=== PATIENT | female | born 1995 | race African-American/Black ===

== ENCOUNTER 2023-11-12 07:47 | Outpatient (CLI) | payer BC, SELFPAY ==
--- NOTE | ~2023-11-12 | US_ITS ---
EXAMINATION: US OB <= 14 weeks fetus INDICATION: N94.89 - Other specified conditions associated with femal... TECHNIQUE: Sonography of the pelvis was performed by transabdominal techniques. COMPARISON: None. RESULT: Uterus: 11.7 x 7.7 x 8.4 cm. Anteverted. Homogenous myometrium. Intrauterine gestational sac: Single present. Yolk sac: Not visualized or not imaged. Embryo: Single present. [place] rump length: 5.02 cm, corresponding gestational age 11 weeks, 5 days. Gestational heart rate: 163 bpm. Subgestational hematoma: Absent . Right ovary: 2.7 x 1.6 x 3.4 cm. Vascular flow is present. No adnexal mass. Left ovary: Not visualized. Pelvis free fluid: None. IMPRESSION: Single, live intrauterine gestation. Estimated Gestational Age: 11 weeks, 5 days by crown rump length. JOANN by ultrasound 05/28/2024. Reviewed, dictated and finalized at location K. IMPRESSION: Single, live intrauterine gestation. Estimated Gestational Age: 11 weeks, 5 days by crown rump length. JOANN by ultra sound 05/28/2024.
== END 2023-11-12 07:48 ==
LOC: MICIMG 07:47
PROVIDERS: PCP Obstetrics & Gynecology; Visit Provider Obstetrics & Gynecology
DX: N94.89 Other specified conditions associated with female genital organs and menstrual cycle (principal); Z3A.11 11 weeks gestation of pregnancy
CPT/HCPCS: 76801

== ENCOUNTER 2024-01-17 08:07 | Outpatient (CLI) | payer BC, SELFPAY ==
--- NOTE | ~2024-01-17 | US_ITS ---
EXAMINATION: US OB /maternal detail DATE: 01/17/2024 08:47 INDICATION: Encounter for supervision of normal . TECHNIQUE: Real-time ultrasound of the pelvis was performed. COMPARISON: Ultrasound 11/12/2023 FINDINGS: There is a single living fetus in vertex presentation. The placenta is anterior, 1.7 cm from the cer vix. heart rate is 148 beats per minute (bpm). The amniotic fluid volume is subjectively normal . The cervix is 3.4 cm on transabdominal images, which is normal. The following biometric data were obtained: Biparietal diameter (BPD): 4.5 cm; head circumference (HC): 19.0 cm; abdominal circumference (AC): 17 .1 cm; femur length (FL): 3.6 cm. These measurements are discordant with low cephalic index. Estimated weight is 444 g +/- 67 g, which correlates with the 75th percentile when 05/28/24 is u sed as estimated date of delivery. As single measurements, these parameters are each equal to the following estimated gestational ages: BPD: 19 weeks 5 days. HC: 21 weeks 2 days. AC: 22 weeks 1 days. FL: 21 weeks 4 days. estimated gestational age based solely on measurements from this exam is 21 weeks 1 days +/- 1 weeks 3 days. The cerebral ventricles, cerebellum, cisterna magna, nuchal fold, and spine are normal. The heart is normal. The diaphragm, stomach, kidneys, and bladder are normal. There are two umbilical arteries to yield a 3-vessel cord. The cord insertion is normal. IMPRESSION: 1. Single living fetus in vertex presentation. 2. Estimated weight is 444 g +/- 67 g, which correlates with the 75th percentile when 05/28/24 is used as estimated date of delivery. This date was set by ultrasound on 11/12/2023. 3. Discordant biometrics with low cephalic index. 4. Normal anatomic survey. Reviewed, dictated and finalized at location B. IMPRESSION: 1. Single living fetus in vertex presentation. 2. Estimated weight is 444 g +/- 67 g, which correlates with the 75th pe rcentile when 05/28/24 is used as estimated date of delivery. This date was set by ultrasound on 11/12/2023. 3. Discordant biometrics with low cephalic index. 4. Normal anatomic survey.
== END 2024-01-17 08:08 | disposition home or self-care (01) ==
LOC: GOSHIMG 08:09
PROVIDERS: PCP Obstetrics & Gynecology; Visit Provider Obstetrics & Gynecology
DX: Z34.90 Encounter for supervision of normal pregnancy, unspecified, unspecified trimester (principal); Z3A.21 21 weeks gestation of pregnancy
CPT/HCPCS: 76805

== ENCOUNTER 2024-03-03 16:20 | Observation (INO) | payer BC, SELFPAY ==
[2024-03-03] VITALS (12 sets, daily range): BP systolic 98–139; BP diastolic 53–76; PULSE 92–103; TEMP 36.6; O2SAT 100; BMI 38.2
--- NOTE | ~2024-03-03 | US_ITS ---
EXAMINATION: US OB limited DATE: 03/03/2024 18:56 INDICATION: ERLIN, Placenta check, decelerations post fall. . TECHNIQUE: Real-time ultrasound of the pelvis was performed. COMPARISON: 01/17/2024 FINDINGS: There is a single living fetus in vertex presentation, longitudinal lie. The placenta is anterior, n ormal in appearance, and 4.1 cm from the cervix. heart rate is 159 bpm. The amniotic fluid inde x is 11.7 cm, which is normal (5th to 95th percentile is 9.5 to 22.6 cm). IMPRESSION: Single living fetus in vertex presentation. Sonographically normal placenta. Normal ERLIN. Reviewed, dictated and finalized at location K. 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
[2024-03-03 16:58] LABS: Add Urine Microscopic? YES; Appearance Urine Cloudy (Clear); Bacteria Urine 1+ /hpf; Bilirubin Urine Negative (Negative); Blood Urine Negative (Negative); Color Urine Yellow (Yellow); Glucose Urine UA Negative (Negative); Ketones Urine Trace mg/dL (Negative); Leukocyte Esterase Ur Trace LEU/UL (Negative); Nitrate Urine Negative (Negative); Non Pathogenic Casts 0-2; Protein Urine Trace mg/dL (Negative); RBC Urine 0-2 /hpf (0-2); Specific Grav Ur 1.019 (1.001-1.035); Squamous Epithelial Cell Urine Moderate /hpf (Few); WBC Urine 0-5 /hpf (0-3)
[2024-03-03] MEDS: CYCLOBENZAPRINE HCL 10 MG TABLET PO (17:19)
--- NOTE | 2024-03-03 18:18 | OBADM ---
This patient, Marina Haddad, admitted to the OB room OB Post 117 for observation. Patient/family oriented to hospital policies and general routines including ID bracelet, bed and alarms, visiting hours, pain management, procedures, bathroom and other care routines, personal items, smoking policy, room service/diet, and visiting hours. Patient/Family are encouraged to report perceived risks to care and to ask questions if they do not understand what they are told or what they should do.
[2024-03-03 20:18] LABS: Hematocrit 32.2 % (37.0-47.0); Hemoglobin 10.3 g/dL (12.0-15.0); Mean Corpuscular Hemoglobin 26.3 pg (26-34); Mean Corpuscular Volume 82.1 fl (80-100); Mean Platelet Volume 12.1 fl (7.4-10.4); Platelet Count Result 254 k/mm3 (150-375); Red Blood Count 3.92 M/mm3 (4.2-5.4); White Blood Count 12.7 K/mm3 (4.5-10.0)
[2024-03-03 20:31] LABS: Alanine Aminotransferase 30 U/L (6-35); Albumin Level 3.4 g/dL (3.5-5.1); Alkaline Phosphatase 98 U/L (38-126); Anion Gap 4 mmol/L (4-12); Aspartate Amino Transferase 29 U/L (14-36); Bilirubin,Total 0.4 mg/dL (0.2-1.3); Blood Urea Nitrogen 8 mg/dL (7-17); Calcium 8.9 mg/dL (8.4-10.2); Carbon Dioxide 23 mmol/L (22-30); Chloride 106 mmol/L (98-107); Estimated CRCL calculation 180 ml/min; Estimated Glomerular Filt Rate > 60; Glucose 77 mg/dL (65-110); Potassium 4.3 mmol/L (3.4-5.0); Sodium 133 mmol/L (137-145)
[2024-03-03 21:01] LABS: INR 1.2
[2024-03-03 21:02] LABS: Partial Thromboplastin Time 26.6 Seconds (22.3-36.8)
[2024-03-03 21:42] LABS: Fibrinogen < 60 mg/dl (215-510)
[2024-03-03 23:23] LABS: Fibrinogen < 60 mg/dl (215-510)
[2024-03-04] VITALS (18 sets, daily range): BP systolic 106–115; BP diastolic 50–59; PULSE 88–102; RESP 16–20; TEMP 36.6; O2SAT 98–100
--- NOTE | 2024-03-04 00:01 | PM.TDS ---
Transfer Discharge Sum: Prov Provider Date of admission: 03/03/24 16:20 Primary care physician: Edilberto Pulido MD Admitting clinician: Edilberto Pulido MD Attending physician on admission: Almita Kerns Consults: [facility] attending: Dr. 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 Status: Acute Transfer Discharge Sum: Med Medications Active and Home Medications: Home Medications vits no.126-ferrous fum 28 mg iron-folic acid 800 mcg tablet (Classic ) tablet PO 11/22/23 [History Confirmed 02/07/24] aspirin 81 mg chewable tablet 81 mg PO DAILY 01/12/24 [History Confirmed 02/07/24] ferrous sulfate 325 mg (65 mg iron) tablet (Iron (ferrous sulfate)) 325 mg PO DAILY #90 tabs 01/12/24 [Rx Confirmed 02/07/24] hydrocortisone 2.5 % topical ointment 1 applic topical BID-TID #20 grams 02/07/24 [Rx Confirmed 02/07/24] Active Medications Dextrose/Lactated Ringer's (Dextrose 5%/Lactated Ringers) 1,000 mls @ 125 mls/hr IV CONT .Q8H ZOILA Magnesium Sulfate (Magnesium Sulf 6 Gm/[id number]) 6 gm in 150 mls @ 300 mls/hr IVPB ONCE ONE Stop: 03/04/24 00:14 Magnesium Sulfate (Magnesium Sulf 20gm/[id number]) 500 mls @ 50 mls/hr IV CONT .Q10H ZOILA Lactated Ringer's (Lr - Lactated Ringers Iv) 1,000 mls @ 75 mls/hr IV CONT .[id number] ZOILA Transfer Discharge Sum: Hosp Hospital Course Hospital course: Marina Haddad is a 28 yo who presented to L&D after a fall onto her left buttock/flank. She was endorsing left groin/back/buttock pains. She did endorse good movement. No vaginal bleeding or leakage of fluid. She was given Flexeril 10mg and Tylenol to help with the pain and plan was to monitor for at least four hours. On arrival, baby was tachycardic but that resolved and her uterus was soft, nontender. However, during that time, multiple severe variables were noted. Therefore, blood work and OB US were performed. Placenta appeared normal with normal ERLIN, cephalic fetus. But her fibrinogen was noted to be less than 60. The fibrinogen level was once again repeated and was also <60. Her INR was slightly elevated at 1.2. She has had some uterine irritability, but heart tones have been more reassuring, no deceleration in over an hour. She initially refused IV and IV fluids. [facility] (Dr. Joaquin) was contacted for consult, but recommended that we transfer her due to her significant hypofibrinogenemia and prematurity. He wanted magnesium sulfate started for prematurity and quiescence. Time Spent with Patient Time attestation: Total time spent providing and/or coordinating transfer services: Exam Const: General: cooperative, healthy appearing, comfortable and no acute distress Resp: Effort & Inspection: normal respiratory effort Cardio: Rate: regular rate GI: Inspection: normal to inspection GI Palp: No abdominal tenderness and Yes Soft to palpation : Other: FHTs: 150's/ min to mod variability/ + accels/ occasional variable (last 2329) -- tracing not contiguous toco: irritability no bleeding Skin: General skin exam: normal color Neuro: General: patient oriented x3 Extrem: General: normal to inspection Psych: Appearance: grossly normal Affect: normal affect DS: Data Data Completed and Pending Labs on day of discharge: Labs from last 24 hours 03/03/24 03/03/24 03/03/24 22:48 20:41 19:53 WBC 12.7 H RBC 3.92 L Hgb 10.3 L Hct 32.2 L MCV 82.1 MCH 26.3 MCHC 32.0 RDW 15.0 H Plt Count 254 MPV 12.1 H PT 15.0 H INR 1.2 APTT 26.6 Fibrinogen < 60 L < 60 L Sodium 133 L Potassium 4.3 Chloride 106 Carbon Dioxide 23 Anion Gap 4 BUN 8 Creatinine 0.60 L Estim Creat Clear Calc 180 Estimated GFR > 60 Glucose 77 Calcium 8.9 Total Bilirubin 0.4 AST 29 ALT 30 Alkaline Phosphatase 98 Total Protein 7.0 Albumin 3.4 L Urine Color Urine Appearance Urine pH Ur Specific [place] Urine Protein Urine Glucose (UA) Urine Ketones Ur Blood (Man) Urine Nitrate Urine Bilirubin Urine Urobilinogen Leukocyte Esterase Rfl Urine RBC Urine WBC Ur Squamous Epith Cells Urine Bacteria Urine Casts 03/03/24 16:47 WBC RBC Hgb Hct MCV MCH MCHC RDW Plt Count MPV PT INR APTT Fibrinogen Sodium Potassium Chloride Carbon Dioxide Anion Gap BUN Creatinine Estim Creat Clear Calc Estimated GFR Glucose Calcium Total Bilirubin AST ALT Alkaline Phosphatase Total Protein Albumin Urine Color Yellow Urine Appearance Cloudy H Urine pH 7.0 Ur Specific [place] 1.019 Urine Protein Trace Urine Glucose (UA) Negative Urine Ketones Trace H Ur Blood (Man) Negative Urine Nitrate Negative Urine Bilirubin Negative Urine Urobilinogen 1.0 Leukocyte Esterase Rfl Trace H Urine RBC 0-2 Urine WBC 0-5 Ur Squamous Epith Cells Moderate Urine Bacteria 1+ H Urine Casts 0-2
[2024-03-04] MEDS: LACTATED RINGERS 1,000 ML 75 ML IV CONT (00:19)
[2024-03-04] MEDS: MAGNESIUM SULF 20GM/WATER500ML 500 ML 50 MG IV CONT (00:20)
--- NOTE | 2024-03-05 10:03 | PCCCNOTE ---
Consult received for patient scored high on OB Substance Abuse Screening; however, pt. was transfer to [place] due to fall was unable to see pt. before transfer.
--- NOTE | 2024-03-05 13:42 | PM.IMHP ---
H&P: HPI History of Present Illness Date/Time: 03/05/24 13:42 Chief Complaint: fall Narrative: Marina Haddad is a 28 yo who presented to L&D after a fall onto her left buttock/flank. She was endorsing left groin/back/buttock pains. She did endorse good movement. No vaginal bleeding or leakage of fluid. She was given Flexeril 10mg and Tylenol to help with the pain and plan was to monitor for at least four hours. On arrival, baby was tachycardic but that resolved and her uterus was soft, nontender. However, during that time, multiple severe variables were noted. Therefore, blood work and OB US were performed. Placenta appeared normal with normal ERLIN, cephalic fetus. But her fibrinogen was noted to be less than 60. The fibrinogen level was once again repeated and was also <60. Her INR was slightly elevated at 1.2. She has had some uterine irritability, but heart tones have been more reassuring, no deceleration in over an hour. She initially refused IV and IV fluids. [facility] (Dr. Joaquin) was contacted for consult, but recommended that we transfer her due to her significant hypofibrinogenemia and prematurity. He wanted magnesium sulfate started for prematurity and quiescence. Review of Systems Review of Systems: All systems reviewed & are unremarkable except as noted in HPI and below (HPI) [facility] Past Medical History Medical History Suppression of menses Family History Family History Grandparent Hypertension Heart disease Breast cancer Diabetes mellitus Other Acute myocardial infarction Social History Social History Smoking status: Never smoker Alcohol intake: former Substance use: former Substance use type: marijuana Do You Feel Safe in your Home?: Yes Lack of Transportation: No Lack of Food: Sometimes True Current Housing: I Have Housing Concerned About Future Housing: No Difficulty Paying Gas/Electric Bills: YES Difficulty Paying for Meds: No Currently Unemployed: No Education: Master's Degree or Higher Difficulty w/ Childcare or Family Care: No Living arrangements: with family Occupation/Education: occupation Gender identity (if verbalized by the patient): Female Meds Home Medications and Allergies Home Medications ?Medication ?Instructions ?Recorded ?Confirmed ?Type vits no.126-ferrous fum tablet PO 11/22/23 02/07/24 History 28 mg iron-folic acid 800 mcg tablet (Classic ) aspirin 81 mg chewable tablet 81 mg PO DAILY 01/12/24 02/07/24 History ferrous sulfate 325 mg (65 mg 325 mg PO DAILY #90 tabs 01/12/24 02/07/24 Rx iron) tablet (Iron (ferrous sulfate)) hydrocortisone 2.5 % topical 1 applic topical BID-TID #20 grams 02/07/24 02/07/24 Rx ointment Allergies Allergy/AdvReac Type Severity Reaction Status Date / Time No Known Allergies Allergy Verified 02/07/24 17:32 Exam Const: General: cooperative, healthy appearing, comfortable and no acute distress Orientation/consciousness: patient oriented x3 Resp: Effort & Inspection: normal respiratory effort Cardio: Rate: regular rate GI: Inspection: normal to inspection : Other: FHTs: 150's/ min to mod variability/ + accels/ occasional variable (last 2329) -- tracing not contiguous toco: irritability no bleeding Skin: General skin exam: normal color Neuro: General: patient oriented x3 Extrem: General: normal to inspection Psych: Appearance: grossly normal Affect: normal affect Assessment and Plan Assessment and plan (1) Fall: Qualifiers: Encounter type: initial encounter Qualified Code(s): W19.XXXA - Unspecified fall, initial encounter Code(s): W19.XXXA - Unspecified fall, initial encounter Status: Acute (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
--- OUTSIDE RECORDS SUMMARY | 2024-03-07 23:39 | XMS_ITS | Encounter Summary ---
Author Organization [facility] Address [address] [place] [address] Care Team Providers Care Certified Pharmacist Assistant Name Role Phone Pepe Shepherd MD Primary Care Provider [phone] Reason for Visit * Reason Onset Date Comments Follow-up 03/05/2024 Encounter Details Date Type Department Care Team (Late st Contact Info) Description 03/05/2024 Telephone [facility] MATERNAL/ EVALUATION UNIT [address] [place] [address] Bonnie Warren RN Follow-up Social History Tobacco Use Types Packs/Day Years Used Date Smoking Tobacco: Never Smokeless Tobacco: Never Overall Financial Resource Strain (CARDIA) Answe r Date Recorded How hard is it for you to pa y for the very basics like food, housing, medical care, and heating? Not very hard 03/04/2024 [facility] [place] [facility] - Occupational Stress Questionnaire Answer Date Recorded Do you feel stress - tense, restless, nervous, or anxious, or unable to sleep at night because your mind is troubled all the time - these days? To some extent 03/04/2024 Hunger Vital Sign Answer Date Recorded Within the past 12 months, y ou worried that your food would run out before you got the money to buy more. Never true Within the past 12 months, t he food you bought just didn't last and you didn't have money to get more. Sometimes true PRAPARE - Transportation Answer Date Re corded In the past 12 months, has l ack of transportation kept you from medical appointments or from getting medications? No 02/18 In the past 12 months, has l ack of transportation kept you from meetings, work, or from getting things needed for daily living? No 03/04/2024 Housing Stability Vital Sign Answer Santhosh e Recorded In the last 12 months, was t here a time when you were not able to pay the mortgage or rent on time? No 03/04/2024 In the past 12 months, how m any times have you moved where you were living? 1 03/04/2024 At any time in the past 12 m [facility], were you homeless or living in a mcc (including now)? No 03/04/2024 Estimated Date of Delivery Comme nts Yes 05/28/2024 Based on last me nstrual period of 08/22/2023 Sex and Gender Information Value Date Recorded Sex Assigned at Not on file Gender Identity Not on file Sexual Orientation Not on file documented as of this encounter Functional Status Functional Status Response Date of Assess ment Is person deaf or have serious hearing difficult y? No 03/04/2024 Is person blind or have serious difficulty seein g? No 03/04/2024 Does person have serious dif ficulty walking/climbing stairs? No 03/04/2024 Does person have difficulty dressing/bathing? No 03/04/2024 Does person have difficulty doing errands alone? No 03/04/2024 Cognitive Status Response Date of Assessm ent Does person have difficulty concentrating/remembering/making decisions? No 03/04/2024 documented as of this encounter Miscellaneous Notes * Telephone Encounter - Bonnie Warren RN - 03/05/2024 10:42 AM CST [employer] message received: Angelina Amato MD sent to Santa Lenz RN Hello, This patient will need transfer of care from [place] to [facility] per Dr. Joaquin. Call placed to Marina Haddad. verified. Desires ELIZABETH to [place] Offered next available [facility] appointment on 03/29/24 at 1030. Patient instructed to keep next growth US appt at [facility] on 03/20 and to keep any furtherappointments with primary OB until March. Patient verbalizes understanding. 3T labs completed with primary OB on 03/02/24, GCT = 98 (results in Care Everywhere). Clinic address/directions provided to patient. Instructed to arrive early to complete registration process. Patient home address confirmed - New patient letter and map mailed to patient. Active [employer] user. Almita @ [facility] notified of appointment date and time. Explained that our [facility] has no openings until March. Agreeable to continue providing care at [facility] until transfer of care to [facility] can be established on 03/29/24. [employer] documented in this encounter Plan of Treatment Upcoming Encounters Date Type Department Care Team (Late st Contact Info) Description 03/20/2024 9:00 AM [employer] Appointment [facility]aternal [facility] [address] [place] [id number] 03/29/2024 10:30 AM ROBOT[employer] MACHINE [employer] Appointment [facility] MATERNAL/ EVALUATION UNIT [address] [place] [address] documented as of this encounter Visit Diagnoses Not on filedocumented in this encounter Care Teams Certified Pharmacist Assistant Relationship Specialty [place] [address] [place] [phone] PCP - General Family Medicine 09/08/12 documented as of this encounter
--- OUTSIDE RECORDS SUMMARY | 2024-03-07 23:39 | XMS_ITS | Encounter Summary ---
Author Organization [facility] Address [address] [place] [address] Care Team Providers Care Surgery Tech Name Role Phone Pepe Shepherd MD Primary Care Provider [phone] Reason for Referral * (Routine) - Pending Review Specialty Diagnoses / Procedures Referred By Contac t Referred To Contact Diagnoses Low-lying placenta in third trimester (HCC) Encounter for anatomic survey (HCC) Encounter for ultrasound to check growth (HCC) Anemia in , second trimester (HCC) Procedures SONOGRAM - COMPLETE Almita Kerns MD [address] [place] [address] Referral ID Status Reason Start Date Expiration Date V isits Requested Visits Authorized [id number] Pending Review 02/10/2024 02/09/2025 1 1 ECTOR RECEIVING * (Routine) - Pending Review Specialty Diagnoses / Procedures Referred By Contac t Referred To Contact Diagnoses Low-lying placenta in third trimester (HCC) Encounter for anatomic survey (HCC) Encounter for ultrasound to check growth (HCC) Anemia in , second trimester (HCC) Procedures SONOGRAM - COMPLETE Almita Kerns MD [address] [place] [address] Referral ID Status Reason Start Date Expiration Date V isits Requested Visits Authorized [id number] Pending Review 02/10/2024 02/09/2025 1 1 ECTOR RECEIVING Reason for Visit * Reason Comments Ultrasound Encounter Details Date Type Department Care Team (Latest Contact Info) Description 02/21/2024 9:37 AM INSPECTOR RECEIVING - 02/21/2024 11:59 PM INSPECTOR RECEIVING Hospital Encounter [facility] [address] [place] [address] Almita Kerns MD [address] [place] [id number] Jordan Lauren DO [address] [place] [address] Discharge Disposition: Home or Self Care Social History Tobacco Use Types Packs/Day Years Used Date Smoking Tobacco: Never Assessed Estimated Date of Delivery Comme nts Yes 05/28/2024 Based on last me nstrual period of 08/22/2023 Sex and Gender Information Value Date Recorded Sex Assigned at Not on file Gender Identity Not on file Sexual Orientation Not on file documented as of this encounter Plan of Treatment Upcoming Encounters Date Type Department Care Team (Late st Contact Info) Description 03/20/2024 9:00 AM INSPECTOR RECEIVING Appointment [facility] [address] [place] [address] 03/29/2024 10:30 AM INSPECTOR RECEIVING Appointment [facility] [address] [place], [place] [id number] documented as of this encounter Procedures Procedure Name Priority Date/Time Associated Diagnosis Comments SONOGRAM - COMPLETE Routine 02/21/2024 9 :58 AM INSPECTOR RECEIVING Low-lying placenta in third trimester (HCC) Encounter for anatomic survey (HCC) Encounter for ultrasound to check growth (HCC) Anemia in , second trimester (HCC) documented in this encounter Results * SONOGRAM - COMPLETE (02/21/2024 9:58 AM INSPECTOR RECEIVING) Linked Results Indication ======== Low-Lying Placenta on Outside Scan Class II Obesity History ====== OB History ? 1 Lab Tests Test ? Date ? Result NIPT ? Low risk Maternal Assessment Physical Exam ??Height 180 cm, 5 ft 11 in. Initial weight 122 kg, 268 lb. Initial BMI 37.38 kg/m? Method ====== Transabdominal and transvaginal ultrasound ========= [place] . Number of fetuses: 1 Dating ====== ? Date ?Details ? Gest. age ? JOANN LMP ?08/22/2023 ?26 w + 1 d ?05/28/2024 U/S ?02/21/2024 ? based upon AC, BPD, Femur, HC ? 26 w + 4 d ?05/25/2024 Assigned dating based on the LMP, selected on 02/21/2024 ?26 w + 1 d ?05/28/2024 General Evaluation Cardiac activity present. FHR 149 bpm. Presentation: cephalic Placenta: Placental site: anterior no previa not low lying. Placental emkt-[id number]-[id number] os distance 47 mm Umbilical cord: Cord vessels: 3 vessel cord. Insertion site: normal insertion Amniotic fluid: Amount of AF: normal. MVP 7.0 cm Biometry BPD ?63.4 ?mm ?25w 5d ??24% ? Hadlock HC ? 241.1 ?? mm ?26w 1d ??26% ? Hadlock Cerebellum tr ?29.6 ?mm ?48% ? [place] AC ? 219.2 ?? mm ?26w 3d ??49% ? Hadlock Femur ?52.5 ?mm ?28w 0d ??86% ? Hadlock Humerus ?49.0 ?mm ?28w 6d ??97% ? [place] HC / AC ?1.10 Weight Calculation: EFW ?994 ? g ? 69% ? Hadlock EFW (lb,oz) ?2 lb 3 ??oz EFW by ? Hadlock ([id number]) Head / Face / Neck Biometry: Cephalic index ? 0.73 ?4% ?Nicolaides appropriate Growth Overview Exam date ?GA ?BPD (mm) ?HC (mm) AC (mm) FL (mm) HL (mm) EFW (g) 02/21/2024 ?26w 1d ??63.4 ?24% ? 241.1 ?? 26% ? 219.2 ?? 49% ? 52.5 ?86% ? 49 ?97% ? 994 ? 69% Anatomy The following structures appear normal: Head / Neck ?Cranium. Lateral ventricles. Choroid plexus. Midline falx. Cavum septi pellucidi. Cerebellum. Cisterna magna. Face ? Lips. Heart / Thorax 4-chamber view. RVOT view. LVOT view. 3-vessel view. 0-nwhlqk-xtluinf view. Situs. Aortic arch view. Bicaval view. Ductal arch view. Great ? vessels. ? Right lung. Left lung. Diaphragm. Abdomen ?Cord insertion. Stomach. Kidneys. Bladder. Genitals. Spine ?Cervical spine. Thoracic spine. Lumbar spine. Sacral spine. Extremities / Skeleton Arms. Hands. Legs. Feet. The following structures could not be adequately visualized: Face ? Profile. Nose. sex: male. Maternal Structures Cervix ? Normal ? Approach - Transvaginal: Cervical length 3.70 cm ? Funneling absent Right Ovary ?Not visualized Left Ovary ? Not visualized Impression ========= Here today for placental location due to previously noted low-lying placenta at an outside facility. She had opted for NIPT which was reported as low risk. Single live intrauterine at 26w 1d in cephalic presentation The JOANN is 05/28/2024 size is appropriate for the established gestational age The amniotic fluid volume: normal Transvaginal cervical length appears normal measuring 3.7 cm long and closed. No funneling Normal appearing anterior placenta. No evidence of a low lying placenta nor previa No major malformations were seen within the limitations of ultrasound. But certain structures remains suboptimally visualized. Comment ======== Normal appearing anterior placenta no evidence of a previa or low-lying placenta. The placental edge measures 47 mm from the internal cervical os via transvaginal ultrasound. No evidence of a vasa previa. This is a common phenomenon for a low-lying placenta or previa to spontaneous resolve with advancing gestation with the development of the lower uterine segment which will enable one to better delineate the placental edge from the internal cervical os. Therefore no further need for previa precautions or pelvic rest. Although a complete anatomical survey was not performed due to advanced gestation and positioning along with maternal acoustic properties which limited the overall study, no gross abnormalities were noted. However certain structures remains suboptimally visualized due to these limitations. Both ultrasound and screening/testing have their limitations in detecting all congenital anomalies and chromosomal abnormalities/inh erited disorders or genetic syndromes. Follow-up ======== To return in 4 weeks for growth and to complete anatomic survey. Due to increased BMI greater than 35 potential for poor outcome will recommend continuation of serial growth ultrasounds every 4-6 weeks after the next visit and to initiate weekly BPP without NST at 36 weeks sooner if clinically warranted. Thank you for allowing us to partake in your patient's care. Coding ====== Procedures ? 85293: US Preg Uterus Detailed ? 66799: US Preg Uterus Transvaginal Clarient PACS Anatomical Region Laterality Modality Other 02/21/2024 9:58 AM INSPECTOR RECEIVING Almita Kerns MD [facility] ORDERABLES documented in this encounter Visit Diagnoses Diagnosis Low-lying placenta in third trimester (HCC)- Primary Encounter for anatomic survey (HCC) Encounter for anatomic survey Encounter for ultrasound to check growth (HCC) Anemia affecting in third trimester (HCC) Anemia in , second trimester (HCC) 26 weeks gestation of (HCC) state, incidental documented in this encounter Care Teams Surgery Tech Relationship Specialty Start Date End Date Pepe Shepherd MD [address] [place] [id number] PCP - General Family Medicine 09/08/12 documented as of this encounter
--- OUTSIDE RECORDS SUMMARY | 2024-03-07 23:39 | XMS_ITS | Patient Health Summary ---
Author Organization [facility] Address [address] [place] [address] Care Team Providers Care Harness Cutter Name Role Phone Pepe Shepherd MD Primary Care Provider [phone] Note [address] [facility],non-owned Affiliates and Associated Physician Practices is amultiple site organization consisting of ambulatory clinics and hospital sitesin [place], [place], [place] and [place]. This disclosure is being madepursuant to the Care Everywhere program and may not contain all information available regarding this patient. Last updated 17.[facility] Allergies No known active allergies Medications * Be aware that medications may not be up to date on this document. Alwaysverify current medications with the patient. 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 Not very hard 03/04/2024 [facility] [place] [facility] Occup[facility] - Occupational Stress [...] any time in the past 12 m [facility], were you homeless or living in a correction (including now)? No 03/04/2024 Estimated Date of Delivery Comme nts Yes 05/28/2024 Based on last me nstrual period of 08/22/2023 Sex and Gender Information Value Date Recorded Sex Assigned at Not on file Gender Identity Not on file Sexual Orientation Not on file Last Filed Vital Signs Vital Sign Reading Time Taken Comments Blood Pressure 128/70 03/04/2024 7:15 AM SUPPORT SERVICES SPECIALIST Pulse 94 04/01/2020 5:31 PM SUPPORT SERVICES SPECIALIST Temperature 37.1 ??C (98.8 ??F) 03/04/2024 7:15 AM CS T Respiratory Rate 20 03/04/2024 7:15 AM SUPPORT SERVICES SPECIALIST Oxygen Saturation 99% 03/04/2024 7:10 AM SUPPORT SERVICES SPECIALIST Inhaled Oxygen Concentration - - Weight 137.7 kg (303 lb 8 oz) 03/04/2024 1:49 AM SUPPORT SERVICES SPECIALIST Height 182.9 cm (6') 03/04/2024 1:49 AM SUPPORT SERVICES SPECIALIST Body Mass Index 41.16 03/04/2024 1:49 AM SUPPORT SERVICES SPECIALIST Procedures * TYPE + SCREEN PANEL(Performed 03/04/2024) * COAGULATION PANEL W D-DIMER(Performed 03/04/2024) * COMPREHENSIVE METABOLIC PANEL(Performed 03/04/2024) * CBC W AUTO DIFFERENTIAL(Performed 03/04/2024) * SONOGRAM - COMPLETE(Performed 02/21/2024) Performed for Low-lying placenta in third trimester ([facility]), Encounter for anatomic survey ([facility]), Encounter for ultrasound to check growth ([facility]), Anemia in , second trimester ([facility]) * VARICELLA ZOSTER ANTIBODY IGG(Performed 07/02/2021) Performed for Immunity status testing * MMR IMMUNITY PROFILE(Performed 07/02/2021) Performed for Immunity status testing * CARDIAC EKG ORDER(Performed 09/11/2012) * CARDIAC EKG ORDER(Performed 09/08/2012) * DRUG ABUSE URINE PANEL(Performed 09/08/2012) * EKG 15-LEAD(Performed 09/08/2012) Performed for Chest Pain, Shortness of breath Results * TYPE + SCREEN PANEL (03/04/2024 3:25 AM SUPPORT SERVICES SPECIALIST) Pathologist [facility] [place] ABO Rh O POS 03/04/2024 5:06 AM SUPPORT SERVICES SPECIALIST [facility] Comment:No history; collect retype. Antibody Screen NEG 5:06 AM [facility] Blood Bank BLOOD SPECIMEN / Unknown Venipuncture / Unknown 03/04/2024 3:25 AM SUPPORT SERVICES SPECIALIST 03/04/2024 3:40 AM SUPPORT SERVICES SPECIALIST Rolly Joaquin MD LAB - BLOOD BANK ORD ERABLES [facility] [address] [place] [address] * (ABNORMAL) COAGULATION PANEL W D-DIMER (03/04/2024 3:25 AM SUPPORT SERVICES SPECIALIST) PT 15.6(H) 12.1 - 14.8 sec 03/04/2024 4:20 AM SUPPORT SERVICES SPECIALIST [facility] INR 1.3(H) 0.9 - 1.1 03/04/2024 4:20 AM SUPPORT SERVICES SPECIALIST [facility] PTT 25.3 23.0 - 38.4 sec 03/04/2024 4:20 AM [facility] Fibrinogen 646(H) 200 - 400 mg/dL 03/04/2024 4:20 AM [facility] D-Dimer 0.49 0.27 - 0.50 ug/mL FEU 03/04/2024 4:20 AM [facility] Platelet Count 248 150 - 420 x10E9/L 03/04/2024 4:20 AM [facility] Blood BLOOD SPECIMEN / Unknown Venipuncture / Unknown 03/04/2024 3:25 AM SUPPORT SERVICES SPECIALIST 03/04/2024 3:40 AM [facility] Narrative [facility] - 03/04/2024 4:20 AM [facility] Conventional Warfarin Anticoagulant Therapy INR Reference Range: ??2.0-3.0 Intensive Warfarin Anticoagulant Therapy INR Reference Range: ? 2.5-3.5 Heparin Therapeutic Range for PTT: ??69.0 - 110.0 seconds. In the absence of clinical symptoms, a value less than or equal to 0.5 mcg/mL FEU significantly decreases the probability of PE/DVT (negative predictive value >95%). 1 mcg/ml FEU = 1 Fibrinogen Equivalent Unit (approximates 0.5 mcg/mL of D- dimer). ?ISTH DIAGNOSTIC SCORING SYSTEM FOR DIC ---- Score ?0 ? 1 ? 2 ? 3 ?? Platelet Count (x10^3/uL) ?> 100 ? <100 ? < 50 ?N/A PT Prolongation above ? Upper limit of normal ?0-3 ? 3-6 ? > 6 ?N/A Range (seconds) ? Fibrinogen (mg/dL) ? >100 ?< 100 ? N/A ?N/A ?? D-Dimer (mcg/mL FEU) ?< 0.50 ? N/A ?0.50-5.0 ?> 5 ?? Calculate Cumulative Score: > or = 5: compatible with overt DIC ? < 5: suggestive for non-overt DIC N/A = Non applicable Reference: Br. J. Haematol. ??145:24-33. Rolly Joaquin MD LAB - COAGULATION OR DERABLES [facility] [address] [place] [address] * (ABNORMAL) CBC W AUTO DIFFERENTIAL (03/04/2024 3:25 AM SUPPORT SERVICES SPECIALIST) WBC 13.5(H) 4.0 - 10.7 x10E9/L 03/04/2024 3:45 AM [facility] RBC Count 3.93 3.90 - 5.20 x10E12/L 03/04/2024 3:45 AM [facility] Hemoglobin 10.0(L) 11.9 - 15.8 g/dL 03/04/2024 3:45 AM [facility] Hematocrit 31.6(L) 34.8 - 46.1 % 03/04/2024 3:45 AM [facility] MCV 80.4 80.0 - 98.0 fL 03/04/2024 3:45 AM [facility] MCH 25.4(L) 26.7 - 33.6 pg 03/04/2024 3:45 AM [facility] MCHC 31.6(L) 31.7 - 36.3 g/dL 03/04/2024 3:45 AM [facility] RDW-CV 14.8 11.3 - 14.8 % 03/04/2024 3:45 AM [facility] Platelet Count 270 150 - 420 x10E9/L 03/04/2024 3:45 AM [facility] MPV 11.5(H) 7.8 - 11.4 fL 03/04/2024 3:45 AM [facility] Neutrophil % 73.5 41.0 - 74.0 % 03/04/2024 3:45 AM [facility] Lymphocyte % 17.4 17.0 - 47.0 % 03/04/2024 3:45 AM [facility] Monocyte % 7.8 3.0 - 11.0 % 03/04/2024 3:45 AM [facility] Eosinophil % 0.3 0.0 - 7.0 % 03/04/2024 3:45 AM [facility] Basophil % 0.2 0.0 - 1.6 % 03/04/2024 3:45 AM [facility] Immature Granulocytes % 0.8 0.0 - 1.0 % 03/04/2024 3:45 AM [facility] Neutrophil Absolute 9.94(H) 1.60 - 7.50 x10E9/L 03/04/2024 3:45 AM [facility] Lymphocyte Absolute 2.35 1.00 - 4.40 x10E9/L 03/04/2024 3:45 AM [facility] Monocyte Absolute 1.06(H) 0.15 - 1.00 x10E9/L 03/04/2024 3:45 AM [facility] Eosinophil Absolute 0.04 0.00 - 0.60 x10E9/L 03/04/2024 3:45 AM [facility] Basophil Absolute 0.03 0.00 - 0.13 x10E9/L 03/04/2024 3:45 AM [facility] Blood BLOOD SPECIMEN / Unknown Venipuncture / Unknown 03/04/2024 3:25 AM SUPPORT SERVICES SPECIALIST 03/04/2024 3:40 AM [facility] Rolly Joaquin MD LAB - HEMATOLOGY ORD ERABLES [facility] [address] [place] [address] * (ABNORMAL) COMPREHENSIVE METABOLIC PANEL (03/04/2024 3:25 AM [facility]) [facility] Glucose 91 70 - 99 mg/dL 03/04/2024 3:59 AM [facility] Sodium 134(L) 136 - 145 mmol/L 03/04/2024 3:59 AM [facility] Potassium 3.4(L) 3.5 - 5.1 mmol/L 03/04/2024 3:59 AM [facility] Chloride 105 98 - 107 mmol/L 03/04/2024 3:59 AM [facility] CO2 22 22 - 29 mmol/L 03/04/2024 3:59 AM [facility] Calcium 8.5 8.4 - 10.4 mg/dL 03/04/2024 3:59 AM [facility] Anion Gap 7 6 - 16 mmol/L 03/04/2024 3:59 AM [facility] BUN 5(L) 5.3 - 18.7 mg/dL 03/04/2024 3:59 AM [facility] Creatinine 0.63 0.57 - 1.11 mg/dL 03/04/2024 3:59 AM [facility] Alkaline Phosphatase 92 40 - 150 U/L 03/04/2024 3:59 AM [facility] ALT 22 0 - 55 U/L 03/04/2024 3:59 AM [facility] AST 15 5 - 34 U/L 03/04/2024 3:59 AM [facility] Protein Total 7.1 6.4 - 8.3 gm/dL 03/04/2024 3:59 AM [facility] Albumin 2.3(L) 3.4 - 5.0 gm/dL 03/04/2024 3:59 AM [facility] Bilirubin Total 0.2 0.2 - 1.2 mg/dL 03/04/2024 3:59 AM [facility] eGFR by CKD-EPI >90 >=90 mL/min/1.7 3 m2 03/04/2024 3:59 AM [facility] Blood BLOOD SPECIMEN / Unknown Venipuncture / Unknown 03/04/2024 3:25 AM SUPPORT SERVICES SPECIALIST 03/04/2024 3:40 AM [facility] Rolly Joaquin MD LAB - CHEMISTRY DAVID MONTES [facility] [address] [place] [address] * SONOGRAM - COMPLETE (02/21/2024 9:58 AM [facility]) Linked Results Indication ======== Low-Lying Placenta on [...] anterior no previa not low lying. Placental uezk-vo-lgtcqcea os distance 47 mm Umbilical cord: Cord [...] lb 3 ??oz EFW by ? [facility] ([id number]) Head / Face / Neck Biometry: Cephalic [...] view. RVOT view. LVOT view. 3-vessel view. 8-xmnkmm-lcndoun view. Situs. Aortic arch view. Bicaval view. [...] your patient's care. Coding ====== Procedures ? 83425: US Preg Uterus Detailed ? 95469: US Preg Uterus [facility] [place] PACS Anatomical Region Laterality Modality Other 02/21/2024 9:58 AM SUPPORT SERVICES SPECIALIST Almita Kerns MD [facility] ORDERABLES * MMR IMMUNITY PROFILE (07/02/2021 3:40 PM CDT) Measles (Rubeola) Antibody IgG 237.00 AU/mL [facility] Comment: AU/mL ?Interpretation ----- ? <13.50 ? Not consistent with immunity 13.50-16.49 ?Equivocal >16.49 ? Consistent with immunity The presence of measles IgG suggests immunization or past or current infection with measles virus. For additional information, please refer to http://education.Screenleap/faq/IWJ808 (This link is being provided for informational/ educational purposes only.) Mumps Virus Antibody IgG 151.00 AU/mL [facility] Comment: AU/mL ? Interpretation ------- ? <9.00 ? Not consistent with immunity 9.00-10.99 ?Equivocal >10.99 ?Consistent with immunity The presence of mumps IgG antibody suggests immunization or past or current infection with mumps virus. Rubella Antibody 7.06 Index [facility] Comment: ?Index ?Interpretation ?----- ?<0.90 ?Not consistent with immunity ?0.90-0.99 ?Equivocal ?> or = 1.00 ?Consistent with immunity The presence of rubella IgG antibody suggests immunization or past or current infection with rubella virus. Test Performed at: [facility] [address] [place], [place] ??[phone] ZULLY MALLORY DO,MPH Blood BLOOD SPECIMEN / Unknown 07/02/2021 3:40 PM CDT 07/03/2021 12:22 AM CDT Kristi Conley MD LAB - SEROLOGY ORDER JAYNE Performing Organization Address [facility]/ZIP Co de Phone Number [facility] [address] [place] [address] * VARICELLA ZOSTER ANTIBODY IGG (07/02/2021 3:40 PM CDT) Varicella zoster Virus Antibody IgG 811.10 index [facility] Comment: ? Index ? Interpretation ? --------- ?<135.00 ?Negative - Antibody not detected ?135.00 - 164.99 ?Equivocal ?> or = 165.00 ?Positive - Antibody detected ?A positive result indicates that the patient ?has antibody to VZV but does not differentiate ?between an active or past infection. ?The clinical diagnosis must be interpreted in ?conjunction with the clinical signs and symptoms of ?the patient. This assay reliably measures immunity ?due to previous infection but may not be ?sensitive enough to detect antibodies induced by ?vaccination. Thus, a negative result in a vaccinated ?individual does not necessarily indicate ?susceptibility to VZV infection. A more sensitive ?test for vaccination-induced immunity is Varicella ?Zoster Virus Antibody Immunity Screen, ACIF. Test Performed at: Going [facility] [address] [place], [place] ??[phone] ZULLY MALLORY DO,MPH Blood BLOOD SPECIMEN / Unknown 07/02/2021 3:40 PM CDT 07/03/2021 12:22 AM CDT Kristi Conley MD LAB - CHEMISTRY ORDBimal [facility] [address] [place] [address] * CARDIAC EKG ORDER (09/11/2012 1:38 PM CDT) Only the most recent of2 resultswithin the time period is included. Narrative 09/11/2012 1:38 PM CDT A scan was deleted from the Results section by S Interface [[id number]] on 09/11/2012 at ??1:38 PM (File: [id number]) Transcriptions Document, Scanned - 09/11/2012 1:38 PM CDT Scanned Document CARDIAC SERVICES ORD ERABLES * DRUG ABUSE URINE PANEL (09/08/2012 4:28 AM CDT) Amphetamines Screen Urine Not Detected Not Detected 09/08/2012 4:50 AM CDT [facility] Barbiturates Screen Urine Not Detected Not Detected 09/08/2012 4:50 AM T [facility] Benzodiazepines Screen Urine Not Detected Not Detected 09/08/2012 4:50 AM T [facility] Cannabinoids Screen Urine Not Detected Not Detected 09/08/2012 4:50 AM T [facility] Cocaine Screen Urine Not Detected Not Detected 09/08/2012 4:50 AM T [facility] Opiate Screen Urine Not Detected Not Detected 09/08/2012 4:50 AM T [facility] Phencyclidine Screen Urine Not Detected Not Detected 09/08/2012 4:50 AM T [facility] Urine specimen (specimen) URINE / Unknown 09/08/2012 4:28 AM CDT 09/08/2012 4:36 AM CDT Narrative [facility] - 09/08/2012 4:50 AM CDT Medical urine drug screening is only a qualitative method. A Negative result does not prove the absence of a drug or a drug metabolite. The screening methods used are subject to cross-reactivity from other prescription and nonprescription drugs and should be interpreted carefully along with other pertinent clinical information. Drug Screening Test Cutoff Values: AMPHETAMINES ? 1000 ng/ml BARBITURATES ?200 ng/ml BENZODIAZEPINES ? 200 ng/ml CANNABINOIDS (THC) ?? 50 ng/ml COCAINE ? 300 ng/ml OPIATES ? 300 ng/ml PHENCYCLIDINE (PCP) ??25 ng/ml Emanuel Mas DO LAB - URINE CH EMISTRY ORDERABLES Performing Organization Address [facility] Co de Phone Number [facility] [address] [facility] [place] [place] [address] * EKG 15-LEAD (09/08/2012 3:50 AM CDT) Ventricular Rate 88 BPM [facility] Atrial Rate 88 BPM [facility] P-R Interval 178 ms [facility] QRS Duration ms 86 ms [facility] Q-T Interval ms 368 ms [facility] QTC Calculation (Bezet) 445 ms [facility] MUSE Calculated P [place] 58 degrees CG MUSE Calculated R [place] 65 degrees CG MUSE Calculated T [place] 47 degrees [facility] Interpretation EKG Normal sinus rhythm Possible Left atrial enlargement Borderline ECG No previous ECGs available Confirmed by MD Nik, Kimmy ([id number]) on 09/11/2012 1:37:16 PM [facility] 09/08/2012 3:50 AM CDT 09/11/2012 1:37 PM CDT Narrative [facility] - 09/11/2012 1:38 PM CDT Procedure Note Document, Scanned - 09/08/2012 8:10 AM CDT Transcriptions Document, Scanned - 09/11/2012 1:38 PM CDT Emanuel Mas DO ECG ORDERABLES Performing Organization Address City/[facility]/ZIP Co de Phone Number [facility] Care Teams Harness Cutter Relationship Specialty Start Date End Date Pepe Shepherd MD [address] [place] [phone] PCP - General Family Medicine 09/08/12
--- OUTSIDE RECORDS SUMMARY | 2024-03-07 23:39 | XMS_ITS | Encounter Summary ---
Author Organization [facility] Address [address] [place] [place] [address] Care Team Providers Care Certified Vehicle Fire Investigator Name Role Phone Pepe Shepherd MD Primary Care Provider Reason for Visit * Reason Comments Fall Pt reports falling o nto left hip/flank earlier today while doing laundry. * Auth/Cert (Routine) Specialty Diagnoses / Procedures Referred By Contac t Referred To Contact Diagnoses Fall Referral ID Status Reason Start Date Expiration Date Visits Re quested Visits Authorized [id number] 1 1 Encounter Details Date Type Department Care Team (Latest Contact Info) Description 03/04/2024 1:43 AM ELECTROPLATING WORKER - 03/04/2024 11:45 AM ELECTROPLATING WORKER Hospital Encounter [facility] 5E ANTEPARTUM/MOTHER BABY [address] [place] [address] Rolly Joaquin MD [address] [facility] [address] [place] [address] Maternal Medicine Discharge Disposition: Home or Self Care Social History Tobacco Use Types Packs/Day Years Used Date Smoking Tobacco: Never Smokeless Tobacco: Never Tobacco Cessation:Counseling Given: Not Answered Overall Financial Resource Strain (CARDIA) Answe r Date Recorded How hard is it for you to pa y for the very basics like food, housing, medical care, and heating? Not very hard 03/04/2024 [facility] Occupat ional Health - Occupational Stress [...] any time in the past 12 m [facility], were you homeless or living in a fci (including now)? No 03/04/2024 Estimated Date of Delivery Comme nts Yes 05/28/2024 Based on last me nstrual period of 08/22/2023 Sex and Gender Information Value Date Recorded Sex Assigned at Not on file Gender Identity Not on file Sexual Orientation Not on file documented as of this encounter Last Filed Vital Signs Vital Sign Reading Time Taken Comments Blood Pressure 128/70 03/04/2024 7:15 AM ELECTROPLATING WORKER Pulse - - Temperature 37.1 ??C (98.8 ??F) 03/04/2024 7:15 AM CS T Respiratory Rate 20 03/04/2024 7:15 AM ELECTROPLATING WORKER Oxygen Saturation 99% 03/04/2024 7:10 AM ELECTROPLATING WORKER Inhaled Oxygen Concentration - - Weight 137.7 kg (303 lb 8 oz) 03/04/2024 1:49 AM ELECTROPLATING WORKER Height 182.9 cm (6') 03/04/2024 1:49 AM ELECTROPLATING WORKER Body Mass Index 41.16 03/04/2024 1:49 AM ELECTROPLATING WORKER documented in this encounter Functional Status Functional Status Response [...] No 03/04/2024 documented as of this encounter Medications at Time of Discharge Medication Sig Dispensed Refills Start Date End Date potassium chloride ER (K-TAB) 20 MEQ tablet Take 2 (two) tablets by mouth once daily 8 tablet 03/04/2024 documented as of this encounter Progress Notes * Nohelia Bartlett RN - 03/04/2024 12:13 PM CST Problem: Pain/Discomfort Goal: Patient exhibits reduced pain/discomfort as evidenced by pain scores Outcome: Adequate for Discharge Goal: Patient uses pharmacological and non-pharmacological pain management strategies. Outcome: Adequate for Discharge Goal: Patient verbalizes acceptable level of pain relief and ability to engage in desired activity. Outcome: Adequate for Discharge Problem: Fall Risk Goal: Fall risk and fall related injury risk are minimized (Interventions related to the fall risk can be found in the flowsheet documentation) Outcome: Adequate for Discharge Discharged home in stable condition at 1145. TROPLATING WORKER documented in this encounter H&P Notes * Raj Calvo MD - 03/04/2024 3:05 AM CST PGY4 Obstetric H&P Note 03/04/2024, 3:16 AM CC: transfer for decreased fibrinogen HPI: 28 year old at 27w6d gestation Dating: LMP c/w 1st trimester ultrasound Estimated Date of Delivery: 05/28/24 care: is with [facility] Patient's is complicated by: Patient Active Problem List Diagnosis Date Noted Decreased fibrinogen (HCC) 03/04/2024 Priority: Not Prioritized Patient presents as transfer from [facility] due to low fibrinogen. Patient presented to [facility] following fall at home. Patient reports that around 4PM she fell while getting up from the couch. She slipped on a towel and fell onto her left hip. Following the fall she reports severe lower back pain and pain that radiated down her left leg. Pain was constant and a 10/10 in severity. She denies hitting her abdomen or any other part of her body. She denies vaginal bleeding, leakage of fluid, decreased movement. During evaluation at [facility] coagulation panel was completed that demonstrated fibrinogen less than 60. On presentation to [facility] patient reports leg pain has completely resolved and lower back pain is improved to 8/10. 10-Point ROS was performed, NEGATIVE for headache, fever, vision changes, chest pain, shortness of breath, nausea, vomiting, diarrhea, constipation, dysuria, pruritic or malodorous vaginal discharge,abnormal vaginal bleeding, rashes, joint pain, calf pain, myalgias, bleeding disorders and clottingdisorders) Medical History: Past Medical History: Diagnosis Date History of anemia She denies history of hypertension, diabetes, asthma, bleeding disorders and clotting disorders. Psych History: Depression: denies Anxiety: positive, controlled Bipolar disorder: denies Schizophrenia: denies Surgeries: No past surgical history on file. Allergies: No Known Allergies Current Medications: Prior to Admission medications Not on File Family History Problem Relation Name Age of Onset Hypertension Mother Cancer - Cervical Mother Cancer - Breast Maternal Grandmother Cancer - Breast Maternal Aunt No history of infants born with defects No history of family members with bleeding disorders or history of blood clots. No history of ovarian, or uterine cancer Obstetrical History: OB History Para Term AB Living 1 SAB IAB Ectopic Multiple Live Births # Outcome Date GA Lbr Nacho/2nd Weight Sex Type Anes PTL Lv 1 Current Gynecologic History: History of abnormal pap smear: denies History of procedure on cervix: denies STI History: History of chlamydia last year. Denies gonorrhea, trichomonas, herpes, HIV, syphilis Social History: Social History Smoking status: Never Smokeless tobacco: Never Alcohol use: Not on file Drug use: Not Current* Sexual activity: Not on file Objective: BP 123/74 (BP Location: Right arm, Patient Position: Sitting, BP Cuff Size: Adult) Temp 99 ??F (37.2 ??C) (Oral) Resp 18 Ht 1.829 m (6') Wt (!) 137.7 kg (303 lb 8 oz) SpO2 99% Patient Vitals for the past 24 hrs: Temp Resp BP SpO2 03/04/24 0149 99 ??F (37.2 ??C) 18 123/74 99 % Electronic Monitoring - 135bpm, moderate variability, reactive, no decelerations, no contractions Physical Exam General: no acute distress, alert and oriented Eyes: sclera white, extraocular eye movements intact Lungs: breathing comfortably on room air Abdomen: gravid, soft, non-tender Neuro: cranial nerves and motor function grossly intact Lower extremities: non-tender calves with no edema bilaterally Psych: appropriate affect Skin: warm, dry, intact Sterile speculum exam: No bleeding noted Cervical Exam Dilation (cm): Closed Effacement: 0 Station: -3 Pelvimetry: Diagonal conjugate reached: No Ischial Spines prominent: No Suprapubic arch, narrow: No Pelvic sidewalls divergent: Yes Gynecoid pelvis: Yes Bedside ultrasound: Presentation: vertex Placenta: anterior, possible low lying, no abnormalities noted Amniotic fluid index: 13 cm EFW: 1212 gm Current Lab Review: No results found for this visit on 03/04/24. Assessment/Plan: 28 year old at 27w6d gestation, with Decreased fibrinogen - less than 60 at outside hospital - PT-INR mildly elevated at OSH - repeat fibrinogen 646, PT-INR mildly elevated at 15.6 and 1.3 respectively - continue to monitor Fall - fall on left hip, initially with severe back pain and left leg pain, now improved - ultrasound with no placental abnormalities noted - no vaginal bleeding on exam, cervix closed - variable decelerations on monitoring at OSH, trace here reassuring without decelerations - given labs as noted above and normal exam, no concern for placental abruption at this time Possible low lying placenta - patient mentioned during initial interview that she was told she had a low lying placenta on early ultrasound was recently told had resolved - on BSUS today placenta appears to remain low lying - in setting of no vaginal bleeding, no further intervention at this time, formal ultrasound or repeat ultrasound with transvaginal if any concern. Supervision of - care with [facility] - O+/I/-/- NR - SCT negative - GCT: 98, remainder of 3T labs wnl - patient reports she is taking ASA 162mg per primary OB due to family history of cHTN, denies personal history of HTN Disposition: admit to [facility] for continuous monitoring and serial labs Discussed with Dr. Emani Calvo MD 03/04/2024 3:16 AM TROPLATING WORKER Associated attestation - Rolly Joaquin MD - 03/04/2024 10:40 AM ELECTROPLATING WORKER MFM Attending I have seen, evaluated and examined the patient with Dr. Quarles. I agree with the above assessment, exams and plans. Exam: BP 128/70 (BP Location: Right arm, Patient Position: Lying, BP Cuff Size: Adult) Temp 98.8 ??F (37.1 ??C) (Axillary) Resp 20 Ht 1.829 m (6') Wt (!) 137.7 kg (303 lb 8 oz) SpO2 99% Gen - NAD Abd - NT Ext - NT, no edema FHTs - reassuring/reactive [place] - no ctxs I have the following to add to the plan: labs much more reassuring OK for DC home Will follow [facility] as outpatient and obtain heme consult if needed Pt desires [facility] care/delivery 0 will communicate with primary OB office Rolly Joaquin MD [facility] documented in this encounter Plan of Treatment Upcoming Encounters Date Type Department Care Team (Late st Contact Info) Description 03/20/2024 9:00 AM ELECTROPLATING WORKER Appointment [facility] Women's Health Maternal & Care [address] [place] [id number] 03/29/2024 10:30 AM ELECTROPLATING WORKER Appointment [facility] MATERNAL/ EVALUATION UNIT [address] [place] [address]. [address] [place] [address] documented as of this encounter Procedures Procedure Name Priority Date/Time Associated Diagnosis Comments TYPE + SCREEN PANEL STAT 03/04/2024 3 :25 AM ELECTROPLATING WORKER COAGULATION PANEL W D-DIMER STAT 03/04/2024 3:25 AM ELECTROPLATING WORKER CBC W AUTO DIFFERENTIAL STAT 03/04/2024 3:25 AM ELECTROPLATING WORKER COMPREHENSIVE METABOLIC PANEL STAT 03/04/2024 3:25 AM ELECTROPLATING WORKER documented in this encounter Results * (ABNORMAL) COAGULATION PANEL W D-DIMER (03/04/2024 3:25 AM ELECTROPLATING WORKER) [facility] PT 15.6(H) 12.1 - 14.8 sec 03/04/2024 4:20 AM [facility] INR 1.3(H) 0.9 - 1.1 03/04/2024 4:20 AM [facility] PTT 25.3 23.0 - 38.4 sec 03/04/2024 4:20 AM [facility] Fibrinogen 646(H) 200 - 400 mg/dL 03/04/2024 4:20 AM [facility] D-Dimer 0.49 0.27 - 0.50 ug/mL FEU 03/04/2024 4:20 AM [facility] Platelet Count 248 150 - 420 x10E9/L 03/04/2024 4:20 AM [facility] Blood BLOOD SPECIMEN / Unknown Venipuncture / Unknown 03/04/2024 3:25 AM ELECTROPLATING WORKER 03/04/2024 3:40 AM [facility] - 03/04/2024 4:20 AM [facility] Conventional Warfarin Anticoagulant Therapy INR Reference Range: [...] Unit (approximates 0.5 mcg/mL of D- dimer). ?IS DIAGNOSTIC SCORING SYSTEM FOR DIC ---- Score [...] Joaquin MD LAB - COAGULATION OR DERABLES [facility] [address] [place] [address] * (ABNORMAL) COMPREHENSIVE METABOLIC PANEL (03/04/2024 3:25 AM ELECTROPLATING WORKER) Glucose 91 70 - 99 mg/dL 03/04/2024 3:59 AM [facility] Sodium 134(L) 136 - 145 mmol/L 03/04/2024 3:59 AM [facility] Potassium 3.4(L) 3.5 - 5.1 mmol/L 03/04/2024 3:59 AM [facility] Chloride 105 98 - 107 mmol/L 03/04/2024 3:59 AM [facility] CO2 22 22 - 29 mmol/L 03/04/2024 3:59 AM [facility] Calcium 8.5 8.4 - 10.4 mg/dL 03/04/2024 3:59 AM [facility] Anion Gap 7 6 - 16 mmol/L 03/04/2024 3:59 AM ELECTROPLATING WORKER [facility] BUN 5(L) 5.3 - 18.7 mg/dL 03/04/2024 3:59 AM ELECTROPLATING WORKER [facility] Creatinine 0.63 0.57 - 1.11 mg/dL 03/04/2024 3:59 AM ELECTROPLATING WORKER [facility] Alkaline Phosphatase 92 40 - 150 U/L 03/04/2024 3:59 AM ELECTROPLATING WORKER [facility] ALT 22 0 - 55 U/L 03/04/2024 3:59 AM ELECTROPLATING WORKER [facility] AST 15 5 - 34 U/L 03/04/2024 3:59 AM ELECTROPLATING WORKER [facility] Protein Total 7.1 6.4 - 8.3 gm/dL 03/04/2024 3:59 AM [facility] Albumin 2.3(L) 3.4 - 5.0 gm/dL 03/04/2024 3:59 AM [facility] Bilirubin Total 0.2 0.2 - 1.2 mg/dL 03/04/2024 3:59 AM [facility] eGFR by CKD-EPI >90 >=90 mL/min/1.7 3 m2 03/04/2024 3:59 AM [facility] Blood BLOOD SPECIMEN / Unknown Venipuncture / Unknown 03/04/2024 3:25 AM ELECTROPLATING WORKER 03/04/2024 3:40 AM ELECTROPLATING WORKER Rolly Joaquin MD LAB - CHEMISTRY ORDE [facility] Organization Address City/State/[facility] Co de Phone Number [facility] [address] [place] [address] * (ABNORMAL) CBC W AUTO DIFFERENTIAL (03/04/2024 3:25 AM ELECTROPLATING WORKER) WBC 13.5(H) 4.0 - 10.7 x10E9/L 03/04/2024 3:45 AM ELECTROPLATING WORKER [facility] RBC Count 3.93 3.90 - 5.20 x10E12/L 03/04/2024 3:45 AM ELECTROPLATING WORKER [facility] Hemoglobin 10.0(L) 11.9 - 15.8 g/dL 03/04/2024 3:45 AM ELECTROPLATING WORKER [facility] Hematocrit 31.6(L) 34.8 - 46.1 % 03/04/2024 3:45 AM ELECTROPLATING WORKER [facility] MCV 80.4 80.0 - 98.0 fL 03/04/2024 3:45 AM [facility] MCH 25.4(L) 26.7 - 33.6 pg 03/04/2024 3:45 AM [facility] MCHC 31.6(L) 31.7 - 36.3 g/dL 03/04/2024 3:45 AM [facility] RDW-CV 14.8 11.3 - 14.8 % 03/04/2024 3:45 AM [facility] Platelet Count 270 150 - 420 x10E9/L 03/04/2024 3:45 AM [facility] MPV 11.5(H) 7.8 - 11.4 fL 03/04/2024 3:45 AM [facility] Neutrophil % 73.5 41.0 - 74.0 % 03/04/2024 3:45 AM [facility] Lymphocyte % 17.4 17.0 - 47.0 % 03/04/2024 3:45 AM [facility] Monocyte % 7.8 3.0 - 11.0 % 03/04/2024 3:45 AM [facility] Eosinophil % 0.3 0.0 - 7.0 % 03/04/2024 3:45 AM [facility] Basophil % 0.2 0.0 - 1.6 % 03/04/2024 3:45 AM [facility] Immature Granulocytes % 0.8 0.0 - 1.0 % 03/04/2024 3:45 AM [facility] Neutrophil Absolute 9.94(H) 1.60 - 7.50 x10E9/L 03/04/2024 3:45 AM [facility] Lymphocyte Absolute 2.35 1.00 - 4.40 x10E9/L 03/04/2024 3:45 AM [facility] Monocyte Absolute 1.06(H) 0.15 - 1.00 x10E9/L 03/04/2024 3:45 AM [facility] Eosinophil Absolute 0.04 0.00 - 0.60 x10E9/L 03/04/2024 3:45 AM [facility] Basophil Absolute 0.03 0.00 - 0.13 x10E9/L 03/04/2024 3:45 AM ELECTROPLATING WORKER [facility] Blood BLOOD SPECIMEN / Unknown Venipuncture / Unknown 03/04/2024 3:25 AM ELECTROPLATING WORKER 03/04/2024 3:40 AM ELECTROPLATING WORKER Rolly Joaquin MD LAB - HEMATOLOGY ORD ERABLES Performing Organization Address City/[facility]/ZIP Co de Phone Number [facility] [address] [place] [address] * TYPE + SCREEN PANEL (03/04/2024 3:25 AM ELECTROPLATING WORKER) ABO Rh O POS 03/04/2024 5:06 AM ELECTROPLATING WORKER [facility] Comment:No history; collect retype. 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 0.9% NaCl injection 3 mL 3 mL, Intracatheter, EVERY 8 HOURS, First dose on 03/04/24 at 0600, Until Discontinued, Flush peripheral IV catheter with 3 mL of normal saline every 8 hours. acetaminophen (Tylenol) tablet 1,000 mg 1,000 mg, Oral, EVERY 6 HOURS PRN, Mild Pain, Moderate Pain, Starting on 03/04/24 at 0902, Until 03/04/24 at 1320, Patient preference for lesser PRN pain meds may be honored when the patient requests a less strong medication, a lower dose, or a less intrusive route of administration when the lesser drug, dose and route have been ordered for the patient. This patient request must be documented in the MAR. If both oral and IV options are ordered for the same pain severity, give oral first unless patient cannot tolerate oral intake $ Given 03/04/2024 9:17 AM ELECTROPLATING WORKER 1,000 mg aspirin chew tablet 162 mg 162 mg, Oral, DAILY, First dose on 03/04/24 at 0900, Until Discontinued $ Given 03/04/2024 9:16 AM ELECTROPLATING WORKER 162 mg documented in this encounter Active and Recently Administered Medications Times are shown in ELECTROPLATING WORKER. Scheduled Medication Order 03/02/2024 03/03/2024 03/04/2024 0.9% NaCl injection 3 mL(Linked Group 1) 3 mL, Intracatheter, EVERY 8 HOURS, First dose on 03/04/24 at 0600, Until Discontinued, Flush peripheral IV catheter with 3 mL of normal saline every 8 hours. 0401 (Not Administer ed - Provider: Maddi Nunez RN - Reason: IV Currently Infusing) aspirin chew tablet 162 mg 162 mg, Oral, DAILY, First dose on 03/04/24 at 0900, Until Discontinued 0916 ($ Given - Prov ider: Noehlia Bartlett RN) vitamin with iron tablet 1 tablet 1 tablet, Oral, DAILY, 365 doses, First dose on 03/04/24 at 0900, Last dose on 03/03/25 at 0900 0918 (Not Administer ed - Provider: Nohelia Bartlett RN - Reason: Refused-Patient) PRN Medication Order 03/02/2024 03/03/2024 03/04/2024 0.9% NaCl injection 1-10 mL(Linked Group 1) 1-10 mL, Intracatheter, PRN, Other, peripheral line flush, Starting on 03/04/24 at 0145, Until 03/04/24 at 1320, Flush peripheral IV catheter with 1-10 mL of normal saline before and after medications and prn to clear blood from the line or to verify patency. acetaminophen (Tylenol) tablet 1,000 mg 1,000 mg, Oral, EVERY 6 HOURS PRN, Mild Pain, Moderate Pain, Starting on 03/04/24 at 0902, Until 03/04/24 at 1320, Patient preference for lesser PRN pain meds may be honored when the patient requests a less strong medication, a lower dose, or a less intrusive route of administration when the lesser drug, dose and route have been ordered for the patient. This patient request must be documented in the MAR. If both oral and IV options are ordered for the same pain severity, give oral first unless patient cannot tolerate oral intake 0917 ($ Given - Prov ider: Nohelia Bartlett RN) calcium carbonate (Tums) chew tablet 2 tablet 2 tablet, Oral, EVERY 4 HOURS PRN, GI Upset, Starting on 03/04/24 at 0145, Until 03/04/24 at 1320 simethicone (Mylicon) chew tablet 160 mg 160 mg, Oral, QID PRN (after meals and at bedtime), Gas Pain, Starting on 03/04/24 at 0145, Until 03/04/24 at 1320 Linked Groups Order Group 1: SALINE LOCK, INSERT AND MAINTAIN (CANCELED) Routine, CONTINUOUS, Starting on 03/04/24 at 0200, Until Specified, New collection And 0.9% NaCl injection 3 mLJump to med 3 mL, Intracatheter, EVERY 8 HOURS, First dose on 03/04/24 at 0600, Until Discontinued, Flush peripheral IV catheter with 3 mL of normal saline every 8 hours. And 0.9% NaCl injection 1-10 mLJump to med 1-10 mL, Intracatheter, PRN, Other, peripheral line flush, Starting on 03/04/24 at 0145, Until 03/04/24 at 1320, Flush peripheral IV catheter with 1-10 mL of normal saline before and after medications and prn to clear blood from the line or to verify patency. documented in this encounter Care Teams Certified Vehicle Fire Investigator Relationship Specialty Start Date End Date Pepe Shepherd MD [address] [place] [address] PCP - General Family Medicine 09/08/12 documented as of this encounter
--- OUTSIDE RECORDS SUMMARY | 2024-03-07 23:39 | XMS_ITS | Encounter Summary ---
Author Organization [facility] Address [address] [facility] [place] [address] Care Team Providers Care Industrial Electrical Engineer Name Role Phone Pepe Shepherd MD Primary Care Provider [phone] Reason for Visit * Reason Comments Anxiety Pt awoke suddenly ap prox 0245 feeling crushing neck pain. Mom reports pt has test for new job coming up and is feeling anxious about it. Presents alert, bilat breath sounds clear, O2 100% RA abd soft, + bowel sounds. Encounter Details Date Type Department Care Team (Late st Contact Info) Description 09/08/2012 3:20 AM CDT - 09/08/2012 5:57 AM CDT Emergency ER at [address] [address] Maya Randall MD [address] [place] [id number] Anxiety attack Discharge Disposition: Home or Self Care Social History Tobacco Use Types Packs/Day Years Used Date Smoking Tobacco: Never Assessed Sex and Gender Information Value Date Recorded Sex Assigned at Not on file Gender Identity Not on file Sexual Orientation Not on file documented as of this encounter Last Filed Vital Signs Vital Sign Reading Time Taken Comments Blood Pressure 117/60 09/08/2012 5:25 AM CDT Pulse 72 09/08/2012 5:25 AM CDT Temperature 36.8 ??C (98.2 ??F) 09/08/2012 5:25 AM CD T Respiratory Rate 18 09/08/2012 5:25 AM CDT Oxygen Saturation 100% 09/08/2012 3:17 AM CDT Inhaled Oxygen Concentration - - Weight 72.8 kg (160 lb 7.9 oz) 09/08/2012 3:17 A M CDT Height - - Body Mass Index - - documented in this encounter Discharge Instructions * Discharge Instructions* Melissa Cage RN - 09/08/2012 5:57 AM CDT Anxiety and Panic Attacks Your caregiver has informed you that you are having an anxiety or panic attack. There may be many forms of this. Most of the time these attacks come suddenly and without warning. They come at any time of day, including periods of sleep, and at any time of life. They may be strong and unexplained. Although panic attacks are very scary, they are physically harmless. Sometimes the cause of your anxiety is not known. Anxiety is a protective mechanism of the body in its fight or flight mechanism. Most of these perceived danger situations are actually nonphysical situations (such as anxiety over losing a job). CAUSES The causes of an anxiety or panic attack are many. Panic attacks may occur in otherwise healthy people given a certain set of circumstances. There may be a genetic cause for panic attacks. Some medications may also have anxiety as a side effect. SYMPTOMS Some of the most common feelings are: ?? Intense terror. ?? Dizziness, feeling faint. ?? Hot and cold flashes. ?? Fear of going crazy. ?? Feelings that nothing is real. ?? Sweating. ?? Shaking. ?? Chest pain or a fast heartbeat (palpitations). ?? Smothering, choking sensations. ?? Feelings of impending doom and that is near. ?? Tingling of extremities, this may be from over-breathing. ?? Altered reality (derealization). ?? Being detached from yourself (depersonalization). Several symptoms can be present to make up anxiety or panic attacks. DIAGNOSIS The evaluation by your caregiver will depend on the type of symptoms you are experiencing. The diagnosis of anxiety or panic attack is made when no physical illness can be determined to be a cause ofthe symptoms. TREATMENT Treatment to prevent anxiety and panic attacks may include: ?? Avoidance of circumstances that cause anxiety. ?? Reassurance and relaxation. ?? Regular exercise. ?? Relaxation therapies, such as yoga. ?? Psychotherapy with a psychiatrist or therapist. ?? Avoidance of caffeine, alcohol and illegal drugs. ?? Prescribed medication. SEEK IMMEDIATE MEDICAL CARE IF: ?? You experience panic attack symptoms that are different than your usual symptoms. ?? You have any worsening or concerning symptoms. Document Released: 03/07/2006 Document Revised: 11/17/2011 Document Reviewed: 07/09/2010 ExitCare?? Patient Information ??2011 [employer]. * Discharge Instructions* Document, Scanned - 09/08/2012 2:44 PM CDT documented in this encounter Procedure Notes * Document, Scanned - 09/11/2012 1:38 PM CDTAssociated Order(s): EKG 15-LEAD * Document, Scanned - 09/11/2012 1:38 PM CDTAssociated Order(s): CARDIAC EKG ORDER * Document, Scanned - 09/08/2012 1:32 PM CDTAssociated Order(s): CARDIAC EKG ORDER * Document, Scanned - 09/08/2012 8:10 AM CDTAssociated Order(s): EKG 15-LEAD documented in this encounter ED Notes * Melissa Cage RN - 09/08/2012 4:35 AM CDT Pt voided pale yellow urine, to lab. Pt remains alert and calm appearing * Wendy Casanova - 09/08/2012 4:08 AM CDT Provided juices to pt and mom. * Wendy Casanova - 09/08/2012 4:04 AM CDT Charity Boykin at bedside completing EKG. Pt aware of need for urine sample. * Maya Randall MD - 09/08/2012 3:48 AM CDT Images from the original note were not included. EMERGENCY DEPARTMENT 09/08/2012 Dear Doctor, We had the pleasure of caring for your patient, Marina Haddad in our emergency department on 09/08/2012. A note from the provider(s) who cared for your patient is attached. Should you wish to access any laboratory results, please call . Should you wish to access any radiology results, please call , option 3. In addition, you can access patient information 24 hours a day, from any computer, through [employer], the online version of our electronic medical record. If you would like to use this service, please call Melissa Albert, Connectivity Coordinator, at . We appreciate the opportunity to care for your patients. If you would like additional information, please call the emergency department directly at . Sincerely, Maya Randall MD Division of Emergency Medicine [facility]. [place], [place] [facility] EMERGENCY DEPARTMENT Provider contact with the patient: 09/08/2012 03:48 Marina Haddad [id number] [facility] EMERGENCY DEPARTMENT History Chief Complaint Patient presents with ??? Anxiety Pt awoke suddenly approx 0245 feeling crushing neck pain. Mom reports pt has test for new job coming up and is feeling anxious about it. Presents alert, bilat breath sounds clear, O2 100% RA abd soft, + bowel sounds. HPI 17 y.o girl with no significant PMH, woke up from sleep c/o CP, SOB, felt her throat/neck was tight, sweating, heart racing. Pt was up late watching basketball with family, woke up with these symptoms 1hr after she went to bed. Denies taking any pills, energy drink or caffeinated beverages. No lip or tongue swelling. No rashes. 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 No past medical history on file. No past surgical history on file. History Social History ??? Marital Status: N/A Spouse Name: N/A Number of Children: N/A ??? Years of Education: N/A Occupational History ??? Not on file. Social History Main Topics ??? Smoking status: Not on file ??? Smokeless tobacco: Not on file ??? Alcohol Use: Not on file ??? Drug Use: Not on file ??? Sexually Active: Not on file Other Topics Concern ??? Not on file Social History Narrative ??? No narrative on file Medications No current outpatient prescriptions on file. Review of Systems Review of Systems Constitutional: Negative for fever and chills. HENT: Negative for congestion, facial swelling, rhinorrhea and neck stiffness. Eyes: Negative for visual disturbance. Respiratory: Positive for shortness of breath. Negative for cough, wheezing and stridor. Cardiovascular: Positive for chest pain. Gastrointestinal: Negative for vomiting, abdominal pain and diarrhea. Skin: Negative for rash and wound. Neurological: Negative for dizziness, seizures, syncope, speech difficulty, weakness, light-headedness and headaches. BP 123/74 Pulse 88 Temp 98.4 ??F Resp 12 Wt 72.8 kg (160 lb 7.9 oz) Physical Exam Physical Exam Constitutional: She appears well-developed and well-nourished. Calm, interactive, responding appropriately, NAD HENT: Head: Normocephalic and atraumatic. Mouth/Throat: Oropharynx is clear and moist. No Facial, lip or oropharyngeal swelling Eyes: Conjunctivae and EOM are normal. Neck: Normal range of motion. Neck supple. Cardiovascular: Normal rate, regular rhythm and normal heart sounds. Pulmonary/Chest: Effort normal and breath sounds normal. No respiratory distress. She has no wheezes. Abdominal: Soft. Musculoskeletal: Normal range of motion. She exhibits no edema. Neurological: She is alert. Skin: Skin is warm. No rash noted. No erythema. No pallor. Psychiatric: Her behavior is normal. Procedures Procedures Lab/SPO2 Interpretation ECG: nsr Progress Notes Pt observed in ED for few hrs, remained calm, stable, no distress. Will d/c home, mom agreeable with plan/discharge ED Course Medical Decision Making Anxiety attack vs allergic reaction-unknown trigger Clinical Impression Final diagnoses: Anxiety attack * Emanuel Mas MD - 09/08/2012 3:47 AM CDT Images from the original note were not included. EMERGENCY DEPARTMENT 09/08/2012 Dear Doctor, We had the pleasure of caring for your patient, Marina Haddad in our emergency department on 09/08/2012. A note from the provider(s) who cared for your patient is attached. Should you wish to access any laboratory results, please call . Should you wish to access any radiology results, please call , option 3. In addition, you can access patient information 24 hours a day, from any computer, through [employer], the online version of our electronic medical record. If you would like to use this service, please call Melissa Albert, Connectivity Coordinator, at . We appreciate the opportunity to care for your patients. If you would like additional information, please call the emergency department directly at . Sincerely, Emanuel Mas MD Division of Emergency Medicine [facility]. [place], [place] [facility] EMERGENCY DEPARTMENT Provider contact with the patient: 09/08/2012 03:47 Marina Haddad [id number] [facility] EMERGENCY DEPARTMENT History Chief Complaint Patient presents with ??? Anxiety Pt awoke suddenly approx 0245 feeling crushing neck pain. Mom reports pt has test for new job coming up and is feeling anxious about it. Presents alert, bilat breath sounds clear, O2 100% RA abd soft, + bowel sounds. HPI 17 yo AAF previously well here with chest pain, neck tightness, and shortness of breath. Pt says around 0230 awoke from sleep with feeling of neck tightness, heart racing, short of breath, and sweating. Could not calm down so went to brother's room. Still not calm so went to see mom and was pacing,seemed SOB, and grabbing at throat. EMS called. Placed on O2 and calmed with deep breaths. Normal vitals. Afebrile. No other sx. Ate spicy cracker snack prior to bedtime while family watching basketball game on tv. No lip or tongue swelling. No rash. Does not remember having bad dream. Denies alcohol, drugs, Tob. No previous occurrence. 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 Aunt with anxiety attacks. Father with bipolar. No chest pain now. Feeling better. Still with some throat tightness. PMH none Allergies NKDA Meds none Medications No current outpatient prescriptions on file. Review of Systems Review of Systems Constitutional: Negative for fever, activity change and appetite change. HENT: Positive for neck pain. Negative for congestion, sore throat, rhinorrhea and neck stiffness. Eyes: Negative. Negative for visual disturbance. Respiratory: Positive for chest tightness and shortness of breath. Negative for cough, wheezing andstridor. Cardiovascular: Positive for chest pain. Gastrointestinal: Negative. Negative for nausea, vomiting, abdominal pain, diarrhea and constipation. Genitourinary: Negative. Skin: Negative. Negative for rash and wound. Neurological: Negative for dizziness, syncope, speech difficulty, weakness, light-headedness and headaches. Hematological: Negative. Psychiatric/Behavioral: The patient is nervous/anxious. BP 123/74 Pulse 88 Temp 98.4 ??F Resp 12 Wt 72.8 kg (160 lb 7.9 oz) Physical Exam Physical Exam Constitutional: She is oriented to person, place, and time. She appears well- developed and well-nourished. No distress. HENT: Head: Normocephalic and atraumatic. Right Ear: External ear normal. Left Ear: External ear normal. Mouth/Throat: Oropharynx is clear and moist. Eyes: Conjunctivae and EOM are normal. Pupils are equal, round, and reactive to light. Right eye exhibits no discharge. Left eye exhibits no discharge. Neck: Normal range of motion. Neck supple. Cardiovascular: Normal rate, regular rhythm and normal heart sounds. Exam reveals no gallop and no friction rub. No murmur heard. Pulmonary/Chest: Effort normal and breath sounds normal. No stridor. No respiratory distress. She has no wheezes. She has no rales. She exhibits no tenderness. Abdominal: Soft. Bowel sounds are normal. She exhibits no distension and no mass. There is no tenderness. There is no rebound. Musculoskeletal: Normal range of motion. She exhibits no edema and no tenderness. Lymphadenopathy: She has no cervical adenopathy. Neurological: She is alert and oriented to person, place, and time. She has normal reflexes. She displays normal reflexes. She exhibits normal muscle tone. Skin: Skin is warm and dry. No rash noted. Psychiatric: Seems on edge, anxious Procedures Procedures Lab/SPO2 Interpretation EKG normal UDS neg Progress Notes 0350: Will get UDS and EKG. 0550: Pt without pain, breathing well. UDS and EKG normal. Will DC. ED Course 17 yo AAF here with anxiety attack. UDS and EKG normal. At baseline in ED. AG given on breathing techniques and anticipatory guidance. FU with PCP. Medical Decision Making Clinical Impression Final diagnoses: Anxiety attack * Melissa Cage RN - 09/08/2012 3:22 AM CDT Pt arrives by EMS, NC O2 going. Pt ambulated with ease to scale , then to exam room without O2, sats 100%. Pt respiratory rate noted to be slow, even on on exam stretcher. Able to talk and answer triage questions. Remains on oximeter, pt sitting up, appears calm now. Mother at bedside. See doc flowsheet for assessment * Melissa Cage RN - 09/08/2012 3:20 AM CDTBed:14
Expected date:
Expected time:
Means of arrival:
Comments:
documented in this encounter Miscellaneous Notes * Miscellaneous Scans - Document, Scanned - 09/13/2012 9:22 AM CDT documented in this encounter Plan of Treatment Upcoming Encounters Date Type Department Care Team (Late st Contact Info) Description 03/20/2024 9:00 AM TELEPHONE STERILIZER Appointment [facility] Maternal & Care [address] [place], [place] [id number] 03/29/2024 10:30 AM TELEPHONE STERILIZER Appointment [facility] MATERNAL/ EVALUATION UNIT [facility] [facility]. [address] [place] [address] documented as of this encounter Procedures Procedure Name Priority Date/Time Associated Diagnosis Comments CARDIAC EKG ORDER 09/11/2012 1:3 8 PM CDT CARDIAC EKG ORDER 09/08/2012 1:3 2 PM CDT DRUG ABUSE URINE PANEL STAT 09/08/2012 4:28 AM CDT EKG 15-LEAD STAT 09/08/2012 3:50 AM CDT Chest Pain Shortness of breath documented in this encounter Results * CARDIAC EKG ORDER (09/11/2012 1:38 PM CDT) Narrative 09/11/2012 1:38 PM CDT A scan was deleted from the Results section by S Interface [[id number]] on 09/11/2012 at ??1:38 PM (File: [id number]) Transcriptions Document, Scanned - 09/11/2012 1:38 PM CDT Scanned Document CARDIAC SERVICES ORD ERABLES * CARDIAC EKG ORDER (09/08/2012 1:32 PM CDT) Narrative 09/08/2012 1:32 PM CDT A scan was deleted from the Results section by S Interface [[id number]] on 09/08/2012 at ??1:32 PM (File: [id number]) Transcriptions Document, Scanned - 09/08/2012 1:32 PM CDT Scanned Document CARDIAC SERVICES ORD ERABLES * DRUG ABUSE URINE PANEL (09/08/2012 4:28 AM CDT) Pathologist [facility] Amphetamines Screen Urine Not Detected Not Detected 09/08/2012 4:50 AM T [facility] Barbiturates Screen Urine Not Detected Not Detected 09/08/2012 4:50 AM T [facility] Benzodiazepines Screen Urine Not Detected Not Detected 09/08/2012 4:50 AM T [facility] Cannabinoids Screen Urine Not Detected Not Detected 09/08/2012 4:50 AM T [facility] Cocaine Screen Urine Not Detected Not Detected 09/08/2012 4:50 AM T [facility] Opiate Screen Urine Not Detected Not Detected 09/08/2012 4:50 AM T [facility] Phencyclidine Screen Urine Not Detected Not Detected 09/08/2012 4:50 AM T [facility] Urine specimen (specimen) URINE / Unknown 09/08/2012 4:28 AM CDT 09/08/2012 4:36 AM CDT Narrative [facility] - 09/08/2012 4:50 AM CDT Medical [...] DO LAB - URINE CH EMISTRY ORDERABLES [facility] [place] [address] * EKG 15-LEAD (09/08/2012 3:50 AM CDT) Ventricular Rate 88 BPM CG MUSE Atrial Rate 88 BPM CG MUSE P-R Interval 178 ms CG MUSE QRS Duration ms 86 ms CG MUSE Q-T Interval ms 368 ms CG MUSE QTC Calculation (Bezet) 445 ms CG MUSE Calculated P [place] 58 degrees CG MUSE Calculated R [place] 65 degrees CG MUSE Calculated T [place] 47 degrees CG MUSE Interpretation EKG Normal sinus rhythm Possible Left atrial enlargement Borderline ECG No previous ECGs available Confirmed by MD Zaragoza Renuka ([id number]) on 09/11/2012 1:37:16 PM CG MUSE 09/08/2012 3:50 AM CDT 09/11/2012 1:37 PM CDT Narrative CG MUSE - 09/11/2012 1:38 PM CDT Procedure Note Document, Scanned - 09/08/2012 8:10 AM CDT Transcriptions Document, Scanned - 09/11/2012 1:38 PM CDT Emanuel Mas DO ECG ORDERABLES CG MUSE documented in this encounter Visit Diagnoses Diagnosis Chest pain Chest pain, unspecified Shortness of breath Anxiety attack Panic disorder without agoraphobia documented in this encounter Care Teams Industrial Electrical Engineer Relationship Specialty Start Date End Date Pepe Shepherd MD [address] [place] [address] PCP - General Family Medicine 09/08/12 documented as of this encounter
--- OUTSIDE RECORDS SUMMARY | 2024-03-07 23:39 | XMS_ITS | Encounter Summary ---
Author Organization [facility] Address [address] [place] [address] Care Team Providers Care Top Inventory Control Executive Name Role Phone Pepe Shepherd MD Primary Care Provider [phone] Reason for Visit * Reason Comments LABS ONLY MMR, varicella Imm Inj TDAP Encounter Details Date Type Department Care Team (Latest Contact Info) Description 07/02/2021 3:30 PM CDT Clinical Support [address] [address] Immunity status testing ; Encounter for immunization Social History Tobacco Use Types Packs/Day Years Used Date Smoking Tobacco: Never Assessed Sex and Gender Information Value Date Recorded Sex Assigned at Not on file Gender Identity Not on file Sexual Orientation Not on file documented as of this encounter Plan of Treatment Upcoming Encounters Date Type Department Care Team (Late Contact Info) Description 03/20/2024 9:00 AM BUSINESS ANALYST PROJECT MANAGER Appointment [facility] Women's Health Maternal & Care [facility] [place] [address] 03/29/2024 10:30 AM BUSINESS ANALYST PROJECT MANAGER Appointment [facility] MATERNAL/ EVALUATION UNIT [address] [facility] [place] [address] documented as of this encounter Procedures Procedure Name Priority Date/Time Associated Diagnosis Comments MMR IMMUNITY PROFILE Routine 07/02/2021 3:40 PM CDT Immunity status testing VARICELLA ZOSTER ANTIBODY IGG Routine 07/02/2021 3:40 PM CDT Immunity status testing documented in this encounter Results * VARICELLA ZOSTER ANTIBODY IGG (07/02/2021 3:40 PM CDT) [facility] Varicella zoster Virus Antibody IgG 811.10 index [...] Antibody Immunity Screen, ACIF. Test Performed at: [facility] [address] ??[phone] ZULLY MALLORY DO,MPH Blood BLOOD SPECIMEN / Unknown 07/02/2021 3:40 PM CDT 07/03/2021 12:22 AM CDT Kristi Conley MD LAB - CHEMISTRY [facility] [address] [place] [address] * MMR IMMUNITY PROFILE (07/02/2021 3:40 PM CDT) Measles (Rubeola) Antibody IgG 237.00 AU/mL [facility] Comment: AU/mL ?Interpretation ----- ? <13.50 ? Not consistent with immunity 13.50-16.49 ?Equivocal >16.49 ? Consistent with immunity The presence of measles IgG suggests immunization or past or current infection with measles virus. For additional information, please refer to http://education.[employer]/faq/VPA721 (This link is being provided for informational/ [...] infection with rubella virus. Test Performed at: [facility] [address] [place], [place] ??[phone] ZULLY MALLORY DO,MPH Blood BLOOD SPECIMEN / Unknown 07/02/2021 3:40 PM CDT 07/03/2021 12:22 AM CDT Kristi Conley MD LAB - SEROLOGY ORDER JAYNE Performing Organization Address City/State/[facility] Co de Phone Number [facility] [address] [place] [address] documented in this encounter Visit Diagnoses Diagnosis Immunity status testing- Primary Antibody response examination Encounter for immunization Need for other specified prophylactic vaccination against single bacterial disease documented in this encounter Care Teams Top Inventory Control Executive Relationship Specialty Start Date End Date Pepe Shepherd MD [address] [place] [address] PCP - General Family Medicine 09/08/12 documented as of this encounter
--- OUTSIDE RECORDS SUMMARY | 2024-03-07 23:39 | XMS_ITS | Referral Summary ---
Author Organization [facility] Address [address] [place] [address] Care Team Providers Care Office 365 Consultant Name Role Phone Pepe Shepherd MD Primary Care Provider [phone] Source Comments [facility],non-owned Affiliates and Associated Physician Practices is amultiple site organization consisting of ambulatory clinics and hospital sitesin [place], [place], [place] and [place]. This disclosure is being madepursuant to the Care Everywhere program and may not contain all information available regarding this patient. Last updated 17.[facility] Encounters Date Type Department Care Team Description 03/05/2024 Telephone [facility] MATERNAL/ EVALUATION UNIT [address] [place] [address] Bonnie Warren RN Follow-up 03/04/2024 Travel 03/04/2024 1:43 AM MAIL PROCESSING EQUIPMENT MECHANIC - 03/04/2024 11:45 AM MAIL PROCESSING EQUIPMENT MECHANIC Hospital Encounter [facility] 5E ANTEPARTUM/MOTHER BABY [address] [place] [address] Rolly Joaquin MD Maternal Medicine Discharge Disposition: Home or Self Care 02/21/2024 9:37 AM MAIL PROCESSING EQUIPMENT MECHANIC - 02/21/2024 11:59 PM MAIL PROCESSING EQUIPMENT MECHANIC Hospital Encounter [facility] Formerly [facility], [facility] [place] [address] Luis F, Almita, MD Polcaro, Jordan, DO Discharge Disposition: Home or Self Care from Last 3 Months Allergies No known active allergies Medications * Be aware that medications may not be up to date on this document. Alwaysverify current medications with the patient. Medication Sig Dispensed Refills Start Date End Date Status potassium chloride ER (K-TAB) 20 MEQ tablet Take 2 (two) tablets by mouth once daily 8 tablet 03/04/2024 Active Active Problems Problem Noted Date Diagnosed Date Decreased fibrinogen 03/04/2024 Estimated Date of Delivery Comme nts Yes 05/28/2024 Based on last me nstrual period of 08/22/2023 Immunizations Name Administration Dates Next Due TDAP (7yrs+) 07/02/2021 Social History Tobacco Use Types Packs/Day Years Used Date Smoking Tobacco: Never Smokeless Tobacco: Never Tobacco Cessation:Counseling Given: Not Answered Overall Financial Resource Strain (CARDIA) Answe r Date Recorded How hard is it for you to pa y for the very basics like food, housing, medical care, and heating? Not very hard 03/04/2024 [facility] ional [facility] - Occupational Stress [...] any time in the past 12 m [facility], were you homeless or living in a retirement (including now)? No 03/04/2024 Estimated Date of Delivery Comme nts Yes 05/28/2024 Based on last me nstrual period of 08/22/2023 Sex and Gender Information Value Date Recorded Sex Assigned at Not on file Gender Identity Not on file Sexual Orientation Not on file Last Filed Vital Signs Vital Sign Reading Time Taken Comments Blood Pressure 128/70 03/04/2024 7:15 AM MAIL PROCESSING EQUIPMENT MECHANIC Pulse 94 04/01/2020 5:31 PM MAIL PROCESSING EQUIPMENT MECHANIC Temperature 37.1 ??C (98.8 ??F) 03/04/2024 7:15 AM CS T Respiratory Rate 20 03/04/2024 7:15 AM MAIL PROCESSING EQUIPMENT MECHANIC Oxygen Saturation 99% 03/04/2024 7:10 AM MAIL PROCESSING EQUIPMENT MECHANIC Inhaled Oxygen Concentration - - Weight 137.7 kg (303 lb 8 oz) 03/04/2024 1:49 AM MAIL PROCESSING EQUIPMENT MECHANIC Height 182.9 cm (6') 03/04/2024 1:49 AM MAIL PROCESSING EQUIPMENT MECHANIC Body Mass Index 41.16 03/04/2024 1:49 AM MAIL PROCESSING EQUIPMENT MECHANIC Functional Status Functional Status Response Date of [...] person have difficulty concentrating/remembering/making decisions? No 03/04/2024 Plan of Treatment Upcoming Encounters Date Type Department Care Team (Late st Contact Info) Description 03/20/2024 9:00 AM MAIL PROCESSING EQUIPMENT MECHANIC Appointment [facility] Women's Health Maternal & Care [address] [place] [id number] 03/29/2024 10:30 AM MAIL PROCESSING EQUIPMENT MECHANIC Appointment [facility] MATERNAL/ EVALUATION UNIT [facility] [place] [address] Procedures Procedure Name Priority Date/Time Associated Diagnosis Comments TYPE + SCREEN PANEL STAT 03/04/2024 3 :25 AM MAIL PROCESSING EQUIPMENT MECHANIC COAGULATION PANEL W D-DIMER STAT 03/04/2024 3:25 AM MAIL PROCESSING EQUIPMENT MECHANIC COMPREHENSIVE METABOLIC PANEL STAT 03/04/2024 3:25 AM MAIL PROCESSING EQUIPMENT MECHANIC CBC W AUTO DIFFERENTIAL STAT 03/04/2024 3:25 AM MAIL PROCESSING EQUIPMENT MECHANIC SONOGRAM - COMPLETE Routine 02/21/2024 9 :58 AM MAIL PROCESSING EQUIPMENT MECHANIC Low-lying placenta in third trimester ([facility]) Encounter for anatomic survey ([facility]) Encounter for ultrasound to check growth ([facility]) Anemia in , second trimester ([facility]) from Last 3 Months Results * TYPE + SCREEN PANEL (03/04/2024 3:25 AM MAIL PROCESSING EQUIPMENT MECHANIC) ABO Rh O POS 03/04/2024 5:06 AM MAIL PROCESSING EQUIPMENT MECHANIC [facility] Comment:No history; collect retype. Antibody Screen NEG 5:06 AM MAIL PROCESSING EQUIPMENT MECHANIC [facility] Blood Bank BLOOD SPECIMEN / Unknown Venipuncture / Unknown 03/04/2024 3:25 AM MAIL PROCESSING EQUIPMENT MECHANIC 03/04/2024 3:40 AM MAIL PROCESSING EQUIPMENT MECHANIC Rolly Joaquin MD LAB - BLOOD BANK ORD ERABLES [facility] [address] [phone] * (ABNORMAL) COAGULATION PANEL W D-DIMER (03/04/2024 3:25 AM MAIL PROCESSING EQUIPMENT MECHANIC) PT 15.6(H) 12.1 - 14.8 sec 03/04/2024 4:20 AM MAIL PROCESSING EQUIPMENT MECHANIC [facility] INR 1.3(H) 0.9 - 1.1 03/04/2024 4:20 AM MAIL PROCESSING EQUIPMENT MECHANIC [facility] PTT 25.3 23.0 - 38.4 sec 03/04/2024 4:20 AM MAIL PROCESSING EQUIPMENT MECHANIC [facility] Fibrinogen 646(H) 200 - 400 mg/dL 03/04/2024 4:20 AM MAIL PROCESSING EQUIPMENT MECHANIC [facility] D-Dimer 0.49 0.27 - 0.50 ug/mL FEU 03/04/2024 4:20 AM [facility] Platelet Count 248 150 - 420 x10E9/L 03/04/2024 4:20 AM [facility] Blood BLOOD SPECIMEN / Unknown Venipuncture / Unknown 03/04/2024 3:25 AM MAIL PROCESSING EQUIPMENT MECHANIC 03/04/2024 3:40 AM [facility] Narrative [facility] - 03/04/2024 4:20 AM [facility] Conventional Warfarin Anticoagulant Therapy INR Reference Range: [...] Joaquin MD LAB - COAGULATION OR DERABLES [facility] [address] [place], [place] [id number] * (ABNORMAL) CBC W AUTO DIFFERENTIAL (03/04/2024 3:25 AM MAIL PROCESSING EQUIPMENT MECHANIC) WBC 13.5(H) 4.0 - 10.7 x10E9/L 03/04/2024 3:45 AM [facility] RBC Count 3.93 3.90 - 5.20 x10E12/L 03/04/2024 3:45 AM [facility] Hemoglobin 10.0(L) 11.9 - 15.8 g/dL 03/04/2024 3:45 AM [facility] Hematocrit 31.6(L) 34.8 - 46.1 % 03/04/2024 3:45 AM [facility] MCV 80.4 80.0 - 98.0 fL 03/04/2024 3:45 AM [facility] MCH 25.4(L) 26.7 - 33.6 pg 03/04/2024 3:45 AM [facility] MCHC 31.6(L) 31.7 - 36.3 g/dL 03/04/2024 3:45 AM [facility] RDW-CV 14.8 11.3 - 14.8 % 03/04/2024 3:45 AM [facility] Platelet Count 270 150 - 420 x10E9/L 03/04/2024 3:45 AM [facility] MPV 11.5(H) 7.8 - 11.4 fL 03/04/2024 3:45 AM [facility] Neutrophil % 73.5 41.0 - 74.0 % 03/04/2024 3:45 AM [facility] Lymphocyte % 17.4 17.0 - 47.0 % 03/04/2024 3:45 AM [facility] Monocyte % 7.8 3.0 - 11.0 % 03/04/2024 3:45 AM MAIL PROCESSING EQUIPMENT MECHANIC [facility] Eosinophil % 0.3 0.0 - 7.0 % 03/04/2024 3:45 AM [facility] Basophil % 0.2 0.0 - 1.6 % 03/04/2024 3:45 AM [facility] Immature Granulocytes % 0.8 0.0 - 1.0 % 03/04/2024 3:45 AM [facility] Neutrophil Absolute 9.94(H) 1.60 - 7.50 x10E9/L 03/04/2024 3:45 AM [facility] Lymphocyte Absolute 2.35 1.00 - 4.40 x10E9/L 03/04/2024 3:45 AM [facility] Monocyte Absolute 1.06(H) 0.15 - 1.00 x10E9/L 03/04/2024 3:45 AM [facility] Eosinophil Absolute 0.04 0.00 - 0.60 x10E9/L 03/04/2024 3:45 AM [facility] Basophil Absolute 0.03 0.00 - 0.13 x10E9/L 03/04/2024 3:45 AM [facility] Blood BLOOD SPECIMEN / Unknown Venipuncture / Unknown 03/04/2024 3:25 AM MAIL PROCESSING EQUIPMENT MECHANIC 03/04/2024 3:40 AM [facility] Rolly Joaquin MD LAB - HEMATOLOGY ORD ERABLES [facility] [address] [place] [address] * (ABNORMAL) COMPREHENSIVE METABOLIC PANEL (03/04/2024 3:25 AM MAIL PROCESSING EQUIPMENT MECHANIC) [facility] Glucose 91 70 - 99 mg/dL 03/04/2024 3:59 AM [facility] Sodium 134(L) 136 - 145 mmol/L 03/04/2024 3:59 AM [facility] Potassium 3.4(L) 3.5 - 5.1 mmol/L 03/04/2024 3:59 AM [facility] Chloride 105 98 - 107 mmol/L 03/04/2024 3:59 AM [facility] CO2 22 22 - 29 mmol/L 03/04/2024 3:59 AM [facility] Calcium 8.5 8.4 - 10.4 mg/dL 03/04/2024 3:59 AM [facility] Anion Gap 7 6 - 16 mmol/L 03/04/2024 3:59 AM [facility] BUN 5(L) 5.3 - 18.7 mg/dL 03/04/2024 3:59 AM [facility] Creatinine 0.63 0.57 - 1.11 mg/dL 03/04/2024 3:59 AM [facility] Alkaline Phosphatase 92 40 - 150 U/L 03/04/2024 3:59 AM [facility] ALT 22 0 - 55 U/L 03/04/2024 3:59 AM [facility] AST 15 5 - 34 U/L 03/04/2024 3:59 AM [facility] Protein Total 7.1 6.4 - 8.3 gm/dL 03/04/2024 3:59 AM [facility] Albumin 2.3(L) 3.4 - 5.0 gm/dL 03/04/2024 3:59 AM [facility] Bilirubin Total 0.2 0.2 - 1.2 mg/dL 03/04/2024 3:59 AM [facility] eGFR by CKD-EPI >90 >=90 mL/min/1.7 3 m2 03/04/2024 3:59 AM [facility] Blood BLOOD SPECIMEN / Unknown Venipuncture / Unknown 03/04/2024 3:25 AM MAIL PROCESSING EQUIPMENT MECHANIC 03/04/2024 3:40 AM [facility] Rolly Joaquin MD LAB - CHEMISTRY DAVID MONTES DE OCA [facility] [address] [place] [address] * SONOGRAM - COMPLETE (02/21/2024 9:58 AM [facility]) Linked Results Indication ======== Low-Lying Placenta on [...] anterior no previa not low lying. Placental lzer-yb-prieajha os distance 47 mm Umbilical cord: Cord [...] lb 3 ??oz EFW by ? Hadlock ([id number]) Head / Face / Neck Biometry: Cephalic [...] view. RVOT view. LVOT view. 3-vessel view. 0-rwinwh-jdibfrf view. Situs. Aortic arch view. Bicaval view. [...] your patient's care. Coding ====== Procedures ? 82958: US Preg Uterus Detailed ? [id number]: US Preg Uterus Transvaginal [employer] PACS Anatomical Region Laterality Modality Other 02/21/2024 9:58 AM MAIL PROCESSING EQUIPMENT MECHANIC Almita Kerns MD [facility] ORDERABLES from Last 3 Months Advance Directives * Full Code (Latest Code Status on File) Date Activated Date Inactivated Comments 03/04/2024 1:48 AM 03/04/2024 1:20 PM Care Teams Office 365 Consultant Relationship Specialty Start Date End Date Pepe Shepherd MD [facility] [place] [phone] PCP - General Family Medicine 09/08/12
--- OUTSIDE RECORDS SUMMARY | 2024-03-07 23:39 | XMS_ITS | Encounter Summary ---
Author Organization [facility] Address [address] [place] [address] Care Team Providers Care Chocolate Dipper Name Role Phone Pepe Shepherd MD Primary Care Provider [phone] Encounter Details Date Type Department Care Team (Latest Contact Info) Description 03/04/2024 Travel Social History Tobacco Use Types Packs/Day Years Used Date Smoking Tobacco: Never Smokeless Tobacco: Never Overall Financial Resource Strain (CARDIA) Answe r Date Recorded How hard is it for you to pa y for the very basics like food, housing, medical care, and heating? Not very hard 03/04/2024 [facility] of Occupat ional Health - Occupational Stress [...] any time in the past 12 m [facility], were you homeless or living in a long term (including now)? No 03/04/2024 Estimated Date of [...] No 03/04/2024 documented as of this encounter Plan of Treatment Upcoming Encounters Date Type Department Care Team (Late st Contact Info) Description 03/20/2024 9:00 AM UMBRELLA TIPPER MACHINE Appointment [facility] Women's Health Maternal & Care [address] [place] [id number] 03/29/2024 10:30 AM UMBRELLA TIPPER MACHINE Appointment [facility] MATERNAL/ EVALUATION UNIT [address] [place] [address]. [address] [place] [address] documented as of this encounter Visit Diagnoses Not on filedocumented in this encounter Care Teams Chocolate Dipper Relationship Specialty Start Date End Date Pepe Shepherd MD [address] [place] [phone] PCP - General Family Medicine 09/08/12 documented as of this encounter
--- OUTSIDE RECORDS SUMMARY | 2024-03-07 23:39 | XMS_ITS | Clinical Summary ---
Author Organization [facility] Address [address] [place] [address] Care Team Providers Care Faucet Polisher Name Role Phone Pepe Shepherd MD Primary Care Provider [phone] Source Comments [facility],non-owned Affiliates and Associated Physician Practices is amultiple site organization consisting of ambulatory clinics and hospital sitesin [place], [place], [place] and [place]. This disclosure is being madepursuant to the Care Everywhere program and may not contain all information available regarding this patient. Last updated 17.[facility] Allergies No known active allergies Medications * [...] on last me nstrual period of 08/22/2023 Encounters Date Type Department Care Team Description 03/05/2024 Telephone [facility] MATERNAL/ EVALUATION UNIT [address] [place] [address] Bonnie Warren RN Follow-up 03/04/2024 1:43 AM RADIATION OFFICER - 03/04/2024 11:45 AM RADIATION OFFICER Hospital Encounter [facility] ANTEPARTUM[facility]MOTHER BABY [address] [place] [address] Rolly Joaquin MD Maternal Medicine Discharge Disposition: Home or Self Care 03/04/2024 Travel 02/21/2024 9:37 AM RADIATION OFFICER - 02/21/2024 11:59 PM RADIATION OFFICER Hospital Encounter [facility] Maternal & Care [address] [place] [address] Almita Kerns MD Polcaro, Joseph, DO Discharge Disposition: Home or Self Care from Last 3 Months Immunizations Name Administration Dates Next Due TDAP (7yrs+) 07/02/2021 Family History Medical History Relation Name Comments Cancer - Breast Maternal Aunt Cancer - Breast Maternal Grandmother Cancer - Cervical Mother Hypertension Mother Relation Name Status Comments Maternal Aunt Alive Maternal Grandmother Mother Social History Tobacco Use Types Packs/Day Years Used Date Smoking Tobacco: Never Smokeless Tobacco: Never Tobacco Cessation:Counseling Given: Not Answered Overall Financial Resource Strain (CARDIA) Answe r Date Recorded How hard is it for you to pa y for the very basics like food, housing, medical care, and heating? Not very hard 03/04/2024 [facility] of Occupat ional Health - Occupational Stress [...] any time in the past 12 m [facility], were you homeless or living in a longterm (including now)? No 03/04/2024 Estimated Date of Delivery Comme nts Yes 05/28/2024 Based on last me nstrual period of 08/22/2023 Sex and Gender Information Value Date Recorded Sex Assigned at Not on file Gender Identity Not on file Sexual Orientation Not on file Last Filed Vital Signs Vital Sign Reading Time Taken Comments Blood Pressure 128/70 03/04/2024 7:15 AM RADIATION OFFICER Pulse 94 04/01/2020 5:31 PM RADIATION OFFICER Temperature 37.1 ??C (98.8 ??F) 03/04/2024 7:15 AM CS T Respiratory Rate 20 03/04/2024 7:15 AM RADIATION OFFICER Oxygen Saturation 99% 03/04/2024 7:10 AM RADIATION OFFICER Inhaled Oxygen Concentration - - Weight 137.7 kg (303 lb 8 oz) 03/04/2024 1:49 AM RADIATION OFFICER Height 182.9 cm (6') 03/04/2024 1:49 AM RADIATION OFFICER Body Mass Index 41.16 03/04/2024 1:49 AM RADIATION OFFICER Plan of Treatment Upcoming Encounters Date Type Department Care Team (Late st Contact Info) Description 03/20/2024 9:00 AM RADIATION OFFICER Appointment [facility] Maternal & Care [address] [place], [place] [id number] 03/29/2024 10:30 AM RADIATION OFFICER Appointment [facility] MATERNAL/ EVALUATION UNIT [address] [place] [address]. [address] [place] [address] Health Maintenance Due Date Last Done Comments PAP SMEAR 1996 HIV SCREENING 08/15/2011 HEPATITIS C SCREENING 08/10/2014 HEPATITIS B VACCINE (1 of 3 - 19+ 3-dose series) 08/15/2015 DEPRESSION SCREENING 03/21/2023 COVID-19 VACCINE (4 - 2023-2 5 season) 2023 05/23/2021, 11/14/2020, 10/17/2020 INFLUENZA VACCINE (#1) 2023 6, 01/28/2015 OB-ONE HOUR GLUCOSE 02/20/2024 OB-TDAP CURRENT 02/27/2024 07/02/2021 Respiratory Syncytial Virus (RSV) Vaccine Pt: or over 60 yrs (1 - Risk 1-dose series) 04/02/2024 DTAP/TDAP/TD VACCINES (2 - T d or Tdap) 07/03/2031 07/02/2021 ZOSTER VACCINE (1 of 2) 2046 HIB VACCINE Aged Out No longer eligi ble based on patient's age to complete this topic HPV VACCINE Aged Out No longer eligi ble based on patient's age to complete this topic MENINGOCOCCAL VACCINE Aged Out No loi asif eligible based on patient's age to complete this topic PNEUMOCOCCAL VACCINE Aged Out No long er eligible based on patient's age to complete this topic Procedures Procedure Name Priority Date/Time Associated Diagnosis Comments TYPE + SCREEN PANEL STAT 03/04/2024 3 :25 AM RADIATION OFFICER COAGULATION PANEL W D-DIMER STAT 03/04/2024 3:25 AM RADIATION OFFICER COMPREHENSIVE METABOLIC PANEL STAT 03/04/2024 3:25 AM RADIATION OFFICER CBC W AUTO DIFFERENTIAL STAT 03/04/2024 3:25 AM RADIATION OFFICER SONOGRAM - COMPLETE Routine 02/21/2024 9 :58 AM RADIATION OFFICER Low-lying placenta in third trimester (HCC) Encounter for anatomic survey (HCC) Encounter for ultrasound to check growth (HCC) Anemia in , second trimester (HCC) from Last 3 Months Results * TYPE + SCREEN PANEL (03/04/2024 3:25 AM RADIATION OFFICER) ABO Rh O POS 03/04/2024 5:06 AM RADIATION OFFICER [facility] B[facility]OD BANK LAB Comment:No history; collect retype. Antibody Screen NEG 5:06 AM RADIATION OFFICER [facility] B[facility]OD [facility] LAB Blood Bank BLOOD SPECIMEN / Unknown Venipuncture / Unknown 03/04/2024 3:25 AM RADIATION OFFICER 03/04/2024 3:40 AM RADIATION OFFICER Rolly Joaquin MD LAB - BLOOD BANK ORD ERABLES [facility] B[facility]OD BANK LAB [address] [phone] * (ABNORMAL) COAGULATION PANEL W D-DIMER (03/04/2024 3:25 AM RADIATION OFFICER) PT 15.6(H) 12.1 - 14.8 sec 03/04/2024 4:20 AM [facility] INR 1.3(H) 0.9 - 1.1 03/04/2024 4:20 AM [facility] PTT 25.3 23.0 - 38.4 sec 03/04/2024 4:20 AM [facility] Fibrinogen 646(H) 200 - 400 mg/dL 03/04/2024 4:20 AM [facility] D-Dimer 0.49 0.27 - 0.50 ug/mL FEU 03/04/2024 4:20 AM [facility] Platelet Count 248 150 - 420 x10E9/L 03/04/2024 4:20 AM [facility] Blood BLOOD SPECIMEN / Unknown Venipuncture / Unknown 03/04/2024 3:25 AM RADIATION OFFICER 03/04/2024 3:40 AM [facility] Narrative [facility] - 03/04/2024 4:20 AM [facility] Conventional Warfarin Anticoagulant Therapy INR Reference Range: [...] Joaquin MD LAB - COAGULATION OR DERABLES [facility] [address] [place] [address] * (ABNORMAL) CBC W AUTO DIFFERENTIAL (03/04/2024 3:25 AM RADIATION OFFICER) WBC 13.5(H) 4.0 - 10.7 x10E9/L 03/04/2024 3:45 AM RADIATION OFFICER [facility] RBC Count 3.93 3.90 - 5.20 x10E12/L 03/04/2024 3:45 AM RADIATION OFFICER [facility] Hemoglobin 10.0(L) 11.9 - 15.8 g/dL 03/04/2024 3:45 AM RADIATION OFFICER [facility] Hematocrit 31.6(L) 34.8 - 46.1 % 03/04/2024 3:45 AM RADIATION OFFICER [facility] MCV 80.4 80.0 - 98.0 fL 03/04/2024 3:45 AM [facility] MCH 25.4(L) 26.7 - 33.6 pg 03/04/2024 3:45 AM [facility] MCHC 31.6(L) 31.7 - 36.3 g/dL 03/04/2024 3:45 AM [facility] RDW-CV 14.8 11.3 - 14.8 % 03/04/2024 3:45 AM [facility] Platelet Count 270 150 - 420 x10E9/L 03/04/2024 3:45 AM [facility] MPV 11.5(H) 7.8 - 11.4 fL 03/04/2024 3:45 AM [facility] Neutrophil % 73.5 41.0 - 74.0 % 03/04/2024 3:45 AM [facility] Lymphocyte % 17.4 17.0 - 47.0 % 03/04/2024 3:45 AM [facility] Monocyte % 7.8 3.0 - 11.0 % 03/04/2024 3:45 AM [facility] Eosinophil % 0.3 0.0 - 7.0 % 03/04/2024 3:45 AM [facility] Basophil % 0.2 0.0 - 1.6 % 03/04/2024 3:45 AM [facility] Immature Granulocytes % 0.8 0.0 - 1.0 % 03/04/2024 3:45 AM [facility] Neutrophil Absolute 9.94(H) 1.60 - 7.50 x10E9/L 03/04/2024 3:45 AM [facility] Lymphocyte Absolute 2.35 1.00 - 4.40 x10E9/L 03/04/2024 3:45 AM [facility] Monocyte Absolute 1.06(H) 0.15 - 1.00 x10E9/L 03/04/2024 3:45 AM [facility] Eosinophil Absolute 0.04 0.00 - 0.60 x10E9/L 03/04/2024 3:45 AM [facility] Basophil Absolute 0.03 0.00 - 0.13 x10E9/L 03/04/2024 3:45 AM [facility] Blood BLOOD SPECIMEN / Unknown Venipuncture / Unknown 03/04/2024 3:25 AM RADIATION OFFICER 03/04/2024 3:40 AM RADIATION OFFICER Rolly Joaquin MD LAB - HEMATOLOGY ORD ERABLES [facility] [address] [place] [address] * (ABNORMAL) COMPREHENSIVE METABOLIC PANEL (03/04/2024 3:25 AM [facility]) [facility] Glucose 91 70 - 99 mg/dL 03/04/2024 3:59 AM [facility] Sodium 134(L) 136 - 145 mmol/L 03/04/2024 3:59 AM [facility] Potassium 3.4(L) 3.5 - 5.1 mmol/L 03/04/2024 3:59 AM [facility] Chloride 105 98 - 107 mmol/L 03/04/2024 3:59 AM [facility] CO2 22 22 - 29 mmol/L 03/04/2024 3:59 AM [facility] Calcium 8.5 8.4 - 10.4 mg/dL 03/04/2024 3:59 AM [facility] Anion Gap 7 6 - 16 mmol/L 03/04/2024 3:59 AM [facility] BUN 5(L) 5.3 - 18.7 mg/dL 03/04/2024 3:59 AM [facility] Creatinine 0.63 0.57 - 1.11 mg/dL 03/04/2024 3:59 AM [facility] Alkaline Phosphatase 92 40 - 150 U/L 03/04/2024 3:59 AM [facility] ALT 22 0 - 55 U/L 03/04/2024 3:59 AM [facility] AST 15 5 - 34 U/L 03/04/2024 3:59 AM [facility] Protein Total 7.1 6.4 - 8.3 gm/dL 03/04/2024 3:59 AM [facility] Albumin 2.3(L) 3.4 - 5.0 gm/dL 03/04/2024 3:59 AM [facility] Bilirubin Total 0.2 0.2 - 1.2 mg/dL 03/04/2024 3:59 AM RADIATION OFFICER [facility] eGFR by CKD-EPI >90 >=90 mL/min/1.7 3 m2 03/04/2024 3:59 AM RADIATION OFFICER [facility] Blood BLOOD SPECIMEN / Unknown Venipuncture / Unknown 03/04/2024 3:25 AM RADIATION OFFICER 03/04/2024 3:40 AM RADIATION OFFICER Rolly Joaquin MD LAB - CHEMISTRY [facility] Performing Organization Address City/State/[facility] Co de Phone Number [facility] [address] [place] [address] * SONOGRAM - COMPLETE (02/21/2024 9:58 AM RADIATION OFFICER) Linked Results Indication ======== Low-Lying Placenta on [...] anterior no previa not low lying. Placental [id number]-[id number]-[id number] os distance 47 mm Umbilical cord: Cord [...] lb 3 ??oz EFW by ? Hadlock ([id number]) Head / Face / Neck Biometry: Cephalic [...] view. RVOT view. LVOT view. 3-vessel view. 8-srttap-mzhptce view. Situs. Aortic arch view. Bicaval view. [...] your patient's care. Coding ====== Procedures ? 44306: US Preg Uterus Detailed ? 47891: US Preg Uterus Transvaginal [facility] Anatomical Region Laterality Modality Other 02/21/2024 9:58 AM RADIATION OFFICER Almita Kerns MD [facility] ORDERABLES from Last 3 Months Advance Directives * Full Code (Latest Code Status on File) Date Activated Date Inactivated Comments 03/04/2024 1:48 AM 03/04/2024 1:20 PM Care Teams Faucet Polisher Relationship Specialty Start Date End Date Pepe Shepherd MD [address] [place] [address] PCP - General Family Medicine 09/08/12
--- OUTSIDE RECORDS SUMMARY | 2024-03-07 23:39 | XMS_ITS | Encounter Summary ---
Author Organization [facility] Address [address] [place] [address] Care Team Providers Care Bacon Skin Lifter Name Role Phone Pepe Shepherd MD Primary Care Provider [phone] Reason for Visit * Reason Comments Sore Throat pt c/o sore throat, congestion, productive cough, cuts on lips x 2 days. Encounter Details Date Type Department Care Team (Late st Contact Info) Description 04/01/2020 5:54 PM DUPLICATION SPECIALIST - 04/01/2020 5:55 PM DUPLICATION SPECIALIST Emergency [facility] EMERGENCY DEPARTMENT [address] [place] [phone] Encounter for administrative examinations, unspecified Discharge Disposition: Left Against Medical Advice/Discontinued Care Social History Tobacco Use Types Packs/Day Years Used Date Smoking Tobacco: Never Assessed Sex and Gender Information Value Date Recorded Sex Assigned at Not on file Gender Identity Not on file Sexual Orientation Not on file documented as of this encounter Last Filed Vital Signs Vital Sign Reading Time Taken Comments Blood Pressure 133/86 04/01/2020 5:31 PM DUPLICATION SPECIALIST Pulse 94 04/01/2020 5:31 PM DUPLICATION SPECIALIST Temperature 36.4 ??C (97.6 ??F) 04/01/2020 5:31 PM CS T Respiratory Rate 20 04/01/2020 5:31 PM DUPLICATION SPECIALIST Oxygen Saturation 100% 04/01/2020 5:31 PM DUPLICATION SPECIALIST Inhaled Oxygen Concentration - - Weight 99.8 kg (220 lb) 04/01/2020 5:31 PM DUPLICATION SPECIALIST Height 180.3 cm (5' 11 ) 04/01/2020 5:31 PM DUPLICATION SPECIALIST Body Mass Index 30.68 04/01/2020 5:31 PM DUPLICATION SPECIALIST documented in this encounter ED Notes * Fany Kinney, RN - 04/01/2020 5:51 PM CST Pt up to triage desk, saying she is leaving. Pt walked out ED doors. ICATION SPECIALIST documented in this encounter Plan of Treatment Upcoming Encounters Date Type Department Care Team (Late st Contact Info) Description 03/20/2024 9:00 AM DUPLICATION SPECIALIST Appointment [facility] Maternal & Care [address] [place] [id number] 03/29/2024 10:30 AM DUPLICATION SPECIALIST Appointment [facility]ERNAL/ EVALUATION UNIT [address] [place] [address]. [address] [place] [address] documented as of this encounter Visit Diagnoses Diagnosis Encounter for administrative examinations, unspecified documented in this encounter Care Teams Bacon Skin Lifter Relationship Specialty Start Date End Date Pepe Shepherd MD [address] [place] [phone] PCP - General Family Medicine 09/08/12 documented as of this encounter
--- OUTSIDE RECORDS SUMMARY | 2024-03-07 23:41 | XMS_ITS | Encounter Summary ---
Author Organization [facility] Address [address] [place] [address]. [place] [address] [place] [address] Care Team Providers Care Advanced Manufacturing Associate Name Role Phone Jacqueline Boyd NP Primary Care Provider [phone] Encounter Details Date Type Department Care Team (Late st Contact Info) Description 03/02/2024 Orders Only [facility] [place], [place] [phone] Edilberto Pulido MD [address] [facility] [address] [place] [address] Social History Tobacco Use Types Packs/Day Years Used Date Smoking Tobacco: Never Smokeless Tobacco: Never Alcohol Use Standard Drinks/Week Comments Yes 0 (1 standard drink = 0.6 oz pur e alcohol) socially PHQ-2 Answer Date Recorded Patient Health Questionnaire-2 Score 0 03/10/2023 Comments No Sex and Gender Information Value Date Recorded Sex Assigned at Not on file Legal Sex Female 8:02 PM CDT Gender Identity Not on file Sexual Orientation Not on file documented as of this encounter Plan of Treatment Not on file documented as of this encounter Results * GLUCOSE, GESTATIONAL SCREEN (03/02/2024 2:47 PM TRIMMER MEAT) AMOUNT GIVEN 50 g 03/02/2024 6:05 PM TRIMMER MEAT [facility] GLUCOSE 1 HOUR POST DOSE 98 <140 mg/dL 03/02/2024 6:05 PM TRIMMER MEAT [facility] 03/02/2024 2:47 PM TRIMMER MEAT Edilberto Pulido MD LABORATORY Final Result [facility] [address] [place] [address], [place] [phone] * (ABNORMAL) CBC W/DIFF AUTOMATED (03/02/2024 2:47 PM TRIMMER MEAT) WBC 12.43(H) 4.5 - 11.0 x10'3/uL 03/02/2024 3:04 PM [facility] RBC 3.98(L) 4.20 - 5.40 x10'6/uL 03/02/2024 3:04 PM [facility] HGB 10.0(L) 12.0 - 16.0 G/DL 03/02/2024 3:04 PM [facility] HCT 32.9(L) 38.0 - 48.0 % 03/02/2024 3:04 PM [facility] MCV 82.7 81.0 - 99.0 FL 03/02/2024 3:04 PM [facility] MCH 25.1(L) 27.0 - 31.0 PG 03/02/2024 3:04 PM [facility] MCHC 30.4(L) 32.0 - 36.0 G/DL 03/02/2024 3:04 PM [facility] RDW 14.9(H) 11.5 - 14.5 % 03/02/2024 3:04 PM TRIMMER MEAT [facility] PLT 260 130 - 400 x10'3/uL 03/02/2024 3:04 PM [facility] MPV 11.7 9.3 - 12.2 FL 03/02/2024 3:04 PM [facility] DIFFERENTIAL TYPE AUTOMATED DIFFERENTIAL 03/02/2024 3:04 PM [facility] NEUTROPHILS % 71.1 % 03/02/2024 3:04 PM TRIMMER MEAT [facility] LYMPHOCYTES % 16.9 % 03/02/2024 3:04 PM [facility] MONOCYTES % 10.3 % 03/02/2024 3:04 PM [facility] EOSINOPHILS 0.9 % 03/02/2024 3:04 PM [facility] BASOPHILS 0.2 % 03/02/2024 3:04 PM [facility] IMMATURE GRANS % 0.6 % 03/02/20 3:04 PM [facility] ABS. NEUTROPHILS 8.83(H) 1.80 - 7.70 x10'3/uL 03/02/2024 3:04 PM [facility] ABS. LYMPHOCYTES 2.10 1.00 - 4.80 x10'3/uL 03/02/2024 3:04 PM TRIMMER MEAT [facility] ABS. MONOCYTES 1.28(H) 0.24 - 0.86 x10'3/uL 03/02/2024 3:04 PM TRIMMER MEAT [facility] ABS. EOSINOPHILS 0.11 0.04 - 0.36 x10'3/uL 03/02/2024 3:04 PM [facility] ABS. BASOPHILS 0.03 0.01 - 0.08 x10'3/uL 03/02/2024 3:04 PM TRIMMER MEAT [facility] ABS. IMMATURE GRANULOCYTES 0.08 0.00 - 0.49 x10'3/uL 03/02/2024 3:04 PM TRIMMER MEAT [facility] 03/02/2024 2:47 PM TRIMMER MEAT us Edilberto Pulido MD LABORATORY Final Result Performing Organization Address City/[facility]/ZIP Co de Phone Number [facility] [address] [place] [address], [place] [phone] * SYPHILIS AB (DIAGNOSTIC) WITH CASCADING REFLEX (03/02/2024 2:47 PM TRIMMER MEAT) Pathologist [facility] SYPHILIS IGG IGM AB NON-REACTI VE NON-REACTI VE 03/02/2024 3:47 PM TRIMMER MEAT [facility] Comment: No serologic evidence of syphilis. No follow-up necessary unless clinically indicated. 03/02/2024 2:47 PM TRIMMER MEAT us Edilberto Pulido MD LABORATORY Final Result Performing Organization Address [facility] Co de Phone Number [facility] [address] [place] [address], [place] [phone] * HIV 1 ANTIGEN(S), WITH HIV-1 AND HIV-2 ANTIBODIES (03/02/2024 2:47 PM TRIMMER MEAT) Pathologist [facility] HIV 1/2 AB+ HIV1 P24 AG NON-REACTI VE NON-REACTI VE 03/02/2024 4:10 PM TRIMMER MEAT [facility] 03/02/2024 2:47 PM TRIMMER MEAT us Edilberto Pulido MD LABORATORY Final Result Performing Organization Address City/[facility]/ZIP Co de Phone Number [facility] [address] [place] [address], documented in this encounter Visit Diagnoses Diagnosis Encounter for suprvsn of normal , unsp trimester (HHS/HCC)- Primary documented in this encounter Additional Health Concerns Assessment Noted Time PHQ-9 Depression Total Score: 5 03/10/20 23 10:52 AM TRIMMER MEAT documented as of this encounter Care Teams Advanced Manufacturing Associate Relationship Specialty Start Date End Date Jacqueline Boyd NP [address] [place] [address] PCP - General NURSE PRACTITIONER 02/08/23 documented as of this encounter
--- OUTSIDE RECORDS SUMMARY | 2024-03-07 23:41 | XMS_ITS | Clinical Summary ---
Author Organization [facility] Address [address] [place] [address]. [place] [address] [place] [address] Care Team Providers Care Jig Bore Operator Name Role Phone Jacqueline Boyd NP Primary Care Provider [phone] Allergies No known active allergies Medications ibuprofen (MOTRIN) 800 MG tabletIndicatio ns:Muscle spasm take 1 tablet by mouth every 8 hours as needed for pain 90 tablet 4 Active Additional Information Patient not taking.Reported on 08/18/2023 cyclobenzaprine (FLEXERIL) 10 MG tabletIndicatio ns:Chronic bilateral thoracic back pain Take 1 tablet (10 mg total) by mouth nightly as needed for Muscle Spasms. 30 tablet 4 Active Active Problems Problem Noted Date Diagnosed Date Left-sided back pain 01/26/2023 Surveillance of intrauterine contraception 05/31 Acute vaginitis 05/30/2020 Overview (03/10/2023): Acute vaginitis; Severity: Moderate Progress: Stable Added By: Jemima Buckley Add to Current Problems: YES ProblemStatus: Current Chlamydial cervicitis 04/27/2020 Overview (03/10/2023): Other chlamydial infection of lower genitourinary tract; Severity: Moderate Progress: Stable Added By: Clovis Robertson Add to Current Problems: YES ProblemStatus: Current Resolved Problems Problem Noted Date Diagnosed Date Resolved Date Screening for malignant neoplasm of cervix 05/31/2020 03/14/2023 Encounters Date Type Department Care Team Description 03/02/2024 1:25 PM RN ONCOLOGY - 03/02/2024 11:59 PM RN ONCOLOGY Hospital Encounter [facility] [address] Edilberto Pulido MD Discharge Disposition: Home or Self Care (Routine Discharge) 03/02/2024 Orders Only [place] [address] Edilberto Pulido MD 03/02/2024 Travel from Last 3 Months Immunizations Name Administration Dates Next Due Dtap 03/24/1998 Dtp 10/30/2001, 7,1996,09/19 Flumist (Intranasal) 01/28/2015 HPV GARDASIL 9-VALENT 06/30/2015,01/28/2015 HPV4 (Gardasil) 11/04/2011 Hepatitis A (Generic) 07/16/2010 Hepatitis A Vaccine - 2 Dose 11/04/2011 Hepatitis B Pediatric 03/07/1997,1996,07/20 Hib (Generic) 03/24/1998 Influenza (Generic) 02/10/2016 MENINGOCOCCAL A C Y&W-135 oligosaccharide (MENVEO) 10/25/2012 MMR 10/30/2001,09/05/1997 Meningococcal (Menomune) 07/16/2010 Opv 10/15/1998,1996 Polio IPV (Ipol) 10/30/2001,09/05/1997, 7 Tdap (Generic) 07/02/2021,08/06/2008 Varicella Vaccine 12/13/2001,09/05/1997 Family History Medical History Relation Comments Arthritis Father Epilepsy Father Hypertension Mother vertigo Mother Relation Status Comments Father Alive Mother Alive Social History Tobacco Use Types Packs/Day Years Used Date Smoking Tobacco: Never Smokeless Tobacco: Never Tobacco Cessation:Counseling Given: No Alcohol Use Standard Drinks/Week Comments Yes 0 [...] Sign Reading Time Taken Comments Blood Pressure 134/78 08/18/2023 2:15 PM CDT Pulse 87 08/18/2023 2:15 PM CDT Temperature 36.7 ??C (98 ??F) 08/05/2023 7:51 PM CDT Respiratory Rate 16 08/18/2023 2:15 PM CDT Oxygen Saturation 100% 08/18/2023 2:15 PM CDT Inhaled Oxygen Concentration - - Weight 117.9 kg (260 lb) 08/18/2023 2:15 PM CDT Height 182.9 cm (6') 08/18/2023 2:15 PM CDT Body Mass Index 35.26 08/18/2023 2:15 PM CDT Plan of Treatment Health Maintenance Due Date Last Done Comments Cervical Cancer Screening Pap Smear (Age 21 to 29) Every 3 Years 1996 Cervical Cancer Screening 1996 Annual Physical 08/15/1999 COVID-19 Vaccine ( season) 2023 Influenza Adult (#1) 2023 02/10/2016, 01/29/20 15 DTaP, Tdap and Td Vaccines (4 - Td or Tdap) 07/03/2031 07/02/2021, 08/06/2008, 10/30/2001, Additional history exists Hepatitis B Vaccines Completed 03/07/1997, 1996, 1996 Meningococcal Vaccine Completed 10/25/2012, 011 HPV Vaccines Completed 06/30/2015, 01/19, 11/04/2011 Hepatitis C Completed 03/11/2023 Pneumococcal Vaccine: Pediatrics (0 to 5 Years) and At-Risk Patients (6 to 64 Years) Aged Out No longer eligible based on patient's age to complete this topic RSV Immunizations Under 20 Months Aged Out No longer eligible based on patient's age to complete this topic Procedures Procedure Name Priority Date/Time Associated Diagnosis Comments GLUCOSE, GESTATIONAL SCREEN Routine 03/02/2024 2:47 PM RN ONCOLOGY Encounter for suprvsn of normal , unsp trimester (HHS/HCC) CBC W/DIFF AUTOMATED Routine 03/02/2024 2:47 PM RN ONCOLOGY Encounter for suprvsn of normal , unsp trimester (HHS/HCC) SYPHILIS AB (DIAGNOSTIC) WITH CASCADING REFLEX Routine 03/02/2024 2:47 PM RN ONCOLOGY Encounter for suprvsn of normal , unsp trimester (HHS/HCC) HIV 1 ANTIGEN(S), WITH HIV-1 AND HIV-2 ANTIBODIES Routine 03/02/2024 2:47 PM RN ONCOLOGY Encounter for suprvsn of normal , unsp trimester (HHS/HCC) HEPATITIS C ANTIBODY Routine 03/11/2023 1:27 PM RN ONCOLOGY Screen for STD (sexually transmitted disease) from Last 3 Months or Most Recently Relevant to Health Maintenance Results * SYPHILIS AB (DIAGNOSTIC) WITH CASCADING REFLEX (03/02/2024 2:47 PM RN ONCOLOGY) SYPHILIS IGG IGM AB NON-REACTI VE NON-REACTI VE 03/02/2024 3:47 PM RN ONCOLOGY [facility] Comment: No serologic evidence of syphilis. No follow-up necessary unless clinically indicated. 03/02/2024 2:47 PM RN ONCOLOGY us Edilberto Pulido MD LABORATORY Final Result [facility] [address] [place] [address], [place] [phone] * GLUCOSE, GESTATIONAL SCREEN (03/02/2024 2:47 PM RN ONCOLOGY) AMOUNT GIVEN 50 g 03/02/2024 6:05 PM RN ONCOLOGY [facility] GLUCOSE 1 HOUR POST DOSE 98 <140 mg/dL 03/02/2024 6:05 PM RN ONCOLOGY [facility] 03/02/2024 2:47 PM RN ONCOLOGY us Edilberto Pulido MD LABORATORY Final Result [facility] [address] [place] [address], [place] [phone] * HIV 1 ANTIGEN(S), WITH HIV-1 AND HIV-2 ANTIBODIES (03/02/2024 2:47 PM RN ONCOLOGY) Pathologist [facility] HIV 1/2 AB+ HIV1 P24 AG NON-REACTI VE NON-REACTI VE 03/02/2024 4:10 PM RN ONCOLOGY [facility] 03/02/2024 2:47 PM RN ONCOLOGY us Edilberto Pulido MD LABORATORY Final Result [facility] [address] [place] [address], [place] [phone] * (ABNORMAL) CBC W/DIFF AUTOMATED (03/02/2024 2:47 PM RN ONCOLOGY) [facility] WBC 12.43(H) 4.5 - 11.0 x10'3/uL 03/02/2024 3:04 PM RN ONCOLOGY [facility] RBC 3.98(L) 4.20 - 5.40 x10'6/uL 03/02/2024 3:04 PM RN ONCOLOGY [facility] HGB 10.0(L) 12.0 - 16.0 G/DL 03/02/2024 3:04 PM RN ONCOLOGY [facility] HCT 32.9(L) 38.0 - 48.0 % 03/02/2024 3:04 PM RN ONCOLOGY [facility] MCV 82.7 81.0 - 99.0 FL 03/02/2024 3:04 PM [facility] MCH 25.1(L) 27.0 - 31.0 PG 03/02/2024 3:04 PM [facility] MCHC 30.4(L) 32.0 - 36.0 G/DL 03/02/2024 3:04 PM [facility] RDW 14.9(H) 11.5 - 14.5 % 03/02/2024 3:04 PM [facility] PLT 260 130 - 400 x10'3/uL 03/02/2024 3:04 PM [facility] MPV 11.7 9.3 - 12.2 FL 03/02/2024 3:04 PM [facility] DIFFERENTIAL TYPE AUTOMATED DIFFERENTIAL 03/02/2024 3:04 PM [facility] NEUTROPHILS % 71.1 % 03/02/2024 3:04 PM [facility] LYMPHOCYTES % 16.9 % 03/02/2024 3:04 PM [facility] MONOCYTES % 10.3 % 03/02/2024 3:04 PM [facility] EOSINOPHILS 0.9 % 03/02/2024 3:04 PM [facility] BASOPHILS 0.2 % 03/02/2024 3:04 PM [facility] IMMATURE GRANS % 0.6 % 03/02/20 3:04 PM [facility] ABS. NEUTROPHILS 8.83(H) 1.80 - 7.70 x10'3/uL 03/02/2024 3:04 PM RN ONCOLOGY [facility] ABS. LYMPHOCYTES 2.10 1.00 - 4.80 x10'3/uL 03/02/2024 3:04 PM RN ONCOLOGY [facility] ABS. MONOCYTES 1.28(H) 0.24 - 0.86 x10'3/uL 03/02/2024 3:04 PM RN ONCOLOGY [facility] ABS. EOSINOPHILS 0.11 0.04 - 0.36 x10'3/uL 03/02/2024 3:04 PM RN ONCOLOGY [facility] ABS. BASOPHILS 0.03 0.01 - 0.08 x10'3/uL 03/02/2024 3:04 PM RN ONCOLOGY [facility] ABS. IMMATURE GRANULOCYTES 0.08 0.00 - 0.49 x10'3/uL 03/02/2024 3:04 PM RN ONCOLOGY [facility] 03/02/2024 2:47 PM RN ONCOLOGY Edilberto Pulido MD LABORATORY Final Result [facility] [address] [place] [address], [place] [phone] * HEPATITIS C ANTIBODY W/REFLEX (03/11/2023 1:27 PM RN ONCOLOGY) HEPATITIS C AB NON-REACTI VE NON-REACTI VE 03/11/2023 3:46 PM RN ONCOLOGY [facility] 03/11/2023 1:27 PM RN ONCOLOGY Jacqueline Boyd NP LABORATORY Final Result [facility] [address] [place] [address], [place] [phone] from Last 3 Months or Most Recently Relevant to Health Maintenance Insurance [facility] Care Teams Jig Bore Operator Relationship Specialty Start Date End Date Jacqueline [place] [address] PCP - General NURSE PRACTITIONER 02/08/23
--- OUTSIDE RECORDS SUMMARY | 2024-03-07 23:41 | XMS_ITS | Encounter Summary ---
Author Organization [facility] Address [address] [place] [address]. [place] [address] [place] [address] Care Team Providers Care Contact Center Assistant Name Role Phone aJcqueline Boyd NP Primary Care Provider [phone] Encounter Details Date Type Department Care Team (Latest Contact Info) Description 03/02/2024 Travel Social History Tobacco Use Types Packs/Day [...] on file documented as of this encounter Visit Diagnoses Not on filedocumented in this encounter Additional Health Concerns Assessment Noted Time PHQ-9 Depression Total Score: 5 03/10/20 23 10:52 AM HOSPITAL PERSONNEL DIRECTOR documented as of this encounter Care Teams Contact Center Assistant Relationship Specialty Start Date End Date [place]queline [place] [address] PCP - General NURSE PRACTITIONER 02/08/23 documented as of this encounter
--- OUTSIDE RECORDS SUMMARY | 2024-03-07 23:42 | XMS_ITS | Encounter Summary ---
Author Organization [facility] Address [address] [place] [address]. [place] [address] [place] [address] Care Team Providers Care Fruit Farmer Name Role Phone Oliver Boyd AVIAN KEEPER Primary Care Provider [phone] Encounter Details Date Type Department Care Team (Latest Contact Info) Description 08/29/2023 4:15 PM CDT - 08/29/2023 11:59 PM CDT Hospital Encounter [facility] [address] [address] Oliver Boyd NP [address] [place], [place] [id number] Discharge Disposition: Home or Self Care (Routine Discharge) Social History Tobacco Use Types Packs/Day Years [...] on file documented as of this encounter Medications at Time of Discharge cyclobenzaprine (FLEXERIL) 10 MG tabletIndications :Chronic bilateral thoracic back pain Take 1 tablet (10 mg total) by mouth nightly as needed for Muscle Spasms. 30 tablet 08/18/2023 ibuprofen (MOTRIN) 800 MG tabletIndications :Muscle spasm take 1 tablet by mouth every 8 hours as needed for pain 90 tablet 06/22/2023 documented as of this encounter Plan of Treatment Not on file documented as of this encounter Procedures Procedure Name Priority Date/Time Associated Diagnosis Comments XR THOR SPINE 3V Routine 08/29/2023 5:04 PM CDT Chronic bilateral thoracic back pain documented in this encounter Results * XR THOR SPINE 3V (08/29/2023 5:04 PM CDT) Anatomical Region Laterality Modality Spine Radiographic Bharti ging 08/30/2023 1:37 PM CDT Impressions 08/30/2023 1:38 PM CDT =====IMPRESSION:===== No significant radiographic abnormality. Ordered By: OLIVER BOYD Interpreted By: Chaz Zaldivar MD, 08/30/2023 1:37 PM Narrative 08/30/2023 1:38 PM CDT Examination: Thoracic Spine 3 views Exam date/time: 08/29/2023 4:50 PM Reason For Exam: ??pain since Dec ? Mid back pain for 6 months. Comparison: No prior exam Technique: AP, lateral, and swims views of the thoracic spine were obtained. Findings:Twelve normal rib pairs. Thoracic vertebral body heights and alignment are preserved. No acute fracture or dislocation. No destructive osseous lytic or sclerotic lesion. Visualized lung almazan are clear. Procedure Note Chaz Zaldivar MD - 08/30/2023 Examination: Thoracic Spine 3 views Exam date/time: 08/29/2023 4:50 PM Reason For Exam: pain since Oct Mid back pain for 6 months. Comparison: No prior exam Technique: AP, lateral, and swims views of the thoracic spine wereobtained. Findings:Twelve normal rib pairs. Thoracic vertebral body heights andalignment are preserved. No acute fracture or dislocation. No destructiveosseous lytic or sclerotic lesion. Visualized lung almazan are clear. =====IMPRESSION:===== No significant radiographic abnormality. Ordered By: OLIVER BOYD Interpreted By: Chaz Zaldivar MD, 08/30/2023 1:37 PM Oliver Boyd AVIAN KEEPER [facility] Final Result documented in this encounter Visit Diagnoses Diagnosis Chronic bilateral thoracic back pain documented in this encounter Additional Health Concerns Assessment Noted Time PHQ-9 Depression Total Score: 5 03/10/20 23 10:52 AM WARP HANGER documented as of this encounter Care Teams Fruit Farmer Relationship Specialty Start Date End Date Oliver Boyd [place] [address] PCP - General NURSE PRACTITIONER 02/08/23 documented as of this encounter
--- OUTSIDE RECORDS SUMMARY | 2024-03-07 23:42 | XMS_ITS | Encounter Summary ---
Author Organization [facility] Address [address] [place] [address]. [place] [address] [place] [address] Care Team Providers Care Print Shop Stenographer Name Role Phone Jacqueline Boyd NP Primary Care Provider [phone] Encounter Details Date Type Department Care Team (Latest Contact Info) Description 11/19/2023 8:50 AM CDT - 11/19/2023 11:59 PM CDT Hospital Encounter [facility] [place] [address] Edilberto Pulido MD [facility] [address] [place] [address] Discharge Disposition: Home or Self Care (Routine [...] Procedure Name Priority Date/Time Associated Diagnosis Comments SYPHILIS AB (DIAGNOSTIC) WITH CASCADING REFLEX Routine 11/19/2023 9:11 AM CDT Other specified conditions associated with female genital organs and menstrual cycle HIV 1 ANTIGEN(S), WITH HIV-1 AND HIV-2 ANTIBODIES Routine 11/19/2023 9:11 AM CDT Other specified conditions associated with female genital organs and menstrual cycle VARICELLA ZOSTER IGG Routine 11/19/2023 9:11 AM CDT Other specified conditions associated with female genital organs and menstrual cycle RUBELLA IGG Routine 11/19/2023 9:11 AM CDT Other specified conditions associated with female genital organs and menstrual cycle SICKLE CELL TEST Routine 11/19/2023 9:11 AM CDT Other specified conditions associated with female genital organs and menstrual cycle HC PARVOVIRUS AB-90 Routine 11/19/2023 9 :11 AM CDT Other specified conditions associated with female genital organs and menstrual cycle HEPATITIS B SURFACE AG, EIA Routine 11/19/2023 9:11 AM CDT Other specified conditions associated with female genital organs and menstrual cycle CMV ANTIBODY IGG Routine 11/19/2023 9:11 AM CDT Other specified conditions associated with female genital organs and menstrual cycle HCG QUANT (SERUM)-CHORIONIC GONADOTROPIN Routine 11/19/2023 9:11 AM CDT Other specified conditions associated with female genital organs and menstrual cycle HC BLOOD TYPING ABO Routine 11/19/2023 9 :11 AM CDT Other specified conditions associated with female genital organs and menstrual cycle CBC W/DIFF AUTOMATED Routine 11/19/2023 9:11 AM CDT Other specified conditions associated with female genital organs and menstrual cycle URINE BACTERIA CULTURE Routine 11/19/2023 9:08 AM CDT Other specified conditions associated with female genital organs and menstrual cycle documented in this encounter Results * SICKLE CELL TEST (11/19/2023 9:11 AM CDT) HGB S SCREEN NEGATIVE NEGATIVE 11/19/2023 10:[address] [facility] Comment: NOTE: THIS SICKLE SCREEN SOLUBILITY PROCEDURE ?? IS NOT SPECIFIC FOR HEMOGLOBIN S. IT IS ?? RECOMMENDED THAT POS RESULTS BE FURTHER ?? EVALUATED BY HEMOGLOBIN ELECTROPHORESIS ?? TO DIFFERENTIATE ABNORMAL HEMOGLOBINS. 11/19/2023 9:11 AM CDT us Edilberto Pulido MD LABORATORY Final Result [facility] [address] [place] [address], [place] [phone] * HIV 1 ANTIGEN(S), WITH HIV-1 AND HIV-2 ANTIBODIES (11/19/2023 9:11 AM CDT) HIV 1/2 AB+ HIV1 P24 AG NON-REACTI VE NON-REACTI VE 11/19/2023 11:02 AM CDT [facility] 11/19/2023 9:11 AM CDT us Edilberto Pulido MD LABORATORY Final Result [facility] [address] [place] [address] [place] [address], [place] [phone] * HEPATITIS B SURFACE AG, EIA (11/19/2023 9:11 AM CDT) HEPATITIS B SURFACE AG NON-REACTI VE NON-REACTI VE 11/19/2023 10:33 AM [address]T [facility] 11/19/2023 9:11 AM CDT us Edilberto Pulido MD LABORATORY Final Result Performing Organization Address City/[facility]/ZIP Co de Phone Number [facility] [address] [place] [address], [place] [phone] * BLOOD TYPING, ABO AND RH (11/19/2023 9:11 AM CDT) ABO/RH O POSITIVE 11/19/2023 10:[address] [facility] 11/19/2023 9:11 AM CDT us Edilberto Pulido MD BLOOD BANK TEST ORDERABLES F inal Result [facility] [address] [place] [address], [place] [phone] * (ABNORMAL) CBC W/DIFF AUTOMATED (11/19/2023 9:11 AM CDT) WBC 8.16 4.5 - 11.0 x10'3/uL 11/19/2023 9:43 AM CDT [facility] RBC 4.50 4.20 - 5.40 x10'6/uL 11/19/2023 9:43 AM CDT [facility] HGB 11.0(L) 12.0 - 16.0 G/DL 11/19/2023 9:43 AM CDT [facility] HCT 35.6(L) 38.0 - 48.0 % 11/19/2023 9:43 AM CDT [facility] MCV 79.1(L) 81.0 - 99.0 FL 11/19/2023 9:43 AM CDT [facility] MCH 24.4(L) 27.0 - 31.0 PG 11/19/2023 9:43 AM CDT [facility] MCHC 30.9(L) 32.0 - 36.0 G/DL 11/19/2023 9:43 AM CDT [facility] RDW 15.7(H) 11.5 - 14.5 % 11/19/2023 9:43 AM CDT [facility] PLT 253 130 - 400 x10'3/uL 11/19/2023 9:43 AM CDT [facility] MPV 11.7 9.3 - 12.2 FL 11/19/2023 9:43 AM T [facility] DIFFERENTIAL TYPE AUTOMATED DIFFERENTIAL 11/19/2023 9:43 AM CDT [facility] NEUTROPHILS % 64.0 % 11/19/2023 9:43 AM CDT [facility] LYMPHOCYTES % 26.6 % 11/19/2023 9:43 AM CDT [facility] MONOCYTES % 8.2 % 11/19/2023 9:43 AM CDT [facility] EOSINOPHILS 0.6 % 11/19/2023 9:43 AM CDT [facility] BASOPHILS 0.4 % 11/19/2023 9:43 AM CDT [facility] IMMATURE GRANS % 0.2 % 11/19/19 9:43 AM CDT [facility] ABS. NEUTROPHILS 5.22 1.80 - 7.70 x10'3/uL 11/19/2023 9:43 AM CDT [facility] ABS. LYMPHOCYTES 2.17 1.00 - 4.80 x10'3/uL 11/19/2023 9:43 AM CDT [facility] ABS. MONOCYTES 0.67 0.24 - 0.86 x10'3/uL 11/19/2023 9:43 AM CDT [facility] ABS. EOSINOPHILS 0.05 0.04 - 0.36 x10'3/uL 11/19/2023 9:43 AM CDT [facility] ABS. BASOPHILS 0.03 0.01 - 0.08 x10'3/uL 11/19/2023 9:43 AM CDT [facility] ABS. IMMATURE GRANULOCYTES 0.02 0.00 - 0.49 x10'3/uL 11/19/2023 9:43 AM CDT [facility] 11/19/2023 9:11 AM CDT us Edilberto Pulido MD LABORATORY Final Result [facility] [address] [place] [address], * PARVOVIRUS ANTIBODY (11/19/2023 9:11 AM CDT) [facility] PARVOVIRUS B-19 IGG 0.2 <0.9 11/22/2023 5:15 PM CDT [facility] JEFF[facility] MARIE PARVOVIRUS B-19 IGM 0.1 <0.9 11/22/2023 5:15 PM CDT [facility] JEFFERY MARIE Comment: Reference Range: ??<0.9 ?? Negative 0.9-1.1 ?? Equivocal ??>1.1 ?? Positive IgG persists for years and provides life-long immunity. Results from any one IgM assay should not be used as a sole determinant of a current or recent infection. Because IgM tests can yield false positive results and low levels of IgM antibody may persist for months post infection, reliance on a single test result could be misleading. If an acute infection is suspected, consider obtaining a new specimen and submit for both IgG and IgM testing in two or more weeks. To diagnose current infection, consider Parvovirus B19 DNA, PCR. Test Performed by [facility], [address] [place], [place] Chai Guzman M.D., Ph.D., Director of Laboratories , CLIA [id number] 11/19/2023 9:11 AM CDT Edilberto Pulido MD LABORATORY Final Result [facility] , * CMV ANTIBODY IGG (11/19/2023 9:11 AM CDT) CMV IGG <0.60 <0.60 U/mL 11/23/2023 10:11 AM CDT [email or web address] Comment: ??U/mL ? Interpretation ? <0.60 ?? Negative 0.60 - 0.69 ?? Equivocal > or = 0.70 ?? Positive A positive result indicates that the patient has antibody to CMV. ??It does not differentiate between an active or past infection. Test Performed by [facility], [address] [place], [place] Chai Guzman M.D., Ph.D., Director of Laboratories , CLIA [id number] 11/19/2023 9:11 AM CDT Edilberto Pulido MD LABORATORY Final Result [facility] [facility] [address] [place] [address], [place] [phone] * HCG QUANT (SERUM)-CHORIONIC GONADOTROPIN (11/19/2023 9:11 AM CDT) HCG QUANTITATIVE 32,551 MIU/ML 11/19/19 10:[address] [facility] Comment: WEEKS OF ? REFERENCE RANGES Non- female ?< or = 2 ? 0.2 - 1 ? 5 - 50 ? 1 - 2 ? 50 - 500 ? 2 - 3 ? 100 - 5000 ? 3 - 4 ? 500 - 10,000 ? 4 - 5 ? 1000 - 50,000 ? 5 - 6 ? 10,000 - 100,000 ? 6 - 8 ? 15,000 - 200,000 ? 2 - 3 MONTHS ?10,000 - 100,000 11/19/2023 9:11 AM CDT Edilberto Pulido MD LABORATORY Final Result [facility] [address] [place] [address], [place] [phone] * RUBELLA IGG (11/19/2023 9:11 AM CDT) RUBELLA IGG AB 61.90 11/19/2023 10:[address] [facility] Comment: IMMUNITY PRESENT RUBELLA IGG ANTIBODY INTERPRETATION <5 IU/ML SUGGESTS NONIMMUNITY >=5 TO <10 IU/ML EQUIVOCAL RANGE >=10 IU/ML SUGGESTS IMMUNITY FOR SPECIMENS IN THE EQUIVOCAL RANGE, A ?? NEW SPECIMEN SHOULD BE OBTAINED IN 6 WEEKS ?? AND RETESTED FOR RUBELLA IGG ANTIBODY. ?? ANTIBODY LEVELS IN THE EQUIVOCAL RANGE ?? MAY BE INSUFFICIENT TO PROTECT AGAINST ?? CLINICAL ILLNESS UPON EXPOSURE TO ?? RUBELLA VIRUS. 11/19/2023 9:11 AM CDT us Edilberto Pulido MD LABORATORY Final Result Performing Organization Address City/[facility]/ZIP Co de Phone Number [facility] [address] [place] [address], [place] [phone] * VARICELLA ZOSTER IGG (11/19/2023 9:11 AM CDT) Pathologist [facility] VARICELLA ZOSTER IGG EIA POSITIVE 11/22/2023 10:54 AM CDT [facility] Comment:IN THE ABSENCE OF AC MACHO SYMPTOMS, A POSITIVE RESULT SUGGESTS PAST IMMUNITY. 11/19/2023 9:11 AM CDT us Edilberto Pulido MD LABORATORY Final Result [facility] [address] [place] [address], [place] [phone] [id number] * SYPHILIS AB (DIAGNOSTIC) WITH CASCADING REFLEX (11/19/2023 9:11 AM CDT) Pathologist [facility] SYPHILIS IGG IGM AB NON-REACTI VE NON-REACTI VE 11/19/2023 10:[address] [facility] Comment: No serologic evidence of syphilis. No follow-up necessary unless clinically indicated. 11/19/2023 9:11 AM CDT us Edilberto Pulido MD LABORATORY Final Result Performing Organization Address [facility] Co de Phone Number [facility] [address] [place] [address], * URINE BACTERIA CULTURE (11/19/2023 9:08 AM CDT) SPEC DESCRIPTION URINE CLEAN CATCH 11/19/2023 9:[address] [facility] SPECIAL REQUESTS NO SPECIAL REQUEST 11/19/2023 9:[address] [facility] CULTURE RESULT POLYMICROBIAL GROWTH CONSISTENT WITH NORMAL GENITAL ARABELLA. ?? SUSCEPTIBILITIES NOT ROUTINELY PERFORMED. 11/20/2023 10:09 [address] [facility] URINE SPECIMEN OBTAINED BY CLEAN CATCH PROCEDURE / Unknown 11/19/2023 9:08 AM CDT 11/19/2023 9:18 AM CDT us Edilberto Pulido MD MICROBIOLOGY - GENERAL ORDER JAYNE Final Result Performing Organization Address [facility] de Phone Number [facility] [address] [place] [address], [place] [phone] documented in this encounter Visit Diagnoses Diagnosis Other specified conditions associated with female genital organs and menstrual cycle documented in this encounter Additional Health Concerns Assessment Noted Time PHQ-9 Depression Total Score: 5 03/10/20 23 10:52 AM RISK ANALYST documented as of this encounter Care Teams Print Shop Stenographer Relationship Specialty Start Date End Date [place] [address] PCP - General NURSE PRACTITIONER 02/08/23 documented as of this encounter
--- OUTSIDE RECORDS SUMMARY | 2024-03-07 23:42 | XMS_ITS | Encounter Summary ---
Author Organization [facility] Address [address] [place] [address]. [place] [address] [place] [address] Care Team Providers Care Customer Sales Advisor Name Role Phone None, Provider Primary Care Provider Unavaila ble Reason for Visit * Reason Comments Back Pain Sinus Problem Encounter Details Date Type Department Care Team (Latest Contact Info) Description 01/13/2023 3:44 PM CDT - 01/13/2023 4:34 PM CDT Hospital Encounter [facility] [place] [address] Tiffany Chinchilla, MARY ELLEN [address] [place] [id number] Back Pain; Sinus Problem Discharge Disposition: Home or Self Care (Routine Discharge) Social History Tobacco Use Types Packs/Day Years Used Date Smoking Tobacco: Never Smokeless Tobacco: Never Alcohol Use Standard Drinks/Week Comments Yes 0 (1 standard drink = 0.6 oz pur e alcohol) socially Comments No Sex and Gender Information Value Date Recorded Sex Assigned at Not on file Legal Sex Female 8:02 PM CDT Gender Identity Not on file Sexual Orientation Not on file documented as of this encounter Last Filed Vital Signs Vital Sign Reading Time Taken Comments Blood Pressure 118/79 01/13/2023 3:50 PM CDT Pulse 66 01/13/2023 3:50 PM CDT Temperature 36.6 ??C (97.8 ??F) 01/13/2023 3:50 PM CD T Respiratory Rate 16 01/13/2023 3:50 PM CDT Oxygen Saturation 100% 01/13/2023 3:50 PM CDT Inhaled Oxygen Concentration - - Weight 112 kg (247 lb) 01/13/2023 3:50 PM CDT Height 180.3 cm (5' 11 ) 01/13/2023 3:50 PM CDT Body Mass Index 34.45 01/13/2023 3:50 PM CDT documented in this encounter Discharge Instructions * Discharge Instructions* MARY ELLEN Donovan - 01/13/2023 4:26 PM CDT Thank you for giving us the opportunity to care for you today. If at any point you are becoming more ill, please call your doctor, return here, or go to the ER. You are always welcome back. If you have any questions about this visit, concerns about your symptoms, questions about your medications or other concerns, please give us a call... Our practice is committed to providing you the very best in healthcare. We want to hear from you! Please fill out the survey you get from us. Your feedback is anonymous & helps us improve the patient experience for you and others in the community we serve. - NGOZI Rice PA-C - Emergency Medicine Provider ADDITIONAL DISCHARGE INSTRUCTIONS: --Please follow all the instructions that we have discussed or are provided here. Take all medications as directed. --While the tests and exam we have performed at Urgent Care did not show anything dangerous or lifethreatening it is important for you to follow up with your doctor for further evaluation of your symptoms. It is also important to return to Urgent Care of the ER if your symptoms become worse or youhave new or further concerns. Medicine is an inexact science and many conditions cannot be diagnosed or completely treated during a single Urgent Care visit. Please mention to your follow-up physician that you were at urgent care and request that they review your labs and/or imaging to ensure all findings are followed up on. --Your medication list was reviewed prior to treatment, and at discharge, by the treating provider for the purpose of this outpatient visit only. Please review this entire medication list with your pharmacist, primary care physician, and specialist(s). It is your responsibility to share any new medication instructions you received this visit with your doctor(s). Although no medicine is without risk, your healthcare provider today feels reasonable decisions were made concerning starting new medications and stopping or changing the dosages of your usual medications until you receive follow-up care. Take medications only as directed. Many medications can cause drowsiness, especially those for pain, anxiety, muscle spasms, nausea, and allergies. DO NOT drive, drink alcohol, operate power machinery, or participate in potentially dangerous activities if taking medicines that make you tired. Chronic pain is best managed by pain specialists or primary care physicians, so narcotic refills are not routinely dispensed in the ED. DO NOT take multiple medications containing acetaminophen (Tylenol), such as many narcotic drug combinations and pyel-xdm-kkajdsu cold medicines. * Attachments The following attachments cannot be sent through Care Everywhere. * Sinusitis, Adult ED (Bhutanese) * Bronchitis, Adult ED (Bhutanese) documented in this encounter Medications at Time of Discharge dextromethorphan- guaiFENesin ER (MUCINEX DM) 30-600 MG TABLET SR 12 HR 12 hr tablet Take 1 tablet by mouth every 12 (twelve) hours as needed. 20 tablet 01/13/2023 01/23/2023 doxycycline hyclate (VIBRAMYCIN) 100 MG capsule Take 1 capsule (100 mg total) by mouth 2 (two) times daily for 7 days. 14 capsule 01/13/2023 01/20/2023 methylPREDNISolon e, SHUKRI, (MEDROL DOSEPAK) 4 MG tablet 6 TABLETS ON DAY ONE, 5 TABLETS DAY TWO, 4 TABLETS DAY THREE, 3 TABLETS DAY FOUR, 2 TABLETS DAY FIVE, AND 1 TABLET DAY SIX 1 each 01/13/2023 03/10/2023 documented as of this encounter ED Notes * Mitchel Parker RN - 01/13/2023 3:48 PM CDT Pt c/o intermittent cough sinus pain/pressure and congestion for approx 2 weeks. Pt states It feels like strep is coming back. Pt reports she had a sore throat when sx began but denies current sorethroat. Pt took 4 left over amoxicillin tablets from a previous prescription and sore throat and swelling resolved. Pt also reports recent upper back pain that is worse with movement/deep breath. Denies SOB. * MARY ELLEN Donovan - 01/13/2023 3:44 PM CDT [place], [place] HISTORICAL INFORMATION Primary Care Doctor: Provider Martha, MD Patient information was obtained primarily from the patient, nursing notes. History/Exam limitations: None Provider at Bedside None CHIEF COMPLAINT Back Pain and Sinus Problem Chief Complaint Patient presents with Back Pain Sinus Problem HPI Marina Haddad is a 27-year-old female who presents with cough and sinus pressure/congestion for approximately 2 weeks. States that she had a sore throat initially and is concerned it may be strep throat. Had some left over amoxicillin tablets that she had taken at home and it resolved the throat pain and swelling. Pt also notes some pain to her upper back which is worse with movement, coughing, deep breathing. Denies any shortness of breath. PAST MEDICAL HISTORY Past Medical History: Diagnosis Date Strep throat Yeast infection SURGICAL HISTORY Past Surgical History: Procedure Laterality Date NONE CURRENT MEDICATIONS No current facility-administered medications for this encounter. Current Outpatient Medications: dextromethorphan-guaiFENesin ER (MUCINEX DM) 30-600 MG TABLET SR 12 HR 12 hr tablet, Take 1 tablet by mouth every 12 (twelve) hours as needed., Disp: 20 tablet, Rfl: 0 doxycycline hyclate (VIBRAMYCIN) 100 MG capsule, Take 1 capsule (100 mg total) by mouth 2 (two) times daily for 7 days., Disp: 14 capsule, Rfl: 0 methylPREDNISolone, SHUKRI, (MEDROL DOSEPAK) 4 MG tablet, 6 TABLETS ON DAY ONE, 5 TABLETS DAY TWO, 4 TABLETS DAY THREE, 3 TABLETS DAY FOUR, 2 TABLETS DAY FIVE, AND 1 TABLET DAY SIX, Disp: 1 each, Rfl: 0 ALLERGIES Review of patient's allergies indicates: No Known Allergies FAMILY HISTORY Family History Problem Relation Name Age of Onset Hypertension Mother Other (vertigo) Mother Arthritis Father Epilepsy Father SOCIAL HISTORY Social History Socioeconomic History Marital status: Single Tobacco Use Smoking status: Never Smokeless tobacco: Never Vaping Use Vaping Use: Never used Substance and Sexual Activity Alcohol use: Yes Comment: socially Drug use: Yes Types: Marijuana Comment: daily REVIEW OF SYSTEMS HEENT: +Congestion. Respiratory: +Cough. Musculoskeletal: +Back pain. See HPI for further details. All systems negative except as marked. Physical Exam VITAL SIGNS: Filed Vitals: 01/13/23 1550 BP: 118/79 Pulse: 66 Resp: 16 Temp: 97.8 ??F (36.6 ??C) TempSrc: Temporal SpO2: 100% Weight: 112 kg (247 lb) Height: 1.803 m (5' 11 ) Constitutional: Well developed, No acute distress, Non-toxic appearance. Integument: Warm, Dry HEENT: Normocephalic, Atraumatic. Posterior pharynx with mild erythema and 2+ tonsillar edema but no exudates, Uvula midline. Neck/Back- Normal range of motion, No gross abnormality. Tenderness of left upper paraspinous region. Respiratory: Normal breath sounds, No respiratory distress. Cardiovascular: Normal heart rate, Normal rhythm Musculoskeletal: Good ROM, no deformities noted Neurologic: Alert, No focal deficits noted. Psychiatric: Affect normal, Judgment normal, Mood normal. EKG (interpreted by ED provider) No results found for this visit on 01/13/23. LABORATORY Results for orders placed or performed during the hospital encounter of 01/13/23 RAPID STREP A Specimen: THROAT Result Value Ref Range Specimen Type THROAT RAPID STREP TEST NEGATIVE NEGATIVE RADIOLOGY No orders to display PROCEDURES Procedures MDM Strep negative. Patient well-appearing and vitals are stable. Lungs clear by exam. Due to the duration of symptoms greater than 10 days we will treat for possible bacterial etiology of bronchitis and/or sinusitis. Advised on continued symptomatic treatment as well. I have discussed today's findings with the patient and provided information regarding the likely diagnosis. The patient has been given information regarding their treatment, follow up and concerning symptoms for which they should seek urgent or emergent attention. I have expressed the the importance of seeking attention should there be any new, or worsening symptoms or persistence of their condition. The patient is stable at discharge and has verbalized understanding of these instructions. Impression/Disposition SNOMED CT(R) 1. Sinus congestion CONGESTION OF NASAL SINUS 2. Cough COUGH Disposition: Discharge Medications - No data to display Discharge Medication List as of 01/13/2023 4:26 PM START taking these medications Details dextromethorphan-guaiFENesin ER (MUCINEX DM) 30-600 MG TABLET SR 12 HR 12 hr tablet Take 1 tablet by mouth every 12 (twelve) hours as needed., Starting [facility] 01/13/2023, Until [place] 01/23/2023 at 2359, Eprescribe Class: Eprescribe Pharmacy: [place] [address] [place] [address] (Ph #: [phone]) doxycycline hyclate (VIBRAMYCIN) 100 MG capsule Take 1 capsule (100 mg total) by mouth 2 (two) times daily for 7 days., Starting [facility] 01/13/2023, Until [facility] 01/20/2023, Eprescribe Class: Eprescribe Pharmacy: [place] [address] [place] [address] (Ph #: [phone]) methylPREDNISolone, SHUKRI, (MEDROL DOSEPAK) 4 MG tablet 6 TABLETS ON DAY ONE, 5 TABLETS DAY TWO, 4 TABLETS DAY THREE, 3 TABLETS DAY FOUR, 2 TABLETS DAY FIVE, AND 1 TABLET DAY SIX, Eprescribe Class: Eprescribe Pharmacy: [place] [address] [place] [address] (Ph #: [phone]) MARY ELLEN DONOVAN PA 01/13/23 0759 Cosigned by Tania Babb MD at 01/14/2023 7:09 PM CDT documented in this encounter Plan of Treatment Not on file documented as of this encounter Procedures Procedure Name Priority Date/Time Associated Diagnosis Comments RAPID STREP A STAT 01/13/2023 3:56 PM CDT documented in this encounter Results * RAPID STREP A (01/13/2023 3:56 PM CDT) SPECIMEN TYPE THROAT 01/13/2023 3:57 PM CDT [facility] RAPID STREP TEST NEGATIVE NEGATIVE 01/13/2023 4:05 PM CDT [facility] STRUCTURE OF ANTERIOR PORTION OF NECK / Unknown 01/13/2023 3:56 PM CDT us Tiffany HYDE MICROBIOLOGY - GENERAL [facility] Final Result Performing Organization Address City/State/[facility] Co de Phone Number [facility] [address] [place] [phone], documented in this encounter Visit Diagnoses Diagnosis Sinus congestion- Primary Other diseases of nasal cavity and sinuses Cough documented in this encounter Care Teams Customer Sales Advisor Relationship Specialty Start Date End Date None, Provider, PCP - General 04/01/20 01/16/23 documented as of this encounter
--- OUTSIDE RECORDS SUMMARY | 2024-03-07 23:42 | XMS_ITS | Encounter Summary ---
Author Organization [facility] Address [address] [place] [address]. [place] [address] [place] [address] Care Team Providers Care Staff Cytotechnologist Name Role Phone Jacqueline Boyd NP Primary Care Provider [phone] Encounter Details Date Type Department Care Team (Latest Contact Info) Description 03/10/2023 Travel Social History Tobacco Use Types Packs/Day [...] Total Score: 5 03/10/20 23 10:52 AM MOVIE EXTRA documented as of this encounter Care Teams Staff Cytotechnologist Relationship Specialty Start Date End Date Jacqueline Boyd [place] [address] PCP - General NURSE PRACTITIONER 02/08/23 documented as of this encounter
--- OUTSIDE RECORDS SUMMARY | 2024-03-07 23:42 | XMS_ITS | Encounter Summary ---
Author Organization [facility] Address [address] [place] [address]. [place] [address] [place] [address] Care Team Providers Care Wiring Technician Name Role Phone Unavailable Primary Care Provider Unavailabl e Encounter Details Date Type Department Care Team (Late st Contact Info) Description 02/02/[address] [facility] [place] [address] , Jessica Love MD Social History Tobacco Use Types Packs/Day Years Used Date Smoking Tobacco: Never Assessed Comments Unknown Sex and Gender Information Value Date Recorded Sex Assigned at Not on file Legal Sex Female 8:02 PM CDT Gender Identity Not on file Sexual Orientation Not on file documented as of this encounter Plan of Treatment Not on file documented as of this encounter Visit Diagnoses Not on filedocumented in this encounter
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
--- OUTSIDE RECORDS SUMMARY | 2024-03-07 23:42 | XMS_ITS | Encounter Summary ---
Author Organization [facility] Address [address] [place] [address]. [place] [address] [place] [address] Care Team Providers Care Tele Marketing Executive Name Role Phone Oliver Boyd SPINNING FRAME FIXER Primary Care Provider [phone] Reason for Visit * Reason Comments Back Pain Pt still having back pain Encounter Details Date Type Department Care Team (Late st Contact Info) Description 08/18/2023 3:20 PM CDT Office Visit [facility] Family Medicine - [address] [phone] Oliver Boyd NP [address] [place] [id number] Back Pain (Pt still having back pain) Social History Tobacco Use Types Packs/Day Years [...] Pulse 87 08/18/2023 2:15 PM CDT Temperature - - Respiratory Rate 16 08/18/2023 2:15 PM CDT Oxygen Saturation 100% 08/18/2023 2:15 PM CDT Inhaled Oxygen Concentration - - Weight 117.9 kg (260 lb) 08/18/2023 2:15 PM CDT Height 182.9 cm (6') 08/18/2023 2:15 PM CDT Body Mass Index 35.26 08/18/2023 2:15 PM CDT documented in this encounter Progress Notes * Oliver Boyd NP - 08/18/2023 3:20 PM CDT Reason for Visit: Back Pain (Pt still having back pain) History of Present Illness: HPI 28 yo F Thoracic pain Intermittent Improves with rest 4-8/10 Sharp on left side Dull on right side Paraspinal Posture device helps No chest pain, no shortness of breath, no changes in vision, no palpitations, no headache ROS: Review of Systems Constitutional: Negative. HENT: Negative. Respiratory: Negative. Cardiovascular: Negative. Gastrointestinal: Negative. Genitourinary: Negative. Musculoskeletal: Positive for back pain. Skin: Negative. Medications: Current Outpatient Medications: cyclobenzaprine (FLEXERIL) 10 MG tablet, Take 1 tablet (10 mg total) by mouth nightly as needed forMuscle Spasms., Disp: 30 tablet, Rfl: 0 ibuprofen (MOTRIN) 800 MG tablet, take 1 tablet by mouth every 8 hours as needed for pain (Patient not taking: Reported on 08/18/2023), Disp: 90 tablet, Rfl: 0 Review of patient's allergies indicates: No Known Allergies Past Medical History: Diagnosis Date Strep throat Yeast infection Past Surgical History: Procedure Laterality Date NONE Social History Socioeconomic History Marital status: Single Tobacco Use Smoking status: Never Smokeless tobacco: Never Vaping Use Vaping status: Never Used Substance and Sexual Activity Alcohol use: Yes Comment: socially Drug use: Yes Types: Marijuana Comment: daily E-Cigarettes Questions Responses E-Cigarette Use Never User Family History Problem Relation Name Age of Onset Hypertension Mother Other (vertigo) Mother Arthritis Father Epilepsy Father Family Status Relation Name Status Mother Alive Father Alive No partnership data on file Physical Exam Vitals reviewed. Constitutional: Appearance: Normal appearance. She is not ill-appearing. Eyes: Conjunctiva/sclera: Conjunctivae normal. Musculoskeletal: General: Normal range of motion. Cervical back: Normal range of motion. Comments: No decrease in ROM or strength Palpable distal pulse CR < 3 sec No erythema, swelling, increase or decrease in warmth tenderness to firm pressure on left side. Muscular spasm Neurological: Mental Status: She is alert. Filed Vitals: 08/18/23 1415 BP: 134/78 Pulse: 87 Resp: 16 SpO2: 100% Weight: 117.9 kg (260 lb) Height: 1.829 m (6') Diagnoses/Impression: 1. Chronic bilateral thoracic back pain XR THOR SPINE 3V cyclobenzaprine (FLEXERIL) 10 MG tablet Recommendations and Plan: Most likely muscle spasm Has done PT so xray ordered Discussed OTC Tx including biofreeze and dual action RICE Weight loss Proper positioning No red flags today F/u prn Orders Placed This Encounter XR THOR SPINE 3V cyclobenzaprine (FLEXERIL) 10 MG tablet Reviewed and updated this visit by provider: OLIVER BOYD NP Referring Provider: No ref. provider found PCP: OLIVER BOYD NP documented in this encounter Plan of Treatment Not on file documented as of this encounter Results * XR THOR SPINE [...] 4:50 PM Reason For Exam: ??pain since Oct ? Mid back pain for 6 months. [...] Zaldivar MD, 08/30/2023 1:37 PM Oliver Boyd NP GENERAL IMAGING Final Result documented in this encounter Visit Diagnoses Diagnosis Chronic bilateral thoracic back pain- Primary Chronic bilateral thoracic back pain documented in this encounter Additional Health Concerns Assessment Noted Time PHQ-9 Depression Total Score: 5 03/10/20 23 10:52 AM WHEEL FITTER documented as of this encounter Care Teams Tele Marketing Executive Relationship Specialty Start Date End Date Oliver Boyd NP [place] [address] PCP - General NURSE PRACTITIONER 02/08/23 documented as of this encounter
--- OUTSIDE RECORDS SUMMARY | 2024-03-07 23:42 | XMS_ITS | Encounter Summary ---
Author Organization [facility] Address [address] [place] [address]. [place] [address] [place] [address] Care Team Providers Care Roadmaster Name Role Phone Jacqueline Boyd NP Primary Care Provider [phone] Encounter Details Date Type Department Care Team (Late st Contact Info) Description 08/09/2023 Discharge [facility] Outpatient Therapy [address] [place], [place] [id number] Ivan Smiley, PT [address] [place], [place] [id number] Social History Tobacco Use Types Packs/Day Years [...] Total Score: 5 03/10/20 23 10:52 AM PHOTO ENGRAVER documented as of this encounter Care Teams Roadmaster Relationship Specialty Start Date End Date Jacqueline [place] [address] PCP - General NURSE PRACTITIONER 02/08/23 documented as of this encounter
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
--- OUTSIDE RECORDS SUMMARY | 2024-03-07 23:42 | XMS_ITS | Encounter Summary ---
Author Organization [facility] Address [address] [place] [address]. [place] [address] [place] [address] Care Team Providers Care Process Treater Name Role Phone Jacqueline Boyd NP Primary Care Provider [phone] Reason for Visit * Reason Comments Back Pain Encounter Details Date Type Department Care Team (Late st Contact Info) Description 08/05/2023 8:01 PM CDT - 08/05/2023 8:26 PM CDT Emergency [facility] [place] [address] Yuliet Mitchell, PAVeronika [address] [place] [id number] Back Pain Discharge Disposition: Home or Self Care (Routine [...] Sign Reading Time Taken Comments Blood Pressure 140/87 08/05/2023 7:51 PM CDT Pulse 88 08/05/2023 7:51 PM CDT Temperature 36.7 ??C (98 ??F) 08/05/2023 7:51 PM CDT Respiratory Rate 18 08/05/2023 7:51 PM CDT Oxygen Saturation 100% 08/05/2023 7:51 PM CDT Inhaled Oxygen Concentration - - Weight 116 kg (255 lb 11.7 oz) 08/05/2023 7:51 P M CDT Height 182.9 cm (6') 08/05/2023 7:51 PM CDT Body Mass Index 34.68 08/05/2023 7:51 PM CDT documented in this encounter Discharge Instructions * Discharge Instructions* Yuliet Mitchell PA-C - 08/05/2023 7:56 PM CDT Follow-up with your primary doctor regarding acute on chronic low back pain. Obtain your upcoming CT as scheduled. Return to the emergency room if difficulty controlling bowel or bladder or further concern. * Attachments The following attachments cannot be sent through Care Everywhere. * Low Back Pain Discharge Instructions (Kyrgyz) * Chronic Pain Discharge Instructions (Kyrgyz) documented in this encounter Medications at Time of Discharge ibuprofen (MOTRIN) 800 MG tabletIndication s:Muscle spasm take 1 tablet by mouth every 8 hours as needed for pain 90 tablet 06/22/2023 cyclobenzaprine (FLEXERIL) 10 MG tabletIndication s:Muscle spasm Take 1 tablet (10 mg total) by mouth 2 (two) times daily as needed for Muscle Spasms. 30 tablet 04/06/2023 08/18/2023 lidocaine 4 % patch Place 1 patch onto the skin daily. Remove & Discard patch within 12 hours or as directed by MD Jayleen elizondo 04/02/2023 08/18/2023 documented as of this encounter ED Notes * Yuliet Mitchell PA-C - 08/05/2023 7:52 PM CDTSummary: back pain [facility] ED NOTE Marina Haddad 1995 Chief Complaint Chief Complaint Patient presents with Back Pain History of Present Illness Back Pain Associated symptoms: no abdominal pain, no chest pain, no dysuria, no fever, no headaches, no numbness and no weakness Patient presents ambulatory to the emergency room through triage complaining of acute on chronic bilateral low back pain that has been ongoing since December 2022. No injury reported. Sometimes pain is worse on the left, sometimes worse on the right. No new injury over the past couple days. Denies rash or swelling at the site. Denies dysuria, hematuria, difficulty with urine stream. Denies fever, chills, sweats, IV drug use, neck pain or stiffness. Denies urine/bronchitis/retention, saddle anesthesia, foot drop, extremity numbness or weakness. Has been seen in the ER multiple times for this and placed on NSAIDs and muscle relaxers with momentary relief. Has followed up with PCP. Diagnosed with back spasm and pulled muscle. Has upcoming appointment for outpatient CT of the back/spine. Has attempted physical therapy without real relief. Medical History ALLERGIES: Review of patient's allergies indicates: No Known Allergies MEDICATIONS: Prior to Admission medications Medication Sig Start Date End Date Taking? Authorizing Provider cyclobenzaprine (FLEXERIL) 10 MG tablet Take 1 tablet (10 mg total) by mouth 2 (two) times daily asneeded for Muscle Spasms. 04/06/23 Jacquelinesudha Boyd NP ibuprofen (MOTRIN) 800 MG tablet take 1 tablet by mouth every 8 hours as needed for pain 06/22/23 Jacqueline Boyd NP lidocaine 4 % patch Place 1 patch onto the skin daily. Remove & Discard patch within 12 hours or as directed by 04/02/23 MARY ELLEN Villagran PAST MEDICAL HISTORY: Past Medical History: Diagnosis Date Strep throat Yeast infection PAST SURGICAL HISTORY: Past Surgical History: Procedure Laterality Date NONE FAMILY HISTORY: Family History Problem Relation Name Age of Onset Hypertension Mother Other (vertigo) Mother Arthritis Father Epilepsy Father SOCIAL HISTORY: Social History Tobacco Use Smoking status: Never Smokeless tobacco: Never Vaping Use Vaping status: Never Used Substance Use Topics Alcohol use: Yes Comment: socially Drug use: Yes Types: Marijuana Comment: daily Review of Systems Review of Systems Constitutional: Negative for activity change, appetite change, fever and unexpected weight change. HENT: Negative for ear pain, sore throat and trouble swallowing. Eyes: Negative. Respiratory: Negative for cough, chest tightness and shortness of breath. Cardiovascular: Negative for chest pain, palpitations and leg swelling. Gastrointestinal: Negative for abdominal distention, abdominal pain, constipation, diarrhea, nauseaand vomiting. Genitourinary: Negative for dysuria, flank pain and hematuria. Musculoskeletal: Positive for back pain. Negative for arthralgias, myalgias and neck pain. Skin: Negative for color change, rash and wound. Allergic/Immunologic: Negative for immunocompromised state. Neurological: Negative for dizziness, speech difficulty, weakness, light- headedness, numbness and headaches. Hematological: Negative for adenopathy. Psychiatric/Behavioral: Negative. Physical Exam Filed Vitals: 08/05/231950 BP: (!) 140/87 Pulse: 88 Resp: 18 Temp: 98 ??F (36.7 ??C) TempSrc: Temporal SpO2: 100% Weight: 116 kg (255 lb 11.7 oz) Height: 1.829 m (6') Physical Exam Vitals and nursing note reviewed. Exam conducted with a net web developer present. Constitutional: General: She is not in acute distress. Appearance: Normal appearance. She is well-developed. She is not ill-appearing, toxic-appearing or diaphoretic. HENT: Head: Normocephalic and atraumatic. Right Ear: External ear normal. Left Ear: External ear normal. Nose: Nose normal. Mouth/Throat: Mouth: Mucous membranes are moist. Pharynx: Oropharynx is clear. Eyes: Extraocular Movements: Extraocular movements intact. Conjunctiva/sclera: Conjunctivae normal. Pupils: Pupils are equal, round, and reactive to light. Neck: Thyroid: No thyromegaly. Trachea: No tracheal deviation. Cardiovascular: Rate and Rhythm: Normal rate and regular rhythm. Pulses: Normal pulses. Heart sounds: Normal heart sounds. Pulmonary: Effort: Pulmonary effort is normal. No respiratory distress. Breath sounds: Normal breath sounds. Abdominal: General: Abdomen is flat. Bowel sounds are normal. There is no distension. Palpations: Abdomen is soft. There is no mass. Tenderness: There is no abdominal tenderness. There is no guarding or rebound. Hernia: No hernia is present. Musculoskeletal: General: No swelling, tenderness, deformity or signs of injury. Normal range of motion. Cervical back: Normal range of motion and neck supple. No rigidity. Lymphadenopathy: Cervical: No cervical adenopathy. Skin: General: Skin is warm and dry. Capillary Refill: Capillary refill takes less than 2 seconds. Findings: No rash. Neurological: General: No focal deficit present. Mental Status: She is alert and oriented to person, place, and time. Cranial Nerves: No cranial nerve deficit. Sensory: No sensory deficit. Motor: No weakness. Coordination: Coordination normal. Gait: Gait normal. Deep Tendon Reflexes: Reflexes normal. Psychiatric: Mood and Affect: Mood normal. Behavior: Behavior normal. Thought Content: Thought content normal. Judgment: Judgment normal. Diagnostic Studies / Procedures ELECTROCARDIOGRAMS: No results found for this visit on 08/05/23. LABORATORY STUDIES: No results found for this visit on 08/05/23. IMAGING STUDIES No orders to display ED Course / Medical Decision Making Medical Decision Making Patient stable. Nontoxic appearance. No concerning orthopedic or neurologic findings on exam. No focal deficits. Unremarkable cardiopulmonary exam. Symptoms are acute on chronic. No new injury. No indication for emergent workup or imaging. Patient is well followed by PCP and has upcoming CT scan outpatient. Patient given Toradol and Solu-Medrol IM in the ED today. Will discharge home. Patient to follow-up with PCP. Problems Addressed: Chronic bilateral low back pain without sciatica: chronic illness or injury Medications ketorolac (TORADOL) injection 30 mg (has no administration in time range) methylPREDNISolone sodium succinate (SOLU-Medrol) injection 62.5 mg (has no administration in time range) Clinical Impression Chronic bilateral low back pain without sciatica (Primary) Current Discharge Medication List Disposition: Discharge Follow-Up: Jacqueline Boyd NP [address] [facility] [id number] Call in 3 days YULIET MITCHELL PA-C 08/05/2023 Yuliet Mitchell PA-C 08/05/231956 Cosigned by Dennis Avila MD at 08/07/2023 10:03 AM CDT * Kel Lange RN - 08/05/2023 7:52 PM CDT Patient ambulatory to triage from home with complaint of back pain since December, patient states that pain has been alternating back and forth, patient states that pain is increasing in severity, patient denies any loss of bowel or bladder, patient is A&Ox4 denies any other complaints at this time. documented in this encounter Plan of Treatment Not on file documented as of this encounter Visit Diagnoses Diagnosis Chronic bilateral low back pain without sciatica- Primary documented in this encounter Administered Medications Inactive Administered Medications - up to 3 most recent administrations Medication Order MAR Action Action Date Dose Rate Site ketorolac (TORADOL) injection 30 mg 30 mg, Intramuscular, Once, 1 dose, On Tue08/05/23 at 1999, For IV administration, give over 15 seconds. Given 08/05/2023 8:24 PM CDT 30 mg Left Deltoid methylPREDNISolone sodium succinate (SOLU-Medrol) injection 62.5 mg 62.5 mg, Intramuscular, Once, 1 dose, On Tue08/05/23 at 1999, If ordered IV, administer into a vein over 3-15 minutes. Doses >= 2 mg/kg or 250mg should be given by infusion, unless the benefits of IV injection outweigh the risks (life-threatening shock) Given 08/05/2023 8:25 PM CDT 62.5 mg Left Deltoid documented in this encounter Active and Recently Administered Medications Times are shown in CDT. Scheduled Medication Order 08/03/2023 08/04/2023 08/05/2023 ketorolac (TORADOL) injection 30 mg (COMPLETED) 30 mg, Intramuscular, Once, 1 dose, On Tue08/05/23 at 1999, For IV administration, give over 15 seconds. 2023 (Given - Provid er: Lilian Cid RN) methylPREDNISolone sodium succinate (SOLU-Medrol) injection 62.5 mg (COMPLETED) 62.5 mg, Intramuscular, Once, 1 dose, On Tue08/05/23 at 1999, If ordered IV, administer into a vein over 3-15 minutes. Doses >= 2 mg/kg or 250mg should be given by infusion, unless the benefits of IV injection outweigh the risks (life-threatening shock) 2024 (Given - Provid er: Lilian Cid RN) documented in this encounter Additional Health Concerns Assessment Noted Time PHQ-9 Depression Total Score: 5 03/10/20 23 10:52 AM ROBOTICS ENGINEER documented as of this encounter Care Teams Process Treater Relationship Specialty Start Date End Date Jacqueline [place] [address] PCP - General NURSE PRACTITIONER 02/08/23 documented as of this encounter
--- OUTSIDE RECORDS SUMMARY | 2024-03-07 23:42 | XMS_ITS | Encounter Summary ---
Author Organization [facility] Address [address] [place] [address]. [place] [address] [place] [address] Care Team Providers Care Insurance Marketing Specialist Name Role Phone Jacqueline Boyd NP Primary Care Provider [phone] Reason for Referral * Physical Medicine (Routine) - Pending Review Specialty Diagnoses / Procedures Referred By Jf waldron Referred To Contact PHYSICAL THERAPY / [facility] Physical Therapy Diagnoses Muscle spasm Acute bilateral thoracic back pain Procedures OFFICE/OUTPATIENT NEW LOW MDM 30-44 MINUTES OFFICE/OUTPT VISIT,NEW,LEVL IV OFFICE/OUTPT VISIT,NEW,LEVL V OFFICE/OUTPT VISIT,EST,LEVL III OFFICE/OUTPT VISIT,EST,LEVL IV OFFICE/OUTPT VISIT,EST,LEVL V Jacqueline Boyd NP [address] [place] [address] Phone: tel: fax: [facility] [place] [place] [address] Phone: tel: fax: Referral ID Status Reason Start Date Expiration Date Visits Requested Visits Authorized [id number] Pending Review Physical Therapy 04/06/2023 05/05/2024 20 20 E WINDER Reason for Visit * Reason Comments Follow Up ER Encounter Details Date Type Department Care Team (Late st Contact Info) Description 04/06/2023 2:40 PM TWINE WINDER Office Visit [facility] Family [facility] - [place] [address] [place] [address] Jacqueline Boyd NP [address] [place] [address] Follow Up (ER) Social History Tobacco Use Types Packs/Day Years [...] Sign Reading Time Taken Comments Blood Pressure 108/62 04/06/2023 2:46 PM TWINE WINDER Pulse 96 04/06/2023 2:46 PM TWINE WINDER Temperature 36.3 ??C (97.4 ??F) 04/06/2023 2:46 PM CS T Respiratory Rate 18 04/06/2023 2:46 PM TWINE WINDER Oxygen Saturation 98% 04/06/2023 2:46 PM TWINE WINDER Inhaled Oxygen Concentration - - Weight 122 kg (269 lb) 04/06/2023 2:46 PM TWINE WINDER Height 180.3 cm (5' 11 ) 04/06/2023 2:46 PM TWINE WINDER Body Mass Index 37.52 04/06/2023 2:46 PM TWINE WINDER documented in this encounter Progress Notes * Jacqueline Boyd NP - 04/06/2023 2:40 PM CST Images from the original note were not included. OFFICE NOTE Encounter Date: 04/06/2023 Chief Complaint: 27-year-old female presents for Follow Up (ER) . 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 HENT: Negative for congestion, ear pain, nosebleeds, sinus pain and sore throat. Eyes: Negative for blurred vision and double vision. Respiratory: Negative for cough, shortness of breath and wheezing. Cardiovascular: Negative for chest pain, palpitations, orthopnea, claudication and leg swelling. Gastrointestinal: Negative for abdominal pain, blood in stool, constipation, diarrhea, heartburn, nausea and vomiting. Genitourinary: Negative for dysuria, flank pain, frequency, hematuria and urgency. Skin: Negative for rash. Neurological: Negative for loss of consciousness. Psychiatric/Behavioral: Negative for depression. The patient is not nervous/anxious. Patient Active Problem List Diagnosis Surveillance of intrauterine contraception Left-sided back pain Chlamydial cervicitis Acute vaginitis Past Medical History: Diagnosis Date Strep throat Yeast infection Past Surgical History: Procedure Laterality Date NONE Family History Problem Relation Name Age of Onset Hypertension Mother Other (vertigo) Mother Arthritis Father Epilepsy Father History Smoking Status Never Smokeless Tobacco Never Social History Substance and Sexual Activity Alcohol Use Yes Comment: socially Social History Substance and Sexual Activity Drug Use Yes Types: Marijuana Comment: daily Immunization History Administered Date(s) Administered Dtap 03/24/1998 Dtp 1996, 1996, 03/07/1997, 10/30/2001 Flumist (Intranasal) 01/28/2015 HPV GARDASIL 9-VALENT 01/28/2015, 06/30/2015 HPV4 (Gardasil) 11/04/2011 Hepatitis A (Generic) 07/16/2010 Hepatitis A Vaccine - 2 Dose 11/04/2011 Hepatitis B Pediatric 1996, 1996, 03/07/1997 Hib (Generic) 03/24/1998 Influenza 02/10/2016 MENINGOCOCCAL A C Y&W-135 oligosaccharide (MENVEO) 10/25/2012 MMR 09/05/1997, 10/30/2001 Meningococcal (Menomune) 07/16/2010 Opv 1996, 10/15/1998 Polio IPV (Ipol) 1996, 09/05/1997, 10/30/2001 Tdap (Generic) 08/06/2008, 07/02/2021 Varicella Vaccine 09/05/1997, 12/13/2001 Current Outpatient Medications Medication Sig Dispense Refill cyclobenzaprine (FLEXERIL) 10 MG tablet Take 1 tablet (10 mg total) by mouth 2 (two) times daily asneeded for Muscle Spasms. 30 tablet 0 ibuprofen (MOTRIN) 800 MG tablet Take 1 tablet (800 mg total) by mouth every 8 (eight) hours as needed for Pain. 90 tablet 0 lidocaine 4 % patch Place 1 patch onto the skin daily. Remove & Discard patch within 12 hours or as directed by MD Clemens patch 0 vitamin D2, ergocalciferol, (DRISDOL) 1.25 mg capsule Take 1 capsule (50,000 Units total) by mouth once a week for 8 doses. 8 capsule 0 No current facility-administered medications for this visit. Review of patient's allergies indicates: No Known Allergies Objective: Filed Vitals: 04/06/23 1446 BP: 108/62 Pulse: 96 Resp: 18 Temp: 97.4 ??F (36.3 ??C) TempSrc: Temporal SpO2: 98% Weight: 122 kg (269 lb) Height: 1.803 m (5' 11 ) Body mass index is 37.52 kg/m??. Patient's last menstrual period was 03/11/2023 (exact date). Physical Exam Vitals and nursing note reviewed. Constitutional: Appearance: Normal appearance. She is not diaphoretic. HENT: Head: Normocephalic. Eyes: General: Right eye: No discharge. Left eye: No discharge. Conjunctiva/sclera: Conjunctivae normal. Neck: Vascular: No JVD. Trachea: No tracheal deviation. Cardiovascular: Rate and Rhythm: Normal rate. Pulmonary: Effort: Pulmonary effort is normal. No respiratory distress. Breath sounds: Normal breath sounds. No stridor. No wheezing or rales. Chest: Chest wall: No tenderness. Abdominal: Tenderness: There is no guarding. Musculoskeletal: General: Normal range of motion. Cervical back: Normal range of motion. Comments: No decrease in ROM or strength Palpable distal pulse CR < 3 sec No erythema, swelling, increase or decrease in warmth No tenderness to firm pressure Neg straight leg raise Skin: General: Skin is warm and dry. Coloration: Skin is not pale. Findings: No erythema or rash. Neurological: Mental Status: She is alert and oriented to person, place, and time. Coordination: Coordination normal. Gait: Gait is intact. Psychiatric: Mood and Affect: Mood and affect normal. Assessment: Encounter Diagnose(s) ICD-10-CM 1. Anemia, unspecified type D64.9 FERRITIN VITAMIN B-12 IRON SAT PANEL (IRON,IBC,%SAT) 2. Muscle spasm M62.838 cyclobenzaprine (FLEXERIL) 10 MG tablet ibuprofen (MOTRIN) 800 MG tablet Ambulatory referral to Physical Therapy 3. Acute bilateral thoracic back pain M54.6 Ambulatory referral to Physical Therapy Plan: Marina was seen today for follow up. Diagnoses and all orders for this visit: Anemia, unspecified type - FERRITIN; Future - VITAMIN B-12; Future - IRON SAT PANEL (IRON,IBC,%SAT); Future Muscle spasm - cyclobenzaprine (FLEXERIL) 10 MG tablet; Take 1 tablet (10 mg total) by mouth 2 (two) times dailyas needed for Muscle Spasms. - ibuprofen (MOTRIN) 800 MG tablet; Take 1 tablet (800 mg total) by mouth every 8 (eight) hours as needed for Pain. - Ambulatory referral to Physical Therapy Acute bilateral thoracic back pain - Ambulatory referral to Physical Therapy Life style mod Do not drive on flexeril Be aware of drowsiness RICE F/u prn Call or return to clinic prn if these symptoms worsen or fail to improve as anticipated. Discussed plan of care with patient. Verbalized understanding. MILDRED [place] E WINDER documented in this encounter Plan of Treatment Scheduled Orders Name Type Priority Associated Diagnoses Orde r Schedule FERRITIN Lab Routine Anemia, unspecified type Expected: 04/06/2023, Expires: 04/05/2024 VITAMIN B-12 Lab Routine Anemia, unspecified type Expected: 04/06/2023, Expires: 04/05/2024 IRON SAT PANEL (IRON,IBC,%SAT) Lab Routine Anemia, unspecified type Expected: 04/06/2023, Expires: 04/06/2024 Scheduled Referrals Name Type Priority Associated Diagnoses Orde r Schedule Ambulatory referral to Physical Therapy Referral Routine Muscle spasm Acute bilateral thoracic back pain Ordered: 04/06/2023 documented as of this encounter Visit Diagnoses Diagnosis Anemia, unspecified type- Primary Muscle spasm Spasm of muscle Acute bilateral thoracic back pain documented in this encounter Additional Health Concerns Assessment Noted Time PHQ-9 Depression Total Score: 5 03/10/20 10:52 AM TWINE WINDER documented as of this encounter Care Teams Insurance Marketing Specialist Relationship Specialty Start Date End Date Jacqueline Boyd [place] [address] PCP - General NURSE PRACTITIONER 02/08/23 documented as of this encounter
--- OUTSIDE RECORDS SUMMARY | 2024-03-07 23:42 | XMS_ITS | Encounter Summary ---
Author Organization [facility] Address [address] [place] [address]. [place] [address] [place] [address] Care Team Providers Care Retail Operations Manager Name Role Phone None, Provider Primary Care Provider Lupe mckee Encounter Details Date Type Department Care Team (Latest Contact Info) Description 04/25/2021 9:45 AM ENVIRONMENTAL LAW PROFESSOR - 04/25/2021 11:59 PM ENVIRONMENTAL LAW PROFESSOR Hospital Encounter [facility] [place] [address] Angelica Alas NP Discharge Disposition: Home or Self Care (Routine [...] Coronavirus/COVID-19? No / Unsure 04/25/2021 8:49 AM ENVIRONMENTAL LAW PROFESSOR documented as of this encounter Medications at Time of Discharge dolutegravir 50 MG tablet Take 1 tablet (50 mg total) by mouth daily. 28 tablet 04/25/2021 01/13/2023 emtricitabine-ten ofovir 200-300 MG tablet Take 1 tablet by mouth daily. 28 tablet 04/25/2021 01/13/2023 famotidine 20 MG tablet Take 1 tablet (20 mg total) by mouth 2 (two) times daily. 30 tablet 01/23/2021 01/13/2023 loratadine (CLARITIN) 10 MG tablet Take 1 tablet (10 mg total) by mouth daily. 30 tablet 01/23/2021 01/13/2023 documented as of this encounter Plan of Treatment Not on file documented as of this encounter Procedures Procedure Name Priority Date/Time Associated Diagnosis Comments COMPREHENSIVE METABOLIC PANEL STAT 04/25/2021 10:01 AM ENVIRONMENTAL LAW PROFESSOR HIV exposure CBC W/DIFF AUTOMATED STAT 04/25/2021 10:01 AM ENVIRONMENTAL LAW PROFESSOR HIV exposure documented in this encounter Results * (ABNORMAL) COMPREHENSIVE METABOLIC PANEL (04/25/2021 10:01 AM ENVIRONMENTAL LAW PROFESSOR) GLUCOSE 85 70 - 99 MG/DL 04/25/2021 10:[address] [facility] BUN 10 7 - 18 MG/DL 04/25/2021 10:[address] [facility] CREATININE S/P/B 0.88 0.55 - 1.02 MG/DL 04/25/2021 10:[address] [facility] SODIUM S/P/B 138 136 - 145 MMOL/L 04/25/2021 10:[address] [facility] POTASSIUM S/P/B 3.8 3.5 - 5.1 MMOL/L 04/25/2021 10:[address] [facility] CHLORIDE S/P/B 108 100 - 108 MMOL/L 04/25/2021 10:[address] [facility] CO2 26.7 21 - 32 MMOL/L 04/25/2021 10:[address] [facility] CALCIUM S/P/B 9.2 8.5 - 10.1 MG/DL 04/25/2021 10:[address] [facility] BILIRUBIN TOTAL S/P/B 0.2 0.2 - 1.2 MG/DL 04/25/2021 10:[address] [facility] Comment: THIS ASSAY IS NOT RECOMMENDED FOR PATIENTS UNDERGOING TREATMENT WITH ELTROMBOPAG DUE TO THE POTENTIAL FOR FALSELY ELEVATED RESULTS. TOTAL PROTEIN S/P/B 8.6(H) 6.4 - 8.2 G/DL 04/25/2021 10:[address] [facility] ALBUMIN S/P/B 3.2(L) 3.4 - 5.0 G/DL 04/25/2021 10:[address] [facility] AST 16 15 - 37 U/L 04/25/2021 10:[address] [facility] ALT 16 14 - 55 U/L 04/25/2021 10:[address] [facility] ALKALINE PHOSPHATASE S/P/B 88 50 - 136 U/L 04/25/2021 10:[address] [facility] ANION GAP 3.3(L) 5 - 15 MMOL/L 04/25/2021 10:[address] [facility] BUN CREATININE RATIO 11.3 6 - 26 04/25/2021 10:[address] [facility] A/G RATIO 0.6(L) 1.0 - 2.0 RATIO 04/25/2021 10:[address] [facility] EGFR NON-AFR. AMER. >90 >90 ML/MIN/1.7 3 M2 04/25/2021 10:[address] [facility] EGFR AFR. AMER. >90 >90 ML/MIN/1.7 3 M2 04/25/2021 10:[address] [facility] Comment: NOTE: eGFR is not calculated for patients <18 years of age. This is an estimated GFR (CKD EPI) and should not be used for calculating drug doses. 04/25/2021 10:0 1 AM ENVIRONMENTAL LAW PROFESSOR Angelica Alas MANA[facility] Final Resu lt [facility] [address] [place] [address], [place] [phone] * (ABNORMAL) CBC W/DIFF AUTOMATED (04/25/2021 10:01 AM ENVIRONMENTAL LAW PROFESSOR) WBC 7.0 4.5 - 11.0 x10'3/uL 04/25/2021 10:[address] [facility] RBC 4.60 4.20 - 5.40 x10'6/uL 04/25/2021 10:[address] [facility] HGB 10.2(L) 12.0 - 16.0 G/DL 04/25/2021 10:[address] [facility] HCT 35.2(L) 38.0 - 48.0 % 04/25/2021 10:[address] [facility] MCV 76.5(L) 81.0 - 99.0 FL 04/25/2021 10:[address] [facility] MCH 22.2(L) 27.0 - 31.0 PG 04/25/2021 10:[address] [facility] MCHC 29.0(L) 32.0 - 36.0 G/DL 04/25/2021 10:[address] [facility] RDW 16.1(H) 11.5 - 14.5 % 04/25/2021 10:[address] [facility] PLT 352 130 - 400 x10'3/uL 04/25/2021 10:[address] [facility] MPV 11.5 9.3 - 12.2 FL 04/25/2021 10:[address] [facility] DIFFERENTIAL TYPE AUTOMATED DIFFERENTIAL 04/25/2021 10:[address] [facility] NEUTROPHILS % 62.6 % 04/25/2021 10:[address] [facility] LYMPHOCYTES % 29.0 % 04/25/2021 10:[address] [facility] MONOCYTES % 7.4 % 04/25/2021 10:[address] [facility] EOSINOPHILS 0.3 % 04/25/2021 10:[address] [facility] BASOPHILS 0.4 % 04/25/2021 10:[address] [facility] IMMATURE GRANS % 0.3 % 04/25/19 10:[address] [facility] ABS. NEUTROPHILS TOTAL 4.38 1.80 - 7.70 x10'3/uL 04/25/2021 10:[address] [facility] ABS. LYMPHOCYTES 2.03 1.00 - 4.80 x10'3/uL 04/25/2021 10:[address] [facility] ABS. MONOCYTES 0.52 0.24 - 0.86 x10'3/uL 04/25/2021 10:[address] [facility] ABS. EOSINOPHILS 0.02(L) 0.04 - 0.36 x10'3/uL 04/25/2021 10:[address] [facility] ABS. BASOPHILS 0.03 0.01 - 0.08 x10'3/uL 04/25/2021 10:[address] [facility] ABS. IMMATURE GRANULOCYTES 0.02 0.00 - 0.49 x10'3/uL 04/25/2021 10:20 AM ENVIRONMENTAL LAW PROFESSOR [facility] 04/25/2021 10:0 1 AM ENVIRONMENTAL LAW PROFESSOR us Angelica Alas NP LABORATORY Final Resu lt [facility] [address] [place] [address], [place] [phone] documented in this encounter Visit Diagnoses Diagnosis HIV exposure Contact with or exposure to other viral diseases documented in this encounter Care Teams Retail Operations Manager Relationship Specialty Start Date End Date None, Provider, PCP - General 04/01/20 01/16/23 documented as of this encounter
--- OUTSIDE RECORDS SUMMARY | 2024-03-07 23:42 | XMS_ITS | Encounter Summary ---
Author Organization [facility] Address [address] [place] [address]. [place] [address] [place] [address] Care Team Providers Care Clipper Operator Name Role Phone None, Provider Primary Care Provider Lupe ble Encounter Details Date Type Department Care Team (Latest Contact Info) Description 04/25/2020 Travel Social History Tobacco Use Types Packs/Day [...] Exposure Response Date Recorded In the last month, have you been in contact with someone who was confirmed or suspected to have Coronavirus / COVID-19? No / Unsure 04/25/2020 3:13 PM DATA ENTRY PROCESSOR documented as of this encounter Plan of Treatment Not on file documented as of this encounter Visit Diagnoses Not on filedocumented in this encounter Care Teams Clipper Operator Relationship Specialty Start Date End Date None, Provider, PCP - General 04/01/20 01/16/23 documented as of this encounter
--- OUTSIDE RECORDS SUMMARY | 2024-03-07 23:42 | XMS_ITS | Encounter Summary ---
Author Organization [facility] Address [address] [place] [address]. [place] [address] [place] [address] Care Team Providers Care Delivery And Installation Subcontractor Name Role Phone None, Provider Primary Care Provider Lupe ble Encounter Details Date Type Department Care Team (Latest Contact Info) Description 09/17/2020 Travel Social History Tobacco Use Types Packs/Day Years Used Date Smoking Tobacco: Never Smokeless Tobacco: Never Alcohol Use Standard Drinks/Week Comments Not Currently 0 (1 standard drink = 0.6 oz [...] have Coronavirus / COVID-19? No / Unsure 09/17/2020 1:12 PM CDT documented as of this encounter Plan of Treatment Not on file documented as of this encounter Visit Diagnoses Not on filedocumented in this encounter Care Teams Delivery And Installation Subcontractor Relationship Specialty Start Date End Date None, Provider, PCP - General 04/01/20 01/16/23 documented as of this encounter
--- OUTSIDE RECORDS SUMMARY | 2024-03-07 23:42 | XMS_ITS | Encounter Summary ---
Author Organization [facility] Address [address] [place] [address]. [place] [address] [place] [address] Care Team Providers Care Pump Erector Name Role Phone None, Provider Primary Care Provider Lupe ble Encounter Details Date Type Department Care Team (Latest Contact Info) Description 10/16/2020 Travel Social History Tobacco Use Types Packs/Day [...] have Coronavirus / COVID-19? No / Unsure 10/16/2020 1:01 PM CDT documented as of this encounter Plan of Treatment Not on file documented as of this encounter Visit Diagnoses Not on filedocumented in this encounter Care Teams Pump Erector Relationship Specialty Start Date End Date None, Provider, PCP - General 04/01/20 01/16/23 documented as of this encounter
--- OUTSIDE RECORDS SUMMARY | 2024-03-07 23:42 | XMS_ITS | Encounter Summary ---
Author Organization [facility] Address [address] [place] [address]. [place] [address] [place] [address] Care Team Providers Care Public Interviewer Name Role Phone None, Provider Primary Care Provider Lupe mckee Encounter Details Date Type Department Care Team (Latest Contact Info) Description 01/23/2021 Travel Social History Tobacco Use Types Packs/Day [...] have Coronavirus / COVID-19? No / Unsure 01/23/2021 4:15 PM CDT documented as of this encounter Plan of Treatment Not on file documented as of this encounter Visit Diagnoses Not on filedocumented in this encounter Care Teams Public Interviewer Relationship Specialty Start Date End Date None, Provider, PCP - General 04/01/20 01/16/23 documented as of this encounter
--- OUTSIDE RECORDS SUMMARY | 2024-03-07 23:42 | XMS_ITS | Encounter Summary ---
Author Organization [facility] Address [address] [place] [address]. [place] [address] [place] [address] Care Team Providers Care Keysmith Name Role Phone Jacqueline Boyd NP Primary Care Provider [phone] Reason for Visit * Reason Comments Back Pain Encounter Details Date Type Department Care Team (Late st Contact Info) Description 03/11/2023 7:38 PM EMPLOYEE DEVELOPMENT DIRECTOR - 03/11/2023 8:56 PM EMPLOYEE DEVELOPMENT DIRECTOR Emergency [facility] Emergency Room [address] [place], [place] [id number] Sean Basurto MD [address] [place], [place] [id number] Back Pain Discharge Disposition: Home or Self [...] Sign Reading Time Taken Comments Blood Pressure 129/77 03/11/2023 8:47 PM EMPLOYEE DEVELOPMENT DIRECTOR Pulse 83 03/11/2023 8:47 PM EMPLOYEE DEVELOPMENT DIRECTOR Temperature 36.1 ??C (97 ??F) 03/11/2023 7:09 PM EMPLOYEE DEVELOPMENT DIRECTOR Respiratory Rate 20 03/11/2023 8:47 PM EMPLOYEE DEVELOPMENT DIRECTOR Oxygen Saturation 100% 03/11/2023 8:47 PM EMPLOYEE DEVELOPMENT DIRECTOR Inhaled Oxygen Concentration - - Weight 115.2 kg (254 lb) 03/11/2023 7:09 PM EMPLOYEE DEVELOPMENT DIRECTOR Height 180.3 cm (5' 11 ) 03/11/2023 7:09 PM EMPLOYEE DEVELOPMENT DIRECTOR Body Mass Index 35.43 03/11/2023 7:09 PM EMPLOYEE DEVELOPMENT DIRECTOR documented in this encounter Discharge Instructions * Attachments The following attachments cannot be sent through Care Everywhere. * Shoulder Pain ED ([place]ux[place]bourgish) documented in this encounter Medications at Time of Discharge cyclobenzaprine (FLEXERIL) 10 MG tabletIndications :Muscle spasm Take 1 tablet (10 mg total) by mouth 2 (two) times daily as needed for Muscle Spasms. 30 tablet 03/10/2023 04/06/2023 doxycycline hyclate (VIBRAMYCIN) 100 MG capsuleIndication s:Chlamydia Take 1 capsule (100 mg total) by mouth 2 (two) times daily for 7 days. 14 capsule 03/15/2023 03/22/2023 ibuprofen (MOTRIN) 800 MG tabletIndications :Muscle spasm Take 1 tablet (800 mg total) by mouth every 8 (eight) hours as needed for Pain. 90 tablet 03/10/2023 04/06/2023 vitamin D2, ergocalciferol, (DRISDOL) 1.25 mg capsuleIndication s:Vitamin D deficiency Take 1 capsule (50,000 Units total) by mouth once a week for 8 doses. 8 capsule 03/15/2023 05/04/2023 documented as of this encounter ED Notes * Khris Cooper LPN - 03/11/2023 8:55 PM CST Provider discussed today's findings with the patient. The patient has been given information regarding their treatment, follow up and concerning symptoms for which they should seek urgent or emergentattention. All questions answered. Pt ambulated out of ED with all personal belongings. IV d/c, vitals stable. OYEE DEVELOPMENT DIRECTOR * Kel Lange RN - 03/11/2023 7:17 PM CST Patient ambulatory to triage from home with complaint of back pain/ side pain, patient states that she had strep throat in December and was given medication that she did not finish, patient then went back around and got more medication including steroids, patient states that pain has been ongoing since the steroids, patient is A&OX4 denies any other complaints at this time. OYEE DEVELOPMENT DIRECTOR * DORENE Martinez-BC - 03/11/2023 7:17 PM CST [place], [place] EMERGENCY DEPARTMENT ENCOUNTER Medical Screening Examination 03/11/23 7:17 PM Chief Complaint : No chief complaint on file. HPI : Marina Haddad is a 27-year-old female who presents to the ER with c/o left upper flank pain with cough that is productive. Pt denies fever. Pt was concerned that it might be related to strep because she went to on 12/25/22 for strep throat. Did not finish the antibiotics. Pt went back and was given the medication again along with steroids right after . Pt reports that she has been having ongoing pain. Pt reports that she did muscle relaxers with some improvement, but the painhas continued. Pt had a PCP appt yesterday with normal lab work ordered today. Patient's last menstrual period was 02/12/2023 (exact date). Vital Signs: Filed Vitals: 03/11/23 1909 BP: 129/77 Pulse: 92 Resp: 20 Temp: 97 ??F (36.1 ??C) TempSrc: Temporal SpO2: 99% Weight: 115.2 kg (254 lb) Height: 1.803 m (5' 11 ) Physical exam: A brief physical exam was completed to facilitate/expedite patient care. Left upper flank/lower posterior chest with tenderness upon light palpation. No rash noted. Plan: Necessary labs/imaging/medications ordered to initiate pt care. Please note that due to size capacity of triage room where the MSE exam was performed, and patient privacy concerns I am unable to do a full complete physical assessment on patient. Please excuse any grammatical or spelling errors as this chart was documented using [employer] a dictation software. TITI Martinez 03/11/231921 Cosigned by Sean Basurto MD at 03/11/2023 8:54 PM EMPLOYEE DEVELOPMENT DIRECTOR OYEE DEVELOPMENT DIRECTOR OYEE DEVELOPMENT DIRECTOR documented in this encounter Plan of Treatment Not on file documented as of this encounter Procedures Procedure Name Priority Date/Time Associated Diagnosis Comments XR CHEST PA+LAT STAT 03/11/2023 8:21 PM EMPLOYEE DEVELOPMENT DIRECTOR BASIC METABOLIC PANEL STAT 03/11/2023 7:54 PM EMPLOYEE DEVELOPMENT DIRECTOR CBC W/DIFF AUTOMATED STAT 03/11/2023 7:54 PM EMPLOYEE DEVELOPMENT DIRECTOR documented in this encounter Results * XR CHEST PA+LAT (03/11/2023 8:21 PM EMPLOYEE DEVELOPMENT DIRECTOR) Anatomical Region Laterality Modality Chest Radiographic Bharti ging 03/11/2023 8:29 PM EMPLOYEE DEVELOPMENT DIRECTOR Impressions 03/11/2023 8:30 PM EMPLOYEE DEVELOPMENT DIRECTOR IMPRESSION: 1. ??There is no acute cardiopulmonary process. Ordered By: GRISELDA IRVING Interpreted By: Kory Lopez MD, 03/11/2023 8:29 PM Narrative 03/11/2023 8:30 PM EMPLOYEE DEVELOPMENT DIRECTOR PROCEDURE: ??XR CHEST PA+LAT. ??03/11/2023 8:02 PM. TECHNIQUE: ??2 views (PA and Lateral) of the chest were performed. HISTORY: ??Cough. Back pain. COMPARISON: ??None. FINDINGS: ?? Support Devices: ??None. Cardiac Silhouette/Mediastinum/Grace: ??The cardiac, mediastinal, and hilar contours are within normal limits for age. Lungs/Pleural Spaces: ??The lungs and pleural spaces are clear. Chest Wall/Diaphragm/Upper Abdomen: ??The thoracic musculoskeletal structures and the upper abdomen are within normal limits for age. Procedure Note Kory Lopez MD - 03/11/2023 PROCEDURE: XR CHEST PA+LAT. 03/11/2023 8:02 PM. TECHNIQUE: 2 views (PA and Lateral) of the chest were performed. HISTORY: Cough. Back pain. COMPARISON: None. FINDINGS: Support Devices: None. Cardiac Silhouette/Mediastinum/Grace: The cardiac, mediastinal, and hilarcontours are within normal limits for age. Lungs/Pleural Spaces: The lungs and pleural spaces are clear. Chest Wall/Diaphragm/Upper Abdomen: The thoracic musculoskeletalstructures and the upper abdomen are within normal limits for age. IMPRESSION: 1. There is no acute cardiopulmonary process. Ordered By: GRISELDA IRVING Interpreted By: Kory Lopez MD, 03/11/2023 8:29 PM Griselda Irving DRY PASTE SUPERVISOR-BC GENERAL IMAGING Final Res ult * (ABNORMAL) BASIC METABOLIC PANEL (03/11/2023 7:54 PM EMPLOYEE DEVELOPMENT DIRECTOR) GLUCOSE 75 70 - 99 MG/DL 03/11/2023 8:32 PM EMPLOYEE DEVELOPMENT DIRECTOR [facility] BUN 12 7 - 18 MG/DL 03/11/2023 8:32 PM EMPLOYEE DEVELOPMENT DIRECTOR [facility] CREATININE S/P/B 0.87 0.55 - 1.02 MG/DL 03/11/2023 8:32 PM EMPLOYEE DEVELOPMENT DIRECTOR [facility] SODIUM S/P/B 137 136 - 145 MMOL/L 03/11/2023 8:32 PM EMPLOYEE DEVELOPMENT DIRECTOR [facility] POTASSIUM S/P/B 3.5 3.5 - 5.1 MMOL/L 03/11/2023 8:32 PM EMPLOYEE DEVELOPMENT DIRECTOR [facility] CHLORIDE S/P/B 108 100 - 108 MMOL/L 03/11/2023 8:32 PM EMPLOYEE DEVELOPMENT DIRECTOR [facility] CO2 25.2 21 - 32 MMOL/L 03/11/2023 8:32 PM EMPLOYEE DEVELOPMENT DIRECTOR [facility] CALCIUM S/P/B 8.4(L) 8.5 - 10.1 MG/DL 03/11/2023 8:32 PM EMPLOYEE DEVELOPMENT DIRECTOR [facility] ANION GAP 3.8(L) 5 - 15 MMOL/L 03/11/2023 8:32 PM EMPLOYEE DEVELOPMENT DIRECTOR [facility] BUN CREATININE RATIO 13.8 6 - 26 03/11/2023 8:32 PM [facility] GFR ESTIMATE >90 >90 ML/MIN/1.7 3 M2 03/11/2023 8:32 PM [facility] Comment: NOTE: eGFR is not calculated for patients <18 years of age. This is an estimated GFR calculation using the new CKD EPI creatinine equation without race and so does not require a correction factor for race. This estimated GFR should not be used for calculating drug doses. 03/11/2023 7:54 PM EMPLOYEE DEVELOPMENT DIRECTOR Griselda Irving [facility] Final Res ult [facility] [address] [place] [address], [place] [phone] * (ABNORMAL) CBC W/DIFF AUTOMATED (03/11/2023 7:54 PM EMPLOYEE DEVELOPMENT DIRECTOR) WBC 9.3 4.5 - 11.0 x10'3/uL 03/11/2023 8:16 PM EMPLOYEE DEVELOPMENT DIRECTOR [facility] RBC 4.40 4.20 - 5.40 x10'6/uL 03/11/2023 8:16 PM EMPLOYEE DEVELOPMENT DIRECTOR [facility] HGB 10.1(L) 12.0 - 16.0 G/DL 03/11/2023 8:16 PM [facility] HCT 33.6(L) 38.0 - 48.0 % 03/11/2023 8:16 PM EMPLOYEE DEVELOPMENT DIRECTOR [facility] MCV 76.4(L) 81.0 - 99.0 FL 03/11/2023 8:16 PM EMPLOYEE DEVELOPMENT DIRECTOR [facility] MCH 23.0(L) 27.0 - 31.0 PG 03/11/2023 8:16 PM EMPLOYEE DEVELOPMENT DIRECTOR [facility] MCHC 30.1(L) 32.0 - 36.0 G/DL 03/11/2023 8:16 PM [facility] RDW 15.7(H) 11.5 - 14.5 % 03/11/2023 8:16 PM [facility] PLT 291 130 - 400 x10'3/uL 03/11/2023 8:16 PM [facility] MPV 11.6 9.3 - 12.2 FL 03/11/2023 8:16 PM [facility] DIFFERENTIAL TYPE AUTOMATED DIFFERENTIAL 03/11/2023 8:16 PM [facility] NEUTROPHILS % 54.4 % 03/11/2023 8:16 PM [facility] LYMPHOCYTES % 35.2 % 03/11/2023 8:16 PM EMPLOYEE DEVELOPMENT DIRECTOR [facility] MONOCYTES % 8.8 % 03/11/2023 8:16 PM [facility] EOSINOPHILS 0.9 % 03/11/2023 8:16 PM [facility] BASOPHILS 0.5 % 03/11/2023 8:16 PM [facility] IMMATURE GRANS % 0.2 % 03/11/20 8:16 PM EMPLOYEE DEVELOPMENT DIRECTOR [facility] ABS. NEUTROPHILS TOTAL 5.08 1.80 - 7.70 x10'3/uL 03/11/2023 8:16 PM EMPLOYEE DEVELOPMENT DIRECTOR [facility] ABS. LYMPHOCYTES 3.28 1.00 - 4.80 x10'3/uL 03/11/2023 8:16 PM EMPLOYEE DEVELOPMENT DIRECTOR [facility] ABS. MONOCYTES 0.82 0.24 - 0.86 x10'3/uL 03/11/2023 8:16 PM EMPLOYEE DEVELOPMENT DIRECTOR [facility] ABS. EOSINOPHILS 0.08 0.04 - 0.36 x10'3/uL 03/11/2023 8:16 PM EMPLOYEE DEVELOPMENT DIRECTOR [facility] ABS. BASOPHILS 0.05 0.01 - 0.08 x10'3/uL 03/11/2023 8:16 PM EMPLOYEE DEVELOPMENT DIRECTOR [facility] ABS. IMMATURE GRANULOCYTES 0.02 0.00 - 0.49 x10'3/uL 03/11/2023 8:16 PM EMPLOYEE DEVELOPMENT DIRECTOR [facility] 03/11/2023 7:54 PM EMPLOYEE DEVELOPMENT DIRECTOR Griselda Irving DRY PASTE SUPERVISOR- LABORATORY Final Res ult [facility] [address] [place] [address], documented in this encounter Visit Diagnoses Diagnosis Acute pain of left shoulder- Primary documented in this encounter Administered Medications Inactive Administered Medications - up to 3 most recent administrations Medication Order MAR Action Action Date Dose Rate Site ketorolac (TORADOL) injection 30 mg 30 mg, Intramuscular, Once, 1 dose, On Tue03/11/23 at 1930 Given 03/11/2023 7:57 PM EMPLOYEE DEVELOPMENT DIRECTOR 30 mg Left Deltoid documented in this encounter Active and Recently Administered Medications Times are shown in EMPLOYEE DEVELOPMENT DIRECTOR. Scheduled Medication Order 03/09/2023 03/10/202303/1103/11/2023 ketorolac (TORADOL) injection 30 mg (COMPLETED) 30 mg, Intramuscular, Once, 1 dose, On Tue03/11/23 at 1930 1957 (Given - Provid er: Ritchie Duran, RN) documented in this encounter Additional Health Concerns Assessment Noted Time PHQ-9 Depression Total Score: 5 03/10/20 10:52 AM EMPLOYEE DEVELOPMENT DIRECTOR documented as of this encounter Care Teams Keysmith Relationship Specialty Start Date End Date Jacqueline Boyd [place] [address] PCP - General NURSE PRACTITIONER 02/08/23 documented as of this encounter
--- OUTSIDE RECORDS SUMMARY | 2024-03-07 23:42 | XMS_ITS | Encounter Summary ---
Author Organization [facility] Address [address] [place] [address]. [place] [address] [place] [address] Care Team Providers Care Larriman Helper Name Role Phone Jacqueline Boyd NP Primary Care Provider [phone] Encounter Details Date Type Department Care Team (Latest Contact Info) Description 08/29/2023 Travel Social History Tobacco Use Types Packs/Day [...] Total Score: 5 03/10/20 23 10:52 AM SPIN TANK TENDER documented as of this encounter Care Teams Larriman Helper Relationship Specialty Start Date End Date Jacqueline Boyd NP [place] [address] PCP - General NURSE PRACTITIONER 02/08/23 documented as of this encounter
--- OUTSIDE RECORDS SUMMARY | 2024-03-07 23:42 | XMS_ITS | Encounter Summary ---
Author Organization [facility] Address [address] [place] [address]. [place] [address] [place] [address] Care Team Providers Care School Social Worker Name Role Phone Jacqueline Boyd NP Primary Care Provider [phone] Encounter Details Date Type Department Care Team (Latest Contact Info) Description 03/11/2023 Travel Social History Tobacco Use Types Packs/Day [...] Total Score: 5 03/10/20 23 10:52 AM MAIL ORDER CLERK documented as of this encounter Care Teams School Social Worker Relationship Specialty Start Date End Date Jacqueline Boyd [place] [address] PCP - General NURSE PRACTITIONER 02/08/23 documented as of this encounter
--- OUTSIDE RECORDS SUMMARY | 2024-03-07 23:42 | XMS_ITS | Encounter Summary ---
Author Organization [facility] Address [address] [place] [address]. [place] [address] [place] [address] Care Team Providers Care Cargo Surveyor Name Role Phone None, Provider Primary Care Provider Lupe ble Encounter Details Date Type Department Care Team (Latest Contact Info) Description 04/27/2020 Travel Social History Tobacco Use Types Packs/Day [...] have Coronavirus / COVID-19? No / Unsure 04/27/2020 4:32 PM [facility] documented as of this encounter Plan of Treatment Not on file documented as of this encounter Visit Diagnoses Not on filedocumented in this encounter Care Teams Cargo Surveyor Relationship Specialty Start Date End Date None, Provider, PCP - General 04/01/20 01/16/23 documented as of this encounter
--- OUTSIDE RECORDS SUMMARY | 2024-03-07 23:42 | XMS_ITS | Encounter Summary ---
Author Organization [facility] Address [address] [place] [address]. [place] [address] [place] [address] Care Team Providers Care Ophthalmic Asst Name Role Phone Jacqueline Boyd DAMAGE ADJUSTER Primary Care Provider [phone] Encounter Details Date Type Department Care Team (Latest Contact Info) Description 03/11/2023 1:09 PM DOG HANDLER - 03/11/2023 7:37 PM [facility] Hospital Encounter [facility] [place] [address] Jacqueline Boyd NP [address] [place], [place] [id number] Discharge Disposition: Home or Self Care (Routine [...] 03/15/2023 05/04/2023 documented as of this encounter Plan of Treatment Not on file documented as of this encounter Procedures Procedure Name Priority Date/Time Associated Diagnosis Comments SYPHILIS IGG AB Routine 03/11/2023 1:27 PM DOG HANDLER Screen for STD (sexually transmitted disease) HIV 1 ANTIGEN(S), WITH HIV-1 AND HIV-2 ANTIBODIES Routine 03/11/2023 1:27 PM DOG HANDLER Screen for STD (sexually transmitted disease) TSH W/REFLEX Routine 03/11/2023 1:27 PM DOG HANDLER Routine general medical examination at a health care facility Class 2 obesity due to excess calories without serious comorbidity with body mass index (BMI) of 35.0 to 35.9 in adult HEMOGLOBIN, GLYCOSYLATED Routine 03/11/2023 1:27 PM DOG HANDLER Routine general medical examination at a health care facility Class 2 obesity due to excess calories without serious comorbidity with body mass index (BMI) of 35.0 to 35.9 in adult COMPREHENSIVE METABOLIC PANEL Routine 03/11/2023 1:27 PM DOG HANDLER Routine general medical examination at a health care facility Class 2 obesity due to excess calories without serious comorbidity with body mass index (BMI) of 35.0 to 35.9 in adult LIPID PANEL Routine 03/11/2023 1:27 PM DOG HANDLER Routine general medical examination at a health care facility Class 2 obesity due to excess calories without serious comorbidity with body mass index (BMI) of 35.0 to 35.9 in adult HEPATITIS C ANTIBODY Routine 03/11/2023 1:27 PM DOG HANDLER Screen for STD (sexually transmitted disease) CBC W/DIFF AUTOMATED Routine 03/11/2023 1:27 PM DOG HANDLER Routine general medical examination at a health care facility Class 2 obesity due to excess calories without serious comorbidity with body mass index (BMI) of 35.0 to 35.9 in adult VITAMIN D, 25 OH Routine 03/11/2023 1:27 PM DOG HANDLER Routine general medical examination at a health care facility Class 2 obesity due to excess calories without serious comorbidity with body mass index (BMI) of 35.0 to 35.9 in adult CHLAMYDIA GC RNA Routine 03/11/2023 1:10 PM DOG HANDLER Screen for STD (sexually transmitted disease) documented in this encounter Results * SYPHILIS IGG AB (RPR) (03/11/2023 1:27 PM DOG HANDLER) Pathologist [facility] SYPHILIS IGG AB NON-REACTI VE NON-REACTI VE 03/11/2023 3:46 PM DOG HANDLER [facility] 03/11/2023 1:27 PM DOG HANDLER us Jacqueline Boyd NP LABORATORY Final Result [facility] [address] [place] [address], * HEMOGLOBIN, GLYCOSYLATED (03/11/2023 1:27 PM DOG HANDLER) Pathologist [facility] HGB A1C 5.5 <5.7 % 03/11/2023 3:45 PM DOG HANDLER [facility] Comment: ADA GUIDELINES 2010 5.7 TO 6.4% INCREASED RISK OF DIABETES > OR = 6.5% CONSISTENT WITH DIABETES ESTIMATED AVG GLUCOSE 111 mg/dL 03/11/2023 3:45 PM DOG HANDLER [facility] 03/11/2023 1:27 PM DOG HANDLER Jacqueline Oliver DAMAGE ADJUSTER LABORATORY Final Result [facility] [address] [place] [address], [place] [phone] * HEPATITIS C ANTIBODY W/REFLEX (03/11/2023 1:27 PM DOG HANDLER) HEPATITIS C AB NON-REACTI VE NON-REACTI VE 03/11/2023 3:46 PM DOG HANDLER [facility] 03/11/2023 1:27 PM DOG HANDLER Jacqueline Haneyfrich DAMAGE ADJUSTER LABORATORY Final Result Performing Organization Address City/[facility]/ZIP Co de Phone Number [facility] [address] [place] [phone], [place] [phone] * HIV 1 ANTIGEN(S), WITH HIV-1 AND HIV-2 ANTIBODIES (03/11/2023 1:27 PM DOG HANDLER) HIV 1/2 AB+ HIV1 P24 AG NON-REACTI VE NON-REACTI VE 03/11/2023 2:56 PM DOG HANDLER [facility] 03/11/2023 1:27 PM DOG HANDLER Jacqueline Oliver DAMAGE ADJUSTER LABORATORY Final Result [facility] [address] [place] [phone], * (ABNORMAL) VITAMIN D, 25 OH (03/11/2023 1:27 PM DOG HANDLER) [facility] VITAMIN D 25 HYDROXY S/P/B 10(L) 30 - 100 NG/ML 03/11/2023 3:46 PM DOG HANDLER [facility] Comment: ? INTERPRETATION ? DEFICIENT ??<20 ? INSUFFICIENT 20-29 ?SUFFICIENT 30-100 03/11/2023 1:27 PM DOG HANDLER [facility] Final Result Performing Organization Address [facility] Co de Phone Number [facility] [address] [place] [phone], * TSH W/REFLEX (03/11/2023 1:27 PM DOG HANDLER) [facility] TSH 1.040 0.358 - 3.74 uIU/ML 03/11/2023 2:18 PM DOG HANDLER [facility] Comment: HIGH DOSES OF BIOTIN MAY INTERFERE WITH THIS TEST RESULT. CORRELATION TO CLINICAL HISTORY AND PRESENTATION RECOMMENDED. FREE T4 NOT INDICATED 03/11/2023 1:2 7 PM DOG HANDLER [facility] [[email or web address]] Oliver DAMAGE ADJUSTER LABORATORY Final Result Performing Organization Address City/[facility] Co de Phone Number [facility] [address] [place] [phone], * LIPID PANEL (03/11/2023 1:27 PM DOG HANDLER) [facility] CHOLESTEROL 119 <200 MG/DL 03/11/2023 2:18 PM [facility] TRIGLYCERIDES 36 <150 MG/DL 03/11/2023 2:18 PM [facility] HDL 81 >40.0 MG/DL 03/11/2023 2:18 PM [facility] LDL (CALCULATED) 31 <100 MG/DL 03/11/20 2:18 PM [facility] NON HDL CHOLESTEROL 38 <130 MG/DL 03/11 2:18 PM [facility] CHOL/HDL RATIO 1.5 0.0 - 4.5 03/11/2023 2:18 PM [facility] VLDL CALCULATION 7 5 - 55 MG/DL 03/11/2023 2:18 PM [facility] LIPID INTERPRETATION 03/11/2023 2:18 PM [facility] Comment: [facility] CONCENS[facility] REPORT RECOMMENDATIONS: ?ADULT ?CHILD ??LOW RISK: ?CHOLESTEROL ? <200 ? <170 ?TRIGLYCERIDE ?<150 ?--- ?HDL ? >=60 ?--- ?LDL ? <100 ? <110 ??BORDERLINE: ?CHOLESTEROL ? 200-239 ?? 170-199 ?TRIGLYCERIDE ?150-199 ? --- ?HDL ?40-59 ?--- ?LDL ? 100-159 ?? 110-129 ??HIGH RISK: ?CHOLESTEROL ? >=240 ?>=200 ?TRIGLYCERIDE ?>=200 ? --- ?HDL ?<40 ?--- ?LDL ? >=160 ?>=130 03/11/2023 1:27 PM DOG HANDLER Jacqueline Boyd DAMAGE ADJUSTER LABORATORY Final Result [facility] [address] [place] [id number], * (ABNORMAL) COMPREHENSIVE METABOLIC PANEL (03/11/2023 1:27 PM DOG HANDLER) GLUCOSE 81 70 - 99 MG/DL 03/11/2023 2:18 PM DOG HANDLER [facility] BUN 8 7 - 18 MG/DL 03/11/2023 2:18 PM DOG HANDLER [facility] CREATININE S/P/B 0.94 0.55 - 1.02 MG/DL 03/11/2023 2:18 PM DOG HANDLER [facility] SODIUM S/P/B 141 136 - 145 MMOL/L 03/11/2023 2:18 PM DOG HANDLER [facility] POTASSIUM S/P/B 3.8 3.5 - 5.1 MMOL/L 03/11/2023 2:18 PM DOG HANDLER [facility] CHLORIDE S/P/B 106 100 - 108 MMOL/L 03/11/2023 2:18 PM [facility] CO2 27.1 21 - 32 MMOL/L 03/11/2023 2:18 PM [facility] CALCIUM S/P/B 8.9 8.5 - 10.1 MG/DL 03/11/2023 2:18 PM [facility] BILIRUBIN TOTAL S/P/B 0.4 0.2 - 1.2 MG/DL 03/11/2023 2:18 PM [facility] Comment: THIS ASSAY IS NOT RECOMMENDED FOR PATIENTS UNDERGOING TREATMENT WITH ELTROMBOPAG DUE TO THE POTENTIAL FOR FALSELY ELEVATED RESULTS. TOTAL PROTEIN S/P/B 8.3(H) 6.4 - 8.2 G/DL 03/11/2023 2:18 PM [facility] ALBUMIN S/P/B 3.2(L) 3.4 - 5.0 G/DL 03/11/2023 2:18 PM [facility] AST 16 15 - 37 U/L 03/11/2023 2:18 PM [facility] ALT 18 14 - 55 U/L 03/11/2023 2:18 PM [facility] ALKALINE PHOSPHATASE S/P/B 74 50 - 136 U/L 03/11/2023 2:18 PM [facility] ANION GAP 7.9 5 - 15 MMOL/L 03/11/2023 2:18 PM [facility] BUN CREATININE RATIO 8.5 6 - 26 03/11/2023 2:18 PM [facility] A/G RATIO 0.6(L) 1.0 - 2.0 RATIO 03/11/2023 2:18 PM [facility] GFR ESTIMATE 86(L) >90 ML/MIN/1.7 3 M2 03/11/2023 2:18 PM [facility] Comment: NOTE: eGFR is not calculated for patients <18 years of age. This is an estimated GFR calculation using the new CKD EPI creatinine equation without race and so does not require a correction factor for race. This estimated GFR should not be used for calculating drug doses. 03/11/2023 1:27 PM DOG HANDLER Jacqueline Boyd VALERIY LABORATORY Final Result [facility] [address] [place] [address], [place] [phone] * (ABNORMAL) CBC W/DIFF AUTOMATED (03/11/2023 1:27 PM DOG HANDLER) WBC 7.4 4.5 - 11.0 x10'3/uL 03/11/2023 1:42 PM DOG HANDLER [facility] RBC 4.65 4.20 - 5.40 x10'6/uL 03/11/2023 1:42 PM DOG HANDLER [facility] HGB 10.6(L) 12.0 - 16.0 G/DL 03/11/2023 1:42 PM DOG HANDLER [facility] HCT 35.4(L) 38.0 - 48.0 % 03/11/2023 1:42 PM DOG HANDLER [facility] MCV 76.1(L) 81.0 - 99.0 FL 03/11/2023 1:42 PM DOG HANDLER [facility] MCH 22.8(L) 27.0 - 31.0 PG 03/11/2023 1:42 PM DOG HANDLER [facility] MCHC 29.9(L) 32.0 - 36.0 G/DL 03/11/2023 1:42 PM [facility] RDW 15.6(H) 11.5 - 14.5 % 03/11/2023 1:42 PM DOG HANDLER [facility] PLT 275 130 - 400 x10'3/uL 03/11/2023 1:42 PM DOG HANDLER [facility] MPV 11.3 9.3 - 12.2 FL 03/11/2023 1:42 PM [facility] DIFFERENTIAL TYPE AUTOMATED DIFFERENTIAL 03/11/2023 1:42 PM DOG HANDLER [facility] NEUTROPHILS % 51.7 % 03/11/2023 1:42 PM [facility] LYMPHOCYTES % 39.6 % 03/11/2023 1:42 PM DOG HANDLER [facility] MONOCYTES % 7.7 % 03/11/2023 1:42 PM [facility] EOSINOPHILS 0.5 % 03/11/2023 1:42 PM [facility] BASOPHILS 0.4 % 03/11/2023 1:42 PM [facility] IMMATURE GRANS % 0.1 % 03/11/20 1:42 PM [facility] ABS. NEUTROPHILS TOTAL 3.81 1.80 - 7.70 x10'3/uL 03/11/2023 1:42 PM [facility] ABS. LYMPHOCYTES 2.93 1.00 - 4.80 x10'3/uL 03/11/2023 1:42 PM [facility] ABS. MONOCYTES 0.57 0.24 - 0.86 x10'3/uL 03/11/2023 1:42 PM DOG HANDLER [facility] ABS. EOSINOPHILS 0.04 0.04 - 0.36 x10'3/uL 03/11/2023 1:42 PM [facility] ABS. BASOPHILS 0.03 0.01 - 0.08 x10'3/uL 03/11/2023 1:42 PM [facility] ABS. IMMATURE GRANULOCYTES 0.01 0.00 - 0.49 x10'3/uL 03/11/2023 1:42 PM DOG HANDLER [facility] 03/11/2023 1:27 PM DOG HANDLER Jacqueline Boyd NP LABORATORY Final Result Performing Organization Address City/[facility]/ZIP Co de Phone Number [facility] [address] [place] [address], [place] [phone] * (ABNORMAL) CHLAMYDIA GC RNA (03/11/2023 1:10 PM DOG HANDLER) SPEC DESCRIPTION URINE VOIDED 2022 1:31 PM DOG HANDLER [facility] CHLAMYDIA RNA TMA POSITIVE(A) NEGATIVE 2022 12:24 AM DOG HANDLER [facility] Comment:PERFORMED BY NUCLEIC ACID AMPLIFICATION N.GONORRHOEAE RNA TMA NEGATIVE NEGATIVE 03/15/2023 12:24 AM DOG HANDLER [facility] Comment:PERFORMED BY NUCLEIC ACID AMPLIFICATION URINE SPECIMEN / Unknown 03/11/2023 1:10 PM DOG HANDLER Jacqueline Boyd NP MICROBIOLOGY - GENERAL ORDERABL ES Final Result Performing Organization Address City/[facility]/ZIP Co de Phone Number [facility] [address] [place] [address], [facility] [address] [place] [address], [place] [phone] documented in this encounter Visit Diagnoses Diagnosis Routine general medical examination at a health care facility Class 2 obesity due to excess calories without serious comorbidity with body mass index (BMI) of 35.0 to 35.9 in adult Screen for STD (sexually transmitted disease) Screening examination for venereal disease documented in this encounter Additional Health Concerns Assessment Noted Time PHQ-9 Depression Total Score: 5 03/10/20 10:52 AM DOG HANDLER documented as of this encounter Care Teams Ophthalmic Asst Relationship Specialty Start Date End Date Jacqueline Boyd NP [address] [place] [address] PCP - General NURSE PRACTITIONER 02/08/23 documented as of this encounter
--- OUTSIDE RECORDS SUMMARY | 2024-03-07 23:42 | XMS_ITS | Encounter Summary ---
Author Organization [facility] Address [address] [place] [address]. [place] [address] [place] [address] Care Team Providers Care Sludge Filtration Attendant Name Role Phone None, Provider Primary Care Provider Unavaila ble Reason for Visit * Reason Comments Urinary Symptoms Encounter Details Date Type Department Care Team (Latest Contact Info) Description 09/17/2020 1:13 PM CDT - 09/17/2020 2:05 PM CDT Hospital Encounter [place] [id number] [facility] [place] [address] Cary Chinchilla, MARY ELLEN [address] [address] Urinary Symptoms Discharge Disposition: Home or Self Care (Routine [...] PM CDT documented as of this encounter Last Filed Vital Signs Vital Sign Reading Time Taken Comments Blood Pressure 137/87 09/17/2020 1:20 PM CDT Pulse 68 09/17/2020 1:20 PM CDT Temperature 36.8 ??C (98.3 ??F) 09/17/2020 1:20 PM CD T Respiratory Rate 16 09/17/2020 1:20 PM CDT Oxygen Saturation 100% 09/17/2020 1:20 PM CDT Inhaled Oxygen Concentration - - Weight 124.3 kg (274 lb) 09/17/2020 1:20 PM CDT Height 180.3 cm (5' 11 ) 09/17/2020 1:20 PM CDT Body Mass Index 38.22 09/17/2020 1:20 PM CDT documented in this encounter Discharge Instructions * Discharge Instructions* MARY ELLEN Donovan - 09/17/2020 1:57 PM CDT Thank you for giving us [...] in the community we serve. - NGOZI Rice, [facility] - Emergency Medicine Provider ADDITIONAL DISCHARGE INSTRUCTIONS: [...] treated during a single Urgent Care visit. Your treating healthcare provider(s) today feel your condition has been stabilized so further care as an outpatient is reasonable. Urgent care does not substitute for complete, ongoing, or follow-up care by your primary care physician or cons ultant. Please mention to your follow-up physician that [...] such as many narcotic drug combinations and [id number] cold medicines. --Again, it was a pleasure taking care of you. * Attachments The following attachments cannot be sent through Care Everywhere. * Urinary Tract Infection Discharge Instructions, Adult (Malawian) documented in this encounter Medications at Time of Discharge diphenhydrAMINE 25 MG capsule Take 25 mg by mouth every 6 (six) hours as needed for Itching. 01/23/2021 nitrofurantoin, macrocrystal-mono hydrate, (MACROBID) 100 MG capsule Take 1 capsule (100 mg total) by mouth 2 (two) times daily for 3 days. 6 capsule 09/17/2020 09/20/2020 documented as of this encounter ED Notes * MARY ELLEN Donovan - 09/17/2020 1:52 PM CDT [facility]- [place], [place] HISTORICAL INFORMATION Primary Care Doctor: Provider Martha, Patient information was obtained primarily from the patient, nursing notes. History/Exam limitations: None Provider at Bedside Date/Time Event User Comments 09/17/20 1492 Provider at Bedside Assessing Patient CARY CHINCHILLA CHIEF COMPLAINT Urinary Symptoms Chief Complaint Patient presents with ??? Urinary Symptoms HPI Marina Haddad is a 25-year-old female who presents with with dysuria and foul odor to urine for the past 10 days. Denies dysuria. States she has had UTIs before. Denies abdominal pain, back pain, N/V,fever. She thought it may potentially be BV if not a UTI but reports no vaginal discharge. PAST MEDICAL HISTORY Past Medical History: Diagnosis Date ??? Strep throat ??? Yeast infection SURGICAL HISTORY Past Surgical History: Procedure Laterality Date ??? NONE CURRENT MEDICATIONS No current facility-administered medications for this encounter. Current Outpatient Medications: ??? diphenhydrAMINE 25 MG capsule, Take 25 mg by mouth every 6 (six) hours as needed for Itching., Disp: , Rfl: ??? nitrofurantoin, macrocrystal-monohydrate, (MACROBID) 100 MG capsule, Take 1 capsule (100 mg total) by mouth 2 (two) times daily for 3 days., Disp: 6 capsule, Rfl: 0 ALLERGIES No Known Allergies FAMILY HISTORY Family History Problem Relation Name Age of Onset ??? Hypertension Mother ??? Other (vertigo) Mother ??? Arthritis Father ??? Epilepsy Father SOCIAL HISTORY Social History Socioeconomic History ??? Marital status: Single Spouse name: Not on file ??? Number of children: Not on file ??? Years of education: Not on file ??? Highest education level: Not on file Occupational History ??? Not on file Tobacco Use ??? Smoking status: Never Smoker ??? Smokeless tobacco: Never Used Substance and Sexual Activity ??? Alcohol use: Not Currently Comment: socially ??? Drug use: Yes Types: Marijuana Comment: daily ??? Sexual activity: Not on file Other Topics Concern ??? Not on file Social History Narrative ??? Not on file Social Determinants of Health Financial Resource Strain: ??? Difficulty of Paying Living Expenses: Food Insecurity: ??? Worried About Running Out of Food in the Last Year: ??? Ran Out of Food in the Last Year: Transportation Needs: ??? Lack of Transportation (Medical): ??? Lack of Transportation (Non-Medical): Physical Activity: ??? Days of Exercise per Week: ??? Minutes of Exercise per Session: Stress: ??? Feeling of Stress : Social Connections: ??? Frequency of Communication with Friends and Family: ??? Frequency of Social Gatherings with Friends and Family: ??? Attends L[employer] Services: ??? Active Member of Clubs or Organizations: ??? Attends Club or Organization Meetings: ??? Marital Status: Intimate Partner Violence: ??? Fear of Current or Ex-Partner: ??? Emotionally Abused: ??? Physically Abused: ??? Sexually Abused: REVIEW OF SYSTEMS Constitutional: Denies fever, chills, weight loss or weakness. Skin: Denies rash. HEENT: Denies sore throat or ear pain. Respiratory: Denies cough or shortness of breath. Cardiovascular: Denies chest pain, palpitations or swelling. GI: Denies abdominal pain, nausea, vomiting, or diarrhea. : +Urinary frequency, odor to urine. Denies dysuria. Denies vaginal discharge. Musculoskeletal: Denies back pain. Neurologic: Denies headache, focal weakness or sensory changes. Psychiatric: Denies depression, suicidal ideation or homicidal ideation. See HPI for further details. All systems negative except as marked. Physical Exam VITAL SIGNS: Filed Vitals: 09/17/20 1320 BP: 137/87 Pulse: 68 Resp: 16 Temp: 98.3 ??F (36.8 ??C) TempSrc: Temporal SpO2: 100% Weight: 124.3 kg (274 lb) Height: 5' 11 (1.803 m) Constitutional: Well developed, No acute distress, Non-toxic appearance. Integument: Warm, Dry, No erythema, No rash. HEENT: Normocephalic, Atraumatic, Conjunctiva normal Neck- Normal range of motion, Supple Back- No CVA tenderness. Normal range of motion, No gross abnormality Respiratory: Normal breath sounds, No respiratory distress. Cardiovascular: Normal heart rate, Normal rhythm GI: Soft, No tenderness Musculoskeletal: Good ROM, no deformities noted Neurologic: Alert & oriented x 3, No focal deficits noted. Psychiatric: Affect normal, Judgment normal, Mood normal. EKG (interpreted by ED provider) No results found for this visit on 09/17/20. LABORATORY Labs Reviewed TEST URINE URINALYSIS AUTO DIP RADIOLOGY No orders to display PROCEDURES Procedures MDM Alysis with positive nitrites and small leukocytes consistent with UTI. Advised patient of these results. She notes that she is not having any vaginal discharge and now that she has confirmed she hasa UTI she does not believe that she has bacterial vaginosis. Offered a pelvic exam and swabs for evaluation however she declines. Will discharge home with Rx for Macrobid for UTI. I have discussed today's findings with the [...] of these instructions. Impression/Disposition SNOMED CT(R) 1. UTI (urinary tract infection) URINARY TRACT INFECTIOUS DISEASE Disposition: Discharge Medications - No data to display Current Discharge Medication List START taking these medications Details nitrofurantoin, macrocrystal-monohydrate, (MACROBID) 100 MG capsule Take 1 capsule (100 mg total) by mouth 2 (two) times daily for 3 days. Qty: 6 capsule, Refills: 0 Class: Eprescribe Pharmacy: [facility] #[id number] [place] (Ph #: [phone]) MARY ELLEN DONOVAN PA 09/17/20 1401 Cosigned by Tania Babb MD at 09/17/2020 5:11 PM CDT * Vannesa Morse RN - 09/17/2020 1:18 PM CDT Pt to [facility] with complaint of dysuria and foul odor to urine. Pt states she thinks she may be starting to have a BV episode, or perhaps UTI. Onset 10 days ago. documented in this encounter Plan of Treatment Not on file documented as of this encounter Procedures Procedure Name Priority Date/Time Associated Diagnosis Comments TEST URINE STAT 09/17/2020 1:30 PM CDT URINE BACTERIA CULTURE STAT 09/17/2020 1:30 PM CDT URINALYSIS AUTO DIP STAT 09/17/2020 1 :30 PM CDT documented in this encounter Results * (ABNORMAL) CULTURE URINE (09/17/2020 1:30 PM CDT) SPEC DESCRIPTION URINE CLEAN CATCH 09/17/2020 2:28 PM CDT [facility] SPECIAL REQUESTS NO SPECIAL REQUEST 09/17/2020 2:28 PM CDT [facility] CULTURE RESULT >100,000 COL/ML ESCHERICHIA COLI (A) 09/19/2020 9:48 AM CDT [facility] CULTURE RESULT 10,000-49,000 COL/ML STREPTOCOCCI, BETA HEMOLYTIC GROUP B SUSCEPTIBILTY NOT ROUTINELY PERFORMED. SAVING ISOLATE FOR 5 DAYS. CONTACT MICROBIOLOGY DEPARTMENT IF FURTHER WORKUP IS INDICATED. (A) 09/19/2020 9:48 AM CDT [facility] URINE SPECIMEN OBTAINED BY CLEAN CATCH PROCEDURE / Unknown 09/17/2020 1:30 PM CDT 09/17/2020 2:29 PM CDT Narrative Organism Antibiotic Method Susceptibility Escherichia coli AMPICILLIN GARCÍA (VITEK) 4: Sensitive Escherichia coli AMPICILLIN/SULBACTAM GARCÍA (VITEK) <=2: Sensitive Escherichia coli CEFTRIAXONE GARCÍA (VITEK) <=1: Sensitive Escherichia coli CEFTAZIDIME GARCÍA (VITEK) <=1: Sensitive Escherichia coli CEFAZOLIN GARCÍA (VITEK) <=4: Sensitive Escherichia coli ESBL GARCÍA (VITEK) NEG: Sensitive Escherichia coli NITROFURANTOIN GARCÍA (VITEK) 32: Sensitive Escherichia coli GENTAMICIN GARCÍA (VITEK) <=1: Sensitive Escherichia coli LEVOFLOXACIN GARCÍA (VITEK) <=0.12: Sensitive Escherichia coli PIPRACIL/TAZO GARCÍA (VITEK) <=4: Sensitive Escherichia coli TRIMETH-SULFAMETH. GARCÍA (VITEK) <=20: Sensitive [place] HYDE MICROBIOLOGY - GENERAL [facility] Final Result [facility] [address] [place] [address], [place] [address], * (ABNORMAL) URINALYSIS AUTO DIP (09/17/2020 1:30 PM CDT) SPECIMEN TYPE URINE CLEAN CATCH 09/17/2020 1:30 PM CDT [facility] COLOR (U) YELLOW 09/18/2020 8:12 AM CDT [facility] TRANSPARENCY CLOUDY 09/18/2020 8:12 AM CDT [facility] SPECIFIC GRAVITY (U) 1.025 1.001 - 1.030 09/18/2020 8:12 AM CDT [facility] U PH 7.0 5.0 - 9.0 09/18/2020 8:12 AM CDT [facility] LEUKOCYTES (U) SMALL(A) NEGATIVE 09/18/2020 8:12 AM CDT [facility] NITRITES POSITIVE(A) NEGATIVE 09/18/2020 8:12 AM CDT [facility] PROTEIN (U) NEGATIVE <30 MG/DL 09/18/2020 8:12 AM CDT [facility] URINE GLUCOSE NEGATIVE NEGATIVE MG/DL 09/18/2020 8:12 AM CDT [facility] KETONES MG/DL (U) NEGATIVE NEGATIVE MG/DL 09/18/2020 8:12 AM CDT [facility] UROBILINOGEN 1.0(A) NEGATIVE MG/DL 09/18/2020 8:12 AM CDT [facility] BILIRUBIN (U) NEGATIVE NEGATIVE MG/DL 09/18/2020 8:12 AM CDT [facility] BLOOD (U) NEGATIVE NEGATIVE 09/18/2020 8:12 AM CDT [facility] URINE SPECIMEN OBTAINED BY CLEAN CATCH PROCEDURE / Unknown 09/17/2020 1:30 PM CDT Cary HYDE URINE ORDERABLES Final Resu lt Performing Organization Address City/[facility]/ZIP Co de Phone Number [address] [address], * TEST URINE (09/17/2020 1:30 PM CDT) PREG TEST NEGATIVE 09/18/2020 8:17 AM CDT [facility] SPECIFIC GRAVITY (U) 1.025 >1.009 09/18/2020 8:17 AM CDT [facility] URINE SPECIMEN OBTAINED BY CLEAN CATCH PROCEDURE / Unknown 09/17/2020 1:30 PM CDT Cary HYDE URINE ORDERABLES Final Resu lt Performing Organization Address City/[facility]/ZIP Co de Phone Number [place] [phone], documented in this encounter Visit Diagnoses Diagnosis UTI (urinary tract infection)- Primary Urinary tract infection, site not specified documented in this encounter Care Teams Sludge Filtration Attendant Relationship Specialty Start Date End Date None, Provider, PCP - General 04/01/20 01/16/23 documented as of this encounter
--- OUTSIDE RECORDS SUMMARY | 2024-03-07 23:42 | XMS_ITS | Encounter Summary ---
Author Organization [facility] Address [address] [place] [address]. [place] [address] [place] [address] Care Team Providers Care Leather Currier Name Role Phone Jacqueline Boyd NP Primary Care Provider [phone] Encounter Details Date Type Department Care Team (Latest Contact Info) Description 03/02/2024 1:25 PM MANAGER IN TRAINING - 03/02/2024 11:59 PM [facility] Hospital Encounter [facility] [place] [address] Edilberto Pulido MD [facility] [address] [place] [address] Discharge Disposition: Home or Self Care (Routine [...] WITH CASCADING REFLEX Routine 03/02/2024 2:47 PM MANAGER IN TRAINING Encounter for suprvsn of normal , unsp trimester ([facility]/HCC) GLUCOSE, GESTATIONAL SCREEN Routine 03/02/2024 2:47 PM MANAGER IN TRAINING Encounter for suprvsn of normal , unsp trimester ([facility]/HCC) HIV 1 ANTIGEN(S), WITH HIV-1 AND HIV-2 ANTIBODIES Routine 03/02/2024 2:47 PM MANAGER IN TRAINING Encounter for suprvsn of normal , unsp trimester ([facility]/HCC) CBC W/DIFF AUTOMATED Routine 03/02/2024 2:47 PM MANAGER IN TRAINING Encounter for suprvsn of normal , unsp trimester ([facility]/HCC) documented in this encounter Results * GLUCOSE, GESTATIONAL SCREEN (03/02/2024 2:47 PM MANAGER IN TRAINING) AMOUNT GIVEN 50 g 03/02/2024 6:05 PM MANAGER IN TRAINING [facility] GLUCOSE 1 HOUR POST DOSE 98 <140 mg/dL 03/02/2024 6:05 PM MANAGER IN TRAINING [facility] 03/02/2024 2:47 PM MANAGER IN TRAINING us Edilberto Pulido MD LABORATORY Final Result [facility] [address] [place] [address], * (ABNORMAL) CBC W/DIFF AUTOMATED (03/02/2024 2:47 PM MANAGER IN TRAINING) [facility] WBC 12.43(H) 4.5 - 11.0 x10'3/uL 03/02/2024 3:04 PM MANAGER IN TRAINING [facility] RBC 3.98(L) 4.20 - 5.40 x10'6/uL 03/02/2024 3:04 PM [facility] HGB 10.0(L) 12.0 - 16.0 G/DL 03/02/2024 3:04 PM [facility] HCT 32.9(L) 38.0 - 48.0 % 03/02/2024 3:04 PM [facility] MCV 82.7 81.0 - 99.0 FL 03/02/2024 3:04 PM [facility] MCH 25.1(L) 27.0 - 31.0 PG 03/02/2024 3:04 PM [facility] MCHC 30.4(L) 32.0 - 36.0 G/DL 03/02/2024 3:04 PM [facility] RDW 14.9(H) 11.5 - 14.5 % 03/02/2024 3:04 PM [facility] PLT 260 130 - 400 x10'3/uL 03/02/2024 3:04 PM [facility] MPV 11.7 9.3 - 12.2 FL 03/02/2024 3:04 PM [facility] DIFFERENTIAL TYPE AUTOMATED DIFFERENTIAL 03/02/2024 3:04 PM [facility] NEUTROPHILS % 71.1 % 03/02/2024 3:04 PM [facility] LYMPHOCYTES % 16.9 % 03/02/2024 3:04 PM MANAGER IN TRAINING [facility] MONOCYTES % 10.3 % 03/02/2024 3:04 PM MANAGER IN TRAINING [facility] EOSINOPHILS 0.9 % 03/02/2024 3:04 PM MANAGER IN TRAINING [facility] BASOPHILS 0.2 % 03/02/2024 3:04 PM MANAGER IN TRAINING [facility] IMMATURE GRANS % 0.6 % 03/02/20 24 3:04 PM MANAGER IN TRAINING [facility] ABS. NEUTROPHILS 8.83(H) 1.80 - 7.70 x10'3/uL 03/02/2024 3:04 PM MANAGER IN TRAINING [facility] ABS. LYMPHOCYTES 2.10 1.00 - 4.80 x10'3/uL 03/02/2024 3:04 PM MANAGER IN TRAINING [facility] ABS. MONOCYTES 1.28(H) 0.24 - 0.86 x10'3/uL 03/02/2024 3:04 PM MANAGER IN TRAINING [facility] ABS. EOSINOPHILS 0.11 0.04 - 0.36 x10'3/uL 03/02/2024 3:04 PM MANAGER IN TRAINING [facility] ABS. BASOPHILS 0.03 0.01 - 0.08 x10'3/uL 03/02/2024 3:04 PM MANAGER IN TRAINING [facility] ABS. IMMATURE GRANULOCYTES 0.08 0.00 - 0.49 x10'3/uL 03/02/2024 3:04 PM MANAGER IN TRAINING [facility] 03/02/2024 2:47 PM MANAGER IN TRAINING us Edilberto Pulido MD LABORATORY Final Result [facility] [address] [place] [address], * SYPHILIS AB (DIAGNOSTIC) WITH CASCADING REFLEX (03/02/2024 2:47 PM MANAGER IN TRAINING) SYPHILIS IGG IGM AB NON-REACTI VE NON-REACTI VE 03/02/2024 3:47 PM MANAGER IN TRAINING [facility] Comment: No serologic evidence of syphilis. No follow-up necessary unless clinically indicated. 03/02/2024 2:47 PM MANAGER IN TRAINING Edilberto Pulido MD LABORATORY Final Result Performing Organization Address City/[facility]/ZIP Co de Phone Number [facility] [address] [place] [address], [place] [phone] * HIV 1 ANTIGEN(S), WITH HIV-1 AND HIV-2 ANTIBODIES (03/02/2024 2:47 PM MANAGER IN TRAINING) Pathologist [facility] HIV 1/2 AB+ HIV1 P24 AG NON-REACTI VE NON-REACTI VE 03/02/2024 4:10 PM MANAGER IN TRAINING [facility] 03/02/2024 2:47 PM MANAGER IN TRAINING Edilberto Pulido MD LABORATORY Final Result Performing Organization Address City/[facility]/ZIP Co de Phone Number [facility] [address] [place] [address], [place] [phone] documented in this encounter Visit Diagnoses Diagnosis Encounter for suprvsn of normal , unsp trimester ([facility]/HCC) documented in this encounter Additional Health Concerns Assessment Noted Time PHQ-9 Depression Total Score: 5 03/10/20 23 10:52 AM MANAGER IN TRAINING documented as of this encounter Care Teams Leather Currier Relationship Specialty Start Date End Date Jacqueline Boyd [place] [address] PCP - General NURSE PRACTITIONER 02/08/23 documented as of this encounter
--- OUTSIDE RECORDS SUMMARY | 2024-03-07 23:42 | XMS_ITS | Encounter Summary ---
Author Organization [facility] Address [facility] [place] [address] [place] [address] Care Team Providers Care Apartment Property Manager Name Role Phone None, Provider MD Primary Care Provider Unavaila ble Reason for Visit * Reason Comments Headache Encounter Details Date Type Department Care Team (Latest Contact Info) Description 10/16/2020 1:15 PM CDT - 10/16/2020 2:30 PM CDT Hospital Encounter [facility] [address] [facility] [place], [place] [id number] Cinthya Garcia MD [address] [place], [place] [id number] Headache Discharge Disposition: Home or Self Care (Routine [...] Sign Reading Time Taken Comments Blood Pressure 132/76 10/16/2020 1:17 PM CDT Pulse 82 10/16/2020 1:17 PM CDT Temperature 36.5 ??C (97.7 ??F) 10/16/2020 1:17 PM CD T Respiratory Rate 20 10/16/2020 1:17 PM CDT Oxygen Saturation 100% 10/16/2020 1:17 PM CDT Inhaled Oxygen Concentration - - Weight 120.2 kg (265 lb) 10/16/2020 1:17 PM CDT Height 180.3 cm (5' 11 ) 10/16/2020 1:17 PM CDT Body Mass Index 36.96 10/16/2020 1:17 PM CDT documented in this encounter Discharge Instructions * Discharge Instructions* Cinthya Garcia MD - 10/16/2020 2:29 PM CDT Thank you for giving us the opportunity to care for you today. If at any point you are becoming more ill, your condition worsens or have concern, please call your doctor or return here. You are always welcome back. If you have any questions about this visit, concerns about your symptoms, questions about your medications or other concerns, please give us a call. Our practice is committed to providing you the exceptional care. ADDITIONAL DISCHARGE INSTRUCTIONS: --Please follow all the instructions that we have discussed or are provided here. Take all medications as directed. --Emergency Departments (ED) provide medical screening exams and initial stabilizing treatment of emergency medical conditions. Medicine is an inexact science and many conditions cannot be diagnosed or completely treated during a single ED visit. Your treating healthcare provider(s) today feel yourcondition has been stabilized so further care as an outpatient is reasonable. Emergency care does not substitute for complete, ongoing, or follow-up care by your primary care physician or groundwater consultant.Please mention to your follow-up physician that you were in the emergency department and request that they review your labs [...] such as many narcotic drug combinations and nsyo-nuv-cnnhyan cold medicines. Again, it was a pleasure taking care of you. Cinthya Garcia MD * Attachments The following attachments cannot be sent through Care Everywhere. * Headache Discharge Instructions, Adult ([place]an) * How to Keep Track of Your Headaches ([place]) * Using Heat for Pain ([place]an) documented in this encounter Medications at Time of Discharge diphenhydrAMINE 25 MG capsule Take 25 mg by mouth every 6 (six) hours as needed for Itching. 01/23/2021 fluticasone propionate (FLONASE) 50 MCG/ACT nasal spray 2 sprays by Each Nostril route daily. 15.8 mL 10/16/2020 01/23/2021 loratadine 10 MG tablet Take 1 tablet (10 mg total) by mouth daily. 30 tablet 10/16/2020 01/23/2021 naproxen 500 MG tablet Take 1 tablet (500 mg total) by mouth 2 (two) times daily with meals. 60 tablet 10/16/2020 01/23/2021 documented as of this encounter ED Notes * Cinthya Garcia MD - 10/16/2020 2:29 PM CDT Images from the original note were not included. [facility] NOTE Chief Complaint Chief Complaint Patient presents with ??? Headache History of Present Illness This note was prepared using a naaptol dictation device. Please excuse any errors or substitutions. Also this patient was cared for in the middle of an unusual surge in emergency/urgent care department census directly related to the SARS-2/COVID-19 pandemic. As a result, some of the time indices noted below may be inaccurate. The patient is a 25-year-old female presenting for intermittent headaches that have been present for the past 3 weeks. Denies any visual disturbances, tinnitus, neck pain, or headaches that wake her up out of her sleep at night. Headaches are usually located in the temporal region. She denies any head trauma. Three weeks ago the patient found her cousin after an attempted suicide. Patient had to perform CPR until EMS arrived. States that that was a very stressful and traumatic event for her. Since then her father also had an accident where he fractured his spine. 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 She also reports that she only drinks about 1 bottle of water a day. Also has been experiencing an increase in her seasonal allergy symptoms. She is not currently taking any medications on a daily basis. She denies any known sick contacts or recent travel. She is scheduled to receive the first dose ofher Covid vaccine tomorrow. She has not been taking any medications for her current symptoms. She is currently following up with a counselor at her school. She adamantly denies any suicidal or homicidal ideation. Medical History ALLERGIES: No Known Allergies MEDICATIONS: Prior to Admission medications Medication Sig Start Date End Date Taking? Authorizing Provider fluticasone propionate (FLONASE) 50 MCG/ACT nasal spray 2 sprays by Each Nostril route daily. 10/16/20 Yes Cinthya Garcia MD loratadine 10 MG tablet Take 1 tablet (10 mg total) by mouth daily. 10/16/20 Yes Cinthya Garcia MD naproxen 500 MG tablet Take 1 tablet (500 mg total) by mouth 2 (two) times daily with meals. 10/16/20 Yes Cinthya Garcia MD diphenhydrAMINE 25 MG capsule Take 25 mg by mouth every 6 (six) hours as needed for Itching. Doc Abstract PAST MEDICAL HISTORY: Past Medical History: Diagnosis [...] Smoker ??? Smokeless tobacco: Never Used Substance Use Topics ??? Alcohol use: Not Currently Comment: socially ??? Drug use: Yes Types: Marijuana Comment: daily Review of Systems Review of Systems Constitutional: Negative for activity change, appetite change, chills, diaphoresis, fatigue and fever. HENT: Positive for congestion, postnasal drip and rhinorrhea. Negative for trouble swallowing and voice change. Respiratory: Negative for cough and shortness of breath. Cardiovascular: Negative for chest pain and palpitations. Gastrointestinal: Negative for abdominal pain, diarrhea, nausea and vomiting. Musculoskeletal: Negative for myalgias. Skin: Negative for rash and wound. Neurological: Positive for headaches. Negative for seizures, speech difficulty, weakness and numbness. Psychiatric/Behavioral: Negative for decreased concentration, self-injury and suicidal ideas. The patient is not nervous/anxious. Physical Exam Filed Vitals: 10/16/20 1317 BP: 132/76 Pulse: 82 Resp: 20 Temp: 97.7 ??F (36.5 ??C) TempSrc: Temporal SpO2: 100% Weight: 120.2 kg (265 lb) Height: 5' 11 (1.803 m) Physical Exam Vitals and nursing note reviewed. Constitutional: General: She is not in acute distress. Appearance: Normal appearance. She is obese. She is not ill-appearing, toxic- appearing or diaphoretic. Comments: Patient sitting on the exam table, able to speak in full sentences without difficulty. HENT: Head: Normocephalic. No raccoon eyes, Quiros's sign, right periorbital erythema or left periorbitalerythema. Right Ear: External ear normal. No drainage, swelling or tenderness. Tympanic membrane is bulging. Tympanic membrane is not erythematous. Left Ear: External ear normal. No drainage, swelling or tenderness. Tympanic membrane is bulging. Tympanic membrane is not erythematous. Nose: Congestion and rhinorrhea present. Rhinorrhea is clear. Right Turbinates: Swollen. Left Turbinates: Swollen. Right Sinus: No maxillary sinus tenderness or frontal sinus tenderness. Left Sinus: No maxillary sinus tenderness or frontal sinus tenderness. Mouth/Throat: Lips: [place]. Mouth: Mucous membranes are moist. Pharynx: Oropharynx is clear. No pharyngeal swelling or posterior oropharyngeal erythema. Tonsils: No tonsillar exudate. 1+ on the right. 1+ on the left. Comments: Postnasal drip noted Eyes: Extraocular Movements: Extraocular movements intact. Conjunctiva/sclera: Conjunctivae normal. Cardiovascular: Rate and Rhythm: Normal rate and regular rhythm. Pulses: Normal pulses. Heart sounds: Normal heart sounds. Pulmonary: Effort: Pulmonary effort is normal. No respiratory distress. Breath sounds: Normal breath sounds. No stridor. No wheezing. Abdominal: General: Abdomen is flat. Bowel sounds are normal. There is no distension. Palpations: Abdomen is soft. Tenderness: There is no abdominal tenderness. There is no guarding or rebound. Musculoskeletal: Cervical back: Normal range of motion and neck supple. No rigidity or tenderness. Lymphadenopathy: Cervical: No cervical adenopathy. Skin: General: Skin is warm and dry. Capillary Refill: Capillary refill takes less than 2 seconds. Findings: No rash. Neurological: General: No focal deficit present. Mental Status: She is alert and oriented to person, place, and time. Mental status is at baseline. Cranial Nerves: Cranial nerves are intact. No cranial nerve deficit. Sensory: Sensation is intact. No sensory deficit. Motor: Motor function is intact. No weakness. Coordination: Coordination is intact. Gait: Gait is intact. Gait normal. Psychiatric: Mood and Affect: Mood normal. Behavior: Behavior normal. Thought Content: Thought content normal. Judgment: Judgment normal. Diagnostic Studies / Procedures ELECTROCARDIOGRAMS: No results found for this visit on 10/16/20. LABORATORY STUDIES: No results found for this visit on 10/16/20. IMAGING STUDIES No orders to display ED Course / Medical Decision Making ED Course as of Oct 16 1532 Amisha Oct 16, 2020 1435 Symptoms started 3 weeks ago, patient outside of time frame For quarantining. Does not want Covid testing [CC] ED Course User Index [CC] Cinthya Garcia MD Medications - No data to display Clinical Impression Headache (Primary) Seasonal allergies Stress and adjustment reaction Discharge Medication List as of 10/16/2020 2:29 PM START taking these medications Details fluticasone propionate (FLONASE) 50 MCG/ACT nasal spray 2 sprays by Each Nostril route daily., Starting [facility] 10/16/2020, Eprescribe Class: Eprescribe [facility]acy: [id number] [place] [address] (Ph #: [phone]) loratadine 10 MG tablet Take 1 tablet (10 mg total) by mouth daily., Starting [facility] 10/16/2020, Eprescribe Class: Eprescribe Pharmacy: [id number] [place] [address] (Ph #: [phone]) naproxen 500 MG tablet Take 1 tablet (500 mg total) by mouth 2 (two) times daily with meals., Starting [facility] 10/16/2020, Eprescribe Class: Eprescribe Pharmacy: [id number] [place] [address] (Ph #: [phone]) Disposition: Discharge Follow-Up: Debbie Lopez MD [address] [address] Schedule an appointment as soon as possible for a visit CINTHYA GARCIA MD 10/16/2020 Cinthya Garcia MD 10/16/20 1532 * Staci Dwyer RN - 10/16/2020 1:17 PM CDT Pt ambulatory to from home with c/o R sided headaches intermittently x 3 weeks. Pt has been under a lot of stress lately. 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 documented in this encounter Plan of Treatment Not on file documented as of this encounter Visit Diagnoses Diagnosis Headache- Primary Seasonal allergies Allergic rhinitis, cause unspecified Stress and adjustment reaction Unspecified adjustment reaction documented in this encounter Care Teams Apartment Property Manager Relationship Specialty Start Date End Date None, Provider, PCP - General 04/01/20 01/16/23 documented as of this encounter
--- OUTSIDE RECORDS SUMMARY | 2024-03-07 23:42 | XMS_ITS | Encounter Summary ---
Author Organization [facility] Address [address] [place] [address]. [place] [address] [place] [address] Care Team Providers Care Painter Spring Name Role Phone None, Provider Primary Care Provider Marleena ble Encounter Details Date Type Department Care Team (Latest Contact Info) Description 04/01/2020 Travel Social History Tobacco Use Types Packs/Day Years Used Date Smoking Tobacco: Never Smokeless Tobacco: Never Alcohol Use Standard Drinks/Week Comments Yes 0 (1 standard drink = 0.6 oz pur e alcohol) socially Comments Unknown Sex and Gender Information Value Date Recorded Sex Assigned at Not on file Legal Sex Female 8:02 PM CDT Gender Identity Not on file Sexual Orientation Not on file COVID-19 Exposure Response Date Recorded In the last month, have you been in contact with someone who was confirmed or suspected to have Coronavirus / COVID-19? No / Unsure 04/01/2020 6:27 PM DISTRIBUTION CENTER ASSISTANT documented as of this encounter Plan of Treatment Not on file documented as of this encounter Visit Diagnoses Not on filedocumented in this encounter Care Teams Painter Spring Relationship Specialty Start Date End Date None, Provider, PCP - General 04/01/20 01/16/23 documented as of this encounter
--- OUTSIDE RECORDS SUMMARY | 2024-03-07 23:42 | XMS_ITS | Encounter Summary ---
Author Organization [facility] Address [address] [place] [address]. [place] [address] [place] [address] Care Team Providers Care Pacu Rn Name Role Phone None, Provider Primary Care Provider Lupe ble Encounter Details Date Type Department Care Team (Latest Contact Info) Description 01/13/2023 Travel Social History Tobacco Use Types Packs/Day [...] on filedocumented in this encounter Care Teams Pacu Rn Relationship Specialty Start Date End Date None, Provider, PCP - General 04/01/20 01/16/23 documented as of this encounter
--- OUTSIDE RECORDS SUMMARY | 2024-03-07 23:42 | XMS_ITS | Encounter Summary ---
Author Organization [facility] Address [address] [place] [address]. [place] [address] [place] [address] Care Team Providers Care Industrial Specialist Name Role Phone None, Provider Primary Care Provider Marleena ble Encounter Details Date Type Department Care Team (Late st Contact Info) Description 04/25/2021 Orders Only [facility] [place] [address] Angelica Alas NP Social History Tobacco Use Types Packs/Day Years [...] Coronavirus/COVID-19? No / Unsure 04/25/2021 8:49 AM MEDICAL CODING MANAGER documented as of this encounter Plan of Treatment Not on file documented as of this encounter Results * (ABNORMAL) COMPREHENSIVE METABOLIC PANEL (04/25/2021 10:01 AM MEDICAL CODING MANAGER) GLUCOSE 85 70 - 99 MG/DL 04/25/2021 10:45 AM [facility] BUN 10 7 - 18 MG/DL 04/25/2021 10:45 AM [facility] CREATININE S/P/B 0.88 0.55 - 1.02 MG/DL 04/25/2021 10:45 AM [facility] SODIUM S/P/B 138 136 - 145 MMOL/L 04/25/2021 10:45 AM [facility] POTASSIUM S/P/B 3.8 3.5 - 5.1 MMOL/L 04/25/2021 10:45 AM [facility] CHLORIDE S/P/B 108 100 - 108 MMOL/L 04/25/2021 10:45 AM [facility] CO2 26.7 21 - 32 MMOL/L 04/25/2021 10:45 AM [facility] CALCIUM S/P/B 9.2 8.5 - 10.1 MG/DL 04/25/2021 10:45 AM [facility] BILIRUBIN TOTAL S/P/B 0.2 0.2 - 1.2 MG/DL 04/25/2021 10:45 AM [facility] Comment: THIS ASSAY IS NOT RECOMMENDED FOR PATIENTS UNDERGOING TREATMENT WITH ELTROMBOPAG DUE TO THE POTENTIAL FOR FALSELY ELEVATED RESULTS. TOTAL PROTEIN S/P/B 8.6(H) 6.4 - 8.2 G/DL 04/25/2021 10:45 AM [facility] ALBUMIN S/P/B 3.2(L) 3.4 - 5.0 G/DL 04/25/2021 10:45 AM [facility] AST 16 15 - 37 U/L 04/25/2021 10:45 AM [facility] ALT 16 14 - 55 U/L 04/25/2021 10:45 AM [facility] ALKALINE PHOSPHATASE S/P/B 88 50 - 136 U/L 04/25/2021 10:45 AM [facility] ANION GAP 3.3(L) 5 - 15 MMOL/L 04/25/2021 10:45 AM [facility] BUN CREATININE RATIO 11.3 6 - 26 04/25/2021 10:45 AM [facility] A/G RATIO 0.6(L) 1.0 - 2.0 RATIO 04/25/2021 10:45 AM [facility] EGFR NON-AFR. AMER. >90 >90 ML/MIN/1.7 3 M2 04/25/2021 10:45 AM [facility] EGFR AFR. AMER. >90 >90 ML/MIN/1.7 3 M2 04/25/2021 10:45 AM [facility] Comment: NOTE: eGFR is not calculated for patients <18 years of age. This is an estimated GFR (CKD EPI) and should not be used for calculating drug doses. 04/25/2021 10:0 1 AM MEDICAL CODING MANAGER us Angelica Alas NP LABORATORY Final Resu lt [facility] [address] [place] [address], [place] [phone] * (ABNORMAL) CBC W/DIFF AUTOMATED (04/25/2021 10:01 AM MEDICAL CODING MANAGER) WBC 7.0 4.5 - 11.0 x10'3/uL 04/25/2021 10:20 AM [facility] RBC 4.60 4.20 - 5.40 x10'6/uL 04/25/2021 10:20 AM [facility] HGB 10.2(L) 12.0 - 16.0 G/DL 04/25/2021 10:20 AM [facility] HCT 35.2(L) 38.0 - 48.0 % 04/25/2021 10:20 AM [facility] MCV 76.5(L) 81.0 - 99.0 FL 04/25/2021 10:20 AM [facility] MCH 22.2(L) 27.0 - 31.0 PG 04/25/2021 10:20 AM [facility] MCHC 29.0(L) 32.0 - 36.0 G/DL 04/25/2021 10:20 AM [facility] RDW 16.1(H) 11.5 - 14.5 % 04/25/2021 10:20 AM [facility] PLT 352 130 - 400 x10'3/uL 04/25/2021 10:20 AM [facility] MPV 11.5 9.3 - 12.2 FL 04/25/2021 10:20 AM [facility] DIFFERENTIAL TYPE AUTOMATED DIFFERENTIAL 04/25/2021 10:20 AM [facility] NEUTROPHILS % 62.6 % 04/25/2021 10:20 AM [facility] LYMPHOCYTES % 29.0 % 04/25/2021 10:20 AM [facility] MONOCYTES % 7.4 % 04/25/2021 10:20 AM [facility] EOSINOPHILS 0.3 % 04/25/2021 10:20 AM [facility] BASOPHILS 0.4 % 04/25/2021 10:20 AM [facility] IMMATURE GRANS % 0.3 % 04/25/19 10:20 AM MEDICAL CODING MANAGER [facility] ABS. NEUTROPHILS TOTAL 4.38 1.80 - 7.70 x10'3/uL 04/25/2021 10:20 AM [facility] ABS. LYMPHOCYTES 2.03 1.00 - 4.80 x10'3/uL 04/25/2021 10:20 AM [facility] ABS. MONOCYTES 0.52 0.24 - 0.86 x10'3/uL 04/25/2021 10:20 AM MEDICAL CODING MANAGER [facility] ABS. EOSINOPHILS 0.02(L) 0.04 - 0.36 x10'3/uL 04/25/2021 10:20 AM [facility] ABS. BASOPHILS 0.03 0.01 - 0.08 x10'3/uL 04/25/2021 10:20 AM [facility] ABS. IMMATURE GRANULOCYTES 0.02 0.00 - 0.49 x10'3/uL 04/25/2021 10:20 AM [facility] 04/25/2021 10:0 1 AM MEDICAL CODING MANAGER us Angelica Alas NP LABORATORY Final Resu lt [facility] [address] [place] [address], documented in this encounter Visit Diagnoses Diagnosis HIV exposure- Primary Contact with or exposure to other viral diseases documented in this encounter Care Teams Industrial Specialist Relationship Specialty Start Date End Date None, Provider, PCP - General 04/01/20 01/16/23 documented as of this encounter
--- OUTSIDE RECORDS SUMMARY | 2024-03-07 23:42 | XMS_ITS | Encounter Summary ---
Author Organization [facility] Address [address] [place] [address]. [place] [address] [place] [address] Care Team Providers Care Clerk Of Works Name Role Phone Oliver Boyd NP Primary Care Provider [phone] Reason for Visit * Reason Onset Date Comments Lab Results 03/15/2023 Encounter Details Date Type Department Care Team (Late st Contact Info) Description 03/15/2023 Telephone [facility] - [place] [address] [place] [address] Oliver Boyd NP [address] [place] [id number] Lab Results Social History Tobacco Use Types Packs/Day Years [...] on file documented as of this encounter Progress Notes * Annalise Flynn MA - 03/15/2023 10:20 AM CST Called pt with results, and plan. Pt voiced understanding. T FURNACE HELPER * Annalise Flynn MA - 03/15/2023 10:20 AM CST ----- Message from Oliver Boyd NP sent at 03/15/2023 9:13 AM BLAST FURNACE HELPER ----- Please inform the patient. Chlamydia positive Abx sent in Inform [facility] Safe sex Recheck in 3 months Report any chance of Vitamin D deficiency noted. Supplement ordered for once a week for 8 weeks. Do not take this dose if . Then can continue with 800 units daily over the counter Recheck in 6 months Thank you OLIVER BOYD NP T FURNACE HELPER documented in this encounter Plan of Treatment Not on file documented as of this encounter Visit Diagnoses Not on filedocumented in this encounter Additional Health Concerns Assessment Noted Time PHQ-9 Depression Total Score: 5 03/10/20 10:52 AM BLAST FURNACE HELPER documented as of this encounter Care Teams Clerk Of Works Relationship Specialty Start Date End Date [place] [address] PCP - General NURSE PRACTITIONER 02/08/23 documented as of this encounter
--- OUTSIDE RECORDS SUMMARY | 2024-03-07 23:42 | XMS_ITS | Encounter Summary ---
Author Organization [facility] Address [address] [place] [address]. [place] [address] [place] [address] Care Team Providers Care Shop Repairer Name Role Phone Oliver Boyd NUCLEAR POWERPLANT MECHANIC Primary Care Provider [phone] Reason for Visit * Reason Comments New Patient Back Pain Upper back pain. Encounter Details Date Type Department Care Team (Late st Contact Info) Description 03/10/2023 11:00 AM TOOL DESIGNER Office Visit [facility] Family Medicine - [address] [phone] Oliver Boyd NP [address] [place] [address] New Patient; Back Pain (Upper back pain. ) Social History Tobacco Use Types Packs/Day Years [...] Sign Reading Time Taken Comments Blood Pressure 112/70 03/10/2023 10:48 AM TOOL DESIGNER Pulse 80 03/10/2023 10:48 AM TOOL DESIGNER Temperature 36.5 ??C (97.7 ??F) 03/10/2023 10:[address] Respiratory Rate 20 03/10/2023 10:48 AM TOOL DESIGNER Oxygen Saturation 99% 03/10/2023 10:48 AM TOOL DESIGNER Inhaled Oxygen Concentration - - Weight 114.8 kg (253 lb) 03/10/2023 10:48 AM TOOL DESIGNER Height 180.3 cm (5' 11 ) 03/10/2023 10:48 AM TOOL DESIGNER Body Mass Index 35.29 03/10/2023 10:48 AM TOOL DESIGNER documented in this encounter Progress Notes * Oliver Boyd NP - 03/10/2023 11:00 AM CSTAddended by: OLIVER BOYD on: 03/15/2023 09:13 AM Modules accepted: Orders DESIGNER * Oliver Boyd NP - 03/10/2023 11:00 AM CST Images from the original note were not included. OFFICE NOTE Encounter Date: 03/10/2023 Chief Complaint: 27-year-old female presents for New Patient and Back Pain (Upper back pain. ) . 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 Anxiety Greatly improved Has therapist No SI or HI Flu vaccine due- does not want Wants preg test today No pain or abnormal bleeding PHILIP-7 (Generalized Anxiety Disorder) Screening 03/10/2023 10:54 AM PHILIP-7 Feeling nervous, anxious, or on edge 2 Not being able to stop or control worrying 0 Worrying too much about different things 1 Trouble relaxing 1 Being so restless that it is hard to sit still 0 Becoming easily annoyed or irritable 1 Feeling afraid as if something awful might happen 0 PHILIP-7 Total Score 5 How difficult have these problems made it for you to do your work, take care of things at home, or get along with other people? Somewhat difficult PHQ-9: 03/10/2023 10:52 AM PHQ2/PHQ 9 DEPRESSION SCREEN QUESTIONAIRE Little interest or pleasure in doing things Not at all Feeling down, depressed, or hopeless Not at all Patient Health Questionnaire-2 Score 0 Trouble falling or staying asleep, or sleeping too much Over half Feeling tired or having little energy Not at all Poor appetite or overeating Almost all Feeling bad about yourself - or that you are a failure or have let yourself or your family down Notat all Trouble concentrating on things, such as reading the newspaper or watching television Not at all Moving or speaking so slowly that other people could have noticed? Or the opposite - being so fidgety or restless that you have been moving around a lot more than usual. Not at all Thoughts that you would be better off or hurting yourself in some way Not at all Patient Health Questionnaire-9 Score 5 How difficult have these problems made it for you to do your work, take care of things at home, or get along with other people? Somewhat difficult Review of Systems Constitutional: Negative for chills, [...] dysuria, flank pain, frequency, hematuria and urgency. Musculoskeletal: Negative for myalgias. Skin: Negative for rash. Neurological: Negative for loss of consciousness. Psychiatric/Behavioral: Negative for depression. The patient is not nervous/anxious. Patient Active Problem List Diagnosis Surveillance of intrauterine contraception Screening for malignant neoplasm of cervix Left-sided back pain Chlamydial cervicitis Acute vaginitis [...] as needed for Pain. 90 tablet 0 No current facility-administered medications for this visit. Review of patient's allergies indicates: No Known Allergies Objective: Filed Vitals: 03/10/23 1048 BP: 112/70 Pulse: 80 Resp: 20 Temp: 97.7 ??F (36.5 ??C) TempSrc: Temporal SpO2: 99% Weight: 114.8 kg (253 lb) Height: 1.803 m (5' 11 ) Body mass index is 35.29 kg/m??. Patient's last menstrual period was 02/12/2023 (exact date). Physical Exam Vitals and nursing [...] in warmth No tenderness to firm pressure Skin: General: Skin is warm and dry. Coloration: Skin is not pale. Findings: No erythema or rash. Neurological: Mental Status: She is alert and oriented to person, place, and time. Coordination: Coordination normal. Gait: Gait is intact. Psychiatric: Mood and Affect: Mood and affect normal. Assessment: Encounter Diagnose(s) ICD-10-CM 1. Patient-requested procedure Z41.9 TEST URINE 2. Routine general medical examination at a health care facility Z00.00 CBC W/DIFF AUTOMATED COMPREHENSIVE METABOLIC PANEL LIPID PANEL TSH W/REFLEX VITAMIN D, 25 OH HEMOGLOBIN, GLYCOSYLATED BRIEF EMOTIONAL/BEHAVIORAL ASSESSMENT 3. Class 2 obesity due to excess calories without serious comorbidity with body mass index (BMI) of35.0 to 35.9 in adult E66.09 CBC W/DIFF AUTOMATED Z68.35 COMPREHENSIVE METABOLIC PANEL LIPID PANEL TSH W/REFLEX VITAMIN D, 25 OH HEMOGLOBIN, GLYCOSYLATED 4. Muscle spasm M62.838 cyclobenzaprine (FLEXERIL) 10 MG tablet ibuprofen (MOTRIN) 800 MG tablet 5. Screen for STD (sexually transmitted disease) Z11.3 CHLAMYDIA GC RNA HEPATITIS C ANTIBODY HIV 1 ANTIGEN(S), WITH HIV-1 AND HIV-2 ANTIBODIES SYPHILIS/RPR/VDRL; QUAL Plan: Marina was seen today for new patient and back pain. Diagnoses and all orders for this visit: Patient-requested procedure - TEST URINE Routine general medical examination at a health care facility - CBC W/DIFF AUTOMATED; Future - COMPREHENSIVE METABOLIC PANEL; Future - LIPID PANEL; Future - TSH W/REFLEX; Future - VITAMIN D, 25 OH; Future - HEMOGLOBIN, GLYCOSYLATED; Future - BRIEF EMOTIONAL/BEHAVIORAL ASSESSMENT Class 2 obesity due to excess calories without serious comorbidity with body mass index (BMI) of 35.0 to 35.9 in adult - CBC W/DIFF AUTOMATED; Future - COMPREHENSIVE METABOLIC PANEL; Future - LIPID PANEL; Future - TSH W/REFLEX; Future - VITAMIN D, 25 OH; Future - HEMOGLOBIN, GLYCOSYLATED; Future Muscle spasm - cyclobenzaprine (FLEXERIL) 10 MG tablet; Take 1 tablet (10 mg total) by mouth 2 (two) times dailyas needed for Muscle Spasms. - ibuprofen (MOTRIN) 800 MG tablet; Take 1 tablet (800 mg total) by mouth every 8 (eight) hours as needed for Pain. RICE Do not drive on flexeril No red flags F/u prn OTC tx Screen for STD (sexually transmitted disease) - CHLAMYDIA GC RNA; Future - HEPATITIS C ANTIBODY; Future - HIV 1 ANTIGEN(S), WITH HIV-1 AND HIV-2 ANTIBODIES; Future - SYPHILIS/RPR/VDRL; QUAL; Future Dentist twice a year Electric Installer yearly Increase physical activity and improve diet Discussed life style modifications Discussed GAD7 and PHQ results with pt and plan discussed. Therapist suggested Discussed medication, how to use Coping mechanisms reviewed Take time to enjoy hobbies Exercise Sleep hygiene decrease caffeine intake ER for SI or HI F/u prn Call or return to clinic prn if these symptoms worsen or fail to improve as anticipated. Discussed plan of care with patient. Verbalized understanding. MILDRED [place] DESIGNER documented in this encounter Plan of Treatment Scheduled Orders Name Type Priority Associated Diagnoses Orde r Schedule BRIEF EMOTIONAL/BEHAVIORAL ASSESSMENT Procedures Routine Routine general medical examination at a health care facility Ordered: 03/10/2023 documented as of this encounter Procedures Procedure Name Priority Date/Time Associated Diagnosis Comments TEST URINE Routine 03/10/2023 Patient-requested procedure documented in this encounter Results * HIV 1 ANTIGEN(S), WITH HIV-1 AND HIV-2 ANTIBODIES (03/11/2023 1:27 PM TOOL DESIGNER) HIV 1/2 AB+ HIV1 P24 AG NON-REACTI VE NON-REACTI VE 03/11/2023 2:56 PM TOOL DESIGNER [facility] 03/11/2023 1:27 PM TOOL DESIGNER Oliver Haneyfrich NUCLEAR POWERPLANT MECHANIC LABORATORY Final Result Performing Organization Address [facility] de Phone Number [facility] [address] [place] [address], * HEMOGLOBIN, GLYCOSYLATED (03/11/2023 1:27 PM TOOL DESIGNER) [facility] HGB A1C 5.5 <5.7 % 03/11/2023 3:45 PM TOOL DESIGNER [facility] Comment: ADA GUIDELINES 2010 5.7 TO 6.4% INCREASED RISK OF DIABETES > OR = 6.5% CONSISTENT WITH DIABETES ESTIMATED AVG GLUCOSE 111 mg/dL 03/11/2023 3:45 PM TOOL DESIGNER [facility] 03/11/2023 1:27 PM TOOL DESIGNER Oliver Boyd NUCLEAR POWERPLANT MECHANIC LABORATORY Final Result Performing Organization Address [facility] de Phone Number [facility] [address] [place] [address], * (ABNORMAL) VITAMIN D, 25 OH (03/11/2023 1:27 PM TOOL DESIGNER) Pathologist [facility] VITAMIN D 25 HYDROXY S/P/B 10(L) 30 - 100 NG/ML 03/11/2023 3:46 PM TOOL DESIGNER [facility] Comment: ? INTERPRETATION ? DEFICIENT ??<20 ? INSUFFICIENT 20-29 ?SUFFICIENT 30-100 03/11/2023 1:27 PM TOOL DESIGNER Oliver Haneyfrich NUCLEAR POWERPLANT MECHANIC LABORATORY Final Result Performing Organization Address [facility] Co de Phone Number [facility] [address] [place] [address], [place] [phone] * TSH W/REFLEX (03/11/2023 1:27 PM TOOL DESIGNER) TSH 1.040 0.358 - 3.74 uIU/ML 03/11/2023 2:18 PM TOOL DESIGNER [facility] Comment: HIGH DOSES OF BIOTIN MAY INTERFERE WITH THIS TEST RESULT. CORRELATION TO CLINICAL HISTORY AND PRESENTATION RECOMMENDED. FREE T4 NOT INDICATED 03/11/2023 1:27 PM TOOL DESIGNER Oliver Verduzcoich NUCLEAR POWERPLANT MECHANIC LABORATORY Final Result Performing Organization Address [facility] Co de Phone Number [facility] [address] [place] [address], [place] [phone] * LIPID PANEL (03/11/2023 1:27 PM TOOL DESIGNER) CHOLESTEROL 119 <200 MG/DL 03/11/2023 2:18 PM TOOL DESIGNER [facility] TRIGLYCERIDES 36 <150 MG/DL 03/11/2023 2:18 PM TOOL DESIGNER [facility] HDL 81 >40.0 MG/DL 03/11/2023 2:18 PM TOOL DESIGNER [facility] LDL (CALCULATED) 31 <100 MG/DL 03/11/20 2:18 PM TOOL DESIGNER [facility] NON HDL CHOLESTEROL 38 <130 MG/DL 03/11 2:18 PM TOOL DESIGNER [facility] CHOL/HDL RATIO 1.5 0.0 - 4.5 03/11/2023 2:18 PM [facility] VLDL CALCULATION 7 5 - 55 MG/DL 03/11/2023 2:18 PM [facility] LIPID INTERPRETATION 03/11/2023 2:18 PM [facility] Comment: NIH CONCENSUS REPORT RECOMMENDATIONS: ?ADULT [...] ?LDL ? >=160 ?>=130 03/11/2023 1:27 PM TOOL DESIGNER Oliversudha Boyd VALERIY LABORATORY Final Result [facility] [address] [place] [address], [place] [phone] * (ABNORMAL) COMPREHENSIVE METABOLIC PANEL (03/11/2023 1:27 PM TOOL DESIGNER) [facility] GLUCOSE 81 70 - 99 MG/DL 03/11/2023 2:18 PM TOOL DESIGNER [facility] BUN 8 7 - 18 MG/DL 03/11/2023 2:18 PM TOOL DESIGNER [facility] CREATININE S/P/B 0.94 0.55 - 1.02 MG/DL 03/11/2023 2:18 PM TOOL DESIGNER [facility] SODIUM S/P/B 141 136 - 145 MMOL/L 03/11/2023 2:18 PM TOOL DESIGNER [facility] POTASSIUM S/P/B 3.8 3.5 - 5.1 MMOL/L 03/11/2023 2:18 PM TOOL DESIGNER [facility] CHLORIDE S/P/B 106 100 - 108 MMOL/L 03/11/2023 2:18 PM TOOL DESIGNER [facility] CO2 27.1 21 - 32 MMOL/L 03/11/2023 2:18 PM TOOL DESIGNER [facility] CALCIUM S/P/B 8.9 8.5 - 10.1 MG/DL 03/11/2023 2:18 PM TOOL DESIGNER [facility] BILIRUBIN TOTAL S/P/B 0.4 0.2 - 1.2 MG/DL 03/11/2023 2:18 PM TOOL DESIGNER [facility] Comment: THIS ASSAY IS NOT RECOMMENDED FOR PATIENTS UNDERGOING TREATMENT WITH ELTROMBOPAG DUE TO THE POTENTIAL FOR FALSELY ELEVATED RESULTS. TOTAL PROTEIN S/P/B 8.3(H) 6.4 - 8.2 G/DL 03/11/2023 2:18 PM TOOL DESIGNER [facility] ALBUMIN S/P/B 3.2(L) 3.4 - 5.0 G/DL 03/11/2023 2:18 PM TOOL DESIGNER [facility] AST 16 15 - 37 U/L 03/11/2023 2:18 PM TOOL DESIGNER [facility] ALT 18 14 - 55 U/L 03/11/2023 2:18 PM TOOL DESIGNER [facility] ALKALINE PHOSPHATASE S/P/B 74 50 - 136 U/L 03/11/2023 2:18 PM [facility] ANION GAP 7.9 5 - 15 MMOL/L 03/11/2023 2:18 PM [facility] BUN CREATININE RATIO 8.5 6 - 26 03/11/2023 2:18 PM [facility] A/G RATIO 0.6(L) 1.0 - 2.0 RATIO 03/11/2023 2:18 PM [facility] GFR ESTIMATE 86(L) >90 ML/MIN/1.7 3 M2 03/11/2023 2:18 PM [facility] Comment: NOTE: eGFR is not calculated for patients <18 years of age. This is an estimated GFR calculation using the new CKD EPI creatinine equation without race and so does not require a correction factor for race. This estimated GFR should not be used for calculating drug doses. 03/11/2023 1:27 PM TOOL DESIGNER us Oliver Boyd NP LABORATORY Final Result [facility] [address] [place] [address], [place] [phone] * (ABNORMAL) CBC W/DIFF AUTOMATED (03/11/2023 1:27 PM TOOL DESIGNER) [facility] WBC 7.4 4.5 - 11.0 x10'3/uL 03/11/2023 1:42 PM [facility] RBC 4.65 4.20 - 5.40 x10'6/uL 03/11/2023 1:42 PM [facility] HGB 10.6(L) 12.0 - 16.0 G/DL 03/11/2023 1:42 PM [facility] HCT 35.4(L) 38.0 - 48.0 % 03/11/2023 1:42 PM [facility] MCV 76.1(L) 81.0 - 99.0 FL 03/11/2023 1:42 PM [facility] MCH 22.8(L) 27.0 - 31.0 PG 03/11/2023 1:42 PM [facility] MCHC 29.9(L) 32.0 - 36.0 G/DL 03/11/2023 1:42 PM [facility] RDW 15.6(H) 11.5 - 14.5 % 03/11/2023 1:42 PM [facility] PLT 275 130 - 400 x10'3/uL 03/11/2023 1:42 PM [facility] MPV 11.3 9.3 - 12.2 FL 03/11/2023 1:42 PM [facility] DIFFERENTIAL TYPE AUTOMATED DIFFERENTIAL 03/11/2023 1:42 PM [facility] NEUTROPHILS % 51.7 % 03/11/2023 1:42 PM [facility] LYMPHOCYTES % 39.6 % 03/11/2023 1:42 PM [facility] MONOCYTES % 7.7 % 03/11/2023 1:42 PM TOOL DESIGNER [facility] EOSINOPHILS 0.5 % 03/11/2023 1:42 PM TOOL DESIGNER [facility] BASOPHILS 0.4 % 03/11/2023 1:42 PM TOOL DESIGNER [facility] IMMATURE GRANS % 0.1 % 03/11/20 1:42 PM TOOL DESIGNER [facility] ABS. NEUTROPHILS TOTAL 3.81 1.80 - 7.70 x10'3/uL 03/11/2023 1:42 PM TOOL DESIGNER [facility] ABS. LYMPHOCYTES 2.93 1.00 - 4.80 x10'3/uL 03/11/2023 1:42 PM TOOL DESIGNER [facility] ABS. MONOCYTES 0.57 0.24 - 0.86 x10'3/uL 03/11/2023 1:42 PM TOOL DESIGNER [facility] ABS. EOSINOPHILS 0.04 0.04 - 0.36 x10'3/uL 03/11/2023 1:42 PM TOOL DESIGNER [facility] ABS. BASOPHILS 0.03 0.01 - 0.08 x10'3/uL 03/11/2023 1:42 PM TOOL DESIGNER [facility] ABS. IMMATURE GRANULOCYTES 0.01 0.00 - 0.49 x10'3/uL 03/11/2023 1:42 PM TOOL DESIGNER [facility] 03/11/2023 1:27 PM TOOL DESIGNER us Oliver Boyd NP LABORATORY Final Result [facility] [address] [place] [address], * (ABNORMAL) CHLAMYDIA GC RNA (03/11/2023 1:10 PM TOOL DESIGNER) SPEC DESCRIPTION URINE VOIDED 2022 1:31 PM TOOL DESIGNER [facility] CHLAMYDIA RNA TMA POSITIVE(A) NEGATIVE 2022 12:24 AM TOOL DESIGNER [facility] Comment:PERFORMED BY NUCLEIC ACID AMPLIFICATION N.GONORRHOEAE RNA TMA NEGATIVE NEGATIVE 03/15/2023 12:24 AM TOOL DESIGNER [facility] Comment:PERFORMED BY NUCLEIC ACID AMPLIFICATION URINE SPECIMEN / Unknown 03/11/2023 1:10 PM TOOL DESIGNER Oliver Boyd NUCLEAR POWERPLANT MECHANIC MICROBIOLOGY - GENERAL ORDERABL ES Final Result [facility] [address] [place] [address], [place] [phone] [facility] [address] [place] [address], [place] [phone] * (ABNORMAL) TEST URINE (03/10/2023) URINE HCG TEST NEGATIVE NEGATIVE [facility] Internal Control: VALID(A) VALID [facility] URINE SPECIMEN FROM URETHRA / Unknown 03/10/2023 Oliver Boyd NUCLEAR POWERPLANT MECHANIC URINE ORDERABLES Final Result Performing Organization Address City/[facility]/ZIP Co de Phone Number [facility] [address] [place] [address], [place] [phone] documented in this encounter Visit Diagnoses Diagnosis Patient-requested procedure- Primary Unspecified elective surgery for purposes other than remedying health states Routine general medical examination at a health care facility Class 2 obesity due to excess calories without serious comorbidity with body mass index (BMI) of 35.0 to 35.9 in adult Muscle spasm Spasm of muscle Screen for STD (sexually transmitted disease) Screening examination for venereal disease Vitamin D deficiency Unspecified vitamin D deficiency Chlamydia Unspecified chlamydial infection, in conditions classified elsewhere and of unspecified site documented in this encounter Additional Health Concerns Assessment Noted Time PHQ-9 Depression Total Score: 5 03/10/20 10:52 AM TOOL DESIGNER documented as of this encounter Care Teams Shop Repairer Relationship Specialty Start Date End Date Oliver Boyd [place] [address] PCP - General NURSE PRACTITIONER 02/08/23 documented as of this encounter
--- OUTSIDE RECORDS SUMMARY | 2024-03-07 23:42 | XMS_ITS | Encounter Summary ---
Author Organization [facility] Address [address] [place] [address]. [place] [address] [place] [address] Care Team Providers Care Hop Trainer Name Role Phone None, Provider Primary Care Provider Lupe mckee Encounter Details Date Type Department Care Team (Latest Contact Info) Description 06/14/2022 Travel Social History Tobacco Use Types Packs/Day [...] suspected to have Coronavirus/COVID-19? No / Unsure 06/14/2022 6:34 PM CDT documented as of this encounter Plan of Treatment Not on file documented as of this encounter Visit Diagnoses Not on filedocumented in this encounter Care Teams Hop Trainer Relationship Specialty Start Date End Date None, Provider, PCP - General 04/01/20 01/16/23 documented as of this encounter
--- OUTSIDE RECORDS SUMMARY | 2024-03-07 23:42 | XMS_ITS | Encounter Summary ---
Author Organization [facility] Address [address] [place] [address]. [place] [address] [place] [address] Care Team Providers Care Telephone Solicitor Supervisor Name Role Phone Jacqueline Boyd WIRE RIGGER Primary Care Provider [phone] Encounter Details Date Type Department Care Team (Late st Contact Info) Description 03/11/2023 Orders Only [facility] [address] [place], [place] [id number] Jacqueline Boyd NP [address] [place] [address] Social History Tobacco Use Types Packs/Day Years [...] documented as of this encounter Results * SYPHILIS IGG AB (RPR) (03/11/2023 1:27 PM WATER VALVE MECHANIC) SYPHILIS IGG AB NON-REACTI VE NON-REACTI VE 03/11/2023 3:46 PM W[address] VAL[address] ME[address]IC [facility] 03/11/2023 1:27 PM WATER VALVE MECHANIC Jacqueline Boyd WIRE RIGGER LABORATORY Final Result [facility] [address] [place] [address], [place] [phone] * HEPATITIS C ANTIBODY W/REFLEX (03/11/2023 1:27 PM WATER VALVE MECHANIC) HEPATITIS C AB NON-REACTI VE NON-REACTI VE 03/11/2023 3:46 [address] W[address] VALVE MECHANIC [facility] 03/11/2023 1:27 PM WATER VALVE MECHANIC Jacqueline Boyd WIRE RIGGER LABORATORY Final Result Performing Organization Address City/[facility]/ZIP Co de Phone Number [facility] [address] [place] [address], [place] [phone] documented in this encounter Visit Diagnoses Diagnosis Screen for STD (sexually transmitted disease)- Primary Screening examination for venereal disease documented in this encounter Additional Health Concerns Assessment Noted Time PHQ-9 Depression Total Score: 5 03/10/20 23 10:52 AM WATER VALVE MECHANIC documented as of this encounter Care Teams Telephone Solicitor Supervisor Relationship Specialty Start Date End Date Jacqueline Boyd [place] [address] PCP - General NURSE PRACTITIONER 02/08/23 documented as of this encounter
--- OUTSIDE RECORDS SUMMARY | 2024-03-07 23:42 | XMS_ITS | Encounter Summary ---
Author Organization [facility] Address [address] [place] [address]. [place] [address] [place] [address] Care Team Providers Care Grocery Supervisor Name Role Phone Jacqueline Boyd ORGANISATIONAL PSYCHOLOGIST Primary Care Provider [phone] Encounter Details Date Type Department Care Team (Late st Contact Info) Description 04/17/2023 [email or web address] Message Enc [facility] - [place] [address] [place] [address] Jacqueline Boyd NP [address] [place] [address] MRI Test Social History Tobacco Use Types Packs/Day Years [...] Noted Time PHQ-9 Depression Total Score: 5 12/21/20 23 10:52 AM COMPLAINT SPECIALIST documented as of this encounter Care Teams Grocery Supervisor Relationship Specialty Start Date End Date Jacqueline Boyd NP [address] [place] [address] PCP - General NURSE PRACTITIONER 02/08/23 documented as of this encounter
--- OUTSIDE RECORDS SUMMARY | 2024-03-07 23:42 | XMS_ITS | Encounter Summary ---
Author Organization [facility] Address [facility] [place] [address] [place] [address] Care Team Providers Care Fuel Dock Attendant Name Role Phone None, Provider MD Primary Care Provider Unavaila ble Reason for Visit * Reason Comments Abdominal Pain Vaginal Discharge Encounter Details Date Type Department Care Team (Latest Contact Info) Description 04/27/2020 4:42 PM ANTIQUE REPAIRER - 04/27/2020 6:08 PM [facility] Hospital Encounter [facility] [address] [facility] [place], [place] [id number] Cinthya Garcia MD [address], [place] [id number] Abdominal Pain; Vaginal Discharge Discharge Disposition: Home or Self Care (Routine [...] COVID-19? No / Unsure 04/27/2020 4:32 PM ANTIQUE REPAIRER documented as of this encounter Last Filed Vital Signs Vital Sign Reading Time Taken Comments Blood Pressure 120/80 04/27/2020 4:48 PM ANTIQUE REPAIRER Pulse 84 04/27/2020 4:48 PM ANTIQUE REPAIRER Temperature 36.4 ??C (97.5 ??F) 04/27/2020 4:48 PM CS T Respiratory Rate 18 04/27/2020 4:48 PM ANTIQUE REPAIRER Oxygen Saturation 99% 04/27/2020 4:48 PM ANTIQUE REPAIRER Inhaled Oxygen Concentration - - Weight - - Height - - Body Mass Index - - documented in this encounter Discharge Instructions * Discharge Instructions* Cinthya Garcia MD - 04/27/2020 5:39 PM ANTIQUE REPAIRER Thank you for giving us the opportunity [...] care by your primary care physician or professional housing consultant. Please mention to your follow-up physician that [...] such as many narcotic drug combinations and [id number] cold medicines. Again, it was a pleasure taking care of you. Cinthya Garcia MD QUE REPAIRER QUE REPAIRER * Attachments The following attachments cannot be sent through Care Everywhere. * Pelvic Inflammatory Disease Discharge Instructions (Kinyarwanda) documented in this encounter Medications at Time of Discharge doxycycline hyclate 100 MG capsule Take 1 capsule (100 mg total) by mouth 2 (two) times daily for 14 days. 28 capsule 04/27/2020 05/11/2020 metroNIDAZOLE 500 MG tablet Take 1 tablet (500 mg total) by mouth 2 (two) times a day for 14 days. 28 tablet 04/27/2020 05/11/2020 documented as of this encounter ED Notes * Mitchel Parker RN - 04/27/2020 4:46 PM CST Pt c/o LLQ abdominal pain onset yesterday. Pt reports intermittent radiation to L buttock. Denies NVD/urinary sx. Pt seen here 2 days ago for vaginal DC. Pt reports discharge has increased and becomemore red. QUE REPAIRER * Cinthya Garcia MD - 04/27/2020 4:35 PM CST [facility] NOTE Chief Complaint Chief Complaint Patient presents with ??? Abdominal Pain ??? Vaginal Discharge History of Present Illness This note was prepared using a Thrinacia dictation device. Please excuse any errors or substitutions. Patient is a 24-year-old female presenting for vaginal discharge, and left lower quadrant abdominalpain. She was seen here 2 days ago for the same complaint and was prescribed MetroGel for bacterialvaginosis. Patient states that her vaginal discharge has increased in amount and frequency since being seen here. She states that it was originally a light pink in color and is now a dark pink/brown.She is also experiencing left lower quadrant abdominal pain that is worse with movement. At its worst the pain is a 10/10, currently 7/10 with some radiation down into the groin. Last menstrual period was on 04/01/2020. The patient did have an episode of unprotected sex in March and took a Plan B on 04/15/2020. She denies any history of pregnancies. She is sexually active with men only. She does not have any new partners. She was evaluated for sexually transmitted infections in February 2020, states that her results were unremarkable. She denies any fever, chills, difficulty breathing, shortness of breath, chest pain, diaphoresis, nausea, vomiting or diarrhea. Medical History ALLERGIES: No Known Allergies MEDICATIONS: Prior to Admission medications Medication Sig Start Date End Date Taking? Authorizing Provider doxycycline hyclate 100 MG capsule Take 1 capsule (100 mg total) by mouth 2 (two) times daily for 14 days. 04/27/20 05/11/20 Yes Cinthya Garcia MD metroNIDAZOLE 500 MG tablet Take 1 tablet (500 mg total) by mouth 2 (two) times a day for 14 days. 04/27/20 05/11/20 Yes Cinthya Garcia MD PAST MEDICAL HISTORY: Past Medical History: Diagnosis [...] Used Substance Use Topics ??? Alcohol use: Yes Comment: socially ??? Drug use: Yes Types: Marijuana Comment: daily Review of Systems Review of Systems Constitutional: Negative for activity change, appetite change, chills, diaphoresis, fatigue, fever and unexpected weight change. HENT: Negative for congestion, rhinorrhea, sore throat and trouble swallowing. Eyes: Negative for discharge, itching and visual disturbance. Respiratory: Negative for cough, chest tightness, shortness of breath and wheezing. Cardiovascular: Negative for chest pain and leg swelling. Gastrointestinal: Positive for abdominal pain (Left lower quadrant). Negative for abdominal distention, nausea and vomiting. Endocrine: Negative for cold intolerance and heat intolerance. Genitourinary: Positive for dysuria, frequency, pelvic pain, vaginal bleeding and vaginal discharge. Negative for difficulty urinating, flank pain and urgency. Musculoskeletal: Negative for arthralgias and back pain. Skin: Negative for color change and rash. Allergic/Immunologic: Negative for environmental allergies and immunocompromised state. Neurological: Negative for dizziness, weakness and headaches. Hematological: Negative for adenopathy. Does not bruise/bleed easily. Psychiatric/Behavioral: Negative for sleep disturbance and suicidal ideas. Physical Exam Filed Vitals: 04/27/20 1648 BP: 120/80 Pulse: 84 Resp: 18 Temp: 97.5 ??F (36.4 ??C) TempSrc: Oral SpO2: 99% Physical Exam Vitals signs and nursing note reviewed. Constitutional: General: She is not in acute distress. Appearance: Normal appearance. She is obese. She is not ill-appearing, toxic- appearing or diaphoretic. HENT: Head: Normocephalic and atraumatic. Right Ear: External ear normal. Left Ear: External ear normal. Nose: No congestion or rhinorrhea. Mouth/Throat: Mouth: Mucous membranes are moist. Pharynx: Oropharynx is clear. Eyes: Extraocular Movements: Extraocular movements intact. Conjunctiva/sclera: Conjunctivae normal. Pupils: Pupils are equal, round, and reactive to light. Neck: Musculoskeletal: Normal range of motion and neck supple. No muscular tenderness. Cardiovascular: Rate and Rhythm: Normal rate and regular rhythm. Pulses: Normal pulses. Heart sounds: Normal heart sounds. Pulmonary: Effort: Pulmonary effort is normal. No respiratory distress. Breath sounds: Normal breath sounds. No stridor. No wheezing. Abdominal: General: Abdomen is flat. Bowel sounds are normal. There is no distension. Palpations: Abdomen is soft. Tenderness: There is abdominal tenderness (Left lower quadrant and suprapubic). There is no right CVA tenderness, left CVA tenderness, guarding or rebound. Genitourinary: General: Normal vulva. Vagina: Vaginal discharge (Thick greenish discharge with bright red and brownish blood clots) present. Comments: Chandelier sign -cervical motion tenderness, uterine tenderness and adnexal tenderness. Closed cervix Musculoskeletal: Normal range of motion. General: No swelling or tenderness. Lymphadenopathy: Cervical: No cervical adenopathy. Skin: General: Skin is warm and dry. Neurological: General: No focal deficit present. Mental Status: She is alert and oriented to person, place, and time. Mental status is at baseline. Psychiatric: Mood and Affect: Mood normal. Behavior: Behavior normal. Diagnostic Studies / Procedures ELECTROCARDIOGRAMS: No results found for this visit on 04/27/20. LABORATORY STUDIES: No results found for this visit on 04/27/20. IMAGING STUDIES No orders to display ED Course / Medical Decision Making MDM Number of Diagnoses or Management Options PID (acute pelvic inflammatory disease): Diagnosis management comments: Advised patient that I was treating her for PID prophylactically. Let her know that if at anytime she is unable to tolerate liquids and take her medication that she should present directly to the emergency department. If her pain progresses and becomes unbearable she should also present to the emergency department for further evaluation and management advised her toabstain from sexual intercourse while on the medication. Provided patient with information on additional facilities that provide testing that is not performed at this facility. Plan of care discussed with patient. ??Patient agreeable with plan of care. ??I have discussed today's findings with the patient and provided information regarding the likely diagnosis. I believe at this time that the patient has no medical emergency and is appropriate for outpatient management. The patient has been given information regarding their treatment, follow up and concerning symptoms for which they should seek urgent or emergent attention; all questions were answered. ??I have expressed the the importance of seeking attention should there be any new, or worsening symptoms or persistence of their condition. The patient is stable at discharge and has verbalized understanding of these instructions.?? Amount and/or Complexity of Data Reviewed Clinical lab tests: ordered and reviewed Risk of Complications, Morbidity, and/or Mortality Presenting problems: moderate Diagnostic procedures: low Management options: moderate Patient Progress Patient progress: stable Medications cefTRIAXone (ROCEPHIN) 500 mg in lidocaine (PF) (XYLOCAINE) 1 % IM syringe (500 mg Intramuscular Given 04/27/20 174) Clinical Impression PID (acute pelvic inflammatory disease) (Primary) Discharge Medication List as of 04/27/2020 5:40 PM START taking these medications Details doxycycline hyclate 100 MG capsule Take 1 capsule (100 mg total) by mouth 2 (two) times daily for 14 days., Starting 04/27/2020, Until 05/11/2020, Eprescribe Class: Eprescribe Pharmacy: [facility] #[id number] [place] [address] (Ph #: [phone]) metroNIDAZOLE 500 MG tablet Take 1 tablet (500 mg total) by mouth 2 (two) times a day for 14 days.,Starting 04/27/2020, Until 05/11/2020, Eprescribe Class: Eprescribe Pharmacy: [facility] #[id number] [place] [address] (Ph #: [phone]) Disposition: Discharge Follow-Up: Will Pisano, DO [address] [address] CINTHYA GARCIA MD 04/27/2020 Cinthya Garcia MD 04/27/20 2019 QUE REPAIRER documented in this encounter Plan of Treatment Not on file documented as of this encounter Procedures Procedure Name Priority Date/Time Associated Diagnosis Comments TEST URINE STAT 04/27/2020 5:22 PM ANTIQUE REPAIRER URINALYSIS AUTO DIP STAT 04/27/2020 5 :22 PM ANTIQUE REPAIRER CHLAMYDIA AND GC RNA TMA STAT 04/27/2020 5:10 PM ANTIQUE REPAIRER documented in this encounter Results * TEST URINE (04/27/2020 5:22 PM ANTIQUE REPAIRER) PREG TEST NEGATIVE 04/28/2020 9:32 AM ANTIQUE REPAIRER [facility] SPECIFIC GRAVITY (U) 1.025 >1.009 04/28/2020 9:32 AM ANTIQUE REPAIRER [facility] URINE SPECIMEN OBTAINED BY CLEAN CATCH PROCEDURE / Unknown 04/27/2020 5:22 PM ANTIQUE REPAIRER us Cinthya Garcia MD URINE ORDERABLES Final Resul t [id number] [place] [address], [place] * (ABNORMAL) URINALYSIS AUTO DIP (04/27/2020 5:22 PM ANTIQUE REPAIRER) [facility] SPECIMEN TYPE URINE CLEAN CATCH 04/27/2020 5:23 PM ANTIQUE REPAIRER [facility] COLOR (U) YELLOW 04/28/2020 9:29 AM ANTIQUE REPAIRER [facility] TRANSPARENCY SLIGHTLY CLOUDY 04/28/2020 9:29 AM [facility] SPECIFIC GRAVITY (U) 1.025 1.001 - 1.030 04/28/2020 9:29 AM [facility] U PH 7.0 5.0 - 9.0 04/28/2020 9:29 AM [facility] LEUKOCYTES (U) NEGATIVE NEGATIVE 04/28/2020 9:29 AM [facility] NITRITES NEGATIVE NEGATIVE 04/28/2020 9:29 AM [facility] PROTEIN (U) TRACE <30 MG/DL 04/28/2020 9:29 AM [facility] URINE GLUCOSE NORMAL NORMAL MG/DL 04/28/2020 9:29 AM [facility] KETONES MG/DL (U) TRACE(A) NEGATIVE MG/DL 04/28/2020 9:29 AM ANTIQUE REPAIRER [facility] UROBILINOGEN 0.2(A) NORMAL MG/DL 04/28/2020 9:29 AM ANTIQUE REPAIRER [facility] BILIRUBIN (U) NEGATIVE NEGATIVE MG/DL 04/28/2020 9:29 AM ANTIQUE REPAIRER [facility] BLOOD (U) MODERATE(A) NEGATIVE 04/28/2020 9:29 AM ANTIQUE REPAIRER [facility] URINE SPECIMEN OBTAINED BY CLEAN CATCH PROCEDURE / Unknown 04/27/2020 5:22 PM ANTIQUE REPAIRER us Cinthya Garcia MD URINE ORDERABLES Final Resul t Performing Organization Address City/[facility]/ZIP Co de Phone Number [id number] [place] [address], [place] * CHLAMYDIA AND GC RNA TMA (04/27/2020 5:10 PM ANTIQUE REPAIRER) SPEC DESCRIPTION URINE VOIDED 2020 8:[address] [facility] CHLAMYDIA RNA TMA NEGATIVE NEGATIVE 021 9:38 AM ANTIQUE REPAIRER [facility] Comment:PERFORMED BY NUCLEIC ACID AMPLIFICATION N.GONORRHOEAE RNA TMA NEGATIVE NEGATIVE 04/30/2020 9:38 AM ANTIQUE REPAIRER [facility] Comment:PERFORMED BY NUCLEIC ACID AMPLIFICATION URINE SPECIMEN / Unknown 04/27/2020 5:10 PM ANTIQUE REPAIRER us Cinthya Garcia MD MICROBIOLOGY - GENERAL ORDER JAYNE Final Result [facility] [address] [place] [address], [place] [phone] [facility] [address] [place] [address], [place] [phone] documented in this encounter Visit Diagnoses Diagnosis PID (acute pelvic inflammatory disease)- Primary Acute parametritis and pelvic cellulitis documented in this encounter Administered Medications Inactive Administered Medications - up to 3 most recent administrations Medication Order MAR Action Action Date Dose Rate Site cefTRIAXone (ROCEPHIN) 500 mg in lidocaine (PF) (XYLOCAINE) 1 % IM syringe 500 mg, Intramuscular, Once, 1 dose, On 04/27/20 at 1800 Given 04/27/2020 5:48 PM ANTIQUE REPAIRER 500 mg Left Ventrogluteal documented in this encounter Active and Recently Administered Medications Times are shown in ANTIQUE REPAIRER. Scheduled Medication Order 04/25/2020 04/26/2020 04/27/2020 cefTRIAXone (ROCEPHIN) 500 mg in lidocaine (PF) (XYLOCAINE) 1 % IM syringe (COMPLETED) 500 mg, Intramuscular, Once, 1 dose, On 04/27/20 at 1800 1748 (Given - Provid er: Mitchel Parker RN) documented in this encounter Care Teams Fuel Dock Attendant Relationship Specialty Start Date End Date None, Provider, PCP - General 04/01/20 01/16/23 documented as of this encounter
--- OUTSIDE RECORDS SUMMARY | 2024-03-07 23:42 | XMS_ITS | Encounter Summary ---
Author Organization [facility] Address [address] [place] [address]. [place] [address] [place] [address] Care Team Providers Care Basket Filler Name Role Phone None, Provider Primary Care Provider Marleena ble Encounter Details Date Type Department Care Team (Latest Contact Info) Description 02/19/2022 Travel Social History Tobacco Use Types Packs/Day [...] suspected to have Coronavirus/COVID-19? No / Unsure 02/19/2022 5:19 PM SENIOR DATA MODELER documented as of this encounter Plan of Treatment Not on file documented as of this encounter Visit Diagnoses Not on filedocumented in this encounter Care Teams Basket Filler Relationship Specialty Start Date End Date None, Provider, PCP - General 04/01/20 01/16/23 documented as of this encounter
--- OUTSIDE RECORDS SUMMARY | 2024-03-07 23:42 | XMS_ITS | Encounter Summary ---
Author Organization [facility] Address [address] [place] [address]. [place] [address] [place] [address] Care Team Providers Care Assistant Professor Of Physics Name Role Phone Jacqueline Boyd NP Primary Care Provider [phone] Encounter Details Date Type Department Care Team (Latest Contact Info) Description 08/18/2023 Travel Social History Tobacco Use Types Packs/Day [...] Total Score: 5 03/10/20 23 10:52 AM SAW FEEDER documented as of this encounter Care Teams Assistant Professor Of Physics Relationship Specialty Start Date End Date Jacqueline [place] [address] PCP - General NURSE PRACTITIONER 02/08/23 documented as of this encounter
--- OUTSIDE RECORDS SUMMARY | 2024-03-07 23:42 | XMS_ITS | Encounter Summary ---
Author Organization [facility] Address [address] [place] [address]. [place] [address] [place] [address] Care Team Providers Care Secondary Market Manager Name Role Phone None, Provider Primary Care Provider Marleena ble Encounter Details Date Type Department Care Team (Latest Contact Info) Description 04/25/2021 Travel Social History Tobacco Use Types Packs/Day [...] Coronavirus/COVID-19? No / Unsure 04/25/2021 8:49 AM CANDY WRAPPING MACHINE OPERATOR documented as of this encounter Plan of Treatment Not on file documented as of this encounter Visit Diagnoses Not on filedocumented in this encounter Care Teams Secondary Market Manager Relationship Specialty Start Date End Date None, Provider, PCP - General 04/01/20 01/16/23 documented as of this encounter
--- OUTSIDE RECORDS SUMMARY | 2024-03-07 23:42 | XMS_ITS | Encounter Summary ---
Author Organization [facility] Address [address] [place] [address]. [place] [address] [place] [address] Care Team Providers Care Lens Molding Equipment Operator Name Role Phone Jacqueline Boyd NP Primary Care Provider [phone] Encounter Details Date Type Department Care Team (Late st Contact Info) Description 03/15/2023 Orders Only [facility] Family Medicine - [address] [address] Annalise Flynn MA Social History Tobacco Use Types Packs/Day Years [...] as of this encounter Visit Diagnoses Diagnosis Screen for STD (sexually transmitted disease) Screening examination for venereal disease documented in this encounter Additional Health Concerns Assessment Noted Time PHQ-9 Depression Total Score: 5 03/10/20 23 10:52 AM LOCAL ANNOUNCER documented as of this encounter Care Teams Lens Molding Equipment Operator Relationship Specialty Start Date End Date Jacqueline Boyd NP [address] [place] [address] PCP - General NURSE PRACTITIONER 02/08/23 documented as of this encounter
--- OUTSIDE RECORDS SUMMARY | 2024-03-07 23:42 | XMS_ITS | Encounter Summary ---
Author Organization [facility] Address [address] [place] [address]. [place] [address] [place] [address] Care Team Providers Care User Acceptance Tester Name Role Phone Jacqueline Boyd NP Primary Care Provider [phone] Encounter Details Date Type Department Care Team (Latest Contact Info) Description 11/19/2023 Travel Social History Tobacco Use Types Packs/Day [...] Total Score: 5 03/10/20 23 10:52 AM BOAT PATCHER PLASTIC documented as of this encounter Care Teams User Acceptance Tester Relationship Specialty Start Date End Date Jacqueline Boyd [place] [address] PCP - General NURSE PRACTITIONER 02/08/23 documented as of this encounter
--- OUTSIDE RECORDS SUMMARY | 2024-03-07 23:42 | XMS_ITS | Encounter Summary ---
Author Organization [facility] Address [address] [place] [address]. [place] [address] [place] [address] Care Team Providers Care Carding Doubler Name Role Phone None, Provider Primary Care Provider Lupe mckee Encounter Details Date Type Department Care Team (Latest Contact Info) Description 06/29/2020 Travel Social History Tobacco Use Types Packs/Day [...] have Coronavirus / COVID-19? No / Unsure 06/29/2020 6:04 PM CDT documented as of this encounter Plan of Treatment Not on file documented as of this encounter Visit Diagnoses Not on filedocumented in this encounter Care Teams Carding Doubler Relationship Specialty Start Date End Date None, Provider, PCP - General 04/01/20 01/16/23 documented as of this encounter
--- OUTSIDE RECORDS SUMMARY | 2024-03-07 23:42 | XMS_ITS | Encounter Summary ---
Author Organization [facility] Address [address] [place] [address]. [place] [address] [place] [address] Care Team Providers Care Zoo Director Name Role Phone Jacqueline Boyd NP Primary Care Provider [phone] Reason for Visit * Physical Medicine (Routine) - Pending Review Specialty Diagnoses / Procedures Referred By Jf waldron Referred To Contact PHYSICAL THERAPY / [facility] Physical Therapy Diagnoses Muscle spasm Acute bilateral thoracic back pain Procedures OFFICE/OUTPATIENT NEW LOW MDM 30-44 MINUTES OFFICE/OUTPT VISIT,NEW,LEVL IV OFFICE/OUTPT VISIT,NEW,LEVL V OFFICE/OUTPT VISIT,EST,LEVL III OFFICE/OUTPT VISIT,EST,LEVL IV OFFICE/OUTPT VISIT,EST,LEVL V Jacqueline Boyd NP [address] [place] [address] Phone: tel: fax: [facility] [place] [address] Phone: tel: fax: Referral ID Status Reason Start Date Expiration Date Visits Requested Visits Authorized [id number] Pending Review Physical Therapy 04/06/2023 05/05/2024 20 20 Encounter Details Date Type Department Care Team (Latest Contact Info) Description 05/02/2023 4:29 PM RAISED PRINTER - 05/02/2023 11:59 PM RAISED PRINTER Hospital Encounter [facility] Outpatient Therapy [address] [place] [address] Jacqueline Boyd NP [address] [place] [address] Jesusita Peres PTA Discharge Disposition: Home or Self Care (Routine [...] as of this encounter Progress Notes * Jesusita Perse PTA - 05/02/2023 4:30 PM CST Physical Therapy Visit Note: Patient Name: Marina Haddad Diagnosis: Pain of rhomboid muscle (primary encounter diagnosis) Acute bilateral thoracic back pain SUBJECTIVE Therapy Visit Start Time: 1636 Stop Time: 1714 Time Calculation (min): 38 min Treatment Day: 2 Total Canceled Visits: 0 Total No Shows: 0 Total Approved Visits: 20 Authorized visits Authorization Expiration Date: Insurance: [facility] Choice Plus, Re-eval after 30 days Therapy Plan of Care: Thoracic Stretches/Mobilization, Postural correction with scapular muscle strengthening Diagnosis: Rhomboid Muscle spasm/Bilateral thoracic back pain Referring Provider: Jacqueline Boyd NP 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 Haddad voices noticing improvement since initiation of her HEP. She inquires of a back brace at the start of her session today. She states that she feels that this can help with her posture. She reports her left scapular region to be more painful than her right today. She notices improved back pain frequency with transitioning to sleeping in her bed versus her couch. Response to prior treatment: GOOD - no adverse events Reported Falls since last visit: None Medications changes since last visit : IBU PRN & Muscle Relaxer Pain Current Location of Pain: Bilateral Scapulothoracic Muscles Current Pain Level: 3/10 on the Right Scapular/Thoracic & 7/10 on the left Scapular/Thoracic OBJECTIVE Treatment provided today: Therapeutic Exercise - 09769 Number of Minutes - 81861: 30 Exercise: Seated Rhomboid Hug with Trunk Flexion Stretch - 3 x 30 H Exercise: Seated Trunk Extension AROM - ATTEMPTED, PAINFUL Exercise: Side Lying Open Books with top LE flexed - 10 reps each side Exercise: Hooklying Lower Trunk Rotation (Towards the Right to Stretch the Left) - 10 reps Other (Comments): Additional time utilized for patient education, see below. Modalities Non-Timed Hot/Cold Pack Minutes - 14776: 8 Hot Pack - 98051: 8 mins to thoracoscapular region in supine with LE supported on wedge Other (Comments): Good skin integrity is observed post application. Total Non- Timed Modality Minutes: 8 Home Exercise Program Current Home Exercise Program: Resume current HEP, no adjustments this day. Education Was Education Provided: Yes Topic: Exercise indications, anatomical features addressed with each, and safety with performance. Educated on indications for heat and safety with use. Educated and encouraged patient to push too, not through in regards to her pain experience with exercises. Recipient: Patient Method: Verbal, Demonstration, Return Demonstration Response: Verbalized understanding, Demonstrates adequately, Asked questions Barriers: None ASSESSMENT Assessment Note: Ms. Haddad presents with positive response to use of heat pad prior to treatment this day. Goodskin integrity is observed after application. Exercise choices remain emphasized on flexibility andmobility to address rhomboid/periscapular spasm and tightness. She presents with some irritability w hen performing trunk extension movements, therefore, ceased on the remainder of this application. Response to Treatment : GOOD - no adverse events PLAN Plan Changes: Initiated treatment following evaluation. Next Visit Plan: Consider incorporating cat/came to assist with mobility. Continue with heat if effective. Total Time Total Time in Minutes: 38 Timed Code Treatment Minutes : 30 (Therapy Assistants ONLY) Supervising Therapist : Ivan Smiley PT ED PRINTER documented in this encounter Plan of Treatment Not on file documented as of this encounter Visit Diagnoses Diagnosis Pain of rhomboid muscle- Primary Mylagia and myositis, unspecified Acute bilateral thoracic back pain documented in this encounter Additional Health Concerns Assessment Noted Time PHQ-9 Depression Total Score: 5 03/10/20 10:52 AM RAISED PRINTER documented as of this encounter Care Teams Zoo Director Relationship Specialty Start Date End Date Jacqueline [place] [address] PCP - General NURSE PRACTITIONER 02/08/23 documented as of this encounter
--- OUTSIDE RECORDS SUMMARY | 2024-03-07 23:42 | XMS_ITS | Encounter Summary ---
Author Organization [facility] Address [address] [place] [address]. 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
--- OUTSIDE RECORDS SUMMARY | 2024-03-07 23:42 | XMS_ITS | Encounter Summary ---
Author Organization [facility] Address [address] [place] [address]. [place] [address] [place] [address] Care Team Providers Care Fly Fishing Guide Name Role Phone Jacqueline Boyd NP Primary Care Provider [phone] Encounter Details Date Type Department Care Team (Latest Contact Info) Description 05/02/2023 Travel Social History Tobacco Use Types Packs/Day [...] Total Score: 5 03/10/20 23 10:52 AM MILK INSPECTOR documented as of this encounter Care Teams Fly Fishing Guide Relationship Specialty Start Date End Date Jacqueline [place] [address] PCP - General NURSE PRACTITIONER 02/08/23 documented as of this encounter
--- OUTSIDE RECORDS SUMMARY | 2024-03-07 23:42 | XMS_ITS | Encounter Summary ---
Author Organization [facility] Address [address] [place] [address]. [place] [address] [place] [address] Care Team Providers Care District Wildlife Manager Name Role Phone None, Provider Primary Care Provider Unavaila ble Reason for Visit * Reason Comments Skin Problem Eye Problem Encounter Details Date Type Department Care Team (Latest Contact Info) Description 01/23/2021 4:18 PM CDT - 01/23/2021 5:01 PM CDT Hospital Encounter [address] [address] Dedrick Moore, MARY ELLEN [address] [place] [id number] Skin Problem; Eye Problem Discharge Disposition: Home or Self Care [...] Sign Reading Time Taken Comments Blood Pressure 129/85 01/23/2021 4:23 PM CDT Pulse 78 01/23/2021 4:23 PM CDT Temperature 36.4 ??C (97.6 ??F) 01/23/2021 4:23 PM CD T Respiratory Rate 18 01/23/2021 4:23 PM CDT Oxygen Saturation 98% 01/23/2021 4:23 PM CDT Inhaled Oxygen Concentration - - Weight 122.5 kg (270 lb) 01/23/2021 4:23 PM CDT Height 180.3 cm (5' 11 ) 01/23/2021 4:23 PM CDT Body Mass Index 37.66 01/23/2021 4:23 PM CDT documented in this encounter Discharge Instructions * Discharge Instructions* MARY ELLEN Champion - 01/23/2021 4:46 PM CDT Follow-up with primary care in the next 7 days for reevaluation Return if symptoms worsen or concerns or any increase in redness swelling pain fever vomiting difficulty breathing Stay well-hydrated Use preservative-free tears [id number] every 2 hours for symptom relief Follow patient education sheet * Attachments The following attachments cannot be sent through Care Everywhere. * Conjunctivitis ([facility]) ED ([place]) documented in this encounter Medications at Time of Discharge erythromycin 5 MG/GM (0.5%) ophthalmic ointment Place into both eyes nightly at bedtime for 10 days. 3.5 g 01/23/2021 02/02/2021 famotidine 20 MG tablet Take 1 tablet (20 mg total) by mouth 2 (two) times daily. 30 tablet 01/23/2021 01/13/2023 loratadine (CLARITIN) 10 MG tablet Take 1 tablet (10 mg total) by mouth daily. 30 tablet 01/23/2021 01/13/2023 documented as of this encounter ED Notes * MARY ELLEN Champion - 01/23/2021 4:38 PM CDT [facility] Urgent Care- [place], [place] HISTORICAL INFORMATION Primary Care Doctor: Provider Martha, Patient information was obtained primarily from the patient, nursing notes. History/Exam limitations: None Provider at Bedside Date/Time Event User Comments 01/23/21 7789 Provider at Bedside Assessing Patient DEDRICK MOORE CHIEF COMPLAINT Skin Problem and Eye Problem Chief Complaint Patient presents with ??? Skin Problem ??? Eye Problem HPI Marina Haddad is a 25-year-old female who presents with rash to the left upper back and if she killed a spider and developed a rash afterwards patient also notes bilateral eye irritation and itching. Patient is not take anything for her symptoms denies other URI symptoms and is otherwise nondistressed on arrival PAST MEDICAL HISTORY Past Medical History: Diagnosis Date ??? Strep throat ??? Yeast infection SURGICAL HISTORY Past Surgical History: Procedure Laterality Date ??? NONE CURRENT MEDICATIONS No current facility-administered medications for this encounter. Current Outpatient Medications: ??? erythromycin 5 MG/GM (0.5%) ophthalmic ointment, Place into both eyes nightly at bedtime for 10days., Disp: 3.5 g, Rfl: 0 ??? famotidine 20 MG tablet, Take 1 tablet (20 mg total) by mouth 2 (two) times daily., Disp: 30 tablet, Rfl: 0 ??? loratadine (CLARITIN) 10 MG tablet, Take 1 tablet (10 mg total) by mouth daily., Disp: 30 tablet, Rfl: 0 ALLERGIES No Known Allergies FAMILY [...] Substance and Sexual Activity ??? Alcohol use: Yes Comment: socially ??? [...] Gatherings with Friends and Family: ??? Attends Holiness Services: ??? Active Member of Clubs or Organizations: ??? Attends Club or Organization Meetings: ??? Marital Status: Intimate Partner Violence: ??? Fear of Current or Ex-Partner: ??? Emotionally Abused: ??? Physically Abused: ??? Sexually Abused: REVIEW OF SYSTEMS Constitutional: Denies fever, chills Skin: Positive for rash HEENT: Denies sore throat or ear pain. Bilateral conjunctival injection Respiratory: Denies cough or shortness of breath. Cardiovascular: Denies chest pain GI: Denies nausea, vomiting Musculoskeletal: Denies back pain. Neurologic: Denies headache See HPI for further details. All systems negative except as marked. Physical Exam VITAL SIGNS: Filed Vitals: 01/23/21 1623 BP: 129/85 Pulse: 78 Resp: 18 Temp: 97.6 ??F (36.4 ??C) TempSrc: Oral SpO2: 98% Weight: 122.5 kg (270 lb) Height: 5' 11 (1.803 m) Constitutional: Well developed, No acute distress, Non-toxic appearance. Integument: Warm, Dry, No erythema, small papular rash to the left upper back no blistering no erythema HEENT: Normocephalic, Atraumatic, Conjunctiva normal. Bilateral conjunctival injection Neck- Normal range of motion, Supple Respiratory: Normal breath sounds, No respiratory distress. Cardiovascular: Normal heart rate, Normal rhythm Musculoskeletal: Good ROM, no deformities noted Neurologic: Alert & oriented x 3, No focal deficits noted. Psychiatric: Affect normal, Judgment normal, Mood normal. EKG (interpreted by ED provider) No results found for this visit on 01/23/21. LABORATORY Labs Reviewed - No data to display RADIOLOGY No orders to display PROCEDURES Procedures MDM Patient with rash to the left upper back as well as conjunctivitis will be treated with antihistamines advised to follow with primary care given reasons to return is afebrile nontoxic-appearing nondistressed and felt appropriate for outpatient reevaluation I have discussed today's findings with the [...] of these instructions. Impression/Disposition SNOMED CT(R) 1. Conjunctivitis CONJUNCTIVITIS 2. Rash and nonspecific skin eruption ERUPTION Disposition: Discharge Medications - No data to display Current Discharge Medication List START taking these medications Details erythromycin 5 MG/GM (0.5%) ophthalmic ointment Place into both eyes nightly at bedtime for 10 days. Qty: 3.5 g, Refills: 0 Class: Eprescribe Pharmacy: [place] [address] [place] [address] (Ph #: [phone]) famotidine 20 MG tablet Take 1 tablet (20 mg total) by mouth 2 (two) times daily. Qty: 30 tablet, Refills: 0 Class: Eprescribe Pharmacy: [place] [address] [place] [address] (Ph #: [phone]) loratadine (CLARITIN) 10 MG tablet Take 1 tablet (10 mg total) by mouth daily. Qty: 30 tablet, Refills: 0 Class: Eprescribe Pharmacy: [place] [address] [place] [address] (Ph #: [phone]) MARY ELLEN Champion PA 01/23/21 1646 Cosigned by Tania Babb MD at 01/23/2021 10:55 PM CDT * Mitchel Parker RN - 01/23/2021 4:23 PM CDT Pt c/o itchy rash to upper back onset 2 days ago that started after she felt a spider on her back. Pt also reports swollen/itchy/irritated eyes that started the same day. Pt also c/o small cuts to the genital area that started after shaving 4 days ago. documented in this encounter Plan of Treatment Not on file documented as of this encounter Visit Diagnoses Diagnosis Conjunctivitis- Primary Conjunctivitis, unspecified Rash and nonspecific skin eruption Rash and other nonspecific skin eruption documented in this encounter Care Teams District Wildlife Manager Relationship Specialty Start Date End Date None, Provider, PCP - General 04/01/20 01/16/23 documented as of this encounter
--- OUTSIDE RECORDS SUMMARY | 2024-03-07 23:42 | XMS_ITS | Encounter Summary ---
Author Organization [facility] Address [address] [place] [address]. [place] [address] [place] [address] Care Team Providers Care Slitting Machine Operator Helper Name Role Phone None, Provider Primary Care Provider Unavaila ble Reason for Visit * Reason Comments Sore Throat Encounter Details Date Type Department Care Team (Late st Contact Info) Description 06/14/2022 6:40 PM CDT - 06/14/2022 7:00 PM CDT Hospital Encounter [facility] [address] [place] [address] Darrell Gonsalves, DO 3 [facility] [address] [place] [id number] Sore Throat Discharge Disposition: Home or Self Care (Routine [...] Sign Reading Time Taken Comments Blood Pressure 135/83 06/14/2022 6:44 PM CDT Pulse 110 06/14/2022 6:44 PM CDT Temperature 37.6 ??C (99.7 ??F) 06/14/2022 6:44 PM CD T Respiratory Rate 18 06/14/2022 6:44 PM CDT Oxygen Saturation 100% 06/14/2022 6:44 PM CDT Inhaled Oxygen Concentration - - Weight 117.9 kg (260 lb) 06/14/2022 6:44 PM CDT Height 180.3 cm (5' 11 ) 06/14/2022 6:44 PM CDT Body Mass Index 36.26 06/14/2022 6:44 PM CDT documented in this encounter Discharge Instructions * Attachments The following attachments cannot be sent through Care Everywhere. * Strep Throat Discharge Instructions ([place] Citizen) documented in this encounter Medications at Time of Discharge amoxicillin (AMOXIL) 500 MG tablet Take 1 tablet (500 mg total) by mouth 2 (two) times daily for 10 days. for 10 days 20 tablet 06/14/2022 3 dolutegravir 50 MG tablet Take 1 tablet (50 mg total) by mouth daily. 28 tablet 04/25/2021 3 emtricitabine-tenofo vir 200-300 MG tablet Take 1 tablet by mouth daily. 28 tablet 04/25/2021 3 famotidine 20 MG tablet Take 1 tablet (20 mg total) by mouth 2 (two) times daily. 30 tablet 01/23/2021 3 loratadine (CLARITIN) 10 MG tablet Take 1 tablet (10 mg total) by mouth daily. 30 tablet 01/23/2021 3 ondansetron (ZOFRAN-ODT) 4 MG disintegrating tablet Take 1 tablet (4 mg total) by mouth every 8 (eight) hours as needed for Nausea. 20 tablet 02/19/2022 3 documented as of this encounter ED Notes * Darrell Gonsalves, DO - 06/14/2022 6:44 PM CDT [facility]- [place], [place] HISTORICAL INFORMATION Primary Care Doctor: Provider MD Martha Patient information was obtained primarily from the patient, nursing notes. History/Exam limitations: None Provider at Bedside Date/Time Event User Comments 06/14/22 311 Provider at Bedside Assessing Patient DARRELL GONSALVES -- CHIEF COMPLAINT Sore Throat Chief Complaint Patient presents with ??? Sore Throat HPI Marina Haddad is a 26-year-old female who presents to urgent care with complaint of 1 day duration of sore throat, cough, runny nose. 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 No associated fevers or chills. Patient reports she is up-to-date on COVID-19 and influenza vaccines at this time. No recent travel. No other concerns at this time. PAST MEDICAL HISTORY Past Medical History: Diagnosis Date ??? Strep throat ??? Yeast infection SURGICAL HISTORY Past Surgical History: Procedure Laterality Date ??? NONE CURRENT MEDICATIONS No current facility-administered medications for this encounter. Current Outpatient Medications: ??? amoxicillin (AMOXIL) 500 MG tablet, Take 1 tablet (500 mg total) by mouth 2 (two) times daily for 10 days. for 10 days, Disp: 20 tablet, Rfl: 0 ??? dolutegravir 50 MG tablet, Take 1 tablet (50 mg total) by mouth daily., Disp: 28 tablet, Rfl: 0 ??? emtricitabine-tenofovir 200-300 MG tablet, Take 1 tablet by mouth daily., Disp: 28 tablet, Rfl:0 ??? famotidine 20 MG tablet, Take 1 tablet (20 mg total) by mouth 2 (two) times daily., Disp: 30 tablet, Rfl: 0 ??? loratadine (CLARITIN) 10 MG tablet, Take 1 tablet (10 mg total) by mouth daily., Disp: 30 tablet, Rfl: 0 ??? ondansetron (ZOFRAN-ODT) 4 MG disintegrating tablet, Take 1 tablet (4 mg total) by mouth every 8 (eight) hours as needed for Nausea., Disp: 20 tablet, Rfl: 0 ALLERGIES No Known Allergies FAMILY HISTORY Family History Problem Relation Name Age of Onset ??? Hypertension Mother ??? Other (vertigo) Mother ??? Arthritis Father ??? Epilepsy Father SOCIAL HISTORY Social History Socioeconomic History ??? Marital status: Single Tobacco Use ??? Smoking status: Never ??? Smokeless tobacco: Never Vaping Use ??? Vaping Use: Never used Substance and Sexual Activity ??? Alcohol use: Yes Comment: socially ??? Drug use: Yes Types: Marijuana Comment: daily Review of Systems Constitutional: Negative. HENT: Positive for rhinorrhea and sore throat. Negative for congestion, dental problem, drooling, ear discharge, ear pain, facial swelling, hearing loss, mouth sores, nosebleeds, postnasal drip, sinus pressure, sinus pain, sneezing, tinnitus, trouble swallowing and voice change. Eyes: Negative. Respiratory: Positive for cough. Negative for apnea, choking, chest tightness, shortness of breath,wheezing and stridor. Cardiovascular: Negative. Gastrointestinal: Negative. Endocrine: Negative. Genitourinary: Negative. Musculoskeletal: Negative. Skin: Negative. Neurological: Negative. Hematological: Negative. Psychiatric/Behavioral: Negative. All other systems reviewed and are negative. Physical Exam VITAL SIGNS: Filed Vitals: 06/14/22 1844 BP: 135/83 Pulse: (!) 110 Resp: 18 Temp: 99.7 ??F (37.6 ??C) TempSrc: Oral SpO2: 100% Weight: 117.9 kg (260 lb) Height: 5' 11 (1.803 m) Physical Exam Vitals and nursing note reviewed. Constitutional: General: She is not in acute distress. Appearance: Normal appearance. She is normal weight. She is not ill-appearing, toxic-appearing or diaphoretic. HENT: Head: Normocephalic and atraumatic. Right Ear: Tympanic membrane, ear canal and external ear normal. There is no impacted cerumen. Left Ear: Tympanic membrane, ear canal and external ear normal. There is no impacted cerumen. Nose: No congestion or rhinorrhea. Mouth/Throat: Mouth: Mucous membranes are moist. Pharynx: Oropharyngeal exudate and posterior oropharyngeal erythema present. Eyes: General: No scleral icterus. Right eye: No discharge. Left eye: No discharge. Extraocular Movements: Extraocular movements intact. Conjunctiva/sclera: Conjunctivae normal. Cardiovascular: Rate and Rhythm: Normal rate and regular rhythm. Pulses: Normal pulses. Heart sounds: Normal heart sounds. No murmur heard. No friction rub. No gallop. Pulmonary: Effort: Pulmonary effort is normal. No respiratory distress. Breath sounds: Normal breath sounds. No stridor. No wheezing, rhonchi or rales. Chest: Chest wall: No tenderness. Abdominal: General: Abdomen is flat. Bowel sounds are normal. There is no distension. Palpations: Abdomen is soft. There is no mass. Tenderness: There is no abdominal tenderness. There is no guarding or rebound. Hernia: No hernia is present. Musculoskeletal: General: Normal range of motion. Cervical back: Normal range of motion and neck supple. No rigidity or tenderness. Lymphadenopathy: Cervical: No cervical adenopathy. Skin: General: Skin is warm and dry. Capillary Refill: Capillary refill takes less than 2 seconds. Neurological: General: No focal deficit present. Mental Status: She is alert and oriented to person, place, and time. Mental status is at baseline. Psychiatric: Mood and Affect: Mood normal. Behavior: Behavior normal. Thought Content: Thought content normal. Judgment: Judgment normal. EKG (interpreted by ED provider) No results found for this visit on 06/14/22. LABORATORY Labs Reviewed RAPID STREP A RADIOLOGY No orders to display PROCEDURES Procedures MDM 26-year-old female with strep pharyngitis. Rapid strep test positive. We will plan to treat with amoxicillin 500 mg twice daily x10 days. Work note provided. No evidence of underlying pneumonia, acute otitis media, sinusitis. Recommendation for NSAIDs/Tylenol as needed for pain or fever. Encourage a dequate p.o. hydration. Addressed all questions or concerns. Afebrile. Hemodynamically stable. Patient discharged stable condition. Tachycardia: Tachycardia likely present in the setting of underlying strep pharyngitis. Recommendation to follow-up with PCM for ongoing evaluation and management if persistent. No signs of ACS. No red flag signs or symptoms. BMI 36: Recommendation to follow-up with PCM for ongoing evaluation and management. I have discussed today's findings with the [...] of these instructions. Impression/Disposition SNOMED CT(R) 1. Strep pharyngitis STREPTOCOCCAL SORE THROAT 2. BMI 36.0-36.9,adult BODY MASS INDEX 30+ - OBESITY 3. Tachycardia TACHYCARDIA Disposition: Discharge Medications - No data to display Discharge Medication List as of 06/14/2022 6:57 PM START taking these medications Details amoxicillin (AMOXIL) 500 MG tablet Take 1 tablet (500 mg total) by mouth 2 (two) times daily for 10days. for 10 days, Starting 06/14/2022, Until Amisha 06/24/2022, Eprescribe Class: Eprescribe Pharmacy: [facility] [id number] [place] [address] (Ph #: [phone]) DO Darrell MENDENHALL DO 06/14/22 1900 * Weston Otoole RN - 06/14/2022 6:43 PM CDT Patient to with c/o sore throat, cough, runny nose, onset yesterday. documented in this encounter Plan of Treatment Not on file documented as of this encounter Procedures Procedure Name Priority Date/Time Associated Diagnosis Comments RAPID STREP A STAT 06/14/2022 6:45 PM CDT documented in this encounter Results * (ABNORMAL) RAPID STREP A (06/14/2022 6:45 PM CDT) SPECIMEN TYPE THROAT 06/14/2022 6:45 PM CDT [facility] RAPID STREP TEST POSITIVE(A ) NEGATIVE 06/15/2022 8:[address] [facility] STRUCTURE OF ANTERIOR PORTION OF NECK / Unknown 06/14/2022 6:45 PM CDT us Darrell Gonsalves DO MICROBIOLOGY - GENER AL ORDERABLES Final Result [facility] [place] [address], documented in this encounter Visit Diagnoses Diagnosis Strep pharyngitis- Primary Streptococcal sore throat BMI 36.0-36.9,adult Body Mass Index 36.0-36.9, adult Tachycardia Tachycardia, unspecified documented in this encounter Care Teams Slitting Machine Operator Helper Relationship Specialty Start Date End Date None, Provider, PCP - General 04/01/20 01/16/23 documented as of this encounter
--- OUTSIDE RECORDS SUMMARY | 2024-03-07 23:42 | XMS_ITS | Encounter Summary ---
Author Organization [facility] Address [address] [place] [address]. 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 No / Unsure 02/19/2022 5:19 PM MIDDLE SCHOOL TUTOR documented as of this encounter Last Filed Vital Signs Vital Sign Reading Time Taken Comments Blood Pressure 150/90 02/19/2022 5:30 PM MIDDLE SCHOOL TUTOR Pulse 102 02/19/2022 5:30 PM MIDDLE SCHOOL TUTOR Temperature 36.4 ??C (97.6 ??F) 02/19/2022 5:30 PM CS T Respiratory Rate 16 02/19/2022 5:30 PM MIDDLE SCHOOL TUTOR Oxygen Saturation 99% 02/19/2022 5:30 PM MIDDLE SCHOOL TUTOR Inhaled Oxygen Concentration - - Weight 113.1 kg (249 lb 5.4 oz) 02/19/2022 5:30 PM MIDDLE SCHOOL TUTOR Height 180.3 cm (5' 11 ) 02/19/2022 5:30 PM MIDDLE SCHOOL TUTOR Body Mass Index 34.78 02/19/2022 5:30 PM MIDDLE SCHOOL TUTOR documented in this encounter Discharge Instructions * Attachments The following attachments cannot be sent through Care Everywhere. * Flu Discharge Instructions, Adult (Irish) documented in this encounter Medications at Time of Discharge dolutegravir 50 MG tablet Take 1 tablet (50 mg total) by mouth daily. 28 tablet 04/25/2021 3 emtricitabine-tenofo vir 200-300 MG tablet Take 1 tablet by mouth daily. 28 tablet 04/25/2021 3 famotidine 20 MG tablet Take 1 tablet (20 mg total) by mouth 2 (two) times daily. 30 tablet 01/23/2021 3 ibuprofen (MOTRIN) 800 MG tablet Take 0.5 tablets (400 mg total) by mouth every 8 (eight) hours as needed for Pain. Take with food 20 tablet 02/19/2022 2 loratadine (CLARITIN) 10 MG tablet Take 1 tablet (10 mg total) by mouth daily. 30 tablet 01/23/2021 3 ondansetron (ZOFRAN-ODT) 4 MG disintegrating tablet Take 1 tablet (4 mg total) by mouth every 8 (eight) hours as needed for Nausea. 20 tablet 02/19/2022 3 documented as of this encounter ED Notes * Alissa Robertson RN - 02/19/2022 6:39 PM CST Physical examination competed by the ED provider. The patient voices understanding and is in agreement with discharge plans. VS stable, no distress noted. All questions and concerns addressed prior to discharge. LE SCHOOL TUTOR * Parul Rodriguez NP - 02/19/2022 5:32 PM CST Emergency Department Note Chief Complaint Chief Complaint Patient presents with ??? Flu Like Symptoms History of Present Illness 26 yo female with Flu A positive yesterday and put on Tamilfu with nausea, vomited x 1 and has bodyaches, feels worse. Has work Note, off till Tuesday. Here today because she still has body aches, and vomited x 1 Medical History ALLERGIES: No Known Allergies MEDICATIONS: Prior to Admission medications Medication Sig Start Date End Date Taking? Authorizing Provider ibuprofen (MOTRIN) 800 MG tablet Take 0.5 tablets (400 mg total) by mouth every 8 (eight) hours as needed for Pain. Take with food 02/19/22 03/01/22 Yes Parul Rodriguez NP ondansetron (ZOFRAN-ODT) 4 MG disintegrating tablet Take 1 tablet (4 mg total) by mouth every 8 (eight) hours as needed for Nausea. 02/19/22 Yes Parul Rodriguez NP dolutegravir 50 MG tablet Take 1 tablet (50 mg total) by mouth daily. 04/25/21 Angelica Alas NP emtricitabine-tenofovir 200-300 MG tablet Take 1 tablet by mouth daily. 04/25/21 Angelica Alas NP famotidine 20 MG tablet Take 1 [...] History Tobacco Use ??? Smoking status: Never ??? Smokeless tobacco: Never Vaping Use ??? Vaping Use: Never used Substance Use Topics ??? Alcohol use: Yes Comment: socially ??? Drug use: Yes Types: Marijuana Comment: daily Review of Systems Review of Systems Gastrointestinal: Positive for vomiting. Musculoskeletal: Positive for myalgias. Neurological: Positive for headaches. All other systems reviewed and are negative. Physical Exam Filed Vitals: 02/19/22 1730 BP: (!) 150/90 Pulse: 102 Resp: 16 Temp: 97.6 ??F (36.4 ??C) TempSrc: Temporal SpO2: 99% Weight: 113.1 kg (249 lb 5.4 oz) Height: 5' 11 (1.803 m) Physical Exam Vitals reviewed. Constitutional: General: She is not in acute distress. Appearance: She is well-developed. She is ill-appearing. She is not toxic-appearing. HENT: Head: Normocephalic. Eyes: Pupils: Pupils are equal, round, and reactive to light. Cardiovascular: Rate and Rhythm: Normal rate and regular rhythm. Heart sounds: Normal heart sounds. No murmur heard. Pulmonary: Effort: Pulmonary effort is normal. Breath sounds: Normal breath sounds. Abdominal: General: Bowel sounds are normal. Palpations: Abdomen is soft. Tenderness: There is no abdominal tenderness. Musculoskeletal: General: No tenderness. Cervical back: Neck supple. Skin: General: Skin is warm and dry. Coloration: Skin is not pale. Neurological: Mental Status: She is alert and oriented to person, place, and time. Psychiatric: Behavior: Behavior normal. Thought Content: Thought content normal. Judgment: Judgment normal. Diagnostic Studies / Procedures ELECTROCARDIOGRAMS: No results found for this visit on 02/19/22. LABORATORY STUDIES: No results found for this visit on 02/19/22. IMAGING STUDIES No orders to display ED Course / Medical Decision Making Results: I reviewed old medical records, obtained from Care Everywhere, as well as internal past medical records, where needed and available. I interpreted the patient's pulse oximeter at rest, which is 99% on room air which is normal and determined that this patient is not hypoxic The elements of the HPI, review of systems, past medical history, past surgical history, past family history, social history, medication list, allergies, and examination documented above were personally obtained by me via direct interaction of the patient when possible, with the exception of circumstances or patient factors limiting my ability to do so, as above. In instances where nursing or other providers documented this information prior to my encounter, I personally confirmed the accuracy of this information to the best of my ability given the circumstances. Laboratory Data Reviewed: Noted labs, and abnormals noted on work sheet Imaging Studies Reviewed: Read interpretation report from radiologist. Reviewed images of xrays, independently. Did not speakwith radiologist re: na ED Course: Patient was provided with a prescription : see discharge instructions Outpatient recommendation to PCP ordered, and provided with phone number to call for an appointment. Patient instructed to call on the next business day during business hours, and informed that he should be evaluated by this specialist within 1 week Patient provided with printed and verbal discharge care instructions and was instructed to return to the emergency department immediately with worsening symptoms or new worrisome symptoms. I did spend time answering questions. Patient condition at time of discharge stable Diagnoses & treatment discussed with patient Patient expressed understanding and agreed. ED Diagnosis: Clinical Impression Influenza A (Primary) Disposition: Discharge Medications ondansetron (ZOFRAN-ODT) disintegrating tablet 4 mg (4 mg Oral Given 02/19/22 1750) acetaminophen (TYLENOL) tablet 1,000 mg (1,000 mg Oral Given 02/19/22 1749) Clinical Impression Influenza A (Primary) Discharge Medication List as of 02/19/2022 6:35 PM START taking these medications Details ibuprofen (MOTRIN) 800 MG tablet Take 0.5 tablets (400 mg total) by mouth every 8 (eight) hours as needed for Pain. Take with food, Starting Tue02/19/2022, Until 03/01/2022 at 2359, Eprescribe Class: Eprescribe Pharmacy: [id number] [place], [place] - [address] [place] [address] (Ph #: [phone]) ondansetron (ZOFRAN-ODT) 4 MG disintegrating tablet Take 1 tablet (4 mg total) by mouth every 8 (eight) hours as needed for Nausea., Starting Tue02/19/2022, Eprescribe Class: Eprescribe Pharmacy: [facility] [id number] [place] [address] (Ph #: [phone]) Medications ondansetron (ZOFRAN-ODT) disintegrating tablet 4 mg (4 mg Oral Given 02/19/22 1750) acetaminophen (TYLENOL) tablet 1,000 mg (1,000 mg Oral Given 02/19/22 1749) Discharge Medication List as of 02/19/2022 6:35 PM START taking these medications Details ibuprofen (MOTRIN) 800 MG tablet Take 0.5 tablets (400 mg total) by mouth every 8 (eight) hours as needed for Pain. Take with food, Starting Tue02/19/2022, Until Tue03/01/2022 at 2359, Eprescribe Class: Eprescribe Pharmacy: [facility] [address] [place] [address] (Ph #: [phone]) ondansetron (ZOFRAN-ODT) 4 MG disintegrating tablet Take 1 tablet (4 mg total) by mouth every 8 (eight) hours as needed for Nausea., Starting Tue02/19/2022, Eprescribe Class: Eprescribe Pharmacy: [facility] [address] [place] [address] (Ph #: [phone]) Disposition: Discharge Follow-Up: Jeff Sumner MD [address] [place] [phone] As needed new patient appt PARUL RODRIGUEZ NP 02/20/2022 Note: NOTE: I dictated portions of this note using [employer] speech recognition software. Occasional wrong word or sound-alike substitutions may have occurred due to the inherent limitations of voice recognition software. Parul Rodriguez NP 02/20/22 0003 Cosigned by Higinio Cerrato MD at 02/20/2022 12:23 AM MIDDLE SCHOOL TUTOR LE SCHOOL TUTOR LE SCHOOL TUTOR * Luma Diaz RN - 02/19/2022 5:30 PM CST Pt to ED from home with c/o flu like symptoms. Pt reports that she tested positive for Flu A yesterday and was prescribed tamiflu. LE SCHOOL TUTOR documented in this encounter Plan of Treatment Not on file documented as of this encounter Visit Diagnoses Diagnosis Influenza A- Primary Influenza with other respiratory manifestations documented in this encounter Administered Medications Inactive Administered Medications - up to 3 most recent administrations Medication Order MAR Action Action Date Dose Rate Site acetaminophen (TYLENOL) tablet 1,000 mg 1,000 mg, Oral, Once, 1 dose, On Tue02/19/22 at 1745, Maximum dose of acetaminophen is 4000 mg from all sources in 24 hours. Given 02/19/2022 5:49 PM MIDDLE SCHOOL TUTOR 1,000 mg ondansetron (ZOFRAN-ODT) disintegrating tablet 4 mg 4 mg, Oral, Once, 1 dose, On Tue02/19/22 at 1745 Given 02/19/2022 5:50 PM MIDDLE SCHOOL TUTOR 4 mg documented in this encounter Active and Recently Administered Medications Times are shown in MIDDLE SCHOOL TUTOR. Scheduled Medication Order 02/17/2022 02/18/2022 02/19/2022 acetaminophen (TYLENOL) tablet 1,000 mg (COMPLETED) 1,000 mg, Oral, Once, 1 dose, On Tue02/19/22 at 1745, Maximum dose of acetaminophen is 4000 mg from all sources in 24 hours. 1749 (Given - Provid er: Jacquelyn Almonte RN) ondansetron (ZOFRAN-ODT) disintegrating tablet 4 mg (COMPLETED) 4 mg, Oral, Once, 1 dose, On Tue02/19/22 at 1745 1750 (Given - Provid er: Jacquelyn Almonte RN) documented in this encounter Care Teams Manager Of Creative Services Relationship Specialty Start Date End Date None, Provider, PCP - General 04/01/20 01/16/23 documented as of this encounter
--- OUTSIDE RECORDS SUMMARY | 2024-03-07 23:42 | XMS_ITS | Encounter Summary ---
Author Organization [facility] Address [address] [place] [address]. [place] [address] [place] [address] Care Team Providers Care Aircraft Mechanic Electrical And Radio Name Role Phone Jacqueline Boyd NP Primary Care Provider [phone] Encounter Details Date Type Department Care Team (Late st Contact Info) Description 11/19/2023 Orders Only [facility] [place], [place] [id number] Edilberto Pulido MD [address] [facility] [address] [place] [address] Social History Tobacco Use Types [...] documented as of this encounter Results * SICKLE CELL TEST (11/19/2023 9:11 AM CDT) HGB S SCREEN NEGATIVE NEGATIVE 11/19/2023 10:44 AM CDT [facility] Comment: NOTE: THIS SICKLE SCREEN SOLUBILITY PROCEDURE ?? IS NOT SPECIFIC FOR HEMOGLOBIN S. IT IS ?? RECOMMENDED THAT POS RESULTS BE FURTHER ?? EVALUATED BY HEMOGLOBIN ELECTROPHORESIS ?? TO DIFFERENTIATE ABNORMAL HEMOGLOBINS. 11/19/2023 9:11 AM CDT us Edilberto Pulido MD LABORATORY Final Result Performing Organization Address [facility] Co de Phone Number [facility] [address] [place] [address], [place] [phone] * HIV 1 ANTIGEN(S), WITH HIV-1 AND HIV-2 ANTIBODIES (11/19/2023 9:11 AM CDT) Pathologist [facility] HIV 1/2 AB+ HIV1 P24 AG NON-REACTI VE NON-REACTI VE 11/19/2023 11:02 AM CDT [facility] 11/19/2023 9:11 AM CDT us Edilberto Pulido MD LABORATORY Final Result Performing Organization Address [facility] Co de Phone Number [facility] [address] [place] [address], [place] [phone] * HEPATITIS B SURFACE AG, EIA (11/19/2023 9:11 AM CDT) HEPATITIS B SURFACE AG NON-REACTI VE NON-REACTI VE 11/19/2023 10:33 AM CDT [facility] 11/19/2023 9:11 AM CDT us Edilberto Pulido MD LABORATORY Final Result Performing Organization Address City/[facility]/ZIP Co de Phone Number [facility] [address] [place] [address], [place] [phone] * BLOOD TYPING, ABO AND RH (11/19/2023 9:11 AM CDT) ABO/RH O POSITIVE 11/19/2023 10:10 AM CDT [facility] 11/19/2023 9:11 AM CDT us Edilberto Pulido MD BLOOD BANK TEST ORDERABLES F inal Result [facility] [address] [place] [address], [place] [phone] * (ABNORMAL) CBC W/DIFF AUTOMATED (11/19/2023 9:11 AM CDT) WBC 8.16 4.5 - 11.0 x10'3/uL 11/19/2023 9:43 AM CDT [facility] RBC 4.50 4.20 - 5.40 x10'6/uL 11/19/2023 9:43 AM CDT [facility] HGB 11.0(L) 12.0 - 16.0 G/DL 11/19/2023 9:43 AM CDT [facility] HCT 35.6(L) 38.0 - 48.0 % 11/19/2023 9:43 AM CDT [facility] MCV 79.1(L) 81.0 - 99.0 FL 11/19/2023 9:43 AM CDT [facility] MCH 24.4(L) 27.0 - 31.0 PG 11/19/2023 9:43 AM CDT [facility] MCHC 30.9(L) 32.0 - 36.0 G/DL 11/19/2023 9:43 AM CDT [facility] RDW 15.7(H) 11.5 - 14.5 % 11/19/2023 9:43 AM CDT [facility] PLT 253 130 - 400 x10'3/uL 11/19/2023 9:43 AM CDT [facility] MPV 11.7 9.3 - 12.2 FL 11/19/2023 9:43 AM CDT [facility] DIFFERENTIAL TYPE AUTOMATED DIFFERENTIAL 11/19/2023 9:43 AM CDT [facility] NEUTROPHILS % 64.0 % 11/19/2023 9:43 AM CDT [facility] LYMPHOCYTES % 26.6 % 11/19/2023 9:43 AM CDT [facility] MONOCYTES % 8.2 % 11/19/2023 9:43 AM CDT [facility] EOSINOPHILS 0.6 % 11/19/2023 9:43 AM CDT [facility] BASOPHILS 0.4 % 11/19/2023 9:43 AM CDT [facility] IMMATURE GRANS % 0.2 % 11/19/19 9:43 AM CDT [facility] ABS. NEUTROPHILS 5.22 1.80 - 7.70 x10'3/uL 11/19/2023 9:43 AM CDT [facility] ABS. LYMPHOCYTES 2.17 1.00 - 4.80 x10'3/uL 11/19/2023 9:43 AM CDT [facility] ABS. MONOCYTES 0.67 0.24 - 0.86 x10'3/uL 11/19/2023 9:43 AM CDT [facility] ABS. EOSINOPHILS 0.05 0.04 - 0.36 x10'3/uL 11/19/2023 9:43 AM CDT [facility] ABS. BASOPHILS 0.03 0.01 - 0.08 x10'3/uL 11/19/2023 9:43 AM CDT [facility] ABS. IMMATURE GRANULOCYTES 0.02 0.00 - 0.49 x10'3/uL 11/19/2023 9:43 AM CDT [facility] 11/19/2023 9:11 AM CDT us Edilberto Pulido MD LABORATORY Final Result [facility] [address] [place] [address], [place] [phone] * PARVOVIRUS ANTIBODY (11/19/2023 9:11 AM CDT) Pathologist [facility] PARVOVIRUS B-19 IGG 0.2 <0.9 11/22/2023 5:15 PM CDT [employer] MARIE PARVOVIRUS B-19 IGM 0.1 <0.9 11/22/2023 5:15 PM CDT [employer] MAR[facility] Comment: Reference Range: ??<0.9 ?? Negative [...] Parvovirus B19 DNA, PCR. Test Performed by Feliciano Pickett, [email or web address] [facility], [address] [place] [address] Chai Guzman M.D., Ph.D., Director of Laboratories , CLIA [id number] 11/19/2023 9:11 AM CDT us Edilberto Pulido MD LABORATORY Final Result Performing Organization Address [facility] de Phone Number [email or web address] [address] [place], [place] , [place] [phone] * CMV ANTIBODY IGG (11/19/2023 9:11 AM CDT) Pathologist [facility] CMV IGG <0.60 <0.60 U/mL 11/23/2023 10:11 AM CDT [employer] JEFFERY CYNTHIA Comment: ??U/mL ? Interpretation ? <0.60 ?? Negative 0.60 - 0.69 ?? Equivocal > or = 0.70 ?? Positive A positive result indicates that the patient has antibody to CMV. ??It does not differentiate between an active or past infection. Test Performed by [email or web address], [email or web address] [facility], [address] [place] [address] Chai Guzman M.D., Ph.D., Director of Laboratories , CLIA [id number] 11/19/2023 9:11 AM CDT us Edilberto Pulido MD LABORATORY Final Result Performing Organization Address [facility] Co de Phone Number [employer] [address] [place] [address], [place] [phone] * HCG QUANT (SERUM)-CHORIONIC GONADOTROPIN (11/19/2023 9:11 AM CDT) Pathologist [facility] HCG QUANTITATIVE 32,551 MIU/ML 11/19/19 10:32 AM CDT [facility] Comment: WEEKS OF ? REFERENCE RANGES [...] ?10,000 - 100,000 11/19/2023 9:11 AM CDT us Edilberto Pulido MD LABORATORY Final Result Performing Organization Address City/State/[facility] Co de Phone Number [facility] [address] [place], [place] [address], * RUBELLA IGG (11/19/2023 9:11 AM CDT) RUBELLA IGG AB 61.90 11/19/2023 10:33 AM CDT [facility] Comment: IMMUNITY PRESENT RUBELLA IGG ANTIBODY [...] MD LABORATORY Final Result Performing Organization Address [facility] Co de Phone Number [facility] [address] [place] [address], [place] [phone] * VARICELLA ZOSTER IGG (11/19/2023 9:11 AM CDT) VARICELLA ZOSTER IGG EIA POSITIVE 11/22/2023 10:54 AM CDT [facility] Comment:IN THE ABSENCE OF AC IGIUGIG SYMPTOMS, A POSITIVE RESULT SUGGESTS PAST IMMUNITY. 11/19/2023 9:11 AM CDT us Edilberto Pulido MD LABORATORY Final Result Performing Organization Address [facility] de Phone Number [facility] [address] [place] [address], [place] [phone] * SYPHILIS AB (DIAGNOSTIC) WITH CASCADING REFLEX (11/19/2023 9:11 AM CDT) SYPHILIS IGG IGM AB NON-REACTI VE NON-REACTI VE 11/19/2023 10:33 AM CDT [facility] Comment: No serologic evidence of syphilis. No follow-up necessary unless clinically indicated. 11/19/2023 9:11 AM CDT us Edilberto Pulido MD LABORATORY Final Result Performing Organization Address [facility] Co de Phone Number [facility] [address] [place] [address], [place] [phone] * URINE BACTERIA CULTURE (11/19/2023 9:08 AM CDT) SPEC DESCRIPTION URINE CLEAN CATCH 11/19/2023 9:08 AM CDT [facility] SPECIAL REQUESTS NO SPECIAL REQUEST 11/19/2023 9:08 AM CDT [facility] CULTURE RESULT POLYMICROBIAL GROWTH CONSISTENT WITH NORMAL GENITAL ARABELLA. ?? SUSCEPTIBILITIES NOT ROUTINELY PERFORMED. 11/20/2023 10:09 AM CDT [facility] URINE SPECIMEN OBTAINED BY CLEAN CATCH PROCEDURE / Unknown 11/19/2023 9:08 AM CDT 11/19/2023 9:18 AM CDT us Edilberto Pulido MD MICROBIOLOGY - GENERAL ORDER JAYNE Final Result [facility] [address] [place] [address], documented in this encounter Visit Diagnoses Diagnosis Other specified conditions associated with female genital organs and menstrual cycle- Primary documented in this encounter Additional Health Concerns Assessment Noted Time PHQ-9 Depression Total Score: 5 03/10/20 23 10:52 AM SUBWAREHOUSE SUPERVISOR documented as of this encounter Care Teams Aircraft Mechanic Electrical And Radio Relationship Specialty Start Date End Date Jacqueline [place] [address] PCP - General NURSE PRACTITIONER 02/08/23 documented as of this encounter
--- OUTSIDE RECORDS SUMMARY | 2024-03-07 23:42 | XMS_ITS | Encounter Summary ---
Author Organization [facility] Address [address] [place] [address]. [place] [address] [place] [address] Care Team Providers Care Security Attendant Name Role Phone Jacqueline Boyd [employer] ARCHITECT Primary Care Provider Encounter Details Date Type Department Care Team (Late st Contact Info) Description 03/11/2023 Orders Only [facility] [address] [facility] [place], [place] [id number] Jacqueline Boyd NP [address] [place] [address] Social History Tobacco Use Types [...] Depression Total Score: 5 03/10/20 10:52 AM ASSET ANALYST documented as of this encounter Care Teams Security Attendant Relationship Specialty Start Date End Date Jacqueline Boyd NP [address] [place] [address] PCP - General NURSE PRACTITIONER 02/08/23 documented as of this encounter
--- OUTSIDE RECORDS SUMMARY | 2024-03-07 23:42 | XMS_ITS | Encounter Summary ---
Author Organization [facility] Address [facility] access hospital[address] [place] [address] [place] [address] Care Team Providers Care Pharmacy Services Representative Name Role Phone None, Provider MD Primary Care Provider Unavaila ble Reason for Visit * Reason Comments Sore Throat Encounter Details Date Type Department Care Team (Latest Contact Info) Description 04/01/2020 7:06 PM SOAKER - 04/01/2020 7:54 PM [facility] Hospital Encounter [facility] [address] [facility] [address] [place], [place] [id number] Cinthya Garcia MD [address] [place], [place] [address] Sore Throat Discharge Disposition: Home or Self [...] COVID-19? No / Unsure 04/01/2020 6:27 PM SOAKER documented as of this encounter Last Filed Vital Signs Vital Sign Reading Time Taken Comments Blood Pressure 122/91 04/01/2020 7:32 PM SOAKER Pulse 77 04/01/2020 7:27 PM SOAKER Temperature 36.3 ??C (97.4 ??F) 04/01/2020 7:27 PM CS T Respiratory Rate 20 04/01/2020 7:27 PM SOAKER Oxygen Saturation 100% 04/01/2020 7:27 PM SOAKER Inhaled Oxygen Concentration - - Weight 108.9 kg (240 lb) 04/01/2020 7:27 PM SOAKER Height 182.9 cm (6') 04/01/2020 7:27 PM SOAKER Body Mass Index 32.55 04/01/2020 7:27 PM SOAKER documented in this encounter Discharge Instructions * Discharge Instructions* Cinthya Garcia MD - 04/01/2020 7:47 PM SOAKER Thank you for giving us the opportunity [...] care by your primary care physician or physician practice consultant.Please mention to your follow-up physician that [...] such as many narcotic drug combinations and rbsz-lhx-zqnpynx cold medicines. Again, it was a pleasure taking care of you. Cinthya Garcia MD ER * Attachments The following attachments cannot be sent through Care Everywhere. * Sore Throat Discharge Instructions, Adult (Serbian) documented in this encounter Medications at Time of Discharge amoxicillin 875 MG tablet Take 1 tablet (875 mg total) by mouth 2 (two) times daily for 10 days. 20 tablet 04/01/2020 04/11/2020 ibuprofen 600 MG tablet Take 1 tablet (600 mg total) by mouth every 8 (eight) hours as needed for Pain or Fever. 30 tablet 04/01/2020 04/11/2020 documented as of this encounter Progress Notes * Cinthya Garcia MD - 04/01/2020 7:54 PM CST Patient notified of results ER documented in this encounter ED Notes * Magnolia Cabrera RN - 04/01/2020 7:29 PM CST Pt reports a sore throat that started 3 days ago. No known fevers. Tonsils swollen. ER * Cinthya Garcia MD - 04/01/2020 7:18 PM CST [facility] NOTE Chief Complaint Chief Complaint Patient presents with ??? Sore Throat History of Present Illness This note was prepared using a everbill dictation device. Please excuse any errors or substitutions. The patient is a 24-year-old female presenting with a sore throat that started 3 days ago. She has also been experiencing congestion, coughing, chills, and diaphoresis. She has not had any known sickcontacts or recent travel. She denies any lymph node swelling, chest pain, difficulty breathing, shortness of breath, abdominal pain, nausea, vomiting or diarrhea. Medical History ALLERGIES: No Known Allergies MEDICATIONS: Prior to Admission medications Medication Sig Start Date End Date Taking? Authorizing Provider amoxicillin 875 MG tablet Take 1 tablet (875 mg total) by mouth 2 (two) times daily for 10 days. 04/01/20 04/11/20 Yes Cinthya Garcia MD ibuprofen 600 MG tablet Take 1 tablet (600 mg total) by mouth every 8 (eight) hours as needed for Pain or Fever. 04/01/20 04/11/20 Yes Cinthya Garcia MD PAST MEDICAL HISTORY: [...] Review of Systems Review of Systems Constitutional: Positive for chills and diaphoresis. Negative for activity change, appetite change,fatigue, fever and unexpected weight change. HENT: Positive for congestion, postnasal drip and sore throat. Negative for drooling, facial swelling, rhinorrhea, trouble swallowing and voice change. Eyes: Negative for discharge, itching and visual disturbance. Respiratory: Negative for apnea, cough, choking, chest tightness, shortness of breath, wheezing andstridor. Cardiovascular: Negative for chest pain and leg swelling. Gastrointestinal: Negative for abdominal distention, abdominal pain, diarrhea, nausea and vomiting. Endocrine: Negative for cold intolerance and heat intolerance. Genitourinary: Negative for difficulty urinating, dysuria and urgency. Musculoskeletal: Negative for arthralgias and back pain. Skin: Negative for color change and rash. Allergic/Immunologic: Negative for environmental allergies and immunocompromised state. Neurological: Negative for dizziness, weakness and headaches. Hematological: Negative for adenopathy. Does not bruise/bleed easily. Psychiatric/Behavioral: Negative for sleep disturbance and suicidal ideas. Physical Exam Filed Vitals: 04/01/20192604/01/201931 BP: (!) 122/91 Pulse: 77 Resp: 20 Temp: 97.4 ??F (36.3 ??C) SpO2: 100% Weight: 108.9 kg (240 lb) Height: 6' (1.829 m) Physical Exam Vitals signs and nursing note reviewed. Constitutional: General: She is not in acute distress. Appearance: Normal appearance. She is obese. She is ill-appearing. She is not toxic-appearing or diaphoretic. HENT: Head: Normocephalic and atraumatic. Right Ear: External ear normal. Left Ear: External ear normal. Nose: Congestion present. No rhinorrhea. Mouth/Throat: Lips: [place]. Mouth: Mucous membranes are moist. Pharynx: Uvula midline. Pharyngeal swelling and posterior oropharyngeal erythema present. No oropharyngeal exudate. Tonsils: No tonsillar exudate. Eyes: Extraocular Movements: Extraocular movements intact. Conjunctiva/sclera: Conjunctivae normal. Pupils: Pupils are equal, round, and reactive to light. Neck: Musculoskeletal: Normal range of motion and neck supple. No neck rigidity or muscular tenderness. Cardiovascular: Rate and Rhythm: Normal rate and regular rhythm. Pulses: Normal pulses. Heart sounds: Normal heart sounds. Pulmonary: Effort: Pulmonary effort is normal. No respiratory distress. Breath sounds: Normal breath sounds. No stridor. No wheezing. Abdominal: General: Abdomen is flat. Bowel sounds are normal. There is no distension. Palpations: Abdomen is soft. Tenderness: There is no abdominal tenderness. There is no guarding. Musculoskeletal: Normal range of motion. General: No [...] No results found for this visit on 04/01/20. LABORATORY STUDIES: No results found for this visit on 04/01/20. IMAGING STUDIES No orders to display ED Course / Medical Decision Making MDM Number of Diagnoses or Management Options Strep throat: Diagnosis management comments: Plan of care discussed with patient. ??Patient [...] patient is stable at discharge and has ve rbalized understanding of these instructions.?? Amount and/or Complexity of Data Reviewed Clinical lab tests: ordered and reviewed Risk of Complications, Morbidity, and/or Mortality Presenting problems: low Diagnostic procedures: minimal Management options: minimal Patient Progress Patient progress: stable Medications - No data to display Clinical Impression Strep throat (Primary) Current Discharge Medication List START taking these medications Details amoxicillin 875 MG tablet Take 1 tablet (875 mg total) by mouth 2 (two) times daily for 10 days. Qty: 20 tablet, Refills: 0 Class: [facility]: [facility] #[id number] [place] [address] RD AT [facility] (Ph #: [phone]) ibuprofen 600 MG tablet Take 1 tablet (600 mg total) by mouth every 8 (eight) hours as needed for Pain or Fever. Qty: 30 tablet, Refills: 0 Class: [facility]: [facility] #[id number] [place] [address] - [address] [place] [address] RD AT [facility] (Ph #: [phone]) Disposition: Discharge Follow-Up: Chepe Cam MD [facility] [address] [facility] [address] CINTHYA GARCIA MD 04/01/2020 Cinthya Garcia MD 04/01/201953 ER documented in this encounter Plan of Treatment Not on file documented as of this encounter Procedures Procedure Name Priority Date/Time Associated Diagnosis Comments RAPID STREP A STAT 04/01/2020 7:34 PM SOAKER documented in this encounter Results * (ABNORMAL) RAPID STREP A (04/01/2020 7:34 PM SOAKER) SPECIMEN TYPE THROAT 04/01/2020 7:34 PM SOAKER [facility] RAPID STREP TEST POSITIVE(A) NEGATIVE 04/02/2020 8:09 AM SOAKER [facility] STRUCTURE OF ANTERIOR PORTION OF NECK / Unknown 04/01/2020 7:34 PM SOAKER us Cinthya Garcia MD MICROBIOLOGY - GENERAL ORDER JAYNE Final Result [facility] [address] [place] [address], documented in this encounter Visit Diagnoses Diagnosis Strep throat- Primary Streptococcal sore throat documented in this encounter Care Teams Pharmacy Services Representative Relationship Specialty Start Date End Date None, Provider, PCP - General 04/01/20 01/16/23 documented as of this encounter
--- OUTSIDE RECORDS SUMMARY | 2024-03-07 23:42 | XMS_ITS | Encounter Summary ---
Author Organization [facility] Address [address] [place] [address]. [place] [address] [place] [address] Care Team Providers Care Hairspring Staker Name Role Phone None, Provider Primary Care Provider Unavaila ble Reason for Visit * Reason Comments Vaginal Discharge Encounter Details Date Type Department Care Team (Late st Contact Info) Description 04/25/2020 3:15 PM HIGH VALUE ASSOCIATE - 04/25/2020 3:45 PM [facility] Hospital Encounter [address] [id number] Maribell Rodriguez, VALERIY [address] [id number] Vaginal Discharge Discharge Disposition: Home or Self [...] COVID-19? No / Unsure 04/25/2020 3:13 PM HIGH VALUE ASSOCIATE documented as of this encounter Last Filed Vital Signs Vital Sign Reading Time Taken Comments Blood Pressure 138/87 04/25/2020 3:21 PM HIGH VALUE ASSOCIATE Pulse 118 04/25/2020 3:21 PM HIGH VALUE ASSOCIATE Temperature 36.3 ??C (97.4 ??F) 04/25/2020 3:21 PM CS T Respiratory Rate 16 04/25/2020 3:21 PM HIGH VALUE ASSOCIATE Oxygen Saturation 98% 04/25/2020 3:21 PM HIGH VALUE ASSOCIATE Inhaled Oxygen Concentration - - Weight 118.8 kg (262 lb) 04/25/2020 3:21 PM HIGH VALUE ASSOCIATE Height 182.9 cm (6') 04/25/2020 3:21 PM HIGH VALUE ASSOCIATE Body Mass Index 35.53 04/25/2020 3:21 PM HIGH VALUE ASSOCIATE documented in this encounter Discharge Instructions * Attachments The following attachments cannot be sent through Care Everywhere. * Bacterial Vaginosis Discharge Instructions (Luxembourger) documented in this encounter Medications at Time of Discharge metroNIDAZOLE (METROGEL VAGINAL) 0.75 % vaginal gel Place vaginally nightly for 7 days. 70 g 04/25/2020 documented as of this encounter ED Notes * Mitchel Parker RN - 04/25/2020 3:45 PM CST Assessment completed by MANAGER PRODUCE. VALUE ASSOCIATE * Maribell Rodriguez NP - 04/25/2020 3:24 PM CST Emergency Department Note Chief Complaint Chief Complaint Patient presents with ??? Vaginal Discharge History of Present Illness 24 yo female with PMH of BV and strep throat c/o vaginal irritation without urinary symptoms, no discharge and no lesions or sores Denies any concerns for STDs Has been using monistat without relief. NOTE: This patient was cared for in the middle of an unusual surge in emergency department census directly related to the SARS-2/COVID-19 pandemic. As a result, some of the time indices noted below may be inaccurate. Medical History ALLERGIES: No Known Allergies MEDICATIONS: Prior to Admission medications Medication Sig Start Date End Date Taking? Authorizing Provider metroNIDAZOLE (METROGEL VAGINAL) 0.75 % vaginal gel Place vaginally nightly for 7 days. 04/25/20 05/02/20 Yes Maribell Rodriguez NP PAST MEDICAL HISTORY: Past Medical History: Diagnosis [...] Systems Review of Systems Constitutional: Negative for chills and fever. HENT: Negative for sore throat. Eyes: Negative for visual disturbance. Respiratory: Negative for cough and shortness of breath. Cardiovascular: Negative for chest pain. Gastrointestinal: Negative for abdominal pain, constipation, diarrhea and nausea. Genitourinary: Negative for difficulty urinating and vaginal discharge. Vaginal irritation Skin: Negative for rash. Neurological: Negative for light-headedness and headaches. Psychiatric/Behavioral: Negative for decreased concentration. All other systems reviewed and are negative. Physical Exam Filed Vitals: 04/25/20 1521 BP: 138/87 Pulse: 118 Resp: 16 Temp: 97.4 ??F (36.3 ??C) TempSrc: Temporal SpO2: 98% Weight: 118.8 kg (262 lb) Height: 6' (1.829 m) Physical Exam Constitutional: She is oriented to person, place, and time. She appears well- developed and well-nourished. No distress. HENT: Head: Normocephalic. Eyes: Pupils are equal, round, and reactive to light. Neck: Neck supple. Cardiovascular: Normal rate, regular rhythm, normal heart sounds and intact distal pulses. No murmur heard. Pulmonary/Chest: Effort normal and breath sounds normal. Abdominal: Soft. Bowel sounds are normal. There is no abdominal tenderness. Genitourinary: Genitourinary Comments: Pelvic exam deferred Musculoskeletal: General: No tenderness or edema. Neurological: She is alert and oriented to person, place, and time. Skin: Skin is warm and dry. No pallor. Psychiatric: She has a normal mood and affect. Her behavior is normal. Judgment and thought contentnormal. Vitals reviewed. Diagnostic Studies / Procedures ELECTROCARDIOGRAMS: No results found for this visit on 04/25/20. LABORATORY STUDIES: No results found for this visit on 04/25/20. IMAGING STUDIES No orders to display ED Course / Medical Decision Making Results: Pulse Ox: 98 % on room air, No hypoxia, interpreted by me. Laboratory Data Reviewed: No results found for this visit on 04/25/20. Imaging Studies Reviewed: No orders to display ED Course: ED Diagnosis: Clinical Impression Acute vaginitis (Primary) Disposition: Discharge Medications - No data to display Clinical Impression Acute vaginitis (Primary) Discharge Medication List as of 04/25/2020 3:43 PM START taking these medications Details metroNIDAZOLE (METROGEL VAGINAL) 0.75 % vaginal gel Place vaginally nightly for 7 days., Starting Tue04/25/2020, Until Tue05/02/2020, Eprescribe Class: Eprescribe Pharmacy: [facility] #[id number] AT [facility] (Ph #: [phone]) Medications - No data to display Discharge Medication List as of 04/25/2020 3:43 PM START taking these medications Details metroNIDAZOLE (METROGEL VAGINAL) 0.75 % vaginal gel Place vaginally nightly for 7 days., Starting Tue04/25/2020, Until Tue05/02/2020, Eprescribe Class: Eprescribe Pharmacy: [facility] #[id number] AT [facility] (Ph #: [phone]) I have discussed today's findings with the patient and provided information regarding the likely diagnosis. The patient has been given information regarding plan. I have expressed the the importance of seeking attention should there be any new, or worsening symptoms or persistence of their condition. The patient is stable at time of disposition. Disposition: Discharge Follow-Up: Almita Sullivan MD [facility] [address] As needed, If symptoms worsen MARIBELL RODRIGUEZ NP 04/25/2020 Note: This H+P was created with the aid of dictation software, thus there may be some word substitutions or errors. Maribell Rodriguez NP 04/25/20 1632 Cosigned by Tania Babb MD at 04/25/2020 9:03 PM HIGH VALUE ASSOCIATE VALUE ASSOCIATE VALUE ASSOCIATE * Mitchel Parker RN - 04/25/2020 3:19 PM CST Pt c/o pink vaginal discharge and vaginal irritation onset 2 days ago. Pt denies urinary sx and hasno concern for STDs. VALUE ASSOCIATE documented in this encounter Plan of Treatment Not on file documented as of this encounter Visit Diagnoses Diagnosis Acute vaginitis- Primary Vaginitis and vulvovaginitis, unspecified documented in this encounter Care Teams Hairspring Staker Relationship Specialty Start Date End Date None, Provider, PCP - General 04/01/20 01/16/23 documented as of this encounter
--- OUTSIDE RECORDS SUMMARY | 2024-03-07 23:42 | XMS_ITS | Encounter Summary ---
Author Organization [facility] Address [address] [place] [address]. [place] [address] [place] [address] Care Team Providers Care Microelectronics Technician Name Role Phone Jacqueline Boyd NP Primary Care Provider [phone] Encounter Details Date Type Department Care Team (Latest Contact Info) Description 04/02/2023 Travel Social History Tobacco Use Types Packs/Day [...] Total Score: 5 03/10/20 23 10:52 AM CARD FIXER documented as of this encounter Care Teams Microelectronics Technician Relationship Specialty Start Date End Date Jacqueline [place] [address] PCP - General NURSE PRACTITIONER 02/08/23 documented as of this encounter
--- OUTSIDE RECORDS SUMMARY | 2024-03-07 23:42 | XMS_ITS | Encounter Summary ---
Author Organization [facility] Address [address] [place] [address]. [place] [address] [place] [address] Care Team Providers Care Biometrics Instructor Name Role Phone None, Provider Primary Care Provider Unavaila ble Reason for Visit * Reason Comments Throat Problem Encounter Details Date Type Department Care Team (Late st Contact Info) Description 06/29/2020 6:07 PM CDT - 06/29/2020 6:54 PM CDT Hospital Encounter [facility] [address] [place], [place] [id number] Maribell Rodriguez, VALERIY [address] [phone] Throat Problem Discharge Disposition: Home or Self Care [...] Sign Reading Time Taken Comments Blood Pressure 125/77 06/29/2020 6:08 PM CDT Pulse 84 06/29/2020 6:08 PM CDT Temperature 36.2 ??C (97.2 ??F) 06/29/2020 6:08 PM CD T Respiratory Rate 18 06/29/2020 6:08 PM CDT Oxygen Saturation 100% 06/29/2020 6:08 PM CDT Inhaled Oxygen Concentration - - Weight 115.2 kg (254 lb) 06/29/2020 6:08 PM CDT Height 180.3 cm (5' 11 ) 06/29/2020 6:08 PM CDT Body Mass Index 35.43 06/29/2020 6:08 PM CDT documented in this encounter Discharge Instructions * Discharge Instructions* Maribell Rodriguez NP - 06/29/2020 6:42 PM CDT Gargle with warm water and 1/4 teaspoons salt every hour as needed for sore throat. Replace your toothbrush in 48 hours. Drink plenty of fluids especially water, soups, broth, tea and avoid citrus beverages and coffee and carbonated beverages while you have a sore throat. Do suck on hard candies and cough drops especially Sucrets throat lozenges or Chloraseptic throat spray for pain. These products are available over the counter without a prescription. * Attachments The following attachments cannot be sent through Care Everywhere. * Sore Throat Discharge Instructions, Adult (Pashto) documented in this encounter Medications at Time of Discharge benzocaine [address] 1 lozenge (15 mg total) inside cheek every 2 (two) hours as needed for Sore throat. 84 lozenge 06/29/2020 09/17/2020 ibuprofen 800 MG tablet Take 0.5 tablets (400 mg total) by mouth every 8 (eight) hours as needed. Take with food 20 tablet 06/29/2020 07/09/2020 documented as of this encounter ED Notes * Parul Braswell RN - 06/29/2020 6:45 PM CDT RAPID STREP NEGATIVE, PROVIDER AWARE AND STATED VERBAL UNDERSTANDING. * Maribell Rodriguez NP - 06/29/2020 6:20 PM CDT Urgent Care Note Chief Complaint Chief Complaint Patient presents with ??? Throat Problem History of Present Illness 24 year old female with Past Medical History: Diagnosis Date ??? Strep throat ??? Yeast infection presents with swollen throat and white spots for 2 days. Denies any difficulty swallowing. NOTE: This patient was cared for in the middle of an unusual surge in emergency department/urgent care census directly related to the SARS-2/COVID-19 pandemic and may impact the urgent care. As a result, some of the time indices noted below may be inaccurate. Medical History ALLERGIES: No Known Allergies MEDICATIONS: Prior to Admission medications Medication Sig Start Date End Date Taking? Authorizing Provider benzocaine [address] 1 lozenge (15 mg total) inside cheek every 2 (two) hours as needed for Sore throat. 06/29/20 Yes Maribell Rodriguez NP ibuprofen 800 MG tablet Take 0.5 tablets (400 mg total) by mouth every 8 (eight) hours as needed. Take with food 06/29/20 07/09/20 Yes Maribell Rodriguez NP PAST MEDICAL HISTORY: Past Medical History: Diagnosis Date ??? Strep throat ??? Yeast infection PAST SURGICAL HISTORY: Past Surgical History: Procedure Laterality Date ??? NONE FAMILY HISTORY: Family History Problem Relation Name Age of Onset ??? Hypertension Mother ??? Other (vertigo) Mother ??? Arthritis Father ??? Epilepsy Father Family history negative SOCIAL HISTORY: Social History Tobacco Use ??? Smoking status: Never Smoker ??? Smokeless tobacco: Never Used Substance Use Topics ??? Alcohol use: Yes Comment: socially ??? Drug use: Yes Types: Marijuana Comment: daily Review of Systems Review of Systems Constitutional: Negative for chills and fever. HENT: Positive for sore throat. Eyes: Negative for visual disturbance. Respiratory: Negative for cough and shortness of breath. Cardiovascular: Negative for chest pain. Gastrointestinal: Negative for abdominal pain, constipation, diarrhea and nausea. Genitourinary: Negative for difficulty urinating. Skin: Negative for rash. Neurological: Negative for light-headedness and headaches. Psychiatric/Behavioral: Negative for decreased concentration. All other systems reviewed and are negative. Physical Exam Filed Vitals: 06/29/20 1808 BP: 125/77 Pulse: 84 Resp: 18 Temp: 97.2 ??F (36.2 ??C) TempSrc: Temporal SpO2: 100% Weight: 115.2 kg (254 lb) Height: 5' 11 (1.803 m) Physical Exam Constitutional: She is oriented to person, place, and time. She appears well- developed and well-nourished. No distress. HENT: Head: Normocephalic. Mouth/Throat: Oropharyngeal exudate present. Eyes: Pupils are equal, round, and reactive to light. Neck: Neck supple. Cardiovascular: Normal rate, regular rhythm, normal heart sounds and intact distal pulses. No murmur heard. Pulmonary/Chest: Effort normal and breath sounds normal. Abdominal: Soft. Bowel sounds are normal. There is no abdominal tenderness. Musculoskeletal: General: No tenderness or edema. Lymphadenopathy: She has no cervical adenopathy. Neurological: She is alert and oriented to person, place, and time. Skin: Skin is warm and dry. No pallor. Psychiatric: She has a normal mood and affect. Her behavior is normal. Judgment and thought contentnormal. Vitals reviewed. Diagnostic Studies / Procedures ELECTROCARDIOGRAMS: No results found for this visit on 06/29/20. LABORATORY STUDIES: No results found for this visit on 06/29/20. IMAGING STUDIES No orders to display ED Course / Medical Decision Making Results: I interpreted the patient's pulse oximeter at res 100% on room air, which is normal and determined that this patient is not hypoxic I reviewed old medical records, obtained from care everywhere, with patient's permission, as well as internal past medical records The elements of the HPI, review of [...] ability given the circumstances. Laboratory Data Reviewed: Labs unremarkable strep negative Imaging Studies Reviewed: na ED Course: Patient was provided with script , on discharge instructions Outpatient referral to PCM for follow up, benzocaine and ibuprofen ordered. Patient provided with phone number to call for an appointment. Patient instructed to call on the next during business hours. Patient informed that he should be evaluated by this specialist / or own PCP within 1 week INSURANCE referrals will need to be obtained from your own primary care provider. Call on to your own PCP, if your insurance requires referrals to see a specialist. Patient provided with printed and verbal discharge care instructions and was instructed to return to the urgent care immediately with worsening symptoms or new worrisome symptoms. I did spend time answering questions. Discharge instructions using teach back, understanding assessed and validated. Patient condition at time of discharge stable Diagnoses & treatment discussed with patient Patient expressed understanding and agreed. In my judgement, the evaluation and treatment of this patient, while thorough and complete to the best of my abilities, is potentially limited by the reduced resources available due to the COVID-19 pandemic. ED Diagnosis: Clinical Impression Pharyngitis, unspecified etiology (Primary) Disposition: Discharge Medications - No data to display Clinical Impression Pharyngitis, unspecified etiology (Primary) Discharge Medication List as of 06/29/2020 6:43 PM START taking these medications Details benzocaine [address] 1 lozenge (15 mg total) inside cheek every 2 (two) hours as needed for Sore throat., Starting 06/29/2020, Eprescribe Class: Eprescribe Pharmacy: [email or web address] #[id number] [place] [address] (Ph #: [phone]) ibuprofen 800 MG tablet Take 0.5 tablets (400 mg total) by mouth every 8 (eight) hours as needed. Take with food, Starting 06/29/2020, Until Tue07/09/2020, Eprescribe Class: Eprescribe Pharmacy: [email or web address] #[id number] [place] [address] (Ph #: [phone]) Medications - No data to display Discharge Medication List as of 06/29/2020 6:43 PM START taking these medications Details benzocaine [address] 1 lozenge (15 mg total) inside cheek every 2 (two) hours as needed for Sore throat., Starting 06/29/2020, Eprescribe Class: Eprescribe Pharmacy: [id number] [place] [address] (Ph #: [phone]) ibuprofen 800 MG tablet Take 0.5 tablets (400 mg total) by mouth every 8 (eight) hours as needed. Take with food, Starting 06/29/2020, Until Tue07/09/2020, Eprescribe Class: Eprescribe Pharmacy: [id number] [place] [address] (Ph #: [phone]) Disposition: Discharge Follow-Up: Prince Bear, DO [address] [place] [address] As needed MARIBELL RODRIGUEZ NP 06/29/2020 Note: This H+P / note was created with the aid of dictation software, thus there may be some word substitutions or errors. Maribell Rodriguez NP 06/29/202112 Cosigned by Tania Babb MD at 06/29/2020 10:54 PM CDT * Parul Braswell RN - 06/29/2020 6:10 PM CDT PT TO UC WITH C/O SWOLLEN THROAT WITH WHITE SPOTS. SX FOR 2 DAYS. DENIES ANY PAIN. documented in this encounter Plan of Treatment Not on file documented as of this encounter Procedures Procedure Name Priority Date/Time Associated Diagnosis Comments RAPID STREP A STAT 06/29/2020 6:12 PM CDT documented in this encounter Results * RAPID STREP A (06/29/2020 6:12 PM CDT) SPECIMEN TYPE THROAT 06/29/2020 6:12 PM CDT [facility] RAPID STREP TEST NEGATIVE NEGATIVE 06/30/2020 10:31 AM CDT [facility] STRUCTURE OF ANTERIOR PORTION OF NECK / Unknown 06/29/2020 6:12 PM CDT us Maribell Rodriguez NP MICROBIOLOGY - GENERAL ORDERA BLES Final Result [place] [id number] [place] [address], [place] documented in this encounter Visit Diagnoses Diagnosis Pharyngitis, unspecified etiology- Primary documented in this encounter Care Teams Biometrics Instructor Relationship Specialty Start Date End Date None, Provider, PCP - General 04/01/20 01/16/23 documented as of this encounter
--- OUTSIDE RECORDS SUMMARY | 2024-03-07 23:42 | XMS_ITS | Encounter Summary ---
Author Organization [facility] Address [address] [place] [address]. [place] [address] [place] [address] Care Team Providers Care Dye House Wheel Operator Name Role Phone Jacqueline Boyd NP Primary Care Provider [phone] Reason for Visit * Reason Onset Date Comments Lab Results 03/15/2023 Encounter Details Date Type Department Care Team (Late st Contact Info) Description 03/15/2023 Telephone [facility] Family Medicine - [place] [address] [place] [address] Jacqueline Boyd NP [address] [place] [address] Lab Results Social History Tobacco Use [...] Notes * Annalise Flynn MA - 03/15/2023 9:07 AM CST Called pt and made aware that provider will call in ABX for STD infection. NNIAL HOUSE MANAGER * Michaelle Peterson - 03/15/2023 8:25 AM CST Pt called and is wanting to know the results of her lab work she had done Call pt back regarding this NNIAL HOUSE MANAGER documented in this encounter Plan of Treatment Not on file documented as of this encounter Visit Diagnoses Not on filedocumented in this encounter Additional Health Concerns Assessment Noted Time PHQ-9 Depression Total Score: 5 03/10/20 10:52 AM PERENNIAL HOUSE MANAGER documented as of this encounter Care Teams Dye House Wheel Operator Relationship Specialty Start Date End Date Jacqueline [place] [address] PCP - General NURSE PRACTITIONER 02/08/23 documented as of this encounter
--- OUTSIDE RECORDS SUMMARY | 2024-03-07 23:42 | XMS_ITS | Encounter Summary ---
Author Organization [facility] Address [address] [place] [address]. [place] [address] [place] [address] Care Team Providers Care Plastic Die Maker Apprentice Name Role Phone Jacqueline Boyd NP Primary Care Provider [phone] Encounter Details Date Type Department Care Team (Latest Contact Info) Description 04/18/2023 Travel Social History Tobacco Use Types Packs/Day [...] Total Score: 5 03/10/20 23 10:52 AM UNDERGROUND FOREMAN documented as of this encounter Care Teams Plastic Die Maker Apprentice Relationship Specialty Start Date End Date Jacqueline Boyd [place] [address] PCP - General NURSE PRACTITIONER 02/08/23 documented as of this encounter
--- OUTSIDE RECORDS SUMMARY | 2024-03-07 23:42 | XMS_ITS | Encounter Summary ---
Author Organization [facility] Address [address] [place] [address]. [place] [address] [place] [address] Care Team Providers Care Stoner Hand Name Role Phone Jacqueline Boyd NP Primary Care Provider [phone] Reason for Visit * Reason Comments Back Pain Encounter Details Date Type Department Care Team (Late st Contact Info) Description 04/02/2023 1:45 PM DISEASE MANAGEMENT NURSE - 04/02/2023 4:04 PM [facility] Emergency [facility] [place] [address] Malu Rao, MARY ELLEN [address] [place], [place] [id number] Back Pain Discharge Disposition: Home or Self [...] Sign Reading Time Taken Comments Blood Pressure 138/88 04/02/2023 4:02 PM DISEASE MANAGEMENT NURSE Pulse 81 04/02/2023 4:02 PM DISEASE MANAGEMENT NURSE Temperature 36.2 ??C (97.1 ??F) 04/02/2023 1:41 PM CS T Respiratory Rate 18 04/02/2023 4:02 PM DISEASE MANAGEMENT NURSE Oxygen Saturation 99% 04/02/2023 4:02 PM DISEASE MANAGEMENT NURSE Inhaled Oxygen Concentration - - Weight 116.6 kg (257 lb) 04/02/2023 1:41 PM DISEASE MANAGEMENT NURSE Height - - Body Mass Index 35.84 03/11/2023 7:09 PM DISEASE MANAGEMENT NURSE documented in this encounter Discharge Instructions * Discharge Instructions* MARY ELLEN Villagran - 04/02/2023 2:58 PM DISEASE MANAGEMENT NURSE 1) For pain relief, you can use: Tylenol 650 mg every 4 hours as needed for pain (not to exceed 4 g/day) with Ibuprofen 600mg every 6-8 hours (do not exceed 3.2g/day) as needed for additional pain relief. Use medication as needed for muscle spasms/tightness. Do not drive, drink or operate heavy machinery on medication. 2) Apply ice if muscles feel swollen. Use heat to promote blood flow to muscles. 3) Early movement as tolerated is good and will avoid muscle stiffness. Stretch affected area. The goal to relief of pain is to strengthen the muscles. 4) Return to the emergency room for any new or worsening symptoms especially if you develop fever, difficulty urinating, loss of control of urine or bowel, numbness/tingling down both legs/arms, inability to walk or other new emergent concerns. 5) Follow-up with your doctor this coming week for re-evaluation and possible referral to physical therapy or sooner if needed. This is very important for your health. Thank you for giving us the opportunity [...] committed to providing you the exceptional care. We want to hear from you! Please fill out the survey you get from us. Your feedback is anonymous & helps us improve the patient experience for you and others in the community we serve. - Malu Rao PA-C - Emergency Medicine Provider ADDITIONAL DISCHARGE [...] care by your primary care physician or health consultant.Please mention to your follow-up physician that [...] Many medications can cause drowsiness, especially those forpain, anxiety, muscle spasms, nausea, and allergies. DO NOT drive, drink alcohol, operate power machinery, or participate in potentially dangerous activities if taking medicines that make you tired. Chronic pain is best managed by pain specialists or primary care physicians, so narcotic refills arenot routinely dispensed in the ED. DO NOT take multiple medications containing acetaminophen (Tylenol), such as many narcotic drug combinations and [id number] cold medicines. --Again, it was a pleasure taking care of you. ASE MANAGEMENT NURSE * Attachments The following attachments cannot be sent through Care Everywhere. * Upper Back Pain Discharge Instructions (Vincentian) * Exercises for Upper Back Pain (Vincentian) documented in this encounter Medications at Time of Discharge cyclobenzaprine (FLEXERIL) 10 MG tabletIndication s:Muscle spasm Take 1 tablet (10 mg total) by mouth 2 (two) times daily as needed for Muscle Spasms. 30 tablet 03/10/2023 04/06/2023 ibuprofen (MOTRIN) 800 MG tabletIndication s:Muscle spasm Take 1 tablet (800 mg total) by mouth every 8 (eight) hours as needed for Pain. 90 tablet 03/10/2023 04/06/2023 lidocaine 4 % patch Place 1 patch [...] this encounter ED Notes * MARY ELLEN Villagran - 04/02/2023 2:31 PM CST Images from the original note were not included. ED NOTE Chief Complaint Chief Complaint Patient presents with Back Pain History of Present Illness 27-year-old female presents to the emergency room for evaluation of bilateral upper back pain. Patient reports been going on since December. States that she is having more pleuritic pain worse with a deep breath. States that it initially was on her left side now is also on her right side. No known trauma or injury. Denies any fevers, chills, URI symptoms, lower leg edema, use of exogenous hormone,recent surgery or trauma, abdominal pain, urinary symptoms or vaginal complaints. No changes in bowel. No hemoptysis. No known history of hypercoagulable state. Denies any urine or bowel incontinence. No urinary retention. No saddle anesthesia or focal weakness. Was seen for similar complaints andhad CXR done which was negative. Medical History ALLERGIES: Review of patient's allergies indicates: No Known Allergies MEDICATIONS: Prior to Admission medications Medication Sig Start Date End Date Taking? Authorizing Provider lidocaine 4 % patch Place 1 patch onto the skin daily. Remove & Discard patch within 12 hours or as directed by 04/02/23 Yes MARY ELLEN Villagran cyclobenzaprine (FLEXERIL) 10 MG tablet Take 1 tablet (10 mg total) by mouth 2 (two) times daily asneeded for Muscle Spasms. 03/10/23 Jacqueline Boyd NP ibuprofen (MOTRIN) 800 MG tablet Take 1 tablet (800 mg total) by mouth every 8 (eight) hours as needed for Pain. 03/10/23 Jacqueline Boyd NP vitamin D2, ergocalciferol, (DRISDOL) 1.25 mg capsule Take 1 capsule (50,000 Units total) by mouth once a week for 8 doses. 03/15/23 05/04/23 Jacqueline Boyd NP PAST MEDICAL HISTORY: Past Medical History: Diagnosis Date Strep throat Yeast infection PAST SURGICAL HISTORY: Past Surgical History: Procedure Laterality Date NONE FAMILY HISTORY: Family History Problem Relation Name Age of Onset Hypertension Mother Other (vertigo) Mother Arthritis Father Epilepsy Father SOCIAL HISTORY: Social History Tobacco Use Smoking status: Never Smokeless tobacco: Never Vaping Use Vaping Use: Never used Substance Use Topics Alcohol use: Yes Comment: socially Drug use: Yes Types: Marijuana Comment: daily Review of Systems Review of Systems Musculoskeletal: Positive for back pain. All other systems reviewed and are negative. Physical Exam Filed Vitals: 04/02/23 1341 BP: (!) 141/67 Pulse: 85 Resp: 18 Temp: 97.1 ??F (36.2 ??C) TempSrc: Temporal SpO2: 100% Weight: 116.6 kg (257 lb) Physical Exam Vitals and nursing note reviewed. Constitutional: Appearance: Normal appearance. She is well-developed. Comments: Nontoxic appearing HENT: Head: Normocephalic and atraumatic. Nose: Nose normal. Mouth/Throat: Mouth: Mucous membranes are moist. Pharynx: Oropharynx is clear. Eyes: Conjunctiva/sclera: Conjunctivae normal. Cardiovascular: Rate and Rhythm: Normal rate and regular rhythm. Pulses: Normal pulses. Heart sounds: Normal heart sounds. Pulmonary: Effort: Pulmonary effort is normal. No respiratory distress. Breath sounds: Normal breath sounds. Abdominal: General: Bowel sounds are normal. There is no distension. Palpations: Abdomen is soft. Tenderness: There is no abdominal tenderness. There is no right CVA tenderness, left CVA tendernessor guarding. Musculoskeletal: General: Normal range of motion. Cervical back: Normal range of motion and neck supple. Comments: +ttp along bilateral upper back. No skin changes. No midline C/T/L spine ttp Full AROM of UE and LE. LE distal pulses, sensation, cap refill, temperature, patellar reflex and strength intact and equal bilaterally. Able to plantarflex and dorsiflex great toes bilaterally. No saddle anesthesia. No sensory or motor deficit throughout. Pt ambulatory with steady gait. No foot drop Skin: General: Skin is warm and dry. Capillary Refill: Capillary refill takes less than 2 seconds. Neurological: General: No focal deficit present. Mental Status: She is alert and oriented to person, place, and time. Psychiatric: Mood and Affect: Mood normal. Behavior: Behavior normal. Diagnostic Studies / Procedures ELECTROCARDIOGRAMS: Results for orders placed or performed during the hospital encounter of 04/02/23 ECG 12 lead Narrative [address] Test Date: 2023-04-02 Pat Name: CAROLANN ACOSTA Department: 41 Room: Gender: Female Guest House Manager: : 1995 Requested By: MALU ROA Order Number: [id number] Reading MD: Measurements Intervals [place] Rate: 95 P: 55 IA: 165 QRS: 46 QRSD: 84 T: 47 QT: 324 QTc: 407 Interpretive Statements SINUS RHYTHM POSSIBLE LEFT ATRIAL ENLARGEMENT [-0.1mV P-WAVE IN V1/V2] No previous ECG available for comparison LABORATORY STUDIES: Results for orders placed or performed during the hospital encounter of 04/02/23 CBC W/DIFF AUTOMATED Result Value Ref Range WBC 5.1 4.5 - 11.0 x10'3/uL RBC 4.76 4.20 - 5.40 x10'6/uL HGB 10.8 (L) 12.0 - 16.0 G/DL HCT 36.9 (L) 38.0 - 48.0 % MCV 77.5 (L) 81.0 - 99.0 FL MCH 22.7 (L) 27.0 - 31.0 PG MCHC 29.3 (L) 32.0 - 36.0 G/DL RDW 15.9 (H) 11.5 - 14.5 % PLT 323 130 - 400 x10'3/uL MPV 11.8 9.3 - 12.2 FL DIFFERENTIAL TYPE AUTOMATED DIFFERENTIAL NEUTROPHILS 43.9 % LYMPHOCYTES 42.4 % MONOCYTES 12.1 % EOSINOPHILS 1.0 % BASOPHILS 0.6 % IMMATURE GRANS 0.0 % ABS. NEUTROPHILS TOTAL 2.26 1.80 - 7.70 x10'3/uL ABS. LYMPHOCYTES 2.18 1.00 - 4.80 x10'3/uL ABS. MONOCYTES 0.62 0.24 - 0.86 x10'3/uL ABS. EOSINOPHILS 0.05 0.04 - 0.36 x10'3/uL ABS. BASOPHILS 0.03 0.01 - 0.08 x10'3/uL ABS. IMMATURE GRANULOCYTES 0.00 0.00 - 0.49 x10'3/uL COMPREHENSIVE METABOLIC PANEL Result Value Ref Range GLUCOSE 74 70 - 99 MG/DL BUN 9 7 - 18 MG/DL CREATININE S/P/B 0.94 0.55 - 1.02 MG/DL SODIUM S/P/B 138 136 - 145 MMOL/L POTASSIUM S/P/B 3.5 3.5 - 5.1 MMOL/L CHLORIDE S/P/B 108 100 - 108 MMOL/L CO2 25.8 21 - 32 MMOL/L CALCIUM S/P/B 9.2 8.5 - 10.1 MG/DL BILIRUBIN TOTAL S/P/B 0.2 0.2 - 1.2 MG/DL TOTAL PROTEIN S/P/B 8.6 (H) 6.4 - 8.2 G/DL ALBUMIN S/P/B 3.3 (L) 3.4 - 5.0 G/DL AST 15 15 - 37 U/L ALT 22 14 - 55 U/L ALKALINE PHOSPHATASE S/P/B 80 50 - 136 U/L ANION GAP 4.2 (L) 5 - 15 MMOL/L BUN CREATININE RATIO 9.5 6 - 26 A/G RATIO 0.6 (L) 1.0 - 2.0 RATIO GFR ESTIMATE 86 (L) >90 ML/MIN/1.73 M2 URINALYSIS Result Value Ref Range Specimen Type URINE CLEAN CATCH COLOR (U) LIGHT YELLOW TRANSPARENCY CLEAR SPECIFIC GRAVITY (U) 1.016 1.001 - 1.030 U PH 7.0 5.0 - 9.0 LEUKOCYTES (U) NEGATIVE NEGATIVE NITRITES NEGATIVE NEGATIVE PROTEIN RANDOM (U) NEGATIVE <30 MG/DL GLUCOSE (U) NORMAL NORMAL MG/DL KETONES (U) NEGATIVE NEGATIVE MG/DL UROBILINOGEN NORMAL NORMAL MG/DL BILIRUBIN (U) NEGATIVE NEGATIVE MG/DL BLOOD (U) NEGATIVE NEGATIVE CULTURE & SENSITIVITY INDICATED? CULTURE IS NOT INDICATED D-DIMER, QUANTITATIVE Result Value Ref Range D-DIMER 310 0 - 500 ng[FEU]/mL POCT urine Result Value Ref Range URINE HCG TEST NEGATIVE Internal Control: VALID IMAGING STUDIES XR CHEST PA+LAT Final Result by User, [id number] (04/02 1530) Examination: XR CHEST PA+LAT Exam time: 04/02/2023 3:12 PM Clinical history: Upper back pain. Comparison: Radiographs December 10, 2022. Technique: PA and lateral views of the chest. Findings: The cardiomediastinal silhouette appears normal. There is no pulmonary consolidation, pleural effusion or pneumothorax. The pulmonary vasculature appears normal. IMPRESSION: No acute chest disease identified. Referred By: Interpreted By: Eugene Renteria MD, 04/02/2023 3:27 PM ED Course / Medical Decision Making MDM Amount and/or Complexity of Data Reviewed Clinical lab tests: reviewed and ordered Tests in the radiology section of CPT??: reviewed and ordered ED Course as of 04/02/23 1554 Sat Apr 02, 2023 1422 ECG 12 lead EKG 1004 sinus rhythm rate 95 bpm IA 165 QTc 376 no STEMI. [AD] 1456 HGB(!): 10.8 [AD] 1456 HCT(!): 36.9 Stable from prior [AD] 1457 D-DIMER: 310 Low risk by wells, unlikely PE [AD] 1457 BLOOD (U): NEGATIVE [AD] 1530 XR CHEST PA+LAT Per rad read: No acute chest disease identified. [AD] 1552 Well-appearing nontoxic 27-year-old presents for upper back pain. Symptoms going on for multiple months. Workup unremarkable. No chest pain or shortness of breath to suggest ACS as well as EKG without acute ST changes. Patient is low risk. Chest x-ray within normal limits. D-dimer negative making PE unlikely. No evidence of respiratory distress or hypoxia. Abdominal exam benign without signs acute abdomen or peritonitis. No flank pain or evidence of blood to suggest kidney stone. Pain is reproducible with palpation suspicious for musculoskeletal etiology. Plan for conservative measures and follow-up as outpatient with PCP. Given the chronicity of symptoms and may benefit from physical therapy. Strict verbal return precautions reviewed. Patient expresses verbal understanding and agreement with plan. All questions answered to the best of my ability. Teachback performed by patient. Nontoxic exit exam. Patient discharged home in stable condition. [AD] ED Course User Index [AD] MARY ELLEN Villagran Medications ketorolac (TORADOL) injection 15 mg (15 mg Intravenous Given 04/02/23 1433) Clinical Impression Upper back pain (Primary) Current Discharge Medication List START taking these medications Details lidocaine 4 % patch Place 1 patch onto the skin daily. Remove & Discard patch within 12 hours or as directed by Qty: 10 patch, Refills: 0 Class: Eprescribe Pharmacy: [facility] #[id number] [facility] (Ph #: [phone]) Disposition: Discharge Follow-Up: Jacqueline Boyd NP [address] [facility] [address] MARY ELLEN VILLAGRAN 04/02/2023 MARY ELLEN Villagran 04/02/23 3640 Cosigned by Vic Novoa MD at 04/02/2023 9:48 PM DISEASE MANAGEMENT NURSE ASE MANAGEMENT NURSE ASE MANAGEMENT NURSE * Carina Youngblood RN - 04/02/2023 1:39 PM CST Pt presents to ED with complaints of mid back pain that has been ongoing since December. Pt denies any urinary symptoms and states the pain is worse when taking a deep breath. ASE MANAGEMENT NURSE documented in this encounter Plan of Treatment Not on file documented as of this encounter Procedures Procedure Name Priority Date/Time Associated Diagnosis Comments XR CHEST PA+LAT STAT 04/02/2023 3:27 PM DISEASE MANAGEMENT NURSE COMPREHENSIVE METABOLIC PANEL STAT 04/02/2023 2:18 PM DISEASE MANAGEMENT NURSE D-DIMER, QUANTITATIVE STAT 04/02/2023 2:18 PM DISEASE MANAGEMENT NURSE CBC W/DIFF AUTOMATED STAT 04/02/2023 2:18 PM DISEASE MANAGEMENT NURSE POCT URINE (BACK OFFICE) STAT 04/02/2023 2:05 PM DISEASE MANAGEMENT NURSE HC URINALYSIS AUTO W/O MICRO STAT 04/02/2023 2:05 PM DISEASE MANAGEMENT NURSE ECG 12-LEAD STAT 04/02/2023 2:04 PM DISEASE MANAGEMENT NURSE documented in this encounter Results * XR CHEST PA+LAT (04/02/2023 3:27 PM DISEASE MANAGEMENT NURSE) Anatomical Region Laterality Modality Chest Radiographic Bharti ging 04/02/2023 3:27 PM DISEASE MANAGEMENT NURSE Impressions 04/02/2023 3:29 PM DISEASE MANAGEMENT NURSE IMPRESSION: No acute chest disease identified. Referred By: ?? Interpreted By: Eugene Renteria MD, 04/02/2023 3:27 PM Narrative 04/02/2023 3:29 PM DISEASE MANAGEMENT NURSE Examination: XR CHEST PA+LAT Exam time: 04/02/2023 3:12 PM Clinical history: Upper back pain. Comparison: Radiographs December 10, 2022. Technique: PA and lateral views of the chest. Findings: The cardiomediastinal silhouette appears normal. There is no pulmonary consolidation, pleural effusion or pneumothorax. The pulmonary vasculature appears normal. Procedure Note Eugene Renteria MD - 04/02/2023 Examination: XR CHEST PA+LAT Exam time: 04/02/2023 3:12 PM Clinical history: Upper back pain. Comparison: Radiographs December 10, 2022. Technique: PA and lateral views of the chest. Findings: The cardiomediastinal silhouette appears normal. There is no pulmonaryconsolidation, pleural effusion or pneumothorax. The pulmonary vasculatureappears normal. IMPRESSION: No acute chest disease identified. Referred By: Interpreted By: Eugene Renteria MD, 04/02/2023 3:27 PM Malu HYDE GENERAL IMAGING Final Result * D-DIMER, QUANTITATIVE (04/02/2023 2:18 PM DISEASE MANAGEMENT NURSE) [facility] D-DIMER 310 0 - 500 ng{FEU}/mL 04/02/2023 2:57 PM DISEASE MANAGEMENT NURSE [facility] Comment: D-Dimer values less than or equal to 500 ng/mL FEU have a negative predictive value of >95% for exclusion of deep vein thrombosis and pulmonary embolism. In patients over 50 (who tend to have higher normal baseline D-Dimer values), recent studies suggest age-adjusted D-Dimer cutoff values (calculated as: age [years] x 10 ng/mL) result in equivalent outcomes and no additional false negative findings. 04/02/2023 2:18 PM DISEASE MANAGEMENT NURSE Malu HYDE LABORATORY Final Result [facility] [address] [place] [address], [place] [phone] * (ABNORMAL) COMPREHENSIVE METABOLIC PANEL (04/02/2023 2:18 PM DISEASE MANAGEMENT NURSE) [facility] GLUCOSE 74 70 - 99 MG/DL 04/02/2023 2:59 PM DISEASE MANAGEMENT NURSE [facility] BUN 9 7 - 18 MG/DL 04/02/2023 2:59 PM DISEASE MANAGEMENT NURSE [facility] CREATININE S/P/B 0.94 0.55 - 1.02 MG/DL 04/02/2023 2:59 PM DISEASE MANAGEMENT NURSE [facility] SODIUM S/P/B 138 136 - 145 MMOL/L 04/02/2023 2:59 PM [facility] POTASSIUM S/P/B 3.5 3.5 - 5.1 MMOL/L 04/02/2023 2:59 PM [facility] CHLORIDE S/P/B 108 100 - 108 MMOL/L 04/02/2023 2:59 PM [facility] CO2 25.8 21 - 32 MMOL/L 04/02/2023 2:59 PM [facility] CALCIUM S/P/B 9.2 8.5 - 10.1 MG/DL 04/02/2023 2:59 PM [facility] BILIRUBIN TOTAL S/P/B 0.2 0.2 - 1.2 MG/DL 04/02/2023 2:59 PM [facility] Comment: THIS ASSAY IS NOT RECOMMENDED FOR PATIENTS UNDERGOING TREATMENT WITH ELTROMBOPAG DUE TO THE POTENTIAL FOR FALSELY ELEVATED RESULTS. TOTAL PROTEIN S/P/B 8.6(H) 6.4 - 8.2 G/DL 04/02/2023 2:59 PM [facility] ALBUMIN S/P/B 3.3(L) 3.4 - 5.0 G/DL 04/02/2023 2:59 PM [facility] AST 15 15 - 37 U/L 04/02/2023 2:59 PM [facility] ALT 22 14 - 55 U/L 04/02/2023 2:59 PM [facility] ALKALINE PHOSPHATASE S/P/B 80 50 - 136 U/L 04/02/2023 2:59 PM [facility] ANION GAP 4.2(L) 5 - 15 MMOL/L 04/02/2023 2:59 PM DISEASE MANAGEMENT NURSE [facility] BUN CREATININE RATIO 9.5 6 - 26 04/02/2023 2:59 PM [facility] A/G RATIO 0.6(L) 1.0 - 2.0 RATIO 04/02/2023 2:59 PM [facility] GFR ESTIMATE 86(L) >90 ML/MIN/1.7 3 M2 04/02/2023 2:59 PM [facility] Comment: NOTE: eGFR is not calculated for patients <18 years of age. This is an estimated GFR calculation using the new CKD EPI creatinine equation without race and so does not require a correction factor for race. This estimated GFR should not be used for calculating drug doses. 04/02/2023 2:18 PM DISEASE MANAGEMENT NURSE Malu HYDE LABORATORY Final Result [facility] [address] [place] [address], * (ABNORMAL) CBC W/DIFF AUTOMATED (04/02/2023 2:18 PM DISEASE MANAGEMENT NURSE) WBC 5.1 4.5 - 11.0 x10'3/uL 04/02/2023 2:49 PM DISEASE MANAGEMENT NURSE [facility] RBC 4.76 4.20 - 5.40 x10'6/uL 04/02/2023 2:49 PM [facility] HGB 10.8(L) 12.0 - 16.0 G/DL 04/02/2023 2:49 PM [facility] HCT 36.9(L) 38.0 - 48.0 % 04/02/2023 2:49 PM [facility] MCV 77.5(L) 81.0 - 99.0 FL 04/02/2023 2:49 PM DISEASE MANAGEMENT NURSE [facility] MCH 22.7(L) 27.0 - 31.0 PG 04/02/2023 2:49 PM [facility] MCHC 29.3(L) 32.0 - 36.0 G/DL 04/02/2023 2:49 PM [facility] RDW 15.9(H) 11.5 - 14.5 % 04/02/2023 2:49 PM [facility] PLT 323 130 - 400 x10'3/uL 04/02/2023 2:49 PM [facility] MPV 11.8 9.3 - 12.2 FL 04/02/2023 2:49 PM [facility] DIFFERENTIAL TYPE AUTOMATED DIFFERENTIAL 04/02/2023 2:49 PM [facility] NEUTROPHILS % 43.9 % 04/02/2023 2:49 PM [facility] LYMPHOCYTES % 42.4 % 04/02/2023 2:49 PM [facility] MONOCYTES % 12.1 % 04/02/2023 2:49 PM [facility] EOSINOPHILS 1.0 % 04/02/2023 2:49 PM [facility] BASOPHILS 0.6 % 04/02/2023 2:49 PM [facility] IMMATURE GRANS % 0.0 % 04/02/19 2:49 PM [facility] ABS. NEUTROPHILS TOTAL 2.26 1.80 - 7.70 x10'3/uL 04/02/2023 2:49 PM [facility] ABS. LYMPHOCYTES 2.18 1.00 - 4.80 x10'3/uL 04/02/2023 2:49 PM [facility] ABS. MONOCYTES 0.62 0.24 - 0.86 x10'3/uL 04/02/2023 2:49 PM DISEASE MANAGEMENT NURSE [facility] ABS. EOSINOPHILS 0.05 0.04 - 0.36 x10'3/uL 04/02/2023 2:49 PM DISEASE MANAGEMENT NURSE [facility] ABS. BASOPHILS 0.03 0.01 - 0.08 x10'3/uL 04/02/2023 2:49 PM DISEASE MANAGEMENT NURSE [facility] ABS. IMMATURE GRANULOCYTES 0.00 0.00 - 0.49 x10'3/uL 04/02/2023 2:49 PM DISEASE MANAGEMENT NURSE [facility] 04/02/2023 2:18 PM DISEASE MANAGEMENT NURSE Malu HYDE LABORATORY Final Result [facility] [address] [place] [address], [place] [phone] * POCT urine (04/02/2023 2:05 PM DISEASE MANAGEMENT NURSE) URINE HCG TEST NEGATIVE Internal Control: VALID Malu HYDE POINT OF CARE TEST ORDERABLES Final Result * URINALYSIS (04/02/2023 2:05 PM DISEASE MANAGEMENT NURSE) SPECIMEN TYPE URINE CLEAN CATCH 04/02/2023 2:05 PM DISEASE MANAGEMENT NURSE [facility] COLOR (U) LIGHT YELLOW 04/02/2023 2:57 PM DISEASE MANAGEMENT NURSE [facility] TRANSPARENCY CLEAR 04/02/2023 2:57 PM DISEASE MANAGEMENT NURSE [facility] SPECIFIC GRAVITY (U) 1.016 1.001 - 1.030 04/02/2023 2:57 PM DISEASE MANAGEMENT NURSE [facility] U PH 7.0 5.0 - 9.0 04/02/2023 2:57 PM DISEASE MANAGEMENT NURSE [facility] LEUKOCYTES (U) NEGATIVE NEGATIVE 04/02/2023 2:57 PM DISEASE MANAGEMENT NURSE [facility] NITRITES NEGATIVE NEGATIVE 04/02/2023 2:57 PM DISEASE MANAGEMENT NURSE [facility] PROTEIN RANDOM (U) NEGATIVE <30 MG/DL 04/02/2023 2:57 PM DISEASE MANAGEMENT NURSE [facility] GLUCOSE (U) NORMAL NORMAL MG/DL 04/02/2023 2:57 PM DISEASE MANAGEMENT NURSE [facility] KETONES MG/DL (U) NEGATIVE NEGATIVE MG/DL 04/02/2023 2:57 PM DISEASE MANAGEMENT NURSE [facility] UROBILINOGEN NORMAL NORMAL MG/DL 04/02/2023 2:57 PM DISEASE MANAGEMENT NURSE [facility] BILIRUBIN (U) NEGATIVE NEGATIVE MG/DL 04/02/2023 2:57 PM DISEASE MANAGEMENT NURSE [facility] BLOOD (U) NEGATIVE NEGATIVE 04/02/2023 2:57 PM DISEASE MANAGEMENT NURSE [facility] CULTURE & SENSITIVITY INDICATED? CULTURE IS NOT INDICATED 04/02/2023 2:57 PM DISEASE MANAGEMENT NURSE [facility] URINE SPECIMEN OBTAINED BY CLEAN CATCH PROCEDURE / Unknown 04/02/2023 2:05 PM DISEASE MANAGEMENT NURSE us Malu HYDE URINE ORDERABLES Final Result [facility] [address] [place] [address], [place] [phone] * ECG 12 lead (04/02/2023 2:04 PM DISEASE MANAGEMENT NURSE) 04/02/2023 2:04 PM DISEASE MANAGEMENT NURSE Narrative [facility] - 04/02/2023 4:52 PM DISEASE MANAGEMENT NURSE ?[facility] ? [address], [place] ? Test Date: ?2023-04-02 Pat Name: ? JENECIA ACOSTA ? Department: ?? 41 ? Room: ? EMS1 Gender: ? Female ? Guest House Manager: ?? : ?1995 ? Requested By: MALU RAO Order Number: [id number] ? Reading MD: ?? Shiyam Satwani ? Measurements Intervals ?[place] ? Rate: ? 95 ? P: ?55 IA: ? 165 ?QRS: ?46 QRSD: ? 84 ? T: ?47 QT: ? 324 ? QTc: ?407 ? Interpretive Statements SINUS RHYTHM No previous ECG available for comparison ASE MANAGEMENT NURSE Procedure Note Racheal Snowden MD - 04/02/[address] [place] Test Date: 2023-04-02 Pat Name: CAROLANN ACOSTA Department: Room: [facility] Gender: Female Guest House Manager: : 1995 Requested By: MALU RAO Order Number: [id number] Reading MD: Racheal Snowden Measurements Intervals [place] Rate: 95 P: 55 IA: 165 QRS: 46 QRSD: 84 T: 47 QT: 324 QTc: 407 Interpretive Statements SINUS RHYTHM No previous ECG available for comparison ASE MANAGEMENT NURSE us Malu Rao PR ECG ORDERABLES [facility] documented in this encounter Visit Diagnoses Diagnosis Upper back pain- Primary documented in this encounter Administered Medications Inactive Administered Medications - up to 3 most recent administrations Medication Order MAR Action Action Date Dose Rate Site ketorolac (TORADOL) injection 15 mg 15 mg, Intravenous, Once, 1 dose, On 04/02/23 at 1445, For IV administration, give over 15 seconds. Given 04/02/2023 2:33 PM DISEASE MANAGEMENT NURSE 15 mg documented in this encounter Active and Recently Administered Medications Times are shown in DISEASE MANAGEMENT NURSE. Scheduled Medication Order 03/31/2023 04/01/2023 04/02/2023 ketorolac (TORADOL) injection 15 mg (COMPLETED) 15 mg, Intravenous, Once, 1 dose, On 04/02/23 at 1445, For IV administration, give over 15 seconds. 1433 (Given - Provid er: Sigrid Willingham RN) documented in this encounter Additional Health Concerns Assessment Noted Time PHQ-9 Depression Total Score: 5 03/10/20 23 10:52 AM DISEASE MANAGEMENT NURSE documented as of this encounter Care Teams Stoner Hand Relationship Specialty Start Date End Date [place]qu[place] [address] PCP - General NURSE PRACTITIONER 02/08/23 documented as of this encounter
--- OUTSIDE RECORDS SUMMARY | 2024-03-07 23:42 | XMS_ITS | Encounter Summary ---
Author Organization [facility] Address [address] [place] [address]. 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
--- OUTSIDE RECORDS SUMMARY | 2024-03-07 23:45 | XMS_ITS | Data Portability ---
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 Patient will come back in a year unless there are new symptoms. golden Not available 07/07/2022 16:42:59 07/12/2023 07/12/2023 The patient and I disscussed the various causes of abnormal uterine bleeding, including polyps, fibroids, hyperplasia, atypia, anovulation, etc. We reviewed the typical evaluation with labs, pelvic US and possible endometrial biopsy. Briefly discussed the options available for treatment (depending on the results of evaluation) such as hormonal treatment (OCPs, progestins), Mirena, endometrial ablation, and surgery. We spent more than 30 minutes face to face. [email or web address] Not available 07/12/2023 18:13:51 Plan of Treatment Reminders Order Date Submit Date Provider Last Modified By Organization Details Last Modified Time Details Appointments None recorded . Lab pregnanc y test, urine 2022 023 golden [address], [address], [place], [address], 16:52:29 pregnanc y test, urine 2022 023 belem [address], [address], [place], [address], 3 17:32:05 pregnanc y test, urine [address], [address], [place], [address], 4 18:25:38 urinalys is, dipstick 2023 [address], [place], [address], 4 18:25:37 culture, urine 2023 024 [facility] (Lab), [address], [place], [address], 4 06:42:00 Referral None recorded . Procedures None recorded . Surgeries None recorded . Imaging None recorded . Medication Orders metronid azole 500 mg tablet 2022 023 [email or web address] [id number], [place], [address], 4 10:45:45 fluconaz ole 150 mg tablet 2022 023 [email or web address] [id number], [place], [address], 4 10:45:45 nystatin -triamci nolone 100,000 unit/gra m-0.1 % topical ointment 2022 023 [email or web address] [id number], [place], [address], 4 10:45:45 Patient TargetsNo targets recorded. Patient InstructionsNo instructions recorded. Reason for Referral None Reported. Results Created Date Observation Date Name Description Value Unit Range Abnormal Flag Note LastModifiedBy Organization Detail LastModifiedTime 07/08/1907/07/2022 IMAGE GUIDE D PAP, REFLE X HPV IF ASCUS ONLY image guided Pap, reflex HPV ASCUS only SEE RESULT S BELOW CASE REPOR T: Cytol ogy Gynec ologi hubert Repor t Case: [id number] Autho debbie barnes Provi gary: Ila Morales, VALERIY Moses cted: 07/07 1720 Order ing Locat ion: [place] [facility] Recei phu: 07/08 0847 First Scree n: Rosalia Arriaga , CT Rescr een: Meredith Velazquez ret, CT Speci men: Scree aditi Pap - Image d, Cervi x STATE MENT OF ADEQU ACY: Satis facto ry for evalu ation Trans forma tion zone compo nent absen t The absen ce of an endoc ervic al compo nent was confi rmed by an addit ional scree ner. FINAL DIAGN OSIS: Negat katerin for Intra epith elial Keila vick or Laura bettencourt (NIL) . Shift in viraj sugge stive of bacte rial vagin osis. Elect opal larsen nadira d by Meredith Velazquez ret, CT on 2022 at 11:10 AM ----- ----- ----- ----- ----- ----- ----- ----- ----- ----- ----- ----- ----- ----- ----- ----- ----- ---- COMME NT: This speci men was revie wed by a Cytot echno logis t and/o r Patho logis t (as indic ated in this repor t) after evalu ation using the Thinp rep Imagi ng Syste m. CLINI HUBERT INFOR MATIO N: Menst rual Statu s: LMP (if appli cable ): Clini hubert Histo ry/Pr eviou s Pap: Type of Neopl julian (if appli cable ): Signi fican t Clini hubert Findi ngs: Other Histo ry: Hormo selena (if appli cable ): PAP EDUCA ROSALINE L NOTE: The Pap Test is a scree aditi test with an inher ent false negat katerin rate. Liqui d-bas ed sampl ing may decre ase, but will not elimi ryne, false negat katerin resul ts. A negat katerin resul t does not precl ude the prese nce and/o r devel opmen t of disea se, since the prese nce of abnor mal cells in the sampl e depen ds on the locat ion of the lesio n and sampl ing techn ique. Sam nued regul ar scree aditi is the best metho d of cance r preve ntion . If repor cade cytol ogic findi ng do not corre late with physi hubert and/o r histo rical findi ngs, furth er inves tigat ion is recom marisel d, as clini lavelle warra nted. Not Available [facility] (Lab) [address], [place], [address], 07/12/2022 12:14:00 07/08/19 23 07/07/2022 TRICH OMONA S VAGIN MAGDA (RRNA ) trichomonas vaginalis ribosomal RNA (rrna) Negati ve negati ve Not Available [facility] (Lab) [address] [place], [address], 07/12/2022 12:14:00 07/08/19 23 07/07/2022 CT/GC (LUIS MIGUEL) , THINP REP VIAL chlamydia trachomatis, PCR Negati ve negati ve Not Available [facility] (Lab) [address] [place], [address], 07/12/2022 12:14:01 07/08/19 23 07/07/2022 CT/GC (LUIS MIGUEL) , THINP REP VIAL neisseria gonorrhoeae, PCR Negati ve negati ve Not Available [facility] (Lab) [address] [place], [address], 07/12/2022 12:14:01 07/08/19 23 07/07/2022 pregn nevin test, urine HCG negati ve Not Available [address], [place], [address], 07/07/2022 16:52:22 11/05/19 23 11/04/2022 pregn nevin test, urine HCG negati ve Not Available [facility] [address], [place], [address], 11/04/2022 17:31:02 07/12/19 24 07/12/2023 CT/GC AND TRICH OMONA S VAGIN MAGDA (RRNA ), URINE chlamydia trachomatis, PCR Negati ve negati ve Not Available [facility] (Lab) [address], [place], [address], 07/13/2023 13:16:16 07/12/19 24 07/12/2023 CT/GC AND TRICH OMONA S VAGIN MAGDA (RRNA ), URINE neisseria gonorrhoeae, PCR Negati ve negati ve Not Available [facility] (Lab) [address], [place], [address], 07/13/2023 13:16:16 07/12/19 24 07/12/2023 CT/GC AND TRICH OMONA S VAGIN MAGDA (RRNA ), URINE trichomonas vaginalis ribosomal RNA (rrna) Negati ve negati ve Colle cted by [facility] staff . Not Available [facility] (Lab) [address], [place], [address], 07/13/2023 13:16:16 07/12/19 24 07/12/2023 CULTU RE: URINE result report SEE RESULT S BELOW Test: Cultu re: Urine Speci men Sourc e: Urine - Clean Catch Speci men Type: Urine Speci men Date: 2023 5:48 PM Resul t Date: 2023 5:37 AM Resul t Statu s: Final resul t Abnor mal: No Resul ting Lab: [facility] [address] [facility] [address] Tel: CULTU RE ----- ----- ----- --- No growt h in 1 day (dete ction level of 10,00 0 colon ies / ml.) Not Available [facility] (Lab) [address], [place], [address], 07/14/2023 06:42:00 07/12/19 24 07/12/2023 urina lysis , dipst ick Leukocytes trace Not Available [facility] anmol [address], [place], [address], 07/12/2023 18:18:15 07/12/19 24 07/12/2023 urina lysis , dipst ick Nitrite normal Not Available [facility] [address], [place], [address], 07/12/2023 18:18:15 07/12/19 24 07/12/2023 urina lysis , dipst ick Urobilinogen normal Not Available [facility] serg [address], [place], [address], 07/12/2023 18:18:15 07/12/19 24 07/12/2023 urina lysis , dipst ick Protein trace Not Available [facility] [address], [place], [address], 07/12/2023 18:18:15 07/12/19 24 07/12/2023 urina lysis , dipst ick pH 5 Not Available [facility] [address], [place], [address], 07/12/2023 18:18:15 07/12/19 24 07/12/2023 urina lysis , dipst ick Specific [place] 1.015 Not Available [facility] [address], [place], [address], 07/12/2023 18:18:15 07/12/19 24 07/12/2023 urina lysis , dipst ick Ketone normal Not Available [facility] [address], [place], [address], 07/12/2023 18:18:15 07/12/19 24 07/12/2023 urina lysis , dipst ick Bilirubin normal Not Available [facility] [address], [place], [address], 07/12/2023 18:18:15 07/12/19 24 07/12/2023 urina lysis , dipst ick Glucose normal Not Available [facility] [address], [place], [address], 07/12/2023 18:18:15 07/12/19 24 07/12/2023 urina lysis , dipst ick Appearance normal Not Available [facility] [address], [place], [address], 07/12/2023 18:18:15 07/12/19 24 07/12/2023 urina lysis , dipst ick Color normal Not Available [facility] [address], [place], [address], 07/12/2023 18:18:15 07/12/19 24 07/12/2023 pregn nevin test, urine HCG negati ve Not Available [address], [place], [address], 07/12/2023 18:17:24 Result Notes None recorded. Procedures Surgical History Date Name Laterality Status Provider Name and Address Organization Details Recorded Time 06/27/2022 Date of Last Pap Smear completed Yakelin King [facility] 06/06/2023 10:46:16 Imaging Results None recorded. Procedure Notes None recorded. Medical Equipment None Reported. Allergies No known drug allergies Medications Name Sig Start Date Stop Date Status Note LastModified by Organization Details LastModified Time cyclobenzap rine 10 mg tablet TAKE 1 TABLET BY MOUTH TWICE DAILY NEEDED FOR MUSCLE SPASMS. active Not Available Not Available No t Available doxycycline hyclate 100 mg capsule TAKE 1 CAPSULE BY MOUTH TWICE A DAY FOR 7 DAYS active Not Available Not Available No t Available ibuprofen 800 mg tablet TAKE 1 TABLET BY MOUTH EVERY 8 HOURS NEEDED FOR PAIN active Not Available Not Available No t Available fluconazole 150 mg tablet TAKE 1 TABLET BY MOUTH NOW, REPEAT IN 7 DAYS active Not Available Not Available No t Available metronidazo le 0.75 % (37.5 mg/5 gram) vaginal gel 07/11 completed Not Available Not Available Not Available metronidazo le 500 mg tablet TAKE 1 TABLET BY MOUTH EVERY 12 HOURS FOR 7 DAYS active Not Available Not Available No t Available amoxicillin 500 mg tablet TAKE 1 TABLET (500 MG TOTAL) BY MOUTH 2 (TWO) TIMES DAILY FOR 10 DAYS. 07/07 completed Not Available Not Available Not Available nystatin-tr iamcinolone 100,000 unit/gram-0 .1 % topical ointment APPLY TO THE AFFECTED AREA(S) BY TOPICAL ROUTE 2 TIMES PER DAY FOR 5 DAYS active Not Available Not Available No t Available oseltamivir 75 mg capsule 07/07 completed Not Available Not Available Not Available norethindro ne acetate 5 mg tablet TAKE 1 TABLET BY MOUTH 3 TIMES A DAY FOR 10 DAYS 07/07 completed Not Available Not Available Not Available ergocalcife rol (vitamin D2) 1,250 mcg (50,000 unit) capsule TAKE 1 CAPSULE BY MOUTH ONE TIME PER WEEK FOR 8 DOSES active Not Available Not Available No t Available methylpredn isolone 4 mg tablets in a dose pack TAKE 6 TABLETS ON DAY 1 DIRECTED ON PACKAGE AND DECREASE BY 1 TAB EACH DAY FOR A TOTAL OF 6 DAYS active Not Available Not Available No t Available ondansetron 4 mg disintegrat ing tablet 07/07 completed Not Available Not Available Not Available Vitals Date Recorded Body height Body mass index (BMI) Body weight Systolic blood pressure Diastolic blood pressure Provider Name and Address Organization Details Last Updated DateTime 07/07/2022 180.34 cm 35.1 kg/m2 947228.8 4 g 110 mm[Hg] 67 mm[Hg] Krista Richard [facility] 3 16:43:46 Date Recorded Body height Body mass index (BMI) Body weight Systolic blood pressure Diastolic blood pressure Provider Name and Address Organization Details Last Updated DateTime 11/04/2022 180.34 cm 35.1 kg/m2 887078.8 4 g 121 mm[Hg] 82 mm[Hg] Krista Richard [facility] 3 17:13:56 Date Recorded Body height Body mass index (BMI) Body weight Systolic blood pressure Diastolic blood pressure Provider Name and Address Organization Details Last Updated DateTime 06/06/2023 180.34 cm 36.5 kg/m2 153155.2 g 133 mm[Hg] 86 mm[Hg] Yakelin King [facility] 4 15:01:26 Date Recorded Body height Body mass index (BMI) Body weight Systolic blood pressure Diastolic blood pressure Provider Name and Address Organization Details Last Updated DateTime 07/12/2023 180.34 cm 36.4 kg/m2 107562.6 1 g 122 mm[Hg] 81 mm[Hg] Deepali Hardy [facility] 4 18:14:27 Social History Question Answer Notes LastModified by Organizat ion Details LastModified Time Tobacco Smoking Status Never Smoker Dionna Castellon [email or web address], [facility] 11/04/2022 16:54:57 What Is Your Level Of Alcohol Consumption? Occasional Information not available 07/07/2022 How Many Years Have You Consumed Alcohol? 2 Information not available 07/07/2022 Are You Blind Or Do You Have Difficulty Seeing? No Information not available 07/07/2022 What Is Your Level Of Caffeine Consumption? Occasional [email or web address] Information not available 07/12/2023 How Much Tobacco Do You Chew? None Information not available 07/07/2022 In The 14 Days Before Symptom Onset, Have You Had Close Contact With A Laboratory-confir med COVID-19 While That Case Was Ill? No Information not available 07/07/2022 In The 14 Days Before Symptom Onset, Have You Had Close Contact With A Person Who Is Under Investigation For COVID-19 While That Person Was Ill? No Information not available 07/07/2022 Have You Been To An Area Known To Be High Risk For COVID-19? No Information not available 07/07/2022 Are You Deaf Or Do You Have Serious Difficulty Hearing? No Information not available 07/07/2022 What Type Of Diet Are You Following? REGULAR Information not available 07/07/2022 What Is The Highest Grade Or Level Of School You Have Completed Or The Highest Degree You Have Received? [id number] Information not available 07/12/2023 What Is Your Occupation? [employer] Information not available 07/07/2022 Are There Any Guns Present In Your Home? No Information not available 07/07/2022 Do You Use Protection During Sex? No [email or web address] Information not available 07/12/2023 Do You Use Your Seat Belt Or Car Seat Routinely? Yes Information not available 07/07/2022 Do You Have Smoke And Carbon Monoxide Detectors In Your Home? Yes Information not available 07/07/2022 At What Age Did You Start Smoking Tobacco? 0 Information not available 07/07/2022 How Much Tobacco Do You Smoke? No Information not available 07/07/2022 Do You Feel Stressed (tense, Restless, Nervous, Or Anxious, Or Unable To Sleep At Night)? [id number] Information not available 07/07/2022 Do You Use Any Illicit Or Recreational Drugs? Yes Information not available 07/07/2022 Do You Use Sunscreen Routinely? No Information not available 07/07/2022 How Many Years Have You Smoked Tobacco? 0 Information not available 07/07/2022 Have You Used IV Drugs? No Information not available 07/07/2022 Sex: Unknown Functional Status Question Answer Note LastModified by Organizat ion Details LastModified Time Do you have difficulty walking or climbing stairs? No [email or web address] Information not available 11/04/2022 Are you able to walk? YESWOREST Information not available 07/07/2022 Are you able to care for yourself? Yes Information not available 11/04/2022 Do you have difficulty dressing or bathing? No Information not available 11/04/2022 What is your exercise level? None Information not available 07/07/2022 Mental Status None recorded. Family History Relationship Description Onset Age of this Age Resolved Age Notes LastModified by Organization Details LastModified Time Maternal Uncle Heart disease [email or web address] Not available 2023 10:45:15 Maternal Uncle Heart disease Not available 2023 17:57:34 Father Substance abuse [email or web address] Not available 2023 10:45:15 Father Asthma [email or web address] Not available 07/12/2023 17:57:34 Paternal Grandmother Diabetes mellitus [email or web address] Not available 2023 10:45:15 Maternal Aunt Heart disease [email or web address] Not available 2023 10:45:15 Maternal Aunt Heart disease [email or web address] Not available 2023 17:57:34 Mother Hypertensive disorder [email or web address] Not available 2023 17:57:34 Mother Heart disease [email or web address] Not available 2023 17:57:34 Maternal Grandmother Heart disease [email or web address] Not available 2023 17:57:34 Medical History Condition Response Allergies (Food, seasonal, environmental ) N Other N Drug/Latex Allergies/Reactions N Blood Transfusion N Breast Cancer N Dermatologic Disorders N Lung Disease N Defects or Inherited Disease N Breast Problem N Gestational Diabetes N Hematologic disorders N Anesthesia Complications N History of STI Y Deep Vein Thrombosis N Polycystic ovary syndrome N Anxiety Disorder N Autoimmune disease N Arthritis N Polyps N Infertility N Acid Reflux (GERD) N History of abnormal pap N Cancer N Varicosities N Stroke N Neurologic/Epilepsy N Endometriosis N High Cholesterol N Fibromyalgia N Headaches N Kidney Disease N Heart Problems N Thyroid Problems N Kidney or Bladder Problems N GI Problems N Eating Disorder N Anemia N Art (IVF or FET) N Psychiatric Illness N Ovarian Cancer N Diabetes N Pulmonary (TB, Asthma) N Hepatitis/Liver Disease N No Past Medical History N Eczema N Urinary Tract Infection N Abuse/Domestic Violence N Asthma N Trauma/Violence N Depression/ depression N Heart Disease N Pre-Eclampsia N Hypertension N Osteoporosis N Thrombophilias N Gynecological History Statement/Question Response Abnormal Pap N Flow Heavy Date of Last Mammogram Date of LMP 05/19/2023 On BCP's at Conception? N N Was last menstrual period normal N STIs/STDs Y HPV Vaccine N Duration of Flow (days) 8 Current Control Method None Are cycles usually normal Y Sexually Active? Y Menses Monthly Y Date of DEXA bone scan Age of first menstrual cycle 15 Date of Last Pap Smear 06/27/2022 Sexual Problems? N LMP Approximate N Obstetrics History GPAL:G 0 P 0 0 0 0 Type Value Living 0 Total 0 Past Encounters Encounter ID Performer Location Encounter Start Date Encounter Closed Date Diagnosis/Indication Diagnosis SNOMED-CT Code Diagnosis ICD10 Code [id number] Ila Morales VALERIY [facility] [address] [address] 07/07/2022 16:30:21 07/07/2022 17:11:21 Amenorrhea 60869702 N91.2 Gynecologi c examination 35110859 Z01.419 Venereal d isease screening 480129380 Z11.3 [id number] Ila Morales [facility] [address],[place] [address] 11/04/2022 16:53:10 11/05/2022 12:28:41 Irregular periods 30514976 N92.6 Vaginitis 39774874 N76.0 Venereal d isease screening 258411428 Z11.3 Unprotecte d sexual intercourse 5650517 Z72.51 [id number] Ila Morales [facility] [address],[place] [address] 06/06/2023 14:57:39 06/06/2023 15:38:31 Reproductive care management 922766342 Z31.9 [id number] [facility] [address],[place] [address] 07/12/2023 17:56:35 07/13/2023 08:29:20 Abnormal uterine bleeding 4146531962 9100 N93.9 Irregular periods 274045 07 N92.6 Health Concerns Section Related Observation LastModified by Organization Detai ls LastModified Time None Recorded Concern Status LastModified by Organization Details LastModified Time None Recorded Advance Directives Directive None Recorded Payers Encounter Date Sequence Insurance Name Policy Number Policy Duffy Covered Member ID Duffy Member ID Guarantor Name 07/07/2022 1 [facility] [id number] Jenecia Haddad [id number] Jenecia Haddad 11/04/2022 1 [facility] [id number] Jenecia Haddad [id number] Jenecia Haddad 06/06/2023 1 [facility] [id number] Jenecia Hadadd [id number] Jenecia Haddad 07/12/2023 1 [facility] [id number] Jenecia Haddad [id number] Jenecia Haddad Notes Date Note Type Note Provider Name and Address Organization Details Recorded Time 3 text/html Annual GYNReported bypatient.Menstrual cycle:Normal menses Urinary symptoms:No hematuria; No incontinence Vulva:No genital lesion Vagina:Normal vaginal discharge Breast:No breast pain; No breast lump; No nipple discharge Current Contraception:Satisfie d with current contraception; Condoms Sexual complaints:No sexual complaints; No pain during intercourse; Normal libido Menopausal Symptoms:No menopausal symptoms; Normal vaginal lubrication Psychological symptoms:No depression; No anxiety; No PMDD Preventive measures:Encourage self breast examination; Encourage regular exercise; Encourage no tobacco use; Encourage regular mammograms starting age 40 CASTILLO Perez [address], [place], [address], [facility] 07/07/2022 17:05:19 3 text/html 27yopresents for evaluation of vaginal itching, discharge, irritation, odorssymptoms started 2 weeks ago, recently SA with new partnerfishy odor, itching, felt like she had cuts on vulva that resolved 1 week agowithdrawal for BCneg pelvic painneg n/v/f CASTILLO Perez [address], [place], [address], [facility] 11/05/2022 09:16:53 4 text/html 27yo [email or web address] for consultation on TTCTTC x 1.5 months with steady male partnermonthly periods, normal in duration and flowdenies any medical conditions, no medications, non smoker CASTILLO Perez [address], [place], [address], [facility] 06/06/2023 15:28:28 4 text/html Here today for irregular spotting x 2-3 day; 1 wk prior to the onset of her menses last month.Due for another menses this coming tuesday of this month.No spotting this monthAttempting to achieve .No sx's today Neg pain of abd/pelvis/flankNeg urinary sx'sNeg GI sx'sNeg N/V/F/C/DNeg Vag d/c, odor, irritation, itchingMonogamous ACSTILLO Ibanez-BC [address], [place], [address], [facility] 07/12/2023 18:27:51 OBGyn Episode No OBEpisode recorded.
== END 2024-03-04 01:05 | disposition short-term general hospital (02) ==
PROVIDERS: Admitting Provider Obstetrics & Gynecology; PCP Obstetrics & Gynecology; Visit Provider Obstetrics & Gynecology
DX: O26.892 Other specified pregnancy related conditions, second trimester (principal); R10.32 Left lower quadrant pain; M54.9 Dorsalgia, unspecified; W19.XXXA Unspecified fall, initial encounter; O99.112 Other diseases of the blood and blood-forming organs and certain disorders involving the immune mechanism complicating pregnancy, second trimester; D68.8 Other specified coagulation defects; Z3A.27 27 weeks gestation of pregnancy; Z79.82 Long term (current) use of aspirin; Z79.899 Other long term (current) drug therapy
CPT/HCPCS: 36415; 76815; 80053; 81001; 85027; 85384; 85610; 85730; 96374; A9270; G0378; G0379; J3475; J7120